=== PATIENT | female | born 1970 | race Caucasian/White ===

== ENCOUNTER → 2016-03-23 | Outpatient (CLI) | payer MEDICARE, MEDICAID, OTHER ==
[~2016-03-23] MED LIST: /DIVA50TA PO; ALIEVE PO; ASPI1TAB PO; BACL10TA2 OR; CITA40TA PO; CYCL7.5T2 PO; DEPA250T32 PO; DICL75TA PO; FURO40TA2 PO; GABA300C3 PO; HYDR-3719 PO; IBUP80TA PO; LISI-538 PO; LISI10TA4 OR; LODINE PO; MOBI15TA PO; MULTIVIT PO; OXYC10TA PO; OXYC1TAB23 PO; PANT40TA2 PO; PERC5TAB6 PO; PRED10TA PO; ROBA750T4 PO; SOMA350T PO; TIZA4CAP3 PO; TIZA4TAB OR; TRAM50TA2 OR; VICO5TAB PO; ZANT150T PO; ZOLO50TA PO; hydrocodone 10/325 PO; neurontin PO; oxycodone PO
== END ==
LOC: M PAIN 09:40
PROVIDERS: ATTEND Nurse Practitioner Family
DX: Z09 Encounter for follow-up examination after completed treatment for conditions other than malignant neoplasm (principal); G89.29 Other chronic pain; M51.24 Other intervertebral disc displacement, thoracic region; M79.1 Myalgia; G40.919 Epilepsy, unspecified, intractable, without status epilepticus; G43.909 Migraine, unspecified, not intractable, without status migrainosus; I10 Essential (primary) hypertension; R01.1 Cardiac murmur, unspecified; K21.9 Gastro-esophageal reflux disease without esophagitis; F41.9 Anxiety disorder, unspecified; Z91.030 Bee allergy status; L23.1 Allergic contact dermatitis due to adhesives; Z88.1 Allergy status to other antibiotic agents; Z79.891 Long term (current) use of opiate analgesic; Z79.82 Long term (current) use of aspirin; Z79.899 Other long term (current) drug therapy

== ENCOUNTER → 2016-04-18 | Outpatient (CLI) | payer MEDICARE, MEDICAID, OTHER ==
--- NOTE | 2016-05-03 01:40 | ECWPNPC ---
PATIENT NAME: TIMOTHY YOU : 1970 GENDER: FEMALE VISIT DATE: 04/18/2016 DISCHARGE DATE: 04/18/16 1024 VISIT LOCKED DATE TIME: PHYSICIAN: NANCY MEEHAN RESOURCE: NANCY MEEHAN REASON FOR APPOINTMENT 1. BACK/ MEDS HISTORY OF PRESENT ILLNESS HISTORY OF PRESENT ILLNESS: PAIN THE PATIENT DESCRIBES THE PAIN... FALL RISK SCREENING: SCREENING :NO FALLS IN THE PAST YEAR TODAY'S VISIT: NOTES: RATES PAIN TODAY 10/10. NOTES PAIN ACROSS THE MID AND LOW BACK, WELL IN THE RIGHT LEG. IS NOTING SWELLING IN LEFT HIP, AND OVER THE TOP OF THE LEFT FOOT. WILL BE SEEING DR LOONEY TODAY. . CURRENT MEDICATIONS TAKING PANTOPRAZOLE SODIUM 40 MG TABLET DELAYED RELEASE 1 TAB ORALLY ONCE DAILY TAKING FUROSEMIDE 20 MG TABLET 1 TABLET ORALLY ONCE A DAY TAKING NORTRIPTYLINE HCL 100 MG CAPSULE 1 CAPSULE ORALLY AT BEDTIME TAKING EPIPEN 2-HUMBERTO 0.3 MG/0.3ML DEVICE 1 INJECTION INJECTION NEEDED FOR BEE STING TAKING FREESTYLE TEST TEST STRIP STRIP 1 STRIP IN VITRO TO CHECK GLUCOSE UP TO TID (ICD9 251.2) TAKING MULTIVITAMINS CAPSULE 1 ORALLY DAILY TAKING ASPIR-LOW 81 MG TABLET DELAYED RELEASE 1 TABLET ORALLY ONCE A DAY TAKING DEPAKOTE 250 MG TABLET DELAYED RELEASE 1 TAB IN THE AM ORALLY AND 2 TABS IN THE PM-(NEURO) TAKING COLACE 100 MG CAPSULE 1 CAPSULE NEEDED ORALLY ONCE A DAY TAKING ATIVAN 0.5 MG TABLET 1 TABLET NEEDED ORALLY DAILY PRN MDD=1 TAKING VISTARIL 25 MG CAPSULE 1 CAPSULE ORALLY BID TAKING LISINOPRIL 20 MG TABLET 1 TABLET ORALLY ONCE A DAY TAKING PERCOCET 10-325 MG TABLET 1 TABLET NEEDED ORALLY BID PRN PAIN MDD=2 TAKING ZOLOFT 100 MG TABLET 2 TABLETS ORALLY ONCE A DAY NOT-TAKING PREDNISONE 10 MG TABLET 1 TABLET ORALLY TAKE 5 TAB DAILY X 2, 4 X 2 DAY, 3 X 2 DAY, 2X 2 DAY, 1X 2 DAYS, NOTES: 1 MONTH NOT-TAKING GABAPENTIN 300 MG CAPSULE 1 CAPSULE ORALLY THREE TIMES A DAY, NOTES: 2 MONTHS MEDICATION LIST REVIEWED AND RECONCILED WITH THE PATIENT PAST MEDICAL HISTORY SEIZURES BURSITIS LEFT HIP CHRONIC LOW BACK PAIN (PAIN CLINIC) ANXIETY MIGRAINE HEADACHES HEART MURMUR HTN CHRONIC MIGRAINE WITHOUT AURA, WITHOUT MENTION OF INTRACTABLE MIGRAINE WITHOUT MENTION OF STATUS MIGRAINOSUS ESOPHAGEAL REFLUX ANXIETY STATE, UNSPECIFIED UNSPECIFIED EPILEPSY WITHOUT MENTION OF INTRACTABLE EPILEPSY ALLERGIES BEE STING: SWELLING: ALLERGY BUSPAR: SEVERE HYPERACTIVITY/IRRITABILITY: ALLERGY PAPER TAPE: RASH: ALLERGY BACTRIM: NAUSEA/VOMITING: ALLERGY SOCIAL HISTORY GENERAL: TOBACCO USE ARE YOU A:NONSMOKER LEARNING BARRIERS / SPECIAL NEEDS ORIENTED TO PLAN OF CARE: PATIENT, PAIN MANAGEMENT PATIENT, ORIENTED TO PLAN OF CARE: PATIENT, PAIN MANAGEMENT PATIENT. NEW PATIENT PAIN DIARY TODAY'S VISITNOTES FROM 0-10, WHAT LEVEL IS YOUR PAIN TODAY?0 PAIN CLINIC PFS, CLERGY, PUBLIC HEALTH REFERRALS PFS REFERRAL NEEDED?NO CLERGY REFERRAL NEEDED?NO PUBLIC HEALTH REFERRAL NEEDED?NO WAS THE PROVIDER NOTIFIED OF ANY PERTINENT INFO?NO PFS REFERRAL NEEDED?NO CLERGY REFERRAL NEEDED?NO PUBLIC HEALTH REFERRAL NEEDED?NO WAS THE PROVIDER NOTIFIED OF ANY PERTINENT INFO?NO REVIEW OF SYSTEMS CONSTITUTIONAL: ANY CHANGE IN YOUR MEDICAL CONDITION? NO . CHILLS NO . FEVER NO . INFECTION: DO YOU HAVE NEW INFECTIONS? NO . DO YOU HAVE HISTORY OF MRSA? NO . MUSCULOSKELETAL: ANY NEW PATTERNS OF PAIN OR NUMBNESS? NO . GASTROENTEROLOGY: ANY NEW CHANGE IN BOWEL CONTROL? NO . GENITOURINARY: ANY NEW CHANGE IN BLADDER CONTROL? NO . IS THERE A CHANCE YOU COULD BE ? NO . HEMATOLOGY/LYMPH: DO YOU TAKE ANY BLOOD THINNERS? (FOR EXAMPLE- COUMADIN, PLAVIX, AGGRENOX, PLATEL, PRADAXA, OR XARELTO) NO . WHEN WAS YOUR LAST DOSE? DATE: TIME: . NEUROLOGY: HAVE YOU FALLEN IN THE PAST 6 MONTHS? NO . ANY NEW EXTREMITY NUMBNESS OR WEAKNESS? NO . CARDIOLOGY: DO YOU HAVE A PACEMAKER OR DEFIBRILLATOR? NO . PATIENT COMPLAINING OF CHEST PAIN LAST NIGHT. HAS HAD THIS BEFORE AND WAS GIVEN ATIC=VAN . RESPIRATORY: HAVE YOU BEEN SICK IN THE PAST WEEK? NO . FEVER NO . FLU LIKE SYMPTOMS? NO . COUGH NO . INTEGUMENTARY: DO YOU HAVE ANY RASHES OR OPEN SORES? NO . ALLERGIC/IMMUNO: ARE YOU ALLERGIC TO SHELLFISH OR IV DYE? NO . ANY NEW ALLERGIES? NO . PSYCHIATRIC: DO YOU HAVE THOUGHTS OF HURTING YOURSELF OR SOMEONE ELSE? NO . ARE YOU ABUSED, NEGLECTED, OR IN AN UNSAFE ENVIRONMENT? NO . ENDOCRINOLOGY: ARE YOU DIABETIC? NO . OTHER: DO YOU NEED ANY PRESCRIPTIONS? NO . IF YES, PLEASE LIST: ____ . ANY NEW PROBLEMS WITH YOUR MEDICATIONS? NO . WHEN DID YOU LAST EAT? ____ . WHEN DID YOU LAST DRINK? ____ . WHAT DID YOU LAST DRINK? ____ . NAME OF PERSON DRIVING YOU HOME? ____ . DO YOU HAVE ANY OTHER QUESTIONS OR CONCERNS NO . REVIEWED BY: PROVIDER: NANCY MAS . VITAL SIGNS WT 190.4 LBS, HT 60.75 IN, BMI 36.27 INDEX, BP 95/67 MM HG, HR 111 /MIN, RR 16 /MIN, TEMP 97.3 F, OXYGEN SAT % 99%, NA INITIALS SC 09:46, REVIEWED BY: CS. EXAMINATION GENERAL EXAMINATION: PSYCHALERT , ORIENTED X 3 , APPROPRIATE MOOD AND AFFECT APPEARS VERY UNCOMFORTABLE. LUNGS:CLEAR TO AUSCULTATION BILATERALLY. HEART:HEART RATE REGULAR. MUSCULOSKELETAL:POINT TENDERNESS OVER MID THORACIC SPINOUS PROCESSES. TRIGGER POINTS:, ELICITED WITH PALPATION OVER THORACIC AND LUMBAR PARAVERTEBRAL MUSCLES AND INTO THE SACRUM. RESTRICTION OF ROM IN THIS AREA. POINT TENDERNESS OVER RIGHT SIJ AND RIGHT TROCANTERIC BURSA. CAN WALK - RIGHT FOOT STIFF, MINIMAL TENDERNESS. 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 UTOX TODAY. WALK MUCH POSSIBLEPATIENT IS ANXIOUS TO MOVE FORWARD WITH DORSAL COLUMN STIMULATOR TRIAL. COMPLETED HER PSYCHOLOGICAL EVALUATION. WE ARE STILL AWAITING THE RETURN OF THE NOTES. CLINICAL NOTES: ISTOP REGISTRY REVIEWED AND DEMNOSTRATES COMPLLIANCE. BRINGS IN MEDICATIONS WHICH IS APPROPRIATE FOR WHAT WAS DISPENSED. RECENT URINE TOXICOLOGY REVIEWED. NO UNAUTHORIZED MEDICATIONS. NO ILLICIT SUBSTANCES AND PRESCRIBED MEDICATIONS WERE PRESENT. PROCEDURE CODES FA211 ESTABILISHED PATIENT [facility] FACILITY CHARGE G8730 PAIN ASSESS POS TOOL F/U PLAN DOC G8427 DOC MEDS VERIFIED W/PT OR RE DISPOSITION & COMMUNICATION FOLLOW UP NEEDS DATE WITH DR CHICHO MOYA TO DISCUSS DCS AND PSYCH EVAL ELECTRONICALLY SIGNED BY KATERIN ECHEVERRIA ON 05/02/2016 AT 02:29 PM EST DISCLAIMER : THIS IS A VISIT SUMMARY EXTRACTED FROM THE [employer] CHART. IT IS NOT A COPY OF THE [employer] PROGRESS NOTE. ELLA
== END ==
LOC: M PAIN 09:20
PROVIDERS: ATTEND Nurse Practitioner Family
DX: Z09 Encounter for follow-up examination after completed treatment for conditions other than malignant neoplasm (principal); G89.29 Other chronic pain; M51.24 Other intervertebral disc displacement, thoracic region; M79.1 Myalgia; I10 Essential (primary) hypertension; K21.9 Gastro-esophageal reflux disease without esophagitis; F41.9 Anxiety disorder, unspecified; G40.409 Other generalized epilepsy and epileptic syndromes, not intractable, without status epilepticus; G43.709 Chronic migraine without aura, not intractable, without status migrainosus; R92.8 Other abnormal and inconclusive findings on diagnostic imaging of breast; M46.97 Unspecified inflammatory spondylopathy, lumbosacral region; M70.72 Other bursitis of hip, left hip; M79.673 Pain in unspecified foot; M70.62 Trochanteric bursitis, left hip; M12.88 Other specific arthropathies, not elsewhere classified, other specified site; M47.816 Spondylosis without myelopathy or radiculopathy, lumbar region; M47.817 Spondylosis without myelopathy or radiculopathy, lumbosacral region; M51.14 Intervertebral disc disorders with radiculopathy, thoracic region; M46.96 Unspecified inflammatory spondylopathy, lumbar region; M51.16 Intervertebral disc disorders with radiculopathy, lumbar region; Z91.030 Bee allergy status; Z88.8 Allergy status to other drugs, medicaments and biological substances; L23.1 Allergic contact dermatitis due to adhesives; Z88.1 Allergy status to other antibiotic agents; Z79.891 Long term (current) use of opiate analgesic; Z79.82 Long term (current) use of aspirin; Z79.899 Other long term (current) drug therapy

== ENCOUNTER → 2016-04-25 | Outpatient (CLI) | payer MEDICARE, MEDICAID, OTHER ==
--- NOTE | 2016-05-05 00:19 | ECWPNPC ---
PATIENT NAME: TIMOTHY YOU : 1970 GENDER: FEMALE VISIT DATE: 04/25/2016 DISCHARGE DATE: 04/25/16 1351 VISIT LOCKED DATE TIME: PHYSICIAN: FLORESITA VALENTINO RESOURCE: FLORESITA VALENTINO REASON FOR APPOINTMENT 1. LOW BACK PAIN HISTORY OF PRESENT ILLNESS HISTORY OF PRESENT ILLNESS: PAIN THE PATIENT DESCRIBES THE PAIN... 45 YEAR OLD FEMALE PATIENT WITH HISTORY OF CHRONIC BACK PAIN. PATIENT DESCRIBES THE PAIN ACHING, SHARP, TENDER, SORE, SHOOTING, AND HAVING IT ALL THE TIME WITH A PAIN SCORE OF 10/10. PATIENT RECEIVED A PSYCHOLOGICAL EVALUATION FOR THE DCS TRIAL AND WOULD LIKE TO MOVE FORWARD WITH THE TRIAL SOON POSSIBLE. CURRENTLY THE PATIENT IS USING NORTRIPTYLINE AND PERCOCET AND STATES THAT IT DOES AID IN PAIN RELIEF. MRS. YOU STATES THAT HER PAIN INCREASES WITH ANY TYPE OF ACTIVITY AND THAT AT THIS TIME SHE HAS NOT FOUND RELIEF IN ANYTHING. PATIENT DENIES UNEXPLAINABLE WEIGHT LOSS, FEVER, CHILLS, NEW CHANGES ON HER URINARY OR BOWEL CONTROL. FALL RISK SCREENING: SCREENING :NO FALLS IN THE PAST YEAR CURRENT MEDICATIONS TAKING PANTOPRAZOLE SODIUM 40 MG TABLET DELAYED RELEASE 1 TAB ORALLY ONCE DAILY TAKING FUROSEMIDE 20 MG TABLET 1 TABLET ORALLY ONCE A DAY TAKING NORTRIPTYLINE HCL 100 MG CAPSULE 1 CAPSULE ORALLY AT BEDTIME TAKING EPIPEN 2-HUMBERTO 0.3 MG/0.3ML DEVICE 1 INJECTION INJECTION NEEDED FOR BEE STING TAKING FREESTYLE TEST TEST STRIP STRIP 1 STRIP IN VITRO TO CHECK GLUCOSE UP TO TID (ICD9 251.2) TAKING MULTIVITAMINS CAPSULE 1 ORALLY DAILY TAKING ASPIR-LOW 81 MG TABLET DELAYED RELEASE 1 TABLET ORALLY ONCE A DAY TAKING DEPAKOTE 250 MG TABLET DELAYED RELEASE 1 TAB IN THE AM ORALLY AND 2 TABS IN THE PM-(NEURO) TAKING COLACE 100 MG CAPSULE 1 CAPSULE NEEDED ORALLY ONCE A DAY TAKING ATIVAN 0.5 MG TABLET 1 TABLET NEEDED ORALLY DAILY PRN MDD=1 TAKING VISTARIL 25 MG CAPSULE 1 CAPSULE ORALLY BID TAKING LISINOPRIL 20 MG TABLET 1 TABLET ORALLY ONCE A DAY TAKING ZOLOFT 100 MG TABLET 1 1/2 TABLETS ORALLY ONCE A DAY TAKING PERCOCET 10-325 MG TABLET 1 TABLET NEEDED ORALLY BID PRN PAIN MDD=2 NOT-TAKING PREDNISONE 10 MG TABLET 1 TABLET ORALLY TAKE 5 TAB DAILY X 2, 4 X 2 DAY, 3 X 2 DAY, 2X 2 DAY, 1X 2 DAYS, NOTES: 1 MONTH NOT-TAKING GABAPENTIN 300 MG CAPSULE 1 CAPSULE ORALLY THREE TIMES A DAY, NOTES: 2 MONTHS MEDICATION LIST REVIEWED AND RECONCILED WITH THE PATIENT PAST MEDICAL HISTORY SEIZURES BURSITIS LEFT HIP CHRONIC LOW BACK PAIN (PAIN CLINIC) ANXIETY MIGRAINE HEADACHES HEART MURMUR HTN CHRONIC MIGRAINE WITHOUT AURA, WITHOUT MENTION OF INTRACTABLE MIGRAINE WITHOUT MENTION OF STATUS MIGRAINOSUS ESOPHAGEAL REFLUX ANXIETY STATE, UNSPECIFIED UNSPECIFIED EPILEPSY WITHOUT MENTION OF INTRACTABLE EPILEPSY ALLERGIES BEE STING: SWELLING: ALLERGY BUSPAR: SEVERE HYPERACTIVITY/IRRITABILITY: ALLERGY PAPER TAPE: RASH: ALLERGY BACTRIM: NAUSEA/VOMITING: ALLERGY SURGICAL HISTORY C-SECTIONS 1994, 1995 SHAYY AND BSO 1995 T&A CHILD KIDNEY SURGERY (? URETER REPAIR) 3 Y/O MEDIAN AND ULNAR NERVE REPAIRS BILATERAL APPENDECTOMY 2004 CHOLECYSTECTOMY 08/19/13 PLANTAR FASCITIS 09/05/2015 FAMILY HISTORY NO FAMILY HISTORY DOCUMENTED. SOCIAL HISTORY GENERAL: TOBACCO USE ARE YOU A:NONSMOKER LEARNING BARRIERS / SPECIAL NEEDS ORIENTED TO PLAN OF CARE: PATIENT, PAIN MANAGEMENT PATIENT, ORIENTED TO PLAN OF CARE: PATIENT, PAIN MANAGEMENT PATIENT. NEW PATIENT PAIN DIARY TODAY'S VISITNOTES FROM 0-10, WHAT LEVEL IS YOUR PAIN TODAY?0 PAIN CLINIC PFS, CLERGY, PUBLIC HEALTH REFERRALS PFS REFERRAL NEEDED?NO CLERGY REFERRAL NEEDED?NO PUBLIC HEALTH REFERRAL NEEDED?NO WAS THE PROVIDER NOTIFIED OF ANY PERTINENT INFO?NO PFS REFERRAL NEEDED?NO CLERGY REFERRAL NEEDED?NO PUBLIC HEALTH REFERRAL NEEDED?NO WAS THE PROVIDER NOTIFIED OF ANY PERTINENT INFO?NO HOSPITALIZATION/MAJOR DIAGNOSTIC PROCEDURE SURGERY RELATED CHILDBIRTH RELATED REVIEW OF SYSTEMS CONSTITUTIONAL: ANY CHANGE IN YOUR MEDICAL CONDITION? NO . CHILLS NO . FEVER NO . INFECTION: DO YOU HAVE NEW INFECTIONS? NO . DO YOU HAVE HISTORY OF MRSA? NO . MUSCULOSKELETAL: ANY NEW PATTERNS OF PAIN OR NUMBNESS? NO . GASTROENTEROLOGY: ANY NEW CHANGE IN BOWEL CONTROL? NO . GENITOURINARY: ANY NEW CHANGE IN BLADDER CONTROL? NO . IS THERE A CHANCE YOU COULD BE ? NO . HEMATOLOGY/LYMPH: DO YOU TAKE ANY BLOOD THINNERS? (FOR EXAMPLE- COUMADIN, PLAVIX, AGGRENOX, PLATEL, PRADAXA, OR XARELTO) NO . WHEN WAS YOUR LAST DOSE? DATE: TIME: . NEUROLOGY: HAVE YOU FALLEN IN THE PAST 6 MONTHS? NO . ANY NEW EXTREMITY NUMBNESS OR WEAKNESS? NO . CARDIOLOGY: DO YOU HAVE A PACEMAKER OR DEFIBRILLATOR? NO . RESPIRATORY: HAVE YOU BEEN SICK IN THE PAST WEEK? NO . FEVER NO . FLU LIKE SYMPTOMS? NO . COUGH NO . INTEGUMENTARY: DO YOU HAVE ANY RASHES OR OPEN SORES? NO . ALLERGIC/IMMUNO: ARE YOU ALLERGIC TO SHELLFISH OR IV DYE? NO . ANY NEW ALLERGIES? NO . PSYCHIATRIC: DO YOU HAVE THOUGHTS OF HURTING YOURSELF OR SOMEONE ELSE? NO . ARE YOU ABUSED, NEGLECTED, OR IN AN UNSAFE ENVIRONMENT? NO . ENDOCRINOLOGY: ARE YOU DIABETIC? NO . OTHER: DO YOU NEED ANY PRESCRIPTIONS? NO . IF YES, PLEASE LIST: ____ . ANY NEW PROBLEMS WITH YOUR MEDICATIONS? NO . WHEN DID YOU LAST EAT? ____ . WHEN DID YOU LAST DRINK? ____ . WHAT DID YOU LAST DRINK? ____ . NAME OF PERSON DRIVING YOU HOME? ____ . DO YOU HAVE ANY OTHER QUESTIONS OR CONCERNS NO . REVIEWED BY: PROVIDER: FLORESITA VALENTINO MD . VITAL SIGNS WT 193 LBS, HT 60.75 IN, BMI 36.76 INDEX, BP 109/76 MM HG, HR 83 /MIN, RR 16 /MIN, TEMP 98.5 F, OXYGEN SAT % 97%, NA INITIALS SC 11:44, REVIEWED BY: AD. EXAMINATION : PATIENT IS ALERT O X 3 AND COOPERATIVE. TENDERNESS IN THE LOWER BACK AND PARASPINAL MUSCLE GROUP. MRI DONE ON 12/26/15 SHOWS CANAL STENOSIS ALONG WITH A DISC PROTRUSION AT L3-L4 AND DISC BULGES AT L4-L5 AND L5-S1. ASSESSMENTS INTERVERTEBRAL DISC DISORDER WITH RADICULOPATHY OF LUMBAR REGION - M51.16 (PRIMARY) TREATMENT INTERVERTEBRAL DISC DISORDER WITH RADICULOPATHY OF LUMBAR REGION NOTES: WE DISCUSSED SEVERAL ISSUES WITH MRS. YOU'S PAIN MANAGEMENT CASE. AT THIS TIME THE PATIENT WILL CONTINUE WITH THE SAME MEDIATION REGIME BEFORE. PATIENT DENIES ABUSE OF ANY MEDICATION, DENIES USE OF ILLEGAL SUBSTANCES, AND STATES THAT SHE IS ONLY USING THE MEDICATION FOR PAIN MANAGEMENT. URINE TOXICOLOGY REPORT DONE ON 04/28/16 SHOWS CONSISTENT RESULTS. WE DISCUSSED THE PATIENTS PSYCHOLOGICAL EVALUATION FROM DR. TEIXEIRA, I WOULD LIKE THE PATIENT TO HAVE COUNSELING DONE BEFORE THE PERMANENT IS PLACED BASED ON THE REPORT. I WOULD ALSO LIKE THE PATIENT TO RECEIVE A LUMBAR EPIDURAL AT L3-L4 DUE TO THE NEW FINDING OF THE DISC PROTRUSION AFTER THE DCS TRIAL. WE DISCUSSED THE RISKS,M BENEFITS, AND ALTERNATIVES OF THE INJECTION AND THE PATIENT WOULD LIKE TO PROCEED. WE DISCUSSED IN DETAIL THAT THE TRIAL WAS MUCH MORE INVASIVE THEN THE DCS TRIAL AND THE PATIENT WAS ADDIMENT ABOUT MOVING FORWARD WITH THE DCS. I WOULD ALSO LIKE THE PATIENT TO HAVE A SURGICAL CONSULT AFTER THE TRIAL. INSTRUCTIONS WERE GIVEN, QUESTIONS WERE ANSWERED, PATIENT REPORTS UNDERSTANDING AND AGREES WITH THE PLAN. I, JAYLEN MANRIQUEZ, DOCUMENTED THE ABOVE INFORMATION ACTING A SCRIBE FOR DR. VALENTINO. I HAVE REVIEWED THE ABOVE DOCUMENT, WRITTEN BY JAYLEN PORRAS AND I VERIFY THAT IT IS ACCURATE. PROCEDURE CODES FA211 ESTABILISHED PATIENT [facility] FACILITY CHARGE G8427 DOC MEDS VERIFIED W/PT OR RE G8730 PAIN ASSESS POS TOOL F/U PLAN DOC DISPOSITION & COMMUNICATION FOLLOW UP LESI AFTER APPROVAL ELECTRONICALLY SIGNED BY FLORESITA VALENTINO MD ON 05/04/2016 AT 06:51 AM EST DISCLAIMER : THIS IS A VISIT SUMMARY EXTRACTED FROM THE [employer] CHART. IT IS NOT A COPY OF THE [employer] PROGRESS NOTE. ELLA
== END ==
LOC: M PAIN 11:40
PROVIDERS: ATTEND Anesthesiology
DX: Z09 Encounter for follow-up examination after completed treatment for conditions other than malignant neoplasm (principal); G89.29 Other chronic pain; M51.16 Intervertebral disc disorders with radiculopathy, lumbar region; I10 Essential (primary) hypertension; G43.709 Chronic migraine without aura, not intractable, without status migrainosus; K21.9 Gastro-esophageal reflux disease without esophagitis; F41.9 Anxiety disorder, unspecified; M79.1 Myalgia; G40.409 Other generalized epilepsy and epileptic syndromes, not intractable, without status epilepticus; M51.14 Intervertebral disc disorders with radiculopathy, thoracic region; M51.24 Other intervertebral disc displacement, thoracic region; M70.62 Trochanteric bursitis, left hip; M46.97 Unspecified inflammatory spondylopathy, lumbosacral region; M47.816 Spondylosis without myelopathy or radiculopathy, lumbar region; M47.817 Spondylosis without myelopathy or radiculopathy, lumbosacral region; M46.96 Unspecified inflammatory spondylopathy, lumbar region; M12.88 Other specific arthropathies, not elsewhere classified, other specified site; Z91.030 Bee allergy status; Z88.8 Allergy status to other drugs, medicaments and biological substances; L23.89 Allergic contact dermatitis due to other agents; Z79.82 Long term (current) use of aspirin; Z79.891 Long term (current) use of opiate analgesic; Z79.899 Other long term (current) drug therapy

== ENCOUNTER → 2016-05-17 | Outpatient (CLI) | payer MEDICARE, MEDICAID, OTHER ==
--- NOTE | 2016-05-26 23:32 | ECWPNPC ---
PATIENT NAME: TIMOTHY YOU : 1970 GENDER: FEMALE VISIT DATE: 05/17/2016 DISCHARGE DATE: 05/17/16 1151 VISIT LOCKED DATE TIME: PHYSICIAN: FLORESITA VALENTINO RESOURCE: FLORESITA VALENTINO REASON FOR APPOINTMENT 1. LOW BACK HISTORY OF PRESENT ILLNESS HISTORY OF PRESENT ILLNESS: PAIN THE PATIENT DESCRIBES THE PAIN... 45 YEAR OLD FEMALE PATIENT WITH HISTORY OF CHRONIC BACK PAIN. PATIENT DESCRIBES THE PAIN ACHING, TENDER, SORE, SHARP, AND HAVING IT ALL THE TIME WITH A PAIN SCORE OF 10/10 ON TODAY'S VISIT. PATIENT STATES THAT SHE HAS DIFFICULTIES GOING TO SLEEPING AND STAYING ASLEEP DUE TO THE PAIN IN HER BACK. PATIENT STATES THAT SHE CONSTANTLY HAS RADIATING PAIN DOWN BOTH LEGS. PATIENT STATES THAT SHE WOULD LIKE TO CONTINUE WITH THE DCS TRIAL SOON POSSIBLE. CURRENTLY THE PATIENT IS USING NORTRIPTYLINE AND PERCOCET AND STATES THAT IT DOES AID IN PAIN RELIEF. MRS. YOU STATES THAT HER PAIN INCREASES WITH ANY TYPE OF ACTIVITY. PATIENT DENIES UNEXPLAINABLE WEIGHT LOSS, FEVER, CHILLS, NEW CHANGES ON HER URINARY OR BOWEL CONTROL. FALL RISK SCREENING: SCREENING :NO FALLS IN THE PAST YEAR CURRENT MEDICATIONS TAKING PANTOPRAZOLE SODIUM 40 MG TABLET DELAYED RELEASE 1 TAB ORALLY ONCE DAILY TAKING FUROSEMIDE 20 MG TABLET 1 TABLET ORALLY ONCE A DAY TAKING NORTRIPTYLINE HCL 100 MG CAPSULE 1 CAPSULE ORALLY AT BEDTIME TAKING EPIPEN 2-HUMBERTO 0.3 MG/0.3ML DEVICE 1 INJECTION INJECTION NEEDED FOR BEE STING TAKING FREESTYLE TEST TEST STRIP STRIP 1 STRIP IN VITRO TO CHECK GLUCOSE UP TO TID (ICD9 251.2) TAKING MULTIVITAMINS CAPSULE 1 ORALLY DAILY TAKING ASPIR-LOW 81 MG TABLET DELAYED RELEASE 1 TABLET ORALLY ONCE A DAY TAKING DEPAKOTE 250 MG TABLET DELAYED RELEASE 2 ORALLY BID TAKING COLACE 100 MG CAPSULE 1 CAPSULE NEEDED ORALLY ONCE A DAY TAKING ATIVAN 0.5 MG TABLET 1 TABLET NEEDED ORALLY DAILY PRN MDD=1 TAKING VISTARIL 25 MG CAPSULE 1 CAPSULE ORALLY BID TAKING LISINOPRIL 20 MG TABLET 1 TABLET ORALLY ONCE A DAY TAKING ZOLOFT 100 MG TABLET 1 1/2 TABLETS ORALLY ONCE A DAY TAKING PERCOCET 10-325 MG TABLET 1 TABLET NEEDED ORALLY BID PRN PAIN MDD=2 NOT-TAKING PREDNISONE 10 MG TABLET 1 TABLET ORALLY TAKE 5 TAB DAILY X 2, 4 X 2 DAY, 3 X 2 DAY, 2X 2 DAY, 1X 2 DAYS, NOTES: 1 MONTH NOT-TAKING GABAPENTIN 300 MG CAPSULE 1 CAPSULE ORALLY THREE TIMES A DAY, NOTES: 2 MONTHS MEDICATION LIST REVIEWED AND RECONCILED WITH THE PATIENT PAST MEDICAL HISTORY SEIZURES BURSITIS LEFT HIP CHRONIC LOW BACK PAIN (PAIN CLINIC) ANXIETY MIGRAINE HEADACHES HEART MURMUR HTN CHRONIC MIGRAINE WITHOUT AURA, WITHOUT MENTION OF INTRACTABLE MIGRAINE WITHOUT MENTION OF STATUS MIGRAINOSUS ESOPHAGEAL REFLUX ANXIETY STATE, UNSPECIFIED UNSPECIFIED EPILEPSY WITHOUT MENTION OF INTRACTABLE EPILEPSY ALLERGIES BEE STING: SWELLING: ALLERGY BUSPAR: SEVERE HYPERACTIVITY/IRRITABILITY: ALLERGY PAPER TAPE: RASH: ALLERGY BACTRIM: SEVERE HYPER ACTIVITY/ IRRITABLE: ALLERGY WELLBUTRIN SURGICAL HISTORY C-SECTIONS 1994, 1995 SHAYY AND BSO 1995 T&A CHILD KIDNEY SURGERY (? URETER REPAIR) 3 Y/O MEDIAN AND ULNAR NERVE REPAIRS BILATERAL APPENDECTOMY 2004 CHOLECYSTECTOMY 08/19/13 PLANTAR FASCITIS 09/05/2015 FAMILY HISTORY NO FAMILY HISTORY DOCUMENTED. SOCIAL HISTORY GENERAL: TOBACCO USE ARE YOU A:NONSMOKER LEARNING BARRIERS / SPECIAL NEEDS ORIENTED TO PLAN OF CARE: PATIENT, PAIN MANAGEMENT PATIENT, ORIENTED TO PLAN OF CARE: PATIENT, PAIN MANAGEMENT PATIENT. NEW PATIENT PAIN DIARY TODAY'S VISITNOTES FROM 0-10, WHAT LEVEL IS YOUR PAIN TODAY?0 PAIN CLINIC PFS, CLERGY, PUBLIC HEALTH REFERRALS PFS REFERRAL NEEDED?NO CLERGY REFERRAL NEEDED?NO PUBLIC HEALTH REFERRAL NEEDED?NO WAS THE PROVIDER NOTIFIED OF ANY PERTINENT INFO?NO PFS REFERRAL NEEDED?NO CLERGY REFERRAL NEEDED?NO PUBLIC HEALTH REFERRAL NEEDED?NO WAS THE PROVIDER NOTIFIED OF ANY PERTINENT INFO?NO HOSPITALIZATION/MAJOR DIAGNOSTIC PROCEDURE SURGERY RELATED CHILDBIRTH RELATED REVIEW OF SYSTEMS CONSTITUTIONAL: ANY CHANGE IN YOUR MEDICAL CONDITION? NO . CHILLS NO . FEVER NO . INFECTION: DO YOU HAVE NEW INFECTIONS? NO . DO YOU HAVE HISTORY OF MRSA? NO . MUSCULOSKELETAL: ANY NEW PATTERNS OF PAIN OR NUMBNESS? NO . GASTROENTEROLOGY: ANY NEW CHANGE IN BOWEL CONTROL? NO . GENITOURINARY: ANY NEW CHANGE IN BLADDER CONTROL? NO . IS THERE A CHANCE YOU COULD BE ? NO . HEMATOLOGY/LYMPH: DO YOU TAKE ANY BLOOD THINNERS? (FOR EXAMPLE- COUMADIN, PLAVIX, AGGRENOX, PLATEL, PRADAXA, OR XARELTO) NO . WHEN WAS YOUR LAST DOSE? DATE: TIME: . NEUROLOGY: HAVE YOU FALLEN IN THE PAST 6 MONTHS? NO . ANY NEW EXTREMITY NUMBNESS OR WEAKNESS? NO . CARDIOLOGY: DO YOU HAVE A PACEMAKER OR DEFIBRILLATOR? NO . RESPIRATORY: HAVE YOU BEEN SICK IN THE PAST WEEK? NO . FEVER NO . FLU LIKE SYMPTOMS? NO . COUGH NO . INTEGUMENTARY: DO YOU HAVE ANY RASHES OR OPEN SORES? NO . ALLERGIC/IMMUNO: ARE YOU ALLERGIC TO SHELLFISH OR IV DYE? NO . ANY NEW ALLERGIES? NO . PSYCHIATRIC: DO YOU HAVE THOUGHTS OF HURTING YOURSELF OR SOMEONE ELSE? NO . ARE YOU ABUSED, NEGLECTED, OR IN AN UNSAFE ENVIRONMENT? NO . ENDOCRINOLOGY: ARE YOU DIABETIC? NO . OTHER: DO YOU NEED ANY PRESCRIPTIONS? NO . IF YES, PLEASE LIST: ____ . ANY NEW PROBLEMS WITH YOUR MEDICATIONS? NO . WHEN DID YOU LAST EAT? ____ . WHEN DID YOU LAST DRINK? ____ . WHAT DID YOU LAST DRINK? ____ . NAME OF PERSON DRIVING YOU HOME? ____ . DO YOU HAVE ANY OTHER QUESTIONS OR CONCERNS NO . REVIEWED BY: PROVIDER: FLORESITA VALENTINO MD . VITAL SIGNS WT 193 LBS, HT 60.75 IN, BMI 36.76 INDEX, BP 140/73 MM HG, HR 84 /MIN, RR 16 /MIN, TEMP 98.6 F, OXYGEN SAT % 98, NA INITIALS TL 0914. EXAMINATION : PATIENT IS ALERT O X 3 AND COOPERATIVE. TENDERNESS IN THE LOWER BACK AND PARASPINAL MUSCLE GROUP. MRI DONE ON 12/26/15 SHOWS CANAL STENOSIS ALONG WITH A DISC PROTRUSION AT L3-L4 AND DISC BULGES AT L4-L5 AND L5-S1. ASSESSMENTS INTERVERTEBRAL DISC DISORDERS WITH RADICULOPATHY, LUMBAR REGION - M51.16 (PRIMARY) INTERVERTEBRAL DISC DISORDERS WITH RADICULOPATHY, LUMBOSACRAL REGION - M51.17 TREATMENT INTERVERTEBRAL DISC DISORDERS WITH RADICULOPATHY, LUMBAR REGION NOTES: WE DISCUSSED SEVERAL ISSUES WITH MRS. YOU'S PAIN MANAGEMENT CASE. AT THIS TIME THE PATIENT WILL CONTINUE WITH THE SAME MEDIATION REGIME BEFORE. PATIENT DENIES ABUSE OF ANY MEDICATION, DENIES USE OF ILLEGAL SUBSTANCES, AND STATES THAT SHE IS ONLY USING THE MEDICATION FOR PAIN MANAGEMENT. UTOX ORDERED ON 04/28/2016 SHOWS CONSISTENT RESULTS. WE DISCUSSED IN DETAIL ABOUT THE PSYCHOLOGICAL EVALUATION FROM DR. TEIXEIRA, I WOULD LIKE THE PATIENT TO HAVE COUNSELING DONE BEFORE THE PERMANENT IS PLACED BASED ON THE REPORT. INFORMED THE PATIENT AT THIS TIME I WILL HOLD OFF ON THE EPIDURAL IF THERE IS A POSSIBILITY THAT SHE MAY HAVE THE DCS TRIAL IN THE NEXT FEW WEEKS. I WOULD ALSO LIKE THE PATIENT TO HAVE A SURGICAL CONSULT AFTER THE TRIAL. INSTRUCTIONS WERE GIVEN, QUESTIONS WERE ANSWERED, PATIENT REPORTS UNDERSTANDING AND AGREES WITH THE PLAN. I, LEE ANN SALAS, DOCUMENTED THE ABOVE INFORMATION ACTING A SCRIBE FOR DR. VALENTINO. I HAVE REVIEWED THE ABOVE DOCUMENT, WRITTEN BY LEE ANN SALAS SCRIBE AND I VERIFY THAT IT IS ACCURATE. OTHERS REFILL PERCOCET TABLET, 10-325 MG, 1 TABLET NEEDED, ORALLY, BID PRN PAIN MDD=2, 30 DAY(S), 60, REFILLS 0 PROCEDURE CODES FA211 ESTABILISHED PATIENT [facility] FACILITY CHARGE G8730 PAIN ASSESS POS TOOL F/U PLAN DOC G8427 DOC MEDS VERIFIED W/PT OR RE DISPOSITION & COMMUNICATION FOLLOW UP 2 WEEKS ELECTRONICALLY SIGNED BY FLORESITA VALENTION MD ON 05/26/2016 AT 08:35 PM EDT DISCLAIMER : THIS IS A VISIT SUMMARY EXTRACTED FROM THE [employer] CHART. IT IS NOT A COPY OF THE [email or web address] PROGRESS NOTE. MTDD
== END ==
LOC: M PAIN 09:40
PROVIDERS: ATTEND Anesthesiology
DX: Z09 Encounter for follow-up examination after completed treatment for conditions other than malignant neoplasm (principal); G89.29 Other chronic pain; M51.16 Intervertebral disc disorders with radiculopathy, lumbar region; M51.17 Intervertebral disc disorders with radiculopathy, lumbosacral region; G40.909 Epilepsy, unspecified, not intractable, without status epilepticus; F41.9 Anxiety disorder, unspecified; G43.909 Migraine, unspecified, not intractable, without status migrainosus; I10 Essential (primary) hypertension; K21.9 Gastro-esophageal reflux disease without esophagitis; Z91.030 Bee allergy status; L23.1 Allergic contact dermatitis due to adhesives; Z88.1 Allergy status to other antibiotic agents; Z88.8 Allergy status to other drugs, medicaments and biological substances; Z79.82 Long term (current) use of aspirin; Z79.899 Other long term (current) drug therapy

== ENCOUNTER → 2016-05-31 | Outpatient (CLI) | payer MEDICARE, MEDICAID, OTHER ==
[~2016-05-31] MED LIST changes: +PAME50CA PO
--- NOTE | 2016-06-04 23:28 | ECWPNPC ---
PATIENT NAME: TIMOTHY YOU : 1970 GENDER: FEMALE VISIT DATE: 05/31/2016 DISCHARGE DATE: 05/31/16 1718 VISIT LOCKED DATE TIME: PHYSICIAN: FLORESITA VALENTINO RESOURCE: FLORESITA VALENTINO REASON FOR APPOINTMENT 1. LOW BACK PAIN HISTORY OF PRESENT ILLNESS HISTORY OF PRESENT ILLNESS: PAIN THE PATIENT DESCRIBES THE PAIN... 45 YEAR OLD FEMALE PATIENT WITH HISTORY OF CHRONIC BACK PAIN. PATIENT DESCRIBES THE PAIN ACHING, TENDER, SORE, SHARP, AND HAVING IT ALL THE TIME WITH A PAIN SCORE OF 10/10 ON TODAY'S VISIT. PATIENT STATES THAT SHE HAS DIFFICULTIES GOING TO SLEEPING AND STAYING ASLEEP DUE TO THE PAIN IN HER BACK. PATIENT STATES THAT SHE CONSTANTLY HAS RADIATING PAIN DOWN BOTH LEGS. PATIENT WILL RECEIVE THE DCS TRIAL ON 06/04/16 DUE TO CANCELLATIONS. CURRENTLY THE PATIENT IS USING NORTRIPTYLINE AND PERCOCET AND STATES THAT IT DOES AID IN PAIN RELIEF. MRS. YOU STATES THAT HER PAIN INCREASES WITH ANY TYPE OF ACTIVITY. PATIENT DENIES UNEXPLAINABLE WEIGHT LOSS, FEVER, CHILLS, NEW CHANGES ON HER URINARY OR BOWEL CONTROL. FALL RISK SCREENING: SCREENING :NO FALLS IN THE PAST YEAR CURRENT MEDICATIONS TAKING PERCOCET 10-325 MG TABLET 1 TABLET NEEDED ORALLY BID PRN PAIN MDD=2 TAKING NORTRIPTYLINE HCL 100 MG CAPSULE 1 CAPSULE ORALLY AT BEDTIME TAKING EPIPEN 2-HUMBERTO 0.3 MG/0.3ML DEVICE 1 INJECTION INJECTION NEEDED FOR BEE STING TAKING FREESTYLE TEST TEST STRIP STRIP 1 STRIP IN VITRO TO CHECK GLUCOSE UP TO TID (ICD9 251.2) TAKING MULTIVITAMINS CAPSULE 1 ORALLY DAILY TAKING ASPIR-LOW 81 MG TABLET DELAYED RELEASE 1 TABLET ORALLY ONCE A DAY TAKING DEPAKOTE 250 MG TABLET DELAYED RELEASE 2 ORALLY BID TAKING COLACE 100 MG CAPSULE 1 CAPSULE NEEDED ORALLY ONCE A DAY TAKING ATIVAN 0.5 MG TABLET 1 TABLET NEEDED ORALLY DAILY PRN MDD=1 TAKING ZOLOFT 100 MG TABLET 1 1/2 TABLETS ORALLY ONCE A DAY TAKING LISINOPRIL 20 MG TABLET 1 TABLET ORALLY ONCE A DAY TAKING VISTARIL 25 MG CAPSULE 1 CAPSULE ORALLY BID TAKING FUROSEMIDE 20 MG TABLET 1 TABLET ORALLY ONCE A DAY TAKING PANTOPRAZOLE SODIUM 40 MG TABLET DELAYED RELEASE 1 TAB ORALLY ONCE DAILY NOT-TAKING PREDNISONE 10 MG TABLET 1 TABLET ORALLY TAKE 5 TAB DAILY X 2, 4 X 2 DAY, 3 X 2 DAY, 2X 2 DAY, 1X 2 DAYS, NOTES: 1 MONTH NOT-TAKING GABAPENTIN 300 MG CAPSULE 1 CAPSULE ORALLY THREE TIMES A DAY, NOTES: 2 MONTHS MEDICATION LIST REVIEWED AND RECONCILED WITH THE PATIENT PAST MEDICAL HISTORY SEIZURES BURSITIS LEFT HIP CHRONIC LOW BACK PAIN (PAIN CLINIC) ANXIETY MIGRAINE HEADACHES HEART MURMUR HTN CHRONIC MIGRAINE WITHOUT AURA, WITHOUT MENTION OF INTRACTABLE MIGRAINE WITHOUT MENTION OF STATUS MIGRAINOSUS ESOPHAGEAL REFLUX ANXIETY STATE, UNSPECIFIED UNSPECIFIED EPILEPSY WITHOUT MENTION OF INTRACTABLE EPILEPSY ALLERGIES BEE STING: SWELLING: ALLERGY BUSPAR: SEVERE HYPERACTIVITY/IRRITABILITY: ALLERGY PAPER TAPE: RASH: ALLERGY BACTRIM: SEVERE HYPER ACTIVITY/ IRRITABLE: ALLERGY WELLBUTRIN SURGICAL HISTORY C-SECTIONS 1994, 1995 SHAYY AND BSO 1995 T&A CHILD KIDNEY SURGERY (? URETER REPAIR) 3 Y/O MEDIAN AND ULNAR NERVE REPAIRS BILATERAL APPENDECTOMY 2004 CHOLECYSTECTOMY 08/19/13 PLANTAR FASCITIS 09/05/2015 FAMILY HISTORY NO FAMILY HISTORY DOCUMENTED. SOCIAL HISTORY GENERAL: TOBACCO USE ARE YOU A:NONSMOKER LEARNING BARRIERS / SPECIAL NEEDS ORIENTED TO PLAN OF CARE: PATIENT, PAIN MANAGEMENT PATIENT, ORIENTED TO PLAN OF CARE: PATIENT, PAIN MANAGEMENT PATIENT. NEW PATIENT PAIN DIARY TODAY'S VISITNOTES FROM 0-10, WHAT LEVEL IS YOUR PAIN TODAY?0 PAIN CLINIC PFS, CLERGY, PUBLIC HEALTH REFERRALS PFS REFERRAL NEEDED?NO CLERGY REFERRAL NEEDED?NO PUBLIC HEALTH REFERRAL NEEDED?NO WAS THE PROVIDER NOTIFIED OF ANY PERTINENT INFO?NO PFS REFERRAL NEEDED?NO CLERGY REFERRAL NEEDED?NO PUBLIC HEALTH REFERRAL NEEDED?NO WAS THE PROVIDER NOTIFIED OF ANY PERTINENT INFO?NO HOSPITALIZATION/MAJOR DIAGNOSTIC PROCEDURE SURGERY RELATED CHILDBIRTH RELATED REVIEW OF SYSTEMS CONSTITUTIONAL: ANY CHANGE IN YOUR MEDICAL CONDITION? NO . CHILLS NO . FEVER NO . INFECTION: DO YOU HAVE NEW INFECTIONS? NO . DO YOU HAVE HISTORY OF MRSA? NO . MUSCULOSKELETAL: ANY NEW PATTERNS OF PAIN OR NUMBNESS? NO . GASTROENTEROLOGY: ANY NEW CHANGE IN BOWEL CONTROL? NO . GENITOURINARY: ANY NEW CHANGE IN BLADDER CONTROL? NO . IS THERE A CHANCE YOU COULD BE ? NO . HEMATOLOGY/LYMPH: DO YOU TAKE ANY BLOOD THINNERS? (FOR EXAMPLE- COUMADIN, PLAVIX, AGGRENOX, PLATEL, PRADAXA, OR XARELTO) NO . WHEN WAS YOUR LAST DOSE? DATE: TIME: . NEUROLOGY: HAVE YOU FALLEN IN THE PAST 6 MONTHS? NO . ANY NEW EXTREMITY NUMBNESS OR WEAKNESS? NO . CARDIOLOGY: DO YOU HAVE A PACEMAKER OR DEFIBRILLATOR? NO . RESPIRATORY: HAVE YOU BEEN SICK IN THE PAST WEEK? NO . FEVER NO . FLU LIKE SYMPTOMS? NO . COUGH NO . INTEGUMENTARY: DO YOU HAVE ANY RASHES OR OPEN SORES? NO . ALLERGIC/IMMUNO: ARE YOU ALLERGIC TO SHELLFISH OR IV DYE? NO . ANY NEW ALLERGIES? NO . PSYCHIATRIC: DO YOU HAVE THOUGHTS OF HURTING YOURSELF OR SOMEONE ELSE? NO . ARE YOU ABUSED, NEGLECTED, OR IN AN UNSAFE ENVIRONMENT? NO . ENDOCRINOLOGY: ARE YOU DIABETIC? NO . OTHER: DO YOU NEED ANY PRESCRIPTIONS? NO . IF YES, PLEASE LIST: ____ . ANY NEW PROBLEMS WITH YOUR MEDICATIONS? NO . WHEN DID YOU LAST EAT? ____ . WHEN DID YOU LAST DRINK? ____ . WHAT DID YOU LAST DRINK? ____ . NAME OF PERSON DRIVING YOU HOME? ____ . DO YOU HAVE ANY OTHER QUESTIONS OR CONCERNS NO . REVIEWED BY: PROVIDER: FLORESITA VALENTINO MD . VITAL SIGNS WT 193 LBS, HT 60.75 IN, BMI 36.76 INDEX, BP 111/71 MM HG, HR 97 /MIN, RR 16 /MIN, TEMP 97.9 F, OXYGEN SAT % 97%, NA INITIALS SC 15:58, REVIEWED BY: KG. EXAMINATION : PATIENT IS ALERT O X 3 AND COOPERATIVE. TENDERNESS IN THE LOWER BACK AND PARASPINAL MUSCLE GROUP. MRI DONE ON 12/26/15 SHOWS CANAL STENOSIS ALONG WITH A DISC PROTRUSION AT L3-L4 AND DISC BULGES AT L4-L5 AND L5-S1. ASSESSMENTS INTERVERTEBRAL DISC DISORDERS WITH RADICULOPATHY, LUMBAR REGION - M51.16 (PRIMARY) INTERVERTEBRAL DISC DISORDERS WITH RADICULOPATHY, LUMBOSACRAL REGION - M51.17 TREATMENT INTERVERTEBRAL DISC DISORDERS WITH RADICULOPATHY, LUMBAR REGION NOTES: WE DISCUSSED SEVERAL ISSUES WITH MRS. YOU'S PAIN MANAGEMENT CASE. AT THIS TIME THE PATIENT IS AWARE SHE WILL NEED TO DISCONTINUE HER PAIN MEDICATION TO HAVE AN ACCURATE TRIAL. PATIENT WILL START THE KEFLEX AFTER RETURNING HOME FROM THE HOSPITAL. PATIENT IS AWARE SHE WILL HAVE A LEAD PULL DONE THE FOLLOWING SATURDAY AND WE WILL DISCUSS HOW WELL THE DCS WORKED FOR HER PAIN RELIEF. WE DISCUSSED THE RISKS, BENENFITS, AND ALTNERATIVES OF THE INJECTION AND THE PATIENT WOULD LIKE TO PROCEED AT THIS TIME. INSTRUCTIONS WERE GIVEN, QUESTIONS WERE ANSWERED, PATIENT REPORTS UNDERSTANDING AND AGREES WITH THE PLAN. I, JAYLEN MANRIQUEZ, DOCUMENTED THE ABOVE INFORMATION ACTING A SCRIBE FOR DR. VALENTINO. I HAVE REVIEWED THE ABOVE DOCUMENT, WRITTEN BY JAYLEN BROWNIBJax AND I VERIFY THAT IT IS ACCURATE. OTHERS START KEFLEX CAPSULE, 500 MG, 1 CAPSULE, ORALLY, THREE TIMES DAILY, 10 DAY(S), 30, REFILLS 0 PROCEDURE CODES FA211 ESTABILISHED PATIENT [facility] CHARGE G8427 DOC MEDS VERIFIED W/PT OR RE G8730 PAIN ASSESS POS TOOL F/U PLAN DOC DISPOSITION & COMMUNICATION FOLLOW UP DCS- LEAD PULL 5 DAYS AFTER ELECTRONICALLY SIGNED BY FLORESITA VALENTINO MD ON 06/04/2016 AT 06:04 PM EDT DISCLAIMER : THIS IS A VISIT SUMMARY EXTRACTED FROM THE [employer] CHART. IT IS NOT A COPY OF THE [employer] PROGRESS NOTE. MTDD
== END ==
LOC: M PAIN 16:00
PROVIDERS: ATTEND Anesthesiology
DX: Z09 Encounter for follow-up examination after completed treatment for conditions other than malignant neoplasm (principal); G89.29 Other chronic pain; M51.16 Intervertebral disc disorders with radiculopathy, lumbar region; M51.17 Intervertebral disc disorders with radiculopathy, lumbosacral region; G40.909 Epilepsy, unspecified, not intractable, without status epilepticus; F41.9 Anxiety disorder, unspecified; G43.909 Migraine, unspecified, not intractable, without status migrainosus; I10 Essential (primary) hypertension; K21.9 Gastro-esophageal reflux disease without esophagitis; Z91.030 Bee allergy status; Z88.8 Allergy status to other drugs, medicaments and biological substances; Z88.3 Allergy status to other anti-infective agents; Z91.048 Other nonmedicinal substance allergy status; Z79.82 Long term (current) use of aspirin; Z79.899 Other long term (current) drug therapy

== ENCOUNTER 2016-06-04 09:56 | Day surgery (SDC) | payer MEDICARE ==
[~2016-06-04] VITALS: Ht 154.9 cm; Wt 81.8 kg
[~2016-06-04 09:56] MED LIST changes: +GABA-282 PO; -GABA300C3 PO; -PAME50CA PO
[2016-06-04] MEDS ORDERED: LR 1,000 ML IV SCH ×2 (10:15→15:15)
[2016-06-04] MEDS ORDERED: ceFAZolin SOD 1 GM in D5W MINI-BAG PLUS 50 ML IV ONE (10:15)
[2016-06-04] MEDS ORDERED: PROPOFOL 200 MG/20 ML VIAL As Ordered ONE (12:10)
[2016-06-04] MEDS ORDERED: LIDOCAINE 2% INJ 100 MG/5 ML SDV (FOR ANES.) As Ordered ONE (12:10)
[2016-06-04] MEDS ORDERED: MIDAZOLAM INJ 2 MG/2 ML VIAL (J2250) As Ordered ONE (12:11)
[2016-06-04] MEDS ORDERED: fentaNYL 100 MCG/2 ML INJECTION (J3010) As Ordered ONE (12:11)
[2016-06-04] MEDS: LIDOCAINE W/EPINEPHRINE 1% 20ML VIAL As Ordered ONE ×2 (13:26→13:33)
[2016-06-04] MEDS ORDERED: PERCOCET 5MG/325MG TAB PO PRN (15:15)
[2016-06-04] MEDS ORDERED: fentaNYL 100 MCG/2 ML INJECTION (J3010) IV PRN (15:15)
[2016-06-04] MEDS ORDERED: ONDANSETRON 4MG/2ML VIAL (J2405) IV PRN (15:15)
[2016-06-04 16:00] VITALS: BP 137/87
[2016-06-04 16:30] VITALS: BP 140/81
[2016-06-04] MEDS: GABAPENTIN 300 MG CAP PO SCH ×2 (16:31→21:09)
[2016-06-04] MEDS ORDERED: PAME50CA PO (16:56)
--- NOTE | 2016-06-04 16:57 | REP ---
FLUOROSCOPIC GUIDANCE FOR DORSAL COLUMN STIMULATOR PLACEMENT: 06/04/2016: Clinical history: Back pain. Technique: Four images from C-arm fluoroscopy provided to Dr. Juan of the pain clinic for dorsal column stimulator placement. The tips of the two stimulator leads are noted at the T5-6 disc level in the dorsal space of the neural canal. Fluoroscopy time: 2 minutes 49 seconds. Signed by Donald Crocker MD 06/04/2016 05:50 P
[2016-06-04] MEDS: ceFAZolin SOD 1 GM in D5W MINI-BAG PLUS 50 ML IV SCH (17:11)
[2016-06-04 17:30] VITALS: BP 120/71
[2016-06-04] MEDS: oxyCODONE 5MG TAB PO PRN ×2 (17:48→22:24)
[2016-06-04] MEDS ORDERED: DIVALPROEX 500 MG TAB PO ONE (18:00)
[2016-06-04 18:30] VITALS: BP 123/81
--- NOTE | 2016-06-04 18:53 | CR.PDOC ---
[facility] Consultation Consultation DATE OF CONSULTATION: Jun 04, 2016 at 09:56 PRIMARY CARE PHYSICIAN: REFERRING PROVIDER: Dash Frias M.D. ATTENDING PHYSICIAN: Dr. Juan REASON FOR CONSULTATION/CHIEF COMPLAINT: . Medical comanagement HISTORY OF PRESENT ILLNESS: . 45-year-old female with past medical history of hypertension, seizure disorder, GERD, anxiety, and chronic pain. The patient is status post dorsal spinal column stimulator trial therapy with Dr. Juan. The hospitalist team was consulted for medical management of the patient's chronic medical comorbidities. At this time the patient states that her pain is relatively well controlled and she denies any acute complaints of fevers, chills, shortness of breath, chest pain, palpitations, abdominal pain, or any nausea/vomiting/ diarrhea. ALLERGIES: Please see below. HOME MEDICATIONS: Please see below. PAST MEDICAL HISTORY: As noted above PAST SURGICAL HISTORY: section, history of to make, urethral repair, carpal tunnel surgery FAMILY HISTORY: Noncontributory SOCIAL HISTORY: Denies any alcohol, tobacco, or illicit drug use REVIEW OF SYSTEMS: 10 point review of systems negative unless otherwise specified in HPI. PHYSICAL EXAMINATION: VITAL SIGNS: Please see below. GENERAL APPEARANCE: . Awake, alert, in no acute distress HEENT: . Normocephalic, atraumatic RESPIRATORY: . Clear to auscultation bilaterally CARDIOVASCULAR: . Normal rate, normal rhythm ABDOMEN: . Soft, nontender, nondistended EXTREMITIES: . No swelling, no erythema, no tenderness Skin- patient noted to have dorsal spinal column stimulator in the lower back region, dry blood noted on surgical dressing at insertion site, no local erythema or tenderness to palpation LABORATORY DATA: Please see below. ASSESSMENT/PLAN: Chronic pain syndrome status post dorsal spinal column stimulator trial Pain management as per Dr. Juan History of seizure disorder Continue Depakote GERD Continue PPI Hypertension We will withhold lisinopril and furosemide until the a.m. BMP, CBC ordered for the a.m. Anxiety Continue Zoloft, nortriptyline DVT prophylaxis-TEDs ordered Vital Signs/I&O Vital Signs Date Time Temp Pulse Resp B/P Pulse Ox O2 Delivery O2 Flow Rate FiO2 06/04/16 18:32 18 06/04/16 16:30 97.5 93 140/81 98 Room Air Allergies Coded Allergies: Bee Venom (Unverified Allergy, Unknown, 06/04/16) TAPE (Unverified Allergy, Unknown, PAPER TAPE, 09/05/15) Hydrocodone (Verified Adverse Reaction, Intermediate, POUNDING HEADACHES, 06/10/12) Home Medications Scheduled Aspirin (Aspirin 81) 81 Mg Tab 81 MG PO DAILY (Reported) Divalproex Sodium (Depakote) 250 Mg Tab 250 MG PO DAILY (Reported) Divalproex Sodium (Depakote) 250 Mg Tab 250 MG PO QHS (Reported) Furosemide (Furosemide) 40 Mg Tab 40 MG PO as needed (Reported) Lisinopril (Lisinopril) 20 Mg Tab 20 MG PO DAILY (Reported) Multivitamins (Multivitamin) 1 Tab Tab 1 TAB PO DAILY (Reported) Nortriptyline HCl (Pamelor) 50 Mg Cap 50 MG PO QHS (Reported) Pantoprazole Sodium (Pantoprazole Sodium) 40 Mg Tab 40 MG PO DAILY (Reported) Sertraline Hcl (Zoloft) 50 Mg Tab 50 MG PO DAILY (Reported) Scheduled PRN Oxycodone/Acetaminophen (Oxycodone/Acetaminophen 5-325 mg) 1 Tab Tab 1 TAB PO Q6HP PRN PRN PAIN (Reported) Oxycodone/Acetaminophen (Oxycodone/Acetaminophen 5-325 mg) 1 Tab Tab #30 1-2 TAB PO Q4HP PRN PRN PAIN DASH FRIAS MD Jun 04, 2016 18:53
[2016-06-04 19:30] VITALS: BP 101/68
[2016-06-04 20:30] VITALS: BP 134/82
[2016-06-04] MEDS ORDERED: NORTRIPTYLINE 25 MG CAP PO SCH (21:00)
[2016-06-04] MEDS: DIVALPROEX 250 MG TAB PO SCH (21:08)
[2016-06-05] MEDS: ceFAZolin SOD 1 GM in D5W MINI-BAG PLUS 50 ML IV SCH (00:13)
[2016-06-05] MEDS: LORazepam 0.5 MG TAB PO PRN ×2 (00:13→10:22)
[2016-06-05 00:30] VITALS: BP 112/70
[2016-06-05] MEDS: oxyCODONE 5MG TAB PO PRN ×2 (02:46→08:25)
[2016-06-05 04:30] VITALS: BP 111/76
[2016-06-05 06:40] LABS: MEAN CORPUSCULAR HEMOGLOBIN 32.3 pg (27.0-33.0); MEAN CORPUSCULAR HGB CONC 33.7 g/dl (32.0-36.5); MEAN CORPUSCULAR VOLUME 95.8 fl (80.0-96.0); RED CELL DISTRIBUTION WIDTH 12.8 % (11.5-14.5); WHITE BLOOD COUNT 5.4 K/mm3 (4.0-10.0)
[2016-06-05 06:58] LABS: ANION GAP 6 MEQ/L (8-16); BLOOD UREA NITROGEN 14 MG/DL (7-18); CALCIUM LEVEL 8.3 MG/DL (8.5-10.1); CARBON DIOXIDE LEVEL 31 MEQ/L (21-32); CHLORIDE LEVEL 103 MEQ/L (98-107); CREATININE FOR GFR 0.67 MG/DL (0.55-1.02); GLOMERULAR FILTRATION RATE > 60.0 (>58); GLUCOSE, FASTING 104 MG/DL (70-105); POTASSIUM SERUM 3.9 MEQ/L (3.5-5.1); SODIUM LEVEL 140 MEQ/L (136-145)
[2016-06-05] MEDS: GABAPENTIN 300 MG CAP PO SCH (08:25)
[2016-06-05] MEDS: DIVALPROEX 250 MG TAB PO SCH (08:25)
[2016-06-05] MEDS ORDERED: SERTRALINE HCL 50 MG TAB PO SCH (09:00)
[2016-06-05] MEDS ORDERED: PANTOPRAZOLE 40MG TAB (PROTONIX) PO SCH (09:00)
[2016-06-05] MEDS ORDERED: MULTIVITAMINS/MINERALS THERAP 1 TAB PO SCH (09:00)
--- NOTE | 2016-06-12 09:47 | RO ---
DATE OF PROCEDURE: 06/04/2016 PREPROCEDURE DIAGNOSIS: Lumbar radiculopathy. POSTPROCEDURE DIAGNOSIS: Lumbar radiculopathy. PROCEDURE: Spinal column stimulator trial. SURGEON: Dr. Davie Lopez. DENTAL CREAM MAKER: ANESTHESIA: Local with monitored anesthesia care. ESTIMATED BLOOD LOSS: PREOPERATIVE NOTE: Ms. Evangelista is a 45-year-old female patient with history of chronic low back and leg pain. I evaluated the patient and reviewed the chart.The patient has tried medications and interventional treatment but the pain has persisted. We both agree on doing spinal column stimulator trial. She has tried in the past medications and interventions and the pain has persists. Patient denies unexplained weight loss, fever, chills, changes in her urinary or bowel control. PROCEDURE NOTE: After consent was taken, patient was brought to the procedure room and placed in the prone position. The thoracolumbar area was cleaned with betadine solution and draped aseptically. Procedure done under sterile conditions. Patient received cefazolin 1 gram IV. Under fluoroscopic guidance, target point was selected at the interlaminal level of T12-L1. Lidocaine was used to numb the skin and subcutaneous tissues below it. An [employer] needle was used to reach the right lamina of L1. Then by the loss of resistant technique, the epidural space was reached 7 cm deep into the skin by the loss of resistant technique. A 16 contact lead from [employer] was advanced through this needle and advanced to the medial and posterior aspect of the epidural space to the level of T7. A decision was made to place a second lead. The target was selected at the left lamina of L1. A second [employer] needle was advanced until the left lamina of L1 was touched and then by the loss of resistant technique, the epidural space was reached 7 cm deep into the skin by loss of resistant technique. A second 16 contact lead from [employer] was advanced through the second needle to the posteromedial aspect of the epidural space and placed parallel to the first one. Position of the leads were checked with AP and lateral views. After appropriate position of the leads was achieved, I attached extension cables to the leads which were attached to the computer system of [employer] and programming was started. I did a simple programming for 30 minutes where I changed the contact use, position of the leads, voltage among others. When patient was satisfied with the stimulation, the leads were at position at T7-T8 and I did AP and lateral views for future reference. Extensions were disconnected. I removed the stylette and the leads were attached to the patient's skin using Steri-Strips and the area was covered with Tegaderm. Patient was sent to the recovery room. There was no complication during the procedure and the trial will start. ELLA
[2016-07-25] MEDS ORDERED: VIST25CA PO (14:00)
[2016-07-25] MEDS ORDERED: DEPA250T32 PO (14:00)
[2016-07-25] MEDS ORDERED: FURO20TA2 PO (14:00)
[2016-07-25] MEDS ORDERED: LISI-538 PO (14:00)
[2016-07-25] MEDS ORDERED: MORP20SO PO (14:13)
[2016-07-25] MEDS ORDERED: PROZ20CA11 PO (14:13)
[2016-07-25] MEDS ORDERED: MULTCAP11 PO (14:14)
[2016-07-25] MEDS ORDERED: MORP15TA2 PO (14:31)
== END 2016-06-05 10:35 | disposition home or self-care (01) ==
LOC: M SDC 09:56 → M MS5PR 16:10 → M SDC 06-05 10:35
PROVIDERS: ATTEND Anesthesiology
DX: M54.16 Radiculopathy, lumbar region (principal); I10 Essential (primary) hypertension; E66.9 Obesity, unspecified; K21.9 Gastro-esophageal reflux disease without esophagitis; F41.9 Anxiety disorder, unspecified; R56.9 Unspecified convulsions; Z79.899 Other long term (current) drug therapy; Z79.82 Long term (current) use of aspirin; Z88.8 Allergy status to other drugs, medicaments and biological substances; Z91.030 Bee allergy status
CPT/HCPCS: 36415; 63650; 77002; 80048; 85027; 96374; 96376; C1778; J0690; J2250; J3010; L9900

== ENCOUNTER → 2016-06-05 | Outpatient (CLI) | payer MEDICARE, MEDICAID, OTHER ==
[~2016-06-05] MED LIST changes: +PAME50CA PO
--- NOTE | 2016-06-07 23:27 | ECWPNPC ---
PATIENT NAME: TIMOTHY YOU : 1970 GENDER: FEMALE VISIT DATE: 06/05/2016 DISCHARGE DATE: 06/05/16 1256 VISIT LOCKED DATE TIME: PHYSICIAN: FLORESITA VALENTINO RESOURCE: FLORESITA VALENTINO REASON FOR APPOINTMENT 1. LOW BACK PAIN HISTORY OF PRESENT ILLNESS GENERAL: 45 YEAR OLD FEMALE PATIENT WITH HISTORY OF CHRONIC LOW BACK PAIN. PATIENT DESCRIBES THE PAIN BURNING WITH A PAIN SCORE OF 0/10. PATIENT RECEIVED A STIMULATOR FOR THE TRIAL ON 06/04/16 AND STATES THAT HER BACK AND LEGS HAVE NO PAIN BUT SHE HAS A BURNING SENSATION AROUND WHERE THE TAP IS PLACED. PATIENT REPORTS NOT USING ANY PAIN MEDICATION AT THIS TIME. PATIENT DENIES UNEXPLAINABLE WEIGHT LOSS, FEVER, CHILLS, NEW CHANGES ON HER URINARY OR BOWEL CONTROL. HISTORY OF PRESENT ILLNESS: PAIN THE PATIENT DESCRIBES THE PAIN... FALL RISK SCREENING: SCREENING :NO FALLS IN THE PAST YEAR CURRENT MEDICATIONS TAKING PERCOCET 10-325 MG TABLET 1 TABLET NEEDED ORALLY BID PRN PAIN MDD=2 TAKING NORTRIPTYLINE HCL 100 MG CAPSULE 1 CAPSULE ORALLY AT BEDTIME TAKING EPIPEN 2-HUMBERTO 0.3 MG/0.3ML DEVICE 1 INJECTION INJECTION NEEDED FOR BEE STING TAKING FREESTYLE TEST TEST STRIP STRIP 1 STRIP IN VITRO TO CHECK GLUCOSE UP TO TID (ICD9 251.2) TAKING MULTIVITAMINS CAPSULE 1 ORALLY DAILY TAKING ASPIR-LOW 81 MG TABLET DELAYED RELEASE 1 TABLET ORALLY ONCE A DAY TAKING DEPAKOTE 250 MG TABLET DELAYED RELEASE 2 ORALLY BID TAKING COLACE 100 MG CAPSULE 1 CAPSULE NEEDED ORALLY ONCE A DAY TAKING ATIVAN 0.5 MG TABLET 1 TABLET NEEDED ORALLY DAILY PRN MDD=1 TAKING ZOLOFT 100 MG TABLET 1 1/2 TABLETS ORALLY ONCE A DAY TAKING LISINOPRIL 20 MG TABLET 1 TABLET ORALLY ONCE A DAY TAKING VISTARIL 25 MG CAPSULE 1 CAPSULE ORALLY BID TAKING FUROSEMIDE 20 MG TABLET 1 TABLET ORALLY ONCE A DAY TAKING PANTOPRAZOLE SODIUM 40 MG TABLET DELAYED RELEASE 1 TAB ORALLY ONCE DAILY TAKING KEFLEX 500 MG CAPSULE 1 CAPSULE ORALLY THREE TIMES DAILY, NOTES: HASN'T STARTED YET NOT-TAKING PREDNISONE 10 MG TABLET 1 TABLET ORALLY TAKE 5 TAB DAILY X 2, 4 X 2 DAY, 3 X 2 DAY, 2X 2 DAY, 1X 2 DAYS, NOTES: 1 MONTH NOT-TAKING GABAPENTIN 300 MG CAPSULE 1 CAPSULE ORALLY THREE TIMES A DAY, NOTES: 2 MONTHS MEDICATION LIST REVIEWED AND RECONCILED WITH THE PATIENT PAST MEDICAL HISTORY SEIZURES BURSITIS LEFT HIP CHRONIC LOW BACK PAIN (PAIN CLINIC) ANXIETY MIGRAINE HEADACHES HEART MURMUR HTN CHRONIC MIGRAINE WITHOUT AURA, WITHOUT MENTION OF INTRACTABLE MIGRAINE WITHOUT MENTION OF STATUS MIGRAINOSUS ESOPHAGEAL REFLUX ANXIETY STATE, UNSPECIFIED UNSPECIFIED EPILEPSY WITHOUT MENTION OF INTRACTABLE EPILEPSY ALLERGIES BEE STING: SWELLING: ALLERGY BUSPAR: SEVERE HYPERACTIVITY/IRRITABILITY: ALLERGY PAPER TAPE: RASH: ALLERGY BACTRIM: SEVERE HYPER ACTIVITY/ IRRITABLE: ALLERGY WELLBUTRIN: RASH, SEVERE HYPER ACTIVITY: ALLERGY SURGICAL HISTORY C-SECTIONS 1994, 1995 SHAYY AND BSO 1995 T&A CHILD KIDNEY SURGERY (? URETER REPAIR) 3 Y/O MEDIAN AND ULNAR NERVE REPAIRS BILATERAL APPENDECTOMY 2004 CHOLECYSTECTOMY 08/19/13 PLANTAR FASCITIS 09/05/2015 FAMILY HISTORY NO FAMILY HISTORY DOCUMENTED. SOCIAL HISTORY GENERAL: TOBACCO USE ARE YOU A:NONSMOKER LEARNING BARRIERS / SPECIAL NEEDS ORIENTED TO PLAN OF CARE: PATIENT, PAIN MANAGEMENT PATIENT, ORIENTED TO PLAN OF CARE: PATIENT, PAIN MANAGEMENT PATIENT. NEW PATIENT PAIN DIARY TODAY'S VISITNOTES FROM 0-10, WHAT LEVEL IS YOUR PAIN TODAY?0 PAIN CLINIC PFS, CLERGY, PUBLIC HEALTH REFERRALS PFS REFERRAL NEEDED?NO CLERGY REFERRAL NEEDED?NO PUBLIC HEALTH REFERRAL NEEDED?NO WAS THE PROVIDER NOTIFIED OF ANY PERTINENT INFO?NO PFS REFERRAL NEEDED?NO CLERGY REFERRAL NEEDED?NO PUBLIC HEALTH REFERRAL NEEDED?NO WAS THE PROVIDER NOTIFIED OF ANY PERTINENT INFO?NO HOSPITALIZATION/MAJOR DIAGNOSTIC PROCEDURE SURGERY RELATED CHILDBIRTH RELATED REVIEW OF SYSTEMS CONSTITUTIONAL: ANY CHANGE IN YOUR MEDICAL CONDITION? NO . CHILLS NO . FEVER NO . INFECTION: DO YOU HAVE NEW INFECTIONS? NO . DO YOU HAVE HISTORY OF MRSA? NO . MUSCULOSKELETAL: ANY NEW PATTERNS OF PAIN OR NUMBNESS? NO . GASTROENTEROLOGY: ANY NEW CHANGE IN BOWEL CONTROL? NO . GENITOURINARY: ANY NEW CHANGE IN BLADDER CONTROL? NO . IS THERE A CHANCE YOU COULD BE ? NO . HEMATOLOGY/LYMPH: DO YOU TAKE ANY BLOOD THINNERS? (FOR EXAMPLE- COUMADIN, PLAVIX, AGGRENOX, PLATEL, PRADAXA, OR XARELTO) NO . WHEN WAS YOUR LAST DOSE? DATE: TIME: . NEUROLOGY: HAVE YOU FALLEN IN THE PAST 6 MONTHS? NO . ANY NEW EXTREMITY NUMBNESS OR WEAKNESS? NO . CARDIOLOGY: DO YOU HAVE A PACEMAKER OR DEFIBRILLATOR? NO . RESPIRATORY: HAVE YOU BEEN SICK IN THE PAST WEEK? NO . FEVER NO . FLU LIKE SYMPTOMS? NO . COUGH NO . INTEGUMENTARY: DO YOU HAVE ANY RASHES OR OPEN SORES? NO . ALLERGIC/IMMUNO: ARE YOU ALLERGIC TO SHELLFISH OR IV DYE? NO . ANY NEW ALLERGIES? NO . PSYCHIATRIC: DO YOU HAVE THOUGHTS OF HURTING YOURSELF OR SOMEONE ELSE? NO . ARE YOU ABUSED, NEGLECTED, OR IN AN UNSAFE ENVIRONMENT? NO . ENDOCRINOLOGY: ARE YOU DIABETIC? NO . OTHER: DO YOU NEED ANY PRESCRIPTIONS? YES . IF YES, PLEASE LIST: PERCOCET AND ATIVAN . ANY NEW PROBLEMS WITH YOUR MEDICATIONS? NO . WHEN DID YOU LAST EAT? ____ . WHEN DID YOU LAST DRINK? ____ . WHAT DID YOU LAST DRINK? ____ . NAME OF PERSON DRIVING YOU HOME? ____ . DO YOU HAVE ANY OTHER QUESTIONS OR CONCERNS NO . REVIEWED BY: PROVIDER: FLORESITA VALENTINO MD . VITAL SIGNS WT 180 LBS, HT 60.75 IN, BMI 34.29 INDEX, BP 122/85 MM HG, HR 100 /MIN, RR 16 /MIN, TEMP 98.0 F, OXYGEN SAT % 95%, NA INITIALS SC 11:03, REVIEWED BY: AD. EXAMINATION GENERAL: PATIENT IS ALERT O X 3 AND COOPERATIVE. TENDERNESS IN THE LOWER BACK AND PARASPINAL MUSCLE GROUP. MRI DONE ON 12/26/15 SHOWS CANAL STENOSIS ALONG WITH A DISC PROTRUSION AT L3-L4 AND DISC BULGES AT L4-L5 AND L5-S1. NO SIGNS OF INFECTION AROUND THE LEADS. ASSESSMENTS INTERVERTEBRAL DISC DISORDERS WITH RADICULOPATHY, LUMBAR REGION - M51.16 (PRIMARY) INTERVERTEBRAL DISC DISORDERS WITH RADICULOPATHY, LUMBOSACRAL REGION - M51.17 TREATMENT INTERVERTEBRAL DISC DISORDERS WITH RADICULOPATHY, LUMBAR REGION NOTES: WE DISCUSSED SEVERAL ISSUES WITH MRS. YOU'S PAIN MANAGEMENT CASE. PATIENT REPORTED HAVING A BURNING SENSATION WHICH I BELIEVE IT CAUSED BY THE TAPE. PATIENT HAS NO SIGNS OF INFECTION AT THIS TIME. MRS. YOU WAS ADVISED TO RETURN TO THE CLINIC IMMEDIATELY IF THE TAPE ON HER BACK STARTS TO LOOSEN OR PEEL OFF. PATIENT DENIES USE OF ANY PAIN MEDICATION AT THIS TIME. MRS. YOU WILL RETURN SATURDAY FOR THE LEAD PULL AND TO DISCUSS THE RESULTS OF THE TRIAL BUT WAS ADVISED TO COME IN TO THE CLINIC IF PAIN SIGNIFICANTLY WORSENS OR IF THE TAPE STARTS TO FALL OFF. INSTRUCTIONS WERE GIVEN, QUESTIONS WERE ANSWERED, PATIENT REPORTS UNDERSTANDING AND AGREES WITH THE PLAN. I, JAYLEN MANRIQUEZ, DOCUMENTED THE ABOVE INFORMATION ACTING A SCRIBE FOR DR. VALENTINO. I HAVE REVIEWED THE ABOVE DOCUMENT, WRITTEN BY JAYLEN PORRAS AND I VERIFY THAT IT IS ACCURATE. DISPOSITION & COMMUNICATION FOLLOW UP SATURDAY ELECTRONICALLY SIGNED BY FLORESITA VALENTINO MD ON 06/07/2016 AT 01:49 PM EDT DISCLAIMER : THIS IS A VISIT SUMMARY EXTRACTED FROM THE [employer] CHART. IT IS NOT A COPY OF THE [employer] PROGRESS NOTE. ELLA
== END ==
LOC: M PAIN 09:30
PROVIDERS: ATTEND Anesthesiology
DX: Z09 Encounter for follow-up examination after completed treatment for conditions other than malignant neoplasm (principal); G89.29 Other chronic pain; M51.16 Intervertebral disc disorders with radiculopathy, lumbar region; M51.17 Intervertebral disc disorders with radiculopathy, lumbosacral region; G40.909 Epilepsy, unspecified, not intractable, without status epilepticus; F41.9 Anxiety disorder, unspecified; G43.909 Migraine, unspecified, not intractable, without status migrainosus; I10 Essential (primary) hypertension; K21.9 Gastro-esophageal reflux disease without esophagitis; Z91.030 Bee allergy status; Z88.8 Allergy status to other drugs, medicaments and biological substances; L23.1 Allergic contact dermatitis due to adhesives; Z88.1 Allergy status to other antibiotic agents

== ENCOUNTER → 2016-06-08 | Outpatient (CLI) | payer MEDICARE, MEDICAID, OTHER ==
--- NOTE | 2016-06-19 01:16 | ECWPNPC ---
PATIENT NAME: TIMOTHY YOU : 1970 GENDER: FEMALE VISIT DATE: 06/08/2016 DISCHARGE DATE: 06/08/16 1500 VISIT LOCKED DATE TIME: PHYSICIAN: FLORESITA VALENTINO RESOURCE: FLORESITA VALENTINO REASON FOR APPOINTMENT 1. LOW BACK PAIN HISTORY OF PRESENT ILLNESS HISTORY OF PRESENT ILLNESS: PAIN THE PATIENT DESCRIBES THE PAIN... 45 YEAR OLD FEMALE PATIENT WITH HISTORY OF CHRONIC LOW BACK PAIN. PATIENT DESCRIBES THE PAIN ACHING FROM THE DCS TRIAL BUT SHE HAS NO LONGER BACK PAIN. MRS. YOU STARTED THE DCS TRIAL 06/04/16 AND REPORTS ONLY HAVING POST OP PAIN, STATES SHE HAS NO LEG OR BACK PAIN AND HAS 100% PAIN RELIEF. MRS. YOU HAS NOT USED ANY PAIN MEDICATION WHILE ON THE TRIAL. AT THIS TIME THE PATIENT WOULD LIKE TO MOVE FORWARD WITH THE PERMANENT AT THE EARLIEST TIME. PATIENT DENIES UNEXPLAINABLE WEIGHT LOSS, FEVER, CHILLS, NEW CHANGES ON HER URINARY OR BOWEL CONTROL. FALL RISK SCREENING: SCREENING :NO FALLS IN THE PAST YEAR CURRENT MEDICATIONS TAKING PERCOCET 10-325 MG TABLET 1 TABLET NEEDED ORALLY BID PRN PAIN MDD=2 TAKING NORTRIPTYLINE HCL 50 MG CAPSULE 1 CAPSULE ORALLY AT BEDTIME TAKING EPIPEN 2-HUMBERTO 0.3 MG/0.3ML DEVICE 1 INJECTION INJECTION NEEDED FOR BEE STING TAKING FREESTYLE TEST TEST STRIP STRIP 1 STRIP IN VITRO TO CHECK GLUCOSE UP TO TID (ICD9 251.2) TAKING MULTIVITAMINS CAPSULE 1 ORALLY DAILY TAKING ASPIR-LOW 81 MG TABLET DELAYED RELEASE 1 TABLET ORALLY ONCE A DAY TAKING DEPAKOTE 250 MG TABLET DELAYED RELEASE 2 ORALLY BID TAKING COLACE 100 MG CAPSULE 1 CAPSULE NEEDED ORALLY ONCE A DAY TAKING ZOLOFT 100 MG TABLET 1 1/2 TABLETS ORALLY ONCE A DAY TAKING LISINOPRIL 20 MG TABLET 1 TABLET ORALLY ONCE A DAY TAKING VISTARIL 25 MG CAPSULE 1 CAPSULE ORALLY BID TAKING FUROSEMIDE 20 MG TABLET 1 TABLET ORALLY ONCE A DAY TAKING PANTOPRAZOLE SODIUM 40 MG TABLET DELAYED RELEASE 1 TAB ORALLY ONCE DAILY TAKING KEFLEX 500 MG CAPSULE 1 CAPSULE ORALLY THREE TIMES DAILY TAKING ATIVAN 0.5 MG TABLET 1 TABLET NEEDED ORALLY DAILY PRN MDD=1 NOT-TAKING PREDNISONE 10 MG TABLET 1 TABLET ORALLY TAKE 5 TAB DAILY X 2, 4 X 2 DAY, 3 X 2 DAY, 2X 2 DAY, 1X 2 DAYS, NOTES: 1 MONTH NOT-TAKING GABAPENTIN 300 MG CAPSULE 1 CAPSULE ORALLY THREE TIMES A DAY, NOTES: 2 MONTHS MEDICATION LIST REVIEWED AND RECONCILED WITH THE PATIENT PAST MEDICAL HISTORY SEIZURES BURSITIS LEFT HIP CHRONIC LOW BACK PAIN (PAIN CLINIC) ANXIETY MIGRAINE HEADACHES HEART MURMUR HTN CHRONIC MIGRAINE WITHOUT AURA, WITHOUT MENTION OF INTRACTABLE MIGRAINE WITHOUT MENTION OF STATUS MIGRAINOSUS ESOPHAGEAL REFLUX ANXIETY STATE, UNSPECIFIED UNSPECIFIED EPILEPSY WITHOUT MENTION OF INTRACTABLE EPILEPSY ALLERGIES BEE STING: SWELLING: ALLERGY BUSPAR: SEVERE HYPERACTIVITY/IRRITABILITY: ALLERGY PAPER TAPE: RASH: ALLERGY BACTRIM: SEVERE HYPER ACTIVITY/ IRRITABLE: ALLERGY WELLBUTRIN: RASH, SEVERE HYPER ACTIVITY: ALLERGY SURGICAL HISTORY C-SECTIONS 1994, 1995 SHAYY AND BSO 1995 T&A CHILD KIDNEY SURGERY (? URETER REPAIR) 3 Y/O MEDIAN AND ULNAR NERVE REPAIRS BILATERAL APPENDECTOMY 2004 CHOLECYSTECTOMY 08/19/13 PLANTAR FASCITIS 09/05/2015 LUMBAR DORSAL COLUMN STIMULATOR TRIAL 06/04/16 FAMILY HISTORY NO FAMILY HISTORY DOCUMENTED. SOCIAL HISTORY GENERAL: TOBACCO USE ARE YOU A:NONSMOKER LEARNING BARRIERS / SPECIAL NEEDS ORIENTED TO PLAN OF CARE: PATIENT, PAIN MANAGEMENT PATIENT, ORIENTED TO PLAN OF CARE: PATIENT, PAIN MANAGEMENT PATIENT. NEW PATIENT PAIN DIARY TODAY'S VISITNOTES FROM 0-10, WHAT LEVEL IS YOUR PAIN TODAY?0 PAIN CLINIC PFS, CLERGY, PUBLIC HEALTH REFERRALS PFS REFERRAL NEEDED?NO CLERGY REFERRAL NEEDED?NO PUBLIC HEALTH REFERRAL NEEDED?NO WAS THE PROVIDER NOTIFIED OF ANY PERTINENT INFO?NO PFS REFERRAL NEEDED?NO CLERGY REFERRAL NEEDED?NO PUBLIC HEALTH REFERRAL NEEDED?NO WAS THE PROVIDER NOTIFIED OF ANY PERTINENT INFO?NO CLERGY REFERRAL NEEDED?NO WAS THE PROVIDER NOTIFIED OF ANY PERTINENT INFO?NO PFS REFERRAL NEEDED?NO PUBLIC HEALTH REFERRAL NEEDED?NO PATIENT: ____. HOSPITALIZATION/MAJOR DIAGNOSTIC PROCEDURE SURGERY RELATED CHILDBIRTH RELATED DORSAL COLUMN STIMULATOR TRIAL 06/04/16 REVIEW OF SYSTEMS CONSTITUTIONAL: ANY CHANGE IN YOUR MEDICAL CONDITION? NO . CHILLS NO . FEVER NO . INFECTION: DO YOU HAVE NEW INFECTIONS? NO . DO YOU HAVE HISTORY OF MRSA? NO . MUSCULOSKELETAL: ANY NEW PATTERNS OF PAIN OR NUMBNESS? NO . GASTROENTEROLOGY: ANY NEW CHANGE IN BOWEL CONTROL? NO . GENITOURINARY: ANY NEW CHANGE IN BLADDER CONTROL? NO . IS THERE A CHANCE YOU COULD BE ? NO . HEMATOLOGY/LYMPH: DO YOU TAKE ANY BLOOD THINNERS? (FOR EXAMPLE- COUMADIN, PLAVIX, AGGRENOX, PLATEL, PRADAXA, OR XARELTO) NO . WHEN WAS YOUR LAST DOSE? DATE: TIME: . NEUROLOGY: HAVE YOU FALLEN IN THE PAST 6 MONTHS? NO . ANY NEW EXTREMITY NUMBNESS OR WEAKNESS? NO . CARDIOLOGY: DO YOU HAVE A PACEMAKER OR DEFIBRILLATOR? NO . RESPIRATORY: HAVE YOU BEEN SICK IN THE PAST WEEK? NO . FEVER NO . FLU LIKE SYMPTOMS? NO . COUGH NO . INTEGUMENTARY: DO YOU HAVE ANY RASHES OR OPEN SORES? NO . ALLERGIC/IMMUNO: ARE YOU ALLERGIC TO SHELLFISH OR IV DYE? NO . ANY NEW ALLERGIES? NO . PSYCHIATRIC: DO YOU HAVE THOUGHTS OF HURTING YOURSELF OR SOMEONE ELSE? NO . ARE YOU ABUSED, NEGLECTED, OR IN AN UNSAFE ENVIRONMENT? NO . ENDOCRINOLOGY: ARE YOU DIABETIC? NO . OTHER: DO YOU NEED ANY PRESCRIPTIONS? YES . IF YES, PLEASE LIST: PERCOCET . ANY NEW PROBLEMS WITH YOUR MEDICATIONS? NO . WHEN DID YOU LAST EAT? ____ . WHEN DID YOU LAST DRINK? ____ . WHAT DID YOU LAST DRINK? ____ . NAME OF PERSON DRIVING YOU HOME? ____ . DO YOU HAVE ANY OTHER QUESTIONS OR CONCERNS NO . REVIEWED BY: PROVIDER: FLORESITA VALENTINO MD . VITAL SIGNS WT 180 LBS, HT 60.75 IN, BMI 34.29 INDEX, BP 125/78 MM HG, HR 91 /MIN, RR 16 /MIN, TEMP 97.8 F, OXYGEN SAT % 98%, NA INITIALS SC13:31, REVIEWED BY: LS. EXAMINATION : PATIENT IS ALERT O X 3 AND COOPERATIVE. TENDERNESS IN THE LOWER BACK AND PARASPINAL MUSCLE GROUP. MRI DONE ON 12/26/15 SHOWS CANAL STENOSIS ALONG WITH A DISC PROTRUSION AT L3-L4 AND DISC BULGES AT L4-L5 AND L5-S1. NO SIGNS OF INFECTION AROUND THE LEADS. LEADS PULLED OUT INTACT. ASSESSMENTS INTERVERTEBRAL DISC DISORDERS WITH RADICULOPATHY, LUMBAR REGION - M51.16 (PRIMARY) INTERVERTEBRAL DISC DISORDERS WITH RADICULOPATHY, LUMBOSACRAL REGION - M51.17 TREATMENT INTERVERTEBRAL DISC DISORDERS WITH RADICULOPATHY, LUMBAR REGION NOTES: WE DISCUSSED SEVERAL ISSUES WITH MRS. YOU'S PAIN MANAGEMENT CASE. AT THIS TIME THE PATIENT REPORTS HAVING 100% PAIN RELIEF FROM THE DCS. PATIENT REPORTS NOT USING ANY PAIN MEDICATION THROUGHOUT THE TRIAL. MRS. YOU EXPRESSED SHE WOULD LIKE TO MOVE FORWARD WITH THE PERMANENT. WE DISCUSSED THE RISKS, BENENFITS, AND ALTNERATIVES OF MOVING FORWARD WITH THE DCS PERMANENT AND THE PATIENT WOULD LIKE TO PROCEED AT THIS TIME. PATIENT WILL RETURN TO THE CLINIC IN A FEW WEEKS TO FURTHER DISCUSS THE PERMANENT AND GO OVER PRE-OP PAPERWORK. INSTRUCTIONS WERE GIVEN, QUESTIONS WERE ANSWERED, PATIENT REPORTS UNDERSTANDING AND AGREES WITH THE PLAN. I, JAYLEN MANRIQUEZ, DOCUMENTED THE ABOVE INFORMATION ACTING A SCRIBE FOR DR. VALENTINO. I HAVE REVIEWED THE ABOVE DOCUMENT, WRITTEN BY JAYLEN PORRAS AND I VERIFY THAT IT IS ACCURATE. OTHERS REFILL PERCOCET TABLET, 10-325 MG, 1 TABLET NEEDED, ORALLY, BID PRN PAIN MDD=2, 30 DAY(S), 60, REFILLS 0 DISPOSITION & COMMUNICATION FOLLOW UP 4 WEEKS ELECTRONICALLY SIGNED BY FLORESITA VALENTINO MD ON 06/18/2016 AT 12:15 PM EDT DISCLAIMER : THIS IS A VISIT SUMMARY EXTRACTED FROM THE [employer] CHART. IT IS NOT A COPY OF THE [email or web address] PROGRESS NOTE. MTDD
== END ==
LOC: M PAIN 13:00
PROVIDERS: ATTEND Anesthesiology
DX: Z09 Encounter for follow-up examination after completed treatment for conditions other than malignant neoplasm (principal); M51.16 Intervertebral disc disorders with radiculopathy, lumbar region; M51.17 Intervertebral disc disorders with radiculopathy, lumbosacral region; G43.709 Chronic migraine without aura, not intractable, without status migrainosus; G40.409 Other generalized epilepsy and epileptic syndromes, not intractable, without status epilepticus; F41.9 Anxiety disorder, unspecified; I10 Essential (primary) hypertension; R01.1 Cardiac murmur, unspecified; K21.9 Gastro-esophageal reflux disease without esophagitis; Z91.030 Bee allergy status; Z88.8 Allergy status to other drugs, medicaments and biological substances; L23.1 Allergic contact dermatitis due to adhesives; Z88.1 Allergy status to other antibiotic agents; Z79.82 Long term (current) use of aspirin; Z79.899 Other long term (current) drug therapy

== ENCOUNTER → 2016-06-25 | Outpatient (CLI) | payer MEDICARE, MEDICAID ==
--- NOTE | 2016-07-01 23:50 | ECWPNPC ---
PATIENT NAME: TIMOTHY YOU : 1970 GENDER: FEMALE VISIT DATE: 06/25/2016 DISCHARGE DATE: 06/25/16 1616 VISIT LOCKED DATE TIME: PHYSICIAN: FLORESITA VALENTINO RESOURCE: FLORESITA VALENTINO REASON FOR APPOINTMENT 1. POSSIBLE PRE-OP HISTORY OF PRESENT ILLNESS HISTORY OF PRESENT ILLNESS: PAIN THE PATIENT DESCRIBES THE PAIN... 46 YEAR OLD FEMALE PATIENT WITH HISTORY OF CHRONIC LOW BACK PAIN. PATIENT DESCRIBES THE PAIN ACHING, SHARP, STABBING, TENDER, SORE, AND HAVING IT ALL THE TIME WITH A PAIN SCORE OF 10/10 ON TODAY'S VISIT. PATIENT REPORTS THAT SHE IS SEEING A PSYCHOLOGIST AT [facility]. PATIENT REPORTS OF RADIATING PAIN DOWN BOTH LEGS. PATIENT REPORTS THAT SHE HAS DIFFICULTIES SLEEPING AND STAYING ASLEEP AT NIGHT DUE TO THE PAIN. PATIENT DENIES UNEXPLAINABLE WEIGHT LOSS, FEVER, CHILLS, NEW CHANGES ON HER URINARY OR BOWEL CONTROL. FALL RISK SCREENING: SCREENING :NO FALLS IN THE PAST YEAR CURRENT MEDICATIONS TAKING PERCOCET 10-325 MG TABLET 1 TABLET NEEDED ORALLY BID PRN PAIN MDD=2 TAKING NORTRIPTYLINE HCL 50 MG CAPSULE 1 CAPSULE ORALLY AT BEDTIME TAKING EPIPEN 2-HUMBERTO 0.3 MG/0.3ML DEVICE 1 INJECTION INJECTION NEEDED FOR BEE STING TAKING FREESTYLE TEST TEST STRIP STRIP 1 STRIP IN VITRO TO CHECK GLUCOSE UP TO TID (ICD9 251.2) TAKING MULTIVITAMINS CAPSULE 1 ORALLY DAILY TAKING ASPIR-LOW 81 MG TABLET DELAYED RELEASE 1 TABLET ORALLY ONCE A DAY TAKING DEPAKOTE 250 MG TABLET DELAYED RELEASE 2 ORALLY BID TAKING COLACE 100 MG CAPSULE 1 CAPSULE NEEDED ORALLY ONCE A DAY TAKING FUROSEMIDE 20 MG TABLET 1 TABLET ORALLY ONCE A DAY TAKING ATIVAN 0.5 MG TABLET 1 TABLET NEEDED ORALLY DAILY PRN MDD=1 TAKING LISINOPRIL 20 MG TABLET 1 TABLET ORALLY ONCE A DAY TAKING VISTARIL 25 MG CAPSULE 1 CAPSULE ORALLY FOUR TIMES DAILY PRN TAKING ZOLOFT 100 MG TABLET 1/2 TABLETS ORALLY ONCE A DAY TAKING EFFEXOR XR 75 MG CAPSULE EXTENDED RELEASE 24 HOUR 1 CAPSULE WITH FOOD ORALLY ONCE A DAY TAKING PANTOPRAZOLE SODIUM 40 MG TABLET DELAYED RELEASE 1 TAB ORALLY ONCE DAILY TAKING GABAPENTIN 300 MG CAPSULE 1 CAPSULE ORALLY THREE TIMES A DAY, NOTES: 2 MONTHS DISCONTINUED KEFLEX 500 MG CAPSULE 1 CAPSULE ORALLY THREE TIMES DAILY DISCONTINUED PREDNISONE 10 MG TABLET 1 TABLET ORALLY TAKE 5 TAB DAILY X 2, 4 X 2 DAY, 3 X 2 DAY, 2X 2 DAY, 1X 2 DAYS, NOTES: 1 MONTH MEDICATION LIST REVIEWED AND RECONCILED WITH THE PATIENT PAST MEDICAL HISTORY SEIZURES BURSITIS LEFT HIP CHRONIC LOW BACK PAIN (PAIN CLINIC) ANXIETY MIGRAINE HEADACHES HEART MURMUR HTN CHRONIC MIGRAINE WITHOUT AURA, WITHOUT MENTION OF INTRACTABLE MIGRAINE WITHOUT MENTION OF STATUS MIGRAINOSUS ESOPHAGEAL REFLUX ANXIETY STATE, UNSPECIFIED UNSPECIFIED EPILEPSY WITHOUT MENTION OF INTRACTABLE EPILEPSY ALLERGIES BEE STING: SWELLING: ALLERGY BUSPAR: SEVERE HYPERACTIVITY/IRRITABILITY: ALLERGY PAPER TAPE: RASH: ALLERGY BACTRIM: SEVERE HYPER ACTIVITY/ IRRITABLE: ALLERGY WELLBUTRIN: RASH, SEVERE HYPER ACTIVITY: ALLERGY SURGICAL HISTORY C-SECTIONS 1994, 1995 SHAYY AND BSO 1995 T&A CHILD KIDNEY SURGERY (? URETER REPAIR) 3 Y/O MEDIAN AND ULNAR NERVE REPAIRS BILATERAL APPENDECTOMY 2004 CHOLECYSTECTOMY 08/19/13 PLANTAR FASCITIS 09/05/2015 LUMBAR DORSAL COLUMN STIMULATOR TRIAL 06/04/16 FAMILY HISTORY NO FAMILY HISTORY DOCUMENTED. SOCIAL HISTORY GENERAL: PAIN CLINIC PFS, CLERGY, PUBLIC HEALTH REFERRALS CLERGY REFERRAL NEEDED?NO WAS THE PROVIDER NOTIFIED OF ANY PERTINENT INFO?NO PFS REFERRAL NEEDED?NO PUBLIC HEALTH REFERRAL NEEDED?NO PATIENT: ____. HOSPITALIZATION/MAJOR DIAGNOSTIC PROCEDURE SURGERY RELATED CHILDBIRTH RELATED DORSAL COLUMN STIMULATOR TRIAL 06/04/16 REVIEW OF SYSTEMS CONSTITUTIONAL: ANY CHANGE IN YOUR MEDICAL CONDITION? NO . CHILLS NO . FEVER NO . INFECTION: DO YOU HAVE NEW INFECTIONS? NO . DO YOU HAVE HISTORY OF MRSA? NO . MUSCULOSKELETAL: ANY NEW PATTERNS OF PAIN OR NUMBNESS? NO . GASTROENTEROLOGY: ANY NEW CHANGE IN BOWEL CONTROL? NO . GENITOURINARY: ANY NEW CHANGE IN BLADDER CONTROL? NO . IS THERE A CHANCE YOU COULD BE ? NO . HEMATOLOGY/LYMPH: DO YOU TAKE ANY BLOOD THINNERS? (FOR EXAMPLE- COUMADIN, PLAVIX, AGGRENOX, PLATEL, PRADAXA, OR XARELTO) NO . WHEN WAS YOUR LAST DOSE? DATE: TIME: . NEUROLOGY: HAVE YOU FALLEN IN THE PAST 6 MONTHS? NO . ANY NEW EXTREMITY NUMBNESS OR WEAKNESS? NO . CARDIOLOGY: DO YOU HAVE A PACEMAKER OR DEFIBRILLATOR? NO . RESPIRATORY: HAVE YOU BEEN SICK IN THE PAST WEEK? NO . FEVER NO . FLU LIKE SYMPTOMS? NO . COUGH NO . INTEGUMENTARY: DO YOU HAVE ANY RASHES OR OPEN SORES? NO . ALLERGIC/IMMUNO: ARE YOU ALLERGIC TO SHELLFISH OR IV DYE? NO . ANY NEW ALLERGIES? NO . PSYCHIATRIC: DO YOU HAVE THOUGHTS OF HURTING YOURSELF OR SOMEONE ELSE? NO . ARE YOU ABUSED, NEGLECTED, OR IN AN UNSAFE ENVIRONMENT? NO . ENDOCRINOLOGY: ARE YOU DIABETIC? NO . OTHER: DO YOU NEED ANY PRESCRIPTIONS? NO . IF YES, PLEASE LIST: ____ . ANY NEW PROBLEMS WITH YOUR MEDICATIONS? NO . WHEN DID YOU LAST EAT? ____ . WHEN DID YOU LAST DRINK? ____ . WHAT DID YOU LAST DRINK? ____ . NAME OF PERSON DRIVING YOU HOME? ____ . DO YOU HAVE ANY OTHER QUESTIONS OR CONCERNS YES, TO GET HER PERMANENT DCS ON SATURDAY THE ? . REVIEWED BY: PROVIDER: FLORESITA VALENTINO MD . VITAL SIGNS WT 195 LBS, HT 60.75 IN, BMI 37.14 INDEX, BP 100/66 MM HG, HR 87 /MIN, RR 16 /MIN, TEMP 96.6 F, OXYGEN SAT % 96%, NA INITIALS SC 14:22, REVIEWED BY: ESSIE. EXAMINATION : PATIENT IS ALERT O X 3 AND COOPERATIVE. TENDERNESS IN THE LOWER BACK AND PARASPINAL MUSCLE GROUP. MRI DONE ON 12/26/15 SHOWS CANAL STENOSIS ALONG WITH A DISC PROTRUSION AT L3-L4 AND DISC BULGES AT L4-L5 AND L5-S1. NO SIGNS OF INFECTION AROUND THE LEADS. LEADS PULLED OUT INTACT. ASSESSMENTS INTERVERTEBRAL DISC DISORDERS WITH RADICULOPATHY, LUMBAR REGION - M51.16 (PRIMARY) INTERVERTEBRAL DISC DISORDERS WITH RADICULOPATHY, LUMBOSACRAL REGION - M51.17 TREATMENT INTERVERTEBRAL DISC DISORDERS WITH RADICULOPATHY, LUMBAR REGION NOTES: WE DISCUSSED SEVERAL ISSUES WITH MRS. YOU'S PAIN MANAGEMENT CASE. I WILL HAVE THE PATIENT START ON MORPHINE TODAY FOR THE PAIN. I DISCUSSED WITH THE PATIENT IN ORDER TO PROCEED WITH THE DCS PERMANENT I WILL NEED AN UPDATE CLEARANCE. PATIENT DID NOT BRING HER MEDICATION ON TODAY'S VISIT AND WAS ADVISED TO ALWAYS BRING HER MEDICATION IN THE ORIGINAL BOTTLES FOR EVERY FOLLOW UP VISIT. INSTRUCTIONS WERE GIVEN, QUESTIONS WERE ANSWERED, PATIENT REPORTS UNDERSTANDING AND AGREES WITH THE PLAN. I, LEE ANN SALAS, DOCUMENTED THE ABOVE INFORMATION ACTING A SCRIBE FOR DR. VALENTINO. I HAVE REVIEWED THE ABOVE DOCUMENT, WRITTEN BY LEE ANN HIGBY SCRIBE AND I VERIFY THAT IT IS ACCURATE. OTHERS START MORPHINE SULFATE TABLET, 15 MG, 1 TABLET NEEDED, ORALLY FOR PAIN, EVERY 8 HRS MDD2, 14 DAY(S), 28, REFILLS 0 PROCEDURE CODES FA211 ESTABILISHED PATIENT [facility] CHARGE G8730 PAIN ASSESS POS TOOL F/U PLAN DOC G8427 DOC MEDS VERIFIED W/PT OR RE DISPOSITION & COMMUNICATION FOLLOW UP 1 WEEK ELECTRONICALLY SIGNED BY FLORESITA VALENTINO MD ON 07/01/2016 AT 06:05 PM EDT DISCLAIMER : THIS IS A VISIT SUMMARY EXTRACTED FROM THE [employer] CHART. IT IS NOT A COPY OF THE [employer] PROGRESS NOTE. MTDD
== END ==
LOC: M PAIN 14:20
PROVIDERS: ATTEND Anesthesiology
DX: G89.29 Other chronic pain (principal); M51.16 Intervertebral disc disorders with radiculopathy, lumbar region; M51.17 Intervertebral disc disorders with radiculopathy, lumbosacral region; G40.909 Epilepsy, unspecified, not intractable, without status epilepticus; F41.9 Anxiety disorder, unspecified; G43.909 Migraine, unspecified, not intractable, without status migrainosus; I10 Essential (primary) hypertension; K21.9 Gastro-esophageal reflux disease without esophagitis; R01.1 Cardiac murmur, unspecified; Z91.030 Bee allergy status; Z88.8 Allergy status to other drugs, medicaments and biological substances; L23.1 Allergic contact dermatitis due to adhesives; Z79.82 Long term (current) use of aspirin; Z79.899 Other long term (current) drug therapy

== ENCOUNTER → 2016-07-04 | Outpatient (CLI) | payer MEDICARE, MEDICAID, OTHER ==
--- NOTE | 2016-07-10 00:14 | ECWPNPC ---
PATIENT NAME: TIMOTHY YOU : 1970 GENDER: FEMALE VISIT DATE: 07/04/2016 DISCHARGE DATE: 07/04/16 1043 VISIT LOCKED DATE TIME: PHYSICIAN: FLORESITA VALENTINO RESOURCE: FLORESITA VALENTINO REASON FOR APPOINTMENT 1. BACK PAIN HISTORY OF PRESENT ILLNESS HISTORY OF PRESENT ILLNESS: PAIN THE PATIENT DESCRIBES THE PAIN... 46 YEAR OLD FEMALE PATIENT WITH HISTORY OF CHRONIC LOW BACK PAIN. PATIENT DESCRIBES THE PAIN ACHING, SHARP, TENDER, SORE, AND HAVING IT ALL THE TIME WITH A PAIN SCORE OF 10/10. PATIENT IS CURRENTLY USING MORPHINE SULPHATE 15 MG TWO TIMES A DAY AND STATES THAT IT DOES TAKE THE EDGE OFF BUT SHE IS STILL IN CONSTANT PAIN. MRS. YOU STATES THAT ANY TYPE OF ACTIVITY INCLUDING SITTING, STANDING, AND WALKING INCREASES THE PAIN IN HER LOWER BACK. PATIENT IS WAITING FOR A PERMANENT DCS AND HAD ADEQUATE RESULTS FROM THE TRIAL. PATIENT DENIES UNEXPLAINABLE WEIGHT LOSS, FEVER, CHILLS, NEW CHANGES ON HER URINARY OR BOWEL CONTROL. FALL RISK SCREENING: SCREENING :NO FALLS IN THE PAST YEAR CURRENT MEDICATIONS TAKING MORPHINE SULFATE 15 MG TABLET 1 TABLET NEEDED ORALLY FOR PAIN EVERY 8 HRS MDD2 TAKING NORTRIPTYLINE HCL 50 MG CAPSULE 1 CAPSULE ORALLY AT BEDTIME TAKING EPIPEN 2-HUMBERTO 0.3 MG/0.3ML DEVICE 1 INJECTION INJECTION NEEDED FOR BEE STING TAKING FREESTYLE TEST TEST STRIP STRIP 1 STRIP IN VITRO TO CHECK GLUCOSE UP TO TID (ICD9 251.2) TAKING MULTIVITAMINS CAPSULE 1 ORALLY DAILY TAKING ASPIR-LOW 81 MG TABLET DELAYED RELEASE 1 TABLET ORALLY ONCE A DAY TAKING DEPAKOTE 250 MG TABLET DELAYED RELEASE 2 ORALLY BID TAKING FUROSEMIDE 20 MG TABLET 1 TABLET ORALLY ONCE A DAY TAKING ATIVAN 0.5 MG TABLET 1 TABLET NEEDED ORALLY DAILY PRN MDD=1 TAKING LISINOPRIL 20 MG TABLET 1 TABLET ORALLY ONCE A DAY TAKING VISTARIL 25 MG CAPSULE 1 CAPSULE ORALLY FOUR TIMES DAILY PRN TAKING ZOLOFT 100 MG TABLET 1/2 TABLETS ORALLY ONCE A DAY TAKING PANTOPRAZOLE SODIUM 40 MG TABLET DELAYED RELEASE 1 TAB ORALLY ONCE DAILY TAKING GABAPENTIN 300 MG CAPSULE 1 CAPSULE ORALLY THREE TIMES A DAY, NOTES: 2 MONTHS DISCONTINUED PERCOCET 10-325 MG TABLET 1 TABLET NEEDED ORALLY BID PRN PAIN MDD=2 DISCONTINUED COLACE 100 MG CAPSULE 1 CAPSULE NEEDED ORALLY ONCE A DAY DISCONTINUED EFFEXOR XR 75 MG CAPSULE EXTENDED RELEASE 24 HOUR 1 CAPSULE WITH FOOD ORALLY ONCE A DAY MEDICATION LIST REVIEWED AND RECONCILED WITH THE PATIENT PAST MEDICAL HISTORY SEIZURES BURSITIS LEFT HIP CHRONIC LOW BACK PAIN (PAIN CLINIC) ANXIETY MIGRAINE HEADACHES HEART MURMUR HTN CHRONIC MIGRAINE WITHOUT AURA, WITHOUT MENTION OF INTRACTABLE MIGRAINE WITHOUT MENTION OF STATUS MIGRAINOSUS ESOPHAGEAL REFLUX ANXIETY STATE, UNSPECIFIED UNSPECIFIED EPILEPSY WITHOUT MENTION OF INTRACTABLE EPILEPSY ALLERGIES BEE STING: SWELLING: ALLERGY BUSPAR: SEVERE HYPERACTIVITY/IRRITABILITY: ALLERGY PAPER TAPE: RASH: ALLERGY BACTRIM: SEVERE HYPER ACTIVITY/ IRRITABLE: ALLERGY WELLBUTRIN: RASH, SEVERE HYPER ACTIVITY: ALLERGY SURGICAL HISTORY C-SECTIONS 1994, 1995 SHAYY AND BSO 1995 T&A CHILD KIDNEY SURGERY (? URETER REPAIR) 3 Y/O MEDIAN AND ULNAR NERVE REPAIRS BILATERAL APPENDECTOMY 2003 CHOLECYSTECTOMY 08/19/13 PLANTAR FASCITIS 09/05/2015 LUMBAR DORSAL COLUMN STIMULATOR TRIAL 06/04/16 FAMILY HISTORY NO FAMILY HISTORY DOCUMENTED. SOCIAL HISTORY GENERAL: PAIN CLINIC PFS, CLERGY, PUBLIC HEALTH REFERRALS CLERGY REFERRAL NEEDED?NO WAS THE PROVIDER NOTIFIED OF ANY PERTINENT INFO?NO PFS REFERRAL NEEDED?NO PUBLIC HEALTH REFERRAL NEEDED?NO PATIENT: ____. HOSPITALIZATION/MAJOR DIAGNOSTIC PROCEDURE SURGERY RELATED CHILDBIRTH RELATED DORSAL COLUMN STIMULATOR TRIAL 06/04/16 REVIEW OF SYSTEMS CONSTITUTIONAL: ANY CHANGE IN YOUR MEDICAL CONDITION? NO . CHILLS NO . FEVER NO . INFECTION: DO YOU HAVE NEW INFECTIONS? NO . DO YOU HAVE HISTORY OF MRSA? NO . MUSCULOSKELETAL: ANY NEW PATTERNS OF PAIN OR NUMBNESS? NO . GASTROENTEROLOGY: ANY NEW CHANGE IN BOWEL CONTROL? NO . GENITOURINARY: ANY NEW CHANGE IN BLADDER CONTROL? NO . IS THERE A CHANCE YOU COULD BE ? NO . HEMATOLOGY/LYMPH: DO YOU TAKE ANY BLOOD THINNERS? (FOR EXAMPLE- COUMADIN, PLAVIX, AGGRENOX, PLATEL, PRADAXA, OR XARELTO) NO . WHEN WAS YOUR LAST DOSE? DATE: TIME: . NEUROLOGY: HAVE YOU FALLEN IN THE PAST 6 MONTHS? NO . ANY NEW EXTREMITY NUMBNESS OR WEAKNESS? NO . CARDIOLOGY: DO YOU HAVE A PACEMAKER OR DEFIBRILLATOR? NO . RESPIRATORY: HAVE YOU BEEN SICK IN THE PAST WEEK? NO . FEVER NO . FLU LIKE SYMPTOMS? NO . COUGH NO . INTEGUMENTARY: DO YOU HAVE ANY RASHES OR OPEN SORES? NO . ALLERGIC/IMMUNO: ARE YOU ALLERGIC TO SHELLFISH OR IV DYE? NO . ANY NEW ALLERGIES? NO . PSYCHIATRIC: DO YOU HAVE THOUGHTS OF HURTING YOURSELF OR SOMEONE ELSE? NO . ARE YOU ABUSED, NEGLECTED, OR IN AN UNSAFE ENVIRONMENT? NO . ENDOCRINOLOGY: ARE YOU DIABETIC? NO . OTHER: DO YOU NEED ANY PRESCRIPTIONS? NO . IF YES, PLEASE LIST: ____ . ANY NEW PROBLEMS WITH YOUR MEDICATIONS? NO . WHEN DID YOU LAST EAT? ____ . WHEN DID YOU LAST DRINK? ____ . WHAT DID YOU LAST DRINK? ____ . NAME OF PERSON DRIVING YOU HOME? ____ . DO YOU HAVE ANY OTHER QUESTIONS OR CONCERNS NO . REVIEWED BY: PROVIDER: FLORESITA VALENTINO MD . VITAL SIGNS WT 190 LBS, HT 60.75 IN, BMI 36.19 INDEX, BP 114/76 MM HG, HR 99 /MIN, RR 16 /MIN, TEMP 98.4 F, OXYGEN SAT % 96%, NA INITIALS SC09:08, REVIEWED BY: VD. EXAMINATION : PATIENT IS ALERT O X 3 AND COOPERATIVE. 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 LEFT LEG IS WEAKER THEN THE RIGHT AT EXTENSION AND FLEXION. MRI DONE ON 12/26/15 SHOWS CANAL STENOSIS ALONG WITH A DISC PROTRUSION AT L3-L4 AND DISC BULGES AT L4-L5 AND L5-S1. NO SIGNS OF INFECTION. ASSESSMENTS INTERVERTEBRAL DISC DISORDERS WITH RADICULOPATHY, LUMBAR REGION - M51.16 (PRIMARY) INTERVERTEBRAL DISC DISORDERS WITH RADICULOPATHY, LUMBOSACRAL REGION - M51.17 TREATMENT INTERVERTEBRAL DISC DISORDERS WITH RADICULOPATHY, LUMBAR REGION REFILL MORPHINE SULFATE TABLET, 15 MG, 1 TABLET NEEDED, ORALLY FOR PAIN, EVERY 8 HRS MDD2, 30 DAY(S), 60, REFILLS 0 NOTES: WE DISCUSSED SEVERAL ISSUES WITH MRS. YOU'S PAIN MANAGEMENT CASE. AT THIS TIME THE PATIENT WILL CONTINUE WITH THE SAME MEDICATION REGIME BEFORE. PATIENT DENIES ABUSE OF ANY MEDICATION, DENIES USE OF ILLEGAL SUBSTANCES, AND STATES THAT SHE IS ONLY USING THE MEDICATION FOR PAIN MANAGEMENT. URINE TOXICOLOGY REPORT DONE ON 04/28/16 SHOWS CONSISTENT RESULTS WITH THE PATIENT'S MEDICATION LIST. I HAVE RECEIVED A CLEARANCE FROM THE PSYCHOLOGIST AT THIS TIME FOR THE IMPLANT BUT NEW CLEARANCE IS NEEDED. I DISCUSSED THE CASE WITH THE PATIENTS PSYCHOLOGIST'S EXPLAINED WE CAN MOVE FORWARD WITH THE IMPLANT. SHE WILL SEND A NEW CLEARANCE. I AGREE ON BOOKING THE PATIENT PENDING RECEIVING THIS NEW CLEARANCE. I WILL ALSO REQUEST A CLEARANCE FROM THE PATIENTS PRIMARY CARE DOCTOR WELL. WE DISCUSSED MOVING FORWARD WITH THE PERMANENT AND DISCUSSED WHAT TO EXPECT AFTER THE PROCEDURE. I SPEND WITH THE PATIENT AND THE CASE OVER 30 MINUTES GIVEN INSTRUCTIONS AND CLARIFYING THE CASE. ALSO DISCUSSING WITH THE PATIENT MY POSITION ON REGARDS TO THE PSYCHOLOGICAL EVALUATION AND WHAT IS NEEDED AND ALSO DISCUSSING THE CASE WITH THE PATIENTS PSYCHOLOGIST. INSTRUCTIONS WERE GIVEN, QUESTIONS WERE ANSWERED, PATIENT REPORTS UNDERSTANDING AND AGREES WITH THE PLAN. I, JAYLEN MANRIQUEZ, DOCUMENTED THE ABOVE INFORMATION ACTING A SCRIBE FOR DR. VALENTINO. I HAVE REVIEWED THE ABOVE DOCUMENT, WRITTEN BY JAYLEN MANRIQUEZ SCRIBJax AND I VERIFY THAT IT IS ACCURATE. PROCEDURE CODES FA211 ESTABILISHED PATIENT [facility] CHARGE G8427 DOC MEDS VERIFIED W/PT OR RE G8730 PAIN ASSESS POS TOOL F/U PLAN DOC DISPOSITION & COMMUNICATION FOLLOW UP SCS IMPLANY PENDING NEW PHSYCOLOGICAL CLEARANCE ELECTRONICALLY SIGNED BY FLORESITA VALENTINO MD ON 07/09/2016 AT 10:20 AM EDT DISCLAIMER : THIS IS A VISIT SUMMARY EXTRACTED FROM THE [employer] CHART. IT IS NOT A COPY OF THE [employer] PROGRESS NOTE. ELLA
== END ==
LOC: M PAIN 08:40
PROVIDERS: ATTEND Anesthesiology
DX: G89.29 Other chronic pain (principal); M51.16 Intervertebral disc disorders with radiculopathy, lumbar region; M51.17 Intervertebral disc disorders with radiculopathy, lumbosacral region; G40.409 Other generalized epilepsy and epileptic syndromes, not intractable, without status epilepticus; F41.9 Anxiety disorder, unspecified; G43.909 Migraine, unspecified, not intractable, without status migrainosus; I10 Essential (primary) hypertension; K21.9 Gastro-esophageal reflux disease without esophagitis; Z91.030 Bee allergy status; L23.1 Allergic contact dermatitis due to adhesives; Z88.1 Allergy status to other antibiotic agents; Z88.8 Allergy status to other drugs, medicaments and biological substances; Z79.82 Long term (current) use of aspirin; Z79.899 Other long term (current) drug therapy

== ENCOUNTER → 2016-07-17 | Outpatient (CLI) | payer MEDICARE, MEDICAID ==
[~2016-07-17] MED LIST changes: +FURO20TA2 PO; +MORP15TA2 PO; +MORP20SO PO; +MULTCAP11 PO; +PROZ20CA11 PO; +VIST25CA PO
--- NOTE | 2016-07-31 01:26 | ECWPNPC ---
PATIENT NAME: TIMOTHY YOU : 1970 GENDER: FEMALE VISIT DATE: 07/17/2016 DISCHARGE DATE: 07/17/16 1509 VISIT LOCKED DATE TIME: PHYSICIAN: FLORESITA VALENTINO RESOURCE: FLORESITA VALENTINO REASON FOR APPOINTMENT 1. PRE-OP PAPERWORK HISTORY OF PRESENT ILLNESS GENERAL: 46 YEAR OLD FEMALE PATIENT WITH HISTORY OF CHRONIC LOW BACK PAIN. PATIENT DESCRIBES THE PAIN ACHING, SHARP, STABBING, TENDER, SORE, AND HAVING IT ALL THE TIME WITH A PAIN SCORE OF 10/10 ON TODAY'S VISIT. PATIENT IS CURRENTLY USING MORPHINE SULPHATE 15 MG TWO TIMES A DAY AND STATES THAT IT DOES TAKE THE EDGE OFF BUT SHE IS STILL IN CONSTANT PAIN. MRS. YOU STATES THAT ANY TYPE OF ACTIVITY INCLUDING SITTING, STANDING, AND WALKING INCREASES THE PAIN IN HER LOWER BACK. WITH THE SCS TRIAL PROVIDING OVER 80 PERCENT IN PAIN RELIEF, MS. YOU IS AWAITING FOR THE PERMANENT SCS. PATIENT DENIES UNEXPLAINABLE WEIGHT LOSS, FEVER, CHILLS, NEW CHANGES ON HER URINARY OR BOWEL CONTROL. CURRENT MEDICATIONS TAKING NORTRIPTYLINE HCL 50 MG CAPSULE 1 CAPSULE ORALLY AT BEDTIME TAKING EPIPEN 2-HUMBERTO 0.3 MG/0.3ML DEVICE 1 INJECTION INJECTION NEEDED FOR BEE STING TAKING FREESTYLE TEST TEST STRIP STRIP 1 STRIP IN VITRO TO CHECK GLUCOSE UP TO TID (ICD9 251.2) TAKING MULTIVITAMINS CAPSULE 1 ORALLY DAILY TAKING ASPIR-LOW 81 MG TABLET DELAYED RELEASE 1 TABLET ORALLY ONCE A DAY TAKING DEPAKOTE 250 MG TABLET DELAYED RELEASE 2 ORALLY BID TAKING FUROSEMIDE 20 MG TABLET 1 TABLET ORALLY ONCE A DAY TAKING LISINOPRIL 20 MG TABLET 1 TABLET ORALLY ONCE A DAY TAKING VISTARIL 25 MG CAPSULE 1 CAPSULE ORALLY FOUR TIMES DAILY PRN TAKING PANTOPRAZOLE SODIUM 40 MG TABLET DELAYED RELEASE 1 TAB ORALLY ONCE DAILY TAKING GABAPENTIN 300 MG CAPSULE 1 CAPSULE ORALLY THREE TIMES A DAY, NOTES: 2 MONTHS TAKING MORPHINE SULFATE 15 MG TABLET 1 TABLET NEEDED ORALLY FOR PAIN EVERY 8 HRS MDD2 TAKING PROZAC 20 MG CAPSULE 1 CAPSULE IN THE MORNING ORALLY ONCE A DAY TAKING ATIVAN 0.5 MG TABLET 1 TABLET NEEDED ORALLY DAILY PRN MDD=1 MEDICATION LIST REVIEWED AND RECONCILED WITH THE PATIENT PAST MEDICAL HISTORY SEIZURES BURSITIS LEFT HIP CHRONIC LOW BACK PAIN (PAIN CLINIC) ANXIETY MIGRAINE HEADACHES HEART MURMUR HTN CHRONIC MIGRAINE WITHOUT AURA, WITHOUT MENTION OF INTRACTABLE MIGRAINE WITHOUT MENTION OF STATUS MIGRAINOSUS ESOPHAGEAL REFLUX ANXIETY STATE, UNSPECIFIED UNSPECIFIED EPILEPSY WITHOUT MENTION OF INTRACTABLE EPILEPSY ALLERGIES BEE STING: SWELLING: ALLERGY BUSPAR: SEVERE HYPERACTIVITY/IRRITABILITY: ALLERGY PAPER TAPE: RASH: ALLERGY BACTRIM: SEVERE HYPER ACTIVITY/ IRRITABLE: ALLERGY WELLBUTRIN: RASH, SEVERE HYPER ACTIVITY: ALLERGY SURGICAL HISTORY C-SECTIONS 1994, 1995 SHAYY AND BSO 1995 T&A CHILD KIDNEY SURGERY (? URETER REPAIR) 3 Y/O MEDIAN AND ULNAR NERVE REPAIRS BILATERAL APPENDECTOMY 2003 CHOLECYSTECTOMY 08/19/13 PLANTAR FASCITIS 09/05/2015 LUMBAR DORSAL COLUMN STIMULATOR TRIAL 06/04/16 FAMILY HISTORY NO FAMILY HISTORY DOCUMENTED. SOCIAL HISTORY GENERAL: TOBACCO USE ARE YOU A:NONSMOKER LUNG CANCER SCREENING SMOKING STATUS:NON SMOKER BMI CARE GOAL FOLLOW-UP ABOVE NORMAL BMI FOLLOW-UPDIETARY MANAGEMENT EDUCATION, GUIDANCE, AND COUNSELING, DIETARY NEEDS EDUCATION, EXERCISE PROMOTION: STRENGTH TRAINING ALCOHOL SCREENING DID YOU HAVE A DRINK CONTAINING ALCOHOL IN THE PAST YEAR?NO POINTS0 INTERPRETATIONNEGATIVE LEARNING BARRIERS / SPECIAL NEEDS BARRIERS TO LEARNING?NO HEARING IMPAIRED?NO VISION IMPAIRED?YES :CORRECTIVE LENSES COGNITIVELY IMPAIRED?NO READINESS TO LEARN?YES LEARNING PREFERENCES?NO LEARNING CAPABILITIES PRESENT?YES EMOTIONAL BARRIERS?NO SPECIAL DEVICES?NO SUPERVISOR TILE AND MOTTLE NEEDED?NO PAIN CLINIC PFS, CLERGY, PUBLIC HEALTH REFERRALS CLERGY REFERRAL NEEDED?NO WAS THE PROVIDER NOTIFIED OF ANY PERTINENT INFO?NO PFS REFERRAL NEEDED?NO PUBLIC HEALTH REFERRAL NEEDED?NO PATIENT: ____. HOSPITALIZATION/MAJOR DIAGNOSTIC PROCEDURE SURGERY RELATED CHILDBIRTH RELATED DORSAL COLUMN STIMULATOR TRIAL 06/04/16 VITAL SIGNS WT 192 LBS, HT 60.75 IN, BMI 36.57 INDEX, BP 124/79 MM HG, HR 95 /MIN, RR 18 /MIN, TEMP 97.5 F, OXYGEN SAT % 98%, SAFE IN ENV? (Y/N) Y, NA INITIALS SC 13:47, REVIEWED BY: EM. EXAMINATION GENERAL: PATIENT IS ALERT O X 3 AND COOPERATIVE. 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 LEFT LEG IS WEAKER THEN THE RIGHT AT EXTENSION AND FLEXION. MRI DONE ON 12/26/15 SHOWS CANAL STENOSIS ALONG WITH A DISC PROTRUSION AT L3-L4 AND DISC BULGES AT L4-L5 AND L5-S1. ASSESSMENTS INTERVERTEBRAL DISC DISORDERS WITH RADICULOPATHY, LUMBAR REGION - M51.16 (PRIMARY) INTERVERTEBRAL DISC DISORDERS WITH RADICULOPATHY, LUMBOSACRAL REGION - M51.17 TREATMENT INTERVERTEBRAL DISC DISORDERS WITH RADICULOPATHY, LUMBAR REGION NOTES: WE DISCUSSED SEVERAL ISSUES WITH MRS. YOU'S PAIN MANAGEMENT CASE. AT THIS TIME THE PATIENT WILL CONTINUE WITH THE SAME MEDICATION REGIME BEFORE. PATIENT DENIES ABUSE OF ANY MEDICATION, DENIES USE OF ILLEGAL SUBSTANCES, AND STATES THAT SHE IS ONLY USING THE MEDICATION FOR PAIN MANAGEMENT. URINE TOXICOLOGY REPORT DONE ON 04/28/16 SHOWS CONSISTENT RESULTS WITH THE PATIENT'S MEDICATION LIST. I DISCUSSED WITH THE PATIENT THAT I NEED A NEW CLEARANCE FROM HER PSYCHOLOGIST. PATIENT STATES THAT SHE WOULD PREFER A MRI COMPATIBLE SCS. PATIENT WILL COMPLETE THE OR PAPERWORK TODAY. PATIENT HAS BEEN SCHEDULE FOR THE SCS PERMANENT ON 07/30/2016 PENDING CLEARANCE. INSTRUCTIONS WERE GIVEN, QUESTIONS WERE ANSWERED, PATIENT REPORTS UNDERSTANDING AND AGREES WITH THE PLAN. I, LEE ANN SALAS, DOCUMENTED THE ABOVE INFORMATION ACTING A SCRIBE FOR DR. VALENTINO. I HAVE REVIEWED THE ABOVE DOCUMENT, WRITTEN BY LEE ANN SALAS SCRIBE AND I VERIFY THAT IT IS ACCURATE. PROCEDURE CODES FA211 ESTABILISHED PATIENT [facility] CHARGE G8730 PAIN ASSESS POS TOOL F/U PLAN DOC G8427 DOC MEDS VERIFIED W/PT OR RE DISPOSITION & COMMUNICATION FOLLOW UP 1 WEEK FOLLOW UP AFTER SCS PERM. ELECTRONICALLY SIGNED BY FLORESITA VALENTINO MD ON 07/30/2016 AT 06:23 PM EDT DISCLAIMER : THIS IS A VISIT SUMMARY EXTRACTED FROM THE [employer] CHART. IT IS NOT A COPY OF THE [employer] PROGRESS NOTE. MTDBreann
== END ==
LOC: M PAIN 14:00
PROVIDERS: ATTEND Anesthesiology
DX: G89.29 Other chronic pain (principal); M51.16 Intervertebral disc disorders with radiculopathy, lumbar region; M51.17 Intervertebral disc disorders with radiculopathy, lumbosacral region; I10 Essential (primary) hypertension; F41.8 Other specified anxiety disorders; K21.9 Gastro-esophageal reflux disease without esophagitis; G40.409 Other generalized epilepsy and epileptic syndromes, not intractable, without status epilepticus; G43.709 Chronic migraine without aura, not intractable, without status migrainosus; Z91.030 Bee allergy status; L23.1 Allergic contact dermatitis due to adhesives; Z88.3 Allergy status to other anti-infective agents; Z88.8 Allergy status to other drugs, medicaments and biological substances; Z79.82 Long term (current) use of aspirin; Z79.899 Other long term (current) drug therapy

== ENCOUNTER → 2016-07-23 | Outpatient (CLI) | payer MEDICARE, MEDICAID ==
[2016-07-23 20:59] LABS: BASO % 0.4 % (0.0-1.0); EOS # 0.1 K/mm3 (0.0-0.50); EOS % 1.5 % (0.0-3.0); LARGE UNSTAINED CELL # 0.1 K/mm3 (0.0-0.4); LARGE UNSTAINED CELL % 1.5 % (0.0-4.0); LYMPH # 2.5 K/mm3 (1.5-4.5); LYMPH % 36.5 % (24.0-44.0); MEAN CORPUSCULAR HEMOGLOBIN 32.4 pg (27.0-33.0); MEAN CORPUSCULAR HGB CONC 33.7 g/dl (32.0-36.5); MEAN CORPUSCULAR VOLUME 96.3 fl (80.0-96.0); MONO # 0.6 K/mm3 (0.0-0.8); MONO % 8.4 % (0.0-5.0); NEUTROPHILS # 3.5 K/mm3 (1.8-7.7); NEUTROPHILS % 51.7 % (36.0-66.0); PLATELET COUNT, AUTOMATED 225 k/mm3 (150-450); RED CELL DISTRIBUTION WIDTH 13.2 % (11.5-14.5); WHITE BLOOD COUNT 6.7 K/mm3 (4.0-10.0)
[2016-07-23 21:03] LABS: ALBUMIN/GLOBULIN RATIO 1.33 (1.00-1.93); ALKALINE PHOSPHATASE 59 U/L (45-117); ALT/SGPT 19 U/L (12-78); ANION GAP 8 MEQ/L (8-16); AST/SGOT 14 U/L (15-37); BILIRUBIN,TOTAL 0.2 MG/DL (0.2-1.0); BLOOD UREA NITROGEN 12 MG/DL (7-18); CALCIUM LEVEL 8.8 MG/DL (8.5-10.1); CARBON DIOXIDE LEVEL 31 MEQ/L (21-32); CHLORIDE LEVEL 99 MEQ/L (98-107); CREATININE FOR GFR 0.83 MG/DL (0.55-1.02); GLOMERULAR FILTRATION RATE > 60.0 (>58); GLUCOSE, FASTING 85 MG/DL (70-105); POTASSIUM SERUM 4.3 MEQ/L (3.5-5.1); SODIUM LEVEL 138 MEQ/L (136-145)
== END ==
LOC: M LRY 15:27
PROVIDERS: ATTEND Psychiatry & Neurology Neurology
DX: G40.909 Epilepsy, unspecified, not intractable, without status epilepticus (principal)

== ENCOUNTER → 2016-07-30 | Day surgery (SDC) | payer MEDICARE, MEDICAID ==
[~2016-07-30] VITALS: Ht 154.9 cm; Wt 83.9 kg
[~2016-07-30] MED LIST changes: +BACITRACIN PWD 50,000 UNITS VIAL As Ordered ONE; +LIDOCAINE 1% MDV 20ML VIAL As Ordered ONE; +LR 1,000 ML IV ONE; +MIDAZOLAM INJ 2 MG/2 ML VIAL (J2250) As Ordered ONE; +THROMBIN SOLN 20,000 UNITS KIT As Ordered ONE; +ceFAZolin SOD 1 GM in D5W MINI-BAG PLUS 50 ML IV ONE; +fentaNYL 100 MCG/2 ML INJECTION (J3010) As Ordered ONE
[2016-07-30 10:53] VITALS: BP 107/74
== END | disposition home or self-care (01) ==
LOC: M SDC 08:44
PROVIDERS: ATTEND Anesthesiology
DX: Z53.09 Procedure and treatment not carried out because of other contraindication (principal); M51.17 Intervertebral disc disorders with radiculopathy, lumbosacral region; I10 Essential (primary) hypertension; Z79.82 Long term (current) use of aspirin; Z79.899 Other long term (current) drug therapy; K21.9 Gastro-esophageal reflux disease without esophagitis
CPT/HCPCS: J0690; J2250; J3010

== ENCOUNTER → 2016-08-03 | Outpatient (CLI) | payer MEDICARE, MEDICAID ==
[~2016-08-03] MED LIST changes: -BACITRACIN PWD 50,000 UNITS VIAL As Ordered ONE; -LIDOCAINE 1% MDV 20ML VIAL As Ordered ONE; -LR 1,000 ML IV ONE; -MIDAZOLAM INJ 2 MG/2 ML VIAL (J2250) As Ordered ONE; -THROMBIN SOLN 20,000 UNITS KIT As Ordered ONE; -ceFAZolin SOD 1 GM in D5W MINI-BAG PLUS 50 ML IV ONE; -fentaNYL 100 MCG/2 ML INJECTION (J3010) As Ordered ONE
--- NOTE | 2016-08-15 01:53 | ECWPNPC ---
PATIENT NAME: TIMOTHY YOU : 1970 GENDER: FEMALE VISIT DATE: 08/03/2016 DISCHARGE DATE: 08/03/16 1111 VISIT LOCKED DATE TIME: PHYSICIAN: FLORESITA VALENTINO RESOURCE: FLORESITA VALENTINO REASON FOR APPOINTMENT 1. LOW BACK PAIN HISTORY OF PRESENT ILLNESS HISTORY OF PRESENT ILLNESS: PAIN THE PATIENT DESCRIBES THE PAIN... 46 YEAR OLD FEMALE PATIENT WITH HISTORY OF CHRONIC LOW BACK PAIN. PATIENT DESCRIBES THE PAIN ACHING, SHARP, STABBING, TENDER, SORE, AND HAVING IT ALL THE TIME WITH A PAIN SCORE OF 10/10 ON TODAY'S VISIT. MRS. YOU STATES THAT ANY TYPE OF ACTIVITY INCLUDING SITTING, STANDING, AND WALKING INCREASES THE PAIN IN HER LOWER BACK. WITH THE SCS TRIAL PROVIDING OVER 80 PERCENT IN PAIN RELIEF, MS. YOU IS AWAITING FOR APPROVAL OF THE PERMANENT SCS. PATIENT DENIES UNEXPLAINABLE WEIGHT LOSS, FEVER, CHILLS, NEW CHANGES ON HER URINARY OR BOWEL CONTROL. FALL RISK SCREENING: SCREENING :NO FALLS IN THE PAST YEAR GENERAL: 46 YEAR OLD FEMALE PATIENT WITH HISTORY OF CHRONIC LOW BACK PAIN. PATIENT DESCRIBES THE PAIN . CURRENT MEDICATIONS TAKING NORTRIPTYLINE HCL 50 MG CAPSULE 1 CAPSULE ORALLY AT BEDTIME TAKING EPIPEN 2-HUMBERTO 0.3 MG/0.3ML DEVICE 1 INJECTION INJECTION NEEDED FOR BEE STING TAKING FREESTYLE TEST TEST STRIP STRIP 1 STRIP IN VITRO TO CHECK GLUCOSE UP TO TID (ICD9 251.2) TAKING MULTIVITAMINS CAPSULE 1 ORALLY DAILY TAKING ASPIR-LOW 81 MG TABLET DELAYED RELEASE 1 TABLET ORALLY ONCE A DAY TAKING DEPAKOTE 250 MG TABLET DELAYED RELEASE 2 ORALLY BID TAKING FUROSEMIDE 20 MG TABLET 1 TABLET ORALLY ONCE A DAY TAKING LISINOPRIL 20 MG TABLET 1 TABLET ORALLY ONCE A DAY TAKING VISTARIL 25 MG CAPSULE 1 CAPSULE ORALLY FOUR TIMES DAILY PRN TAKING PANTOPRAZOLE SODIUM 40 MG TABLET DELAYED RELEASE 1 TAB ORALLY ONCE DAILY TAKING GABAPENTIN 300 MG CAPSULE 1 CAPSULE ORALLY THREE TIMES A DAY, NOTES: 2 MONTHS TAKING MORPHINE SULFATE 15 MG TABLET 1 TABLET NEEDED ORALLY FOR PAIN EVERY 8 HRS MDD2 TAKING PROZAC 20 MG CAPSULE 1 CAPSULE IN THE MORNING ORALLY ONCE A DAY TAKING ATIVAN 0.5 MG TABLET 1 TABLET NEEDED ORALLY DAILY PRN MDD=1 MEDICATION LIST REVIEWED AND RECONCILED WITH THE PATIENT PAST MEDICAL HISTORY SEIZURES BURSITIS LEFT HIP CHRONIC LOW BACK PAIN (PAIN CLINIC) ANXIETY MIGRAINE HEADACHES HEART MURMUR HTN CHRONIC MIGRAINE WITHOUT AURA, WITHOUT MENTION OF INTRACTABLE MIGRAINE WITHOUT MENTION OF STATUS MIGRAINOSUS ESOPHAGEAL REFLUX ANXIETY STATE, UNSPECIFIED UNSPECIFIED EPILEPSY WITHOUT MENTION OF INTRACTABLE EPILEPSY ALLERGIES BEE STING: SWELLING: ALLERGY BUSPAR: SEVERE HYPERACTIVITY/IRRITABILITY: ALLERGY PAPER TAPE: RASH: ALLERGY BACTRIM: SEVERE HYPER ACTIVITY/ IRRITABLE: ALLERGY WELLBUTRIN: RASH, SEVERE HYPER ACTIVITY: ALLERGY SURGICAL HISTORY C-SECTIONS 1994, 1995 SHAYY AND BSO 1995 T&A CHILD KIDNEY SURGERY (? URETER REPAIR) 3 Y/O MEDIAN AND ULNAR NERVE REPAIRS BILATERAL APPENDECTOMY 2004 CHOLECYSTECTOMY 08/19/13 PLANTAR FASCITIS 09/05/2015 LUMBAR DORSAL COLUMN STIMULATOR TRIAL 06/04/16 FAMILY HISTORY NO FAMILY HISTORY DOCUMENTED. SOCIAL HISTORY GENERAL: TOBACCO USE ARE YOU A:NONSMOKER LUNG CANCER SCREENING SMOKING STATUS:NON SMOKER BMI CARE GOAL FOLLOW-UP ABOVE NORMAL BMI FOLLOW-UPDIETARY MANAGEMENT EDUCATION, GUIDANCE, AND COUNSELING, DIETARY NEEDS EDUCATION, EXERCISE PROMOTION: STRENGTH TRAINING ALCOHOL SCREENING DID YOU HAVE A DRINK CONTAINING ALCOHOL IN THE PAST YEAR?NO POINTS0 INTERPRETATIONNEGATIVE LEARNING BARRIERS / SPECIAL NEEDS BARRIERS TO LEARNING?NO HEARING IMPAIRED?NO VISION IMPAIRED?YES :CORRECTIVE LENSES COGNITIVELY IMPAIRED?NO READINESS TO LEARN?YES LEARNING PREFERENCES?NO LEARNING CAPABILITIES PRESENT?YES EMOTIONAL BARRIERS?NO SPECIAL DEVICES?NO ROUGHER MERCHANT MILL NEEDED?NO PAIN CLINIC PFS, CLERGY, PUBLIC HEALTH REFERRALS CLERGY REFERRAL NEEDED?NO WAS THE PROVIDER NOTIFIED OF ANY PERTINENT INFO?NO PFS REFERRAL NEEDED?NO PUBLIC HEALTH REFERRAL NEEDED?NO PATIENT: ____. HOSPITALIZATION/MAJOR DIAGNOSTIC PROCEDURE SURGERY RELATED CHILDBIRTH RELATED DORSAL COLUMN STIMULATOR TRIAL 06/04/16 REVIEW OF SYSTEMS CONSTITUTIONAL: ANY CHANGE IN YOUR MEDICAL CONDITION? NO . CHILLS NO . FEVER NO . INFECTION: DO YOU HAVE NEW INFECTIONS? NO . DO YOU HAVE HISTORY OF MRSA? NO . MUSCULOSKELETAL: ANY NEW PATTERNS OF PAIN OR NUMBNESS? NO . GASTROENTEROLOGY: ANY NEW CHANGE IN BOWEL CONTROL? NO . GENITOURINARY: ANY NEW CHANGE IN BLADDER CONTROL? NO . IS THERE A CHANCE YOU COULD BE ? NO . HEMATOLOGY/LYMPH: DO YOU TAKE ANY BLOOD THINNERS? (FOR EXAMPLE- COUMADIN, PLAVIX, AGGRENOX, PLATEL, PRADAXA, OR XARELTO) NO . WHEN WAS YOUR LAST DOSE? DATE: TIME: . NEUROLOGY: HAVE YOU FALLEN IN THE PAST 6 MONTHS? NO . ANY NEW EXTREMITY NUMBNESS OR WEAKNESS? NO . CARDIOLOGY: DO YOU HAVE A PACEMAKER OR DEFIBRILLATOR? NO . RESPIRATORY: HAVE YOU BEEN SICK IN THE PAST WEEK? NO . FEVER NO . FLU LIKE SYMPTOMS? NO . COUGH NO . INTEGUMENTARY: DO YOU HAVE ANY RASHES OR OPEN SORES? NO . ALLERGIC/IMMUNO: ARE YOU ALLERGIC TO SHELLFISH OR IV DYE? NO . ANY NEW ALLERGIES? NO . PSYCHIATRIC: DO YOU HAVE THOUGHTS OF HURTING YOURSELF OR SOMEONE ELSE? NO . ARE YOU ABUSED, NEGLECTED, OR IN AN UNSAFE ENVIRONMENT? NO . ENDOCRINOLOGY: ARE YOU DIABETIC? NO . OTHER: DO YOU NEED ANY PRESCRIPTIONS? NO . IF YES, PLEASE LIST: ____ . ANY NEW PROBLEMS WITH YOUR MEDICATIONS? NO . WHEN DID YOU LAST EAT? ____ . WHEN DID YOU LAST DRINK? ____ . WHAT DID YOU LAST DRINK? ____ . NAME OF PERSON DRIVING YOU HOME? ____ . DO YOU HAVE ANY OTHER QUESTIONS OR CONCERNS NO . REVIEWED BY: PROVIDER: FLORESITA VALENTINO MD . VITAL SIGNS WT 189 LBS, HT 60.75 IN, BMI 36.00 INDEX, BP 124/79 MM HG, HR 97 /MIN, RR 18 /MIN, TEMP 98.3 F, OXYGEN SAT % 99%, NA INITIALS AW 0837. EXAMINATION GENERAL: PATIENT IS ALERT O X 3 AND COOPERATIVE. 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 LEFT LEG IS WEAKER THEN THE RIGHT AT EXTENSION AND FLEXION. MRI DONE ON 12/26/15 SHOWS CANAL STENOSIS ALONG WITH A DISC PROTRUSION AT L3-L4 AND DISC BULGES AT L4-L5 AND L5-S1. ASSESSMENTS INTERVERTEBRAL DISC DISORDERS WITH RADICULOPATHY, LUMBAR REGION - M51.16 (PRIMARY) INTERVERTEBRAL DISC DISORDERS WITH RADICULOPATHY, LUMBOSACRAL REGION - M51.17 TREATMENT INTERVERTEBRAL DISC DISORDERS WITH RADICULOPATHY, LUMBAR REGION NOTES: WE DISCUSSED SEVERAL ISSUES WITH MRS. YOU'S PAIN MANAGEMENT CASE. AT THIS TIME THE PATIENT WILL CONTINUE WITH THE SAME MEDICATION REGIME BEFORE. PATIENT DENIES ABUSE OF ANY MEDICATION, DENIES USE OF ILLEGAL SUBSTANCES, AND STATES THAT SHE IS ONLY USING THE MEDICATION FOR PAIN MANAGEMENT. URINE TOXICOLOGY REPORT DONE ON 04/28/16 SHOWS CONSISTENT RESULTS WITH THE PATIENT'S MEDICATION LIST. AT THIS TIME WE ARE WAITING APPROVAL FROM THE INSURANCE COMPANY FOR THE DCS PERMANENT. PATIENT IS AWARE OF THE RISKS, BENENFITS, AND ALTNERATIVES OF THE DCS AND SHE WOULD LIKE TO PROCEED. INSTRUCTIONS WERE GIVEN, QUESTIONS WERE ANSWERED, PATIENT REPORTS UNDERSTANDING AND AGREES WITH THE PLAN. I, JAYLEN MANRIQUEZ, DOCUMENTED THE ABOVE INFORMATION ACTING A SCRIBE FOR DR. VALENTINO. I HAVE REVIEWED THE ABOVE DOCUMENT, WRITTEN BY JAYLEN BROWNIBJax AND I VERIFY THAT IT IS ACCURATE. PROCEDURE CODES FA211 ESTABILISHED PATIENT [facility] CHARGE G8427 DOC MEDS VERIFIED W/PT OR RE G8730 PAIN ASSESS POS TOOL F/U PLAN DOC DISPOSITION & COMMUNICATION FOLLOW UP 3 WEEKS ELECTRONICALLY SIGNED BY FLORESITA VALENTINO MD ON 08/14/2016 AT 06:30 PM EDT DISCLAIMER : THIS IS A VISIT SUMMARY EXTRACTED FROM THE [employer] CHART. IT IS NOT A COPY OF THE [employer] PROGRESS NOTE. ELLA
== END ==
LOC: M PAIN 08:40
PROVIDERS: ATTEND Anesthesiology
DX: G89.29 Other chronic pain (principal); M51.16 Intervertebral disc disorders with radiculopathy, lumbar region; M51.17 Intervertebral disc disorders with radiculopathy, lumbosacral region; G40.409 Other generalized epilepsy and epileptic syndromes, not intractable, without status epilepticus; F41.9 Anxiety disorder, unspecified; G43.909 Migraine, unspecified, not intractable, without status migrainosus; I10 Essential (primary) hypertension; K21.9 Gastro-esophageal reflux disease without esophagitis; Z91.030 Bee allergy status; L23.1 Allergic contact dermatitis due to adhesives; Z88.1 Allergy status to other antibiotic agents; Z88.8 Allergy status to other drugs, medicaments and biological substances; Z79.82 Long term (current) use of aspirin; Z79.899 Other long term (current) drug therapy

== ENCOUNTER → 2016-09-06 | Outpatient (CLI) | payer MEDICARE, MEDICAID ==
[~2016-09-06] MED LIST changes: +PERC5TAB12 PO; -PERC5TAB6 PO
--- NOTE | 2016-09-11 23:39 | ECWPNPC ---
PATIENT NAME: TIMOTHY OYU : 1970 GENDER: FEMALE VISIT DATE: 09/06/2016 DISCHARGE DATE: 09/06/16 1418 VISIT LOCKED DATE TIME: PHYSICIAN: FLORESITA VALENTINO RESOURCE: FLORESITA VALENTINO REASON FOR APPOINTMENT 1. LOW BACK PAIN HISTORY OF PRESENT ILLNESS HISTORY OF PRESENT ILLNESS: PAIN THE PATIENT DESCRIBES THE PAIN... 46 YEAR OLD FEMALE PATIENT WITH HISTORY OF CHRONIC LOW BACK PAIN. PATIENT DESCRIBES THE PAIN ACHING, SHARP, STABBING, TENDER, SORE, AND HAVING IT ALL THE TIME WITH A PAIN SCORE OF 10/10 ON TODAY'S VISIT. MRS. YOU STATES THAT ANY TYPE OF ACTIVITY INCLUDING SITTING, STANDING, AND WALKING INCREASES THE PAIN IN HER LOWER BACK. CURRENTLY THE PATIENT IS USING MORPHINE SULPHATE, GABAPENTIN, AND NORTRIPTYLINE FOR PAIN MANAGEMENT AND STATES THAT AT THIS TIME THE MEDICATIONS KEEP HER MOBILE AND FUNCTIONAL. PATIENT DENIES UNEXPLAINABLE WEIGHT LOSS, FEVER, CHILLS, NEW CHANGES ON HER URINARY OR BOWEL CONTROL. FALL RISK SCREENING: SCREENING :NO FALLS IN THE PAST YEAR CURRENT MEDICATIONS TAKING NORTRIPTYLINE HCL 50 MG CAPSULE 1 CAPSULE ORALLY AT BEDTIME TAKING EPIPEN 2-HUMBERTO 0.3 MG/0.3ML DEVICE 1 INJECTION INJECTION NEEDED FOR BEE STING TAKING FREESTYLE TEST TEST STRIP STRIP 1 STRIP IN VITRO TO CHECK GLUCOSE UP TO TID (ICD9 251.2) TAKING MULTIVITAMINS CAPSULE 1 ORALLY DAILY TAKING ASPIR-LOW 81 MG TABLET DELAYED RELEASE 1 TABLET ORALLY ONCE A DAY TAKING DEPAKOTE 250 MG TABLET DELAYED RELEASE 2 ORALLY BID TAKING GABAPENTIN 300 MG CAPSULE 1 CAPSULE ORALLY THREE TIMES A DAY, NOTES: 2 MONTHS TAKING ATIVAN 0.5 MG TABLET 1 TABLET NEEDED ORALLY DAILY PRN MDD=1 TAKING FUROSEMIDE 20 MG TABLET 1 TABLET ORALLY ONCE A DAY TAKING LISINOPRIL 20 MG TABLET 1 TABLET ORALLY ONCE A DAY TAKING VISTARIL 25 MG CAPSULE 1 CAPSULE ORALLY FOUR TIMES DAILY PRN TAKING PANTOPRAZOLE SODIUM 40 MG TABLET DELAYED RELEASE 1 TAB ORALLY ONCE DAILY TAKING MORPHINE SULFATE 15 MG TABLET 1 TABLET NEEDED ORALLY FOR PAIN EVERY 8 HRS MDD2 TAKING PROZAC 40 MG CAPSULE 1 CAPSULE IN THE MORNING ORALLY ONCE A DAY MEDICATION LIST REVIEWED AND RECONCILED WITH THE PATIENT PAST MEDICAL HISTORY SEIZURES BURSITIS LEFT HIP CHRONIC LOW BACK PAIN (PAIN CLINIC) ANXIETY MIGRAINE HEADACHES HEART MURMUR HTN CHRONIC MIGRAINE WITHOUT AURA, WITHOUT MENTION OF INTRACTABLE MIGRAINE WITHOUT MENTION OF STATUS MIGRAINOSUS ESOPHAGEAL REFLUX ANXIETY STATE, UNSPECIFIED UNSPECIFIED EPILEPSY WITHOUT MENTION OF INTRACTABLE EPILEPSY ALLERGIES BEE STING: SWELLING: ALLERGY BUSPAR: SEVERE HYPERACTIVITY/IRRITABILITY: ALLERGY PAPER TAPE: RASH: ALLERGY BACTRIM: SEVERE HYPER ACTIVITY/ IRRITABLE: ALLERGY WELLBUTRIN: RASH, SEVERE HYPER ACTIVITY: ALLERGY SURGICAL HISTORY C-SECTIONS 1994, 1995 SHAYY AND BSO 1995 T&A CHILD KIDNEY SURGERY (? URETER REPAIR) 3 Y/O MEDIAN AND ULNAR NERVE REPAIRS BILATERAL APPENDECTOMY 2004 CHOLECYSTECTOMY 08/19/13 PLANTAR FASCITIS 09/05/2015 LUMBAR DORSAL COLUMN STIMULATOR TRIAL 06/04/16 HOSPITALIZATION/MAJOR DIAGNOSTIC PROCEDURE SURGERY RELATED CHILDBIRTH RELATED DORSAL COLUMN STIMULATOR TRIAL 06/04/16 REVIEW OF SYSTEMS REVIEWED BY: PROVIDER: . CONSTITUTIONAL: ANY CHANGE IN YOUR MEDICAL CONDITION? NO . CHILLS NO . FEVER NO . INFECTION: DO YOU HAVE NEW INFECTIONS? NO . DO YOU HAVE HISTORY OF MRSA? NO . MUSCULOSKELETAL: ANY NEW PATTERNS OF PAIN OR NUMBNESS? NO . GASTROENTEROLOGY: ANY NEW CHANGE IN BOWEL CONTROL? NO . GENITOURINARY: ANY NEW CHANGE IN BLADDER CONTROL? NO . IS THERE A CHANCE YOU COULD BE ? NO . HEMATOLOGY/LYMPH: DO YOU TAKE ANY BLOOD THINNERS? (FOR EXAMPLE- COUMADIN, PLAVIX, AGGRENOX, PLATEL, PRADAXA, OR XARELTO) NO . WHEN WAS YOUR LAST DOSE? DATE: TIME: . NEUROLOGY: HAVE YOU FALLEN IN THE PAST 6 MONTHS? YES, PT STATES SHE WAS GETTING DRESSED, LOST BALANCE AND FELL TO WOODEN FLOOR. PT DENIES INJURIES NEEDING MEDICAL ATTENTION . ANY NEW EXTREMITY NUMBNESS OR WEAKNESS? NO . CARDIOLOGY: DO YOU HAVE A PACEMAKER OR DEFIBRILLATOR? NO . RESPIRATORY: HAVE YOU BEEN SICK IN THE PAST WEEK? NO . FEVER NO . FLU LIKE SYMPTOMS? NO . COUGH NO . INTEGUMENTARY: DO YOU HAVE ANY RASHES OR OPEN SORES? NO . ALLERGIC/IMMUNO: ARE YOU ALLERGIC TO SHELLFISH OR IV DYE? NO . ANY NEW ALLERGIES? NO . PSYCHIATRIC: DO YOU HAVE THOUGHTS OF HURTING YOURSELF OR SOMEONE ELSE? NO . ARE YOU ABUSED, NEGLECTED, OR IN AN UNSAFE ENVIRONMENT? NO . ENDOCRINOLOGY: ARE YOU DIABETIC? NO . OTHER: DO YOU NEED ANY PRESCRIPTIONS? NO . IF YES, PLEASE LIST: ____ . ANY NEW PROBLEMS WITH YOUR MEDICATIONS? NO . WHEN DID YOU LAST EAT? ____ . WHEN DID YOU LAST DRINK? ____ . WHAT DID YOU LAST DRINK? ____ . NAME OF PERSON DRIVING YOU HOME? ____ . DO YOU HAVE ANY OTHER QUESTIONS OR CONCERNS NO . VITAL SIGNS WT 188.8 LBS, HT 60.75 IN, BMI 35.96 INDEX, BP 102/69 MM HG, HR 89 /MIN, RR 16 /MIN, TEMP 98.1 F, OXYGEN SAT % 91%, NA INITIALS SC 13:11. EXAMINATION : PATIENT IS ALERT O X 3 AND COOPERATIVE. 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 ANTALGIC GAIT. LIMPING FROM THE LEFT SIDE. LEFT LEG IS WEAKER THEN THE RIGHT AT EXTENSION AND FLEXION. MRI DONE ON 12/26/15 SHOWS CANAL STENOSIS ALONG WITH A DISC PROTRUSION AT L3-L4 AND DISC BULGES AT L4-L5 AND L5-S1. ASSESSMENTS INTERVERTEBRAL DISC DISORDERS WITH RADICULOPATHY, LUMBAR REGION - M51.16 (PRIMARY) INTERVERTEBRAL DISC DISORDERS WITH RADICULOPATHY, LUMBOSACRAL REGION - M51.17 TREATMENT INTERVERTEBRAL DISC DISORDERS WITH RADICULOPATHY, LUMBAR REGION REFILL MORPHINE SULFATE TABLET, 15 MG, 1 TABLET NEEDED, ORALLY FOR PAIN, EVERY 8 HRS MDD2, 30 DAYS, 60, REFILLS 0 START HYDROCODONE-ACETAMINOPHEN TABLET, 10-325 MG, 1 TABLET NEEDED, ORALLY FOR PAIN, EVERY 4 HOURS NEEDED MDD5, 7 DAY(S), 35, REFILLS 0 NOTES: WE DISCUSSED SEVERAL ISSUES WITH MRS. YOU'S PAIN MANAGEMENT CASE. AT THIS TIME I WOULD LIKE THE PATIENT TO USE HYDROCODONE INSTEAD OF THE MORPHINE FOR THE SOMATIC DUE TO THE PATIENT STATING THE MORPHINE IS NOT AIDING IN PAIN RELIEF. PATIENT DENIES ABUSE OF ANY MEDICATION, DENIES USE OF ILLEGAL SUBSTANCES, AND STATES SHE IS ONLY USING THE MEDICATION FOR PAIN MANAGEMENT. URINE TOXICOLOGY REPORT DONE ON 04/18/2016 SHOWS CONSISTENT RESULTS WIT THE PATIENT'S MEDICATION LIST. PATIENT WILL RETURN TO THE CLINIC IN 1 WEEK TO DISCUSS IF THE MEDICATION WORKED BETTER THEN THE MORPHINE. PATIENT WAS ADVISED TO STOP THE MEDICATION IF SHE HAS ANY ADVERSE SIDE EFFECTS. MRS. YOU IS AWARE OF THE POTENTIAL RISKS OF USING THIS MEDICATION. IJAYLEN, DOCUMENTED THE ABOVE INFORMATION ACTING A SCRIBE FOR DR. VALENTINO. I, DR. VALENTINO, HAVE REVIEWED THE ABOVE DOCUMENT, SCRIBED BY JAYLEN MANRIQUEZ, AND I VERIFY THAT IT IS ACCURATE. PROCEDURE CODES FA211 ESTABILISHED PATIENT [facility] FAC[facility] CHARGE G8427 DOC MEDS VERIFIED W/PT OR RE G8730 PAIN ASSESS POS TOOL F/U PLAN DOC DISPOSITION & COMMUNICATION FOLLOW UP 1 WEEK ELECTRONICALLY SIGNED BY FLORESITA VALENTINO MD ON 09/11/2016 AT 09:37 PM EDT DISCLAIMER : THIS IS A VISIT SUMMARY EXTRACTED FROM THE [email or web address] CHART. IT IS NOT A COPY OF THE [email or web address] PROGRESS NOTE. MTDD
== END ==
LOC: M PAIN 13:00
PROVIDERS: ATTEND Anesthesiology
DX: G89.29 Other chronic pain (principal); M51.16 Intervertebral disc disorders with radiculopathy, lumbar region; M51.17 Intervertebral disc disorders with radiculopathy, lumbosacral region; F41.8 Other specified anxiety disorders; G40.409 Other generalized epilepsy and epileptic syndromes, not intractable, without status epilepticus; I10 Essential (primary) hypertension; K21.9 Gastro-esophageal reflux disease without esophagitis; Z91.030 Bee allergy status; L23.1 Allergic contact dermatitis due to adhesives; Z88.3 Allergy status to other anti-infective agents; Z88.8 Allergy status to other drugs, medicaments and biological substances; Z79.82 Long term (current) use of aspirin; Z79.899 Other long term (current) drug therapy

== ENCOUNTER → 2016-09-14 | Outpatient (CLI) | payer MEDICARE, MEDICAID ==
--- NOTE | 2016-09-23 23:27 | ECWPNPC ---
PATIENT NAME: TIMOTHY YOU : 1970 GENDER: FEMALE VISIT DATE: 09/14/2016 DISCHARGE DATE: 09/14/16 1012 VISIT LOCKED DATE TIME: PHYSICIAN: FLORESITA VALENTINO RESOURCE: FLORESITA VALENTINO REASON FOR APPOINTMENT 1. LOW BACK PAIN HISTORY OF PRESENT ILLNESS HISTORY OF PRESENT ILLNESS: PAIN THE PATIENT DESCRIBES THE PAIN... 46 YEAR OLD FEMALE PATIENT WITH HISTORY OF CHRONIC LOW BACK PAIN. PATIENT DESCRIBES THE PAIN ACHING, SHARP, STABBING, TENDER, SORE, AND HAVING IT ALL THE TIME WITH A PAIN SCORE OF 10/10 ON TODAY'S VISIT. MRS. YOU STATES THAT ANY TYPE OF ACTIVITY INCLUDING SITTING, STANDING, AND WALKING INCREASES THE PAIN IN HER LOWER BACK. CURRENTLY THE PATIENT IS USING HYDROCODONE, GABAPENTIN, AND NORTRIPTYLINE FOR PAIN MANAGEMENT AND STATES THAT AT THIS TIME THE MEDICATIONS KEEP HER MOBILE AND FUNCTIONAL. MRS. PURVIS RECENTLY STARTED HYDROCODONE AND STATES THAT SHE SEES A BENEFIT TO THE HYDROCODONE OVER THE MORPHINE. PATIENT DENIES UNEXPLAINABLE WEIGHT LOSS, FEVER, CHILLS, NEW CHANGES ON HER URINARY OR BOWEL CONTROL. FALL RISK SCREENING: SCREENING :NO FALLS IN THE PAST YEAR CURRENT MEDICATIONS TAKING NORTRIPTYLINE HCL 50 MG CAPSULE 1 CAPSULE ORALLY AT BEDTIME TAKING EPIPEN 2-HUMBERTO 0.3 MG/0.3ML DEVICE 1 INJECTION INJECTION NEEDED FOR BEE STING TAKING FREESTYLE TEST TEST STRIP STRIP 1 STRIP IN VITRO TO CHECK GLUCOSE UP TO TID (ICD9 251.2) TAKING MULTIVITAMINS CAPSULE 1 ORALLY DAILY TAKING ASPIR-LOW 81 MG TABLET DELAYED RELEASE 1 TABLET ORALLY ONCE A DAY TAKING DEPAKOTE 250 MG TABLET DELAYED RELEASE 2 ORALLY BID TAKING GABAPENTIN 300 MG CAPSULE 1 CAPSULE ORALLY THREE TIMES A DAY, NOTES: 2 MONTHS TAKING ATIVAN 0.5 MG TABLET 1 TABLET NEEDED ORALLY DAILY PRN MDD=1 TAKING FUROSEMIDE 20 MG TABLET 1 TABLET ORALLY ONCE A DAY TAKING LISINOPRIL 20 MG TABLET 1 TABLET ORALLY ONCE A DAY TAKING VISTARIL 25 MG CAPSULE 1 CAPSULE ORALLY FOUR TIMES DAILY PRN TAKING PANTOPRAZOLE SODIUM 40 MG TABLET DELAYED RELEASE 1 TAB ORALLY ONCE DAILY TAKING PROZAC 40 MG CAPSULE 1 CAPSULE IN THE MORNING ORALLY ONCE A DAY TAKING MORPHINE SULFATE 15 MG TABLET 1 TABLET NEEDED ORALLY FOR PAIN EVERY 8 HRS MDD2 TAKING HYDROCODONE-ACETAMINOPHEN 10-325 MG TABLET 1 TABLET NEEDED ORALLY FOR PAIN EVERY 4 HOURS NEEDED MDD5 MEDICATION LIST REVIEWED AND RECONCILED WITH THE PATIENT PAST MEDICAL HISTORY SEIZURES BURSITIS LEFT HIP CHRONIC LOW BACK PAIN (PAIN CLINIC) ANXIETY MIGRAINE HEADACHES HEART MURMUR HTN CHRONIC MIGRAINE WITHOUT AURA, WITHOUT MENTION OF INTRACTABLE MIGRAINE WITHOUT MENTION OF STATUS MIGRAINOSUS ESOPHAGEAL REFLUX ANXIETY STATE, UNSPECIFIED UNSPECIFIED EPILEPSY WITHOUT MENTION OF INTRACTABLE EPILEPSY ALLERGIES BEE STING: SWELLING: ALLERGY BUSPAR: SEVERE HYPERACTIVITY/IRRITABILITY: ALLERGY PAPER TAPE: RASH: ALLERGY BACTRIM: SEVERE HYPER ACTIVITY/ IRRITABLE: ALLERGY WELLBUTRIN: RASH, SEVERE HYPER ACTIVITY: ALLERGY REVIEW OF SYSTEMS REVIEWED BY: PROVIDER: FLORESITA VALENTINO MD . CONSTITUTIONAL: ANY CHANGE IN YOUR MEDICAL CONDITION? NO . CHILLS NO . FEVER NO . INFECTION: DO YOU HAVE NEW INFECTIONS? NO . DO YOU HAVE HISTORY OF MRSA? NO . MUSCULOSKELETAL: ANY NEW PATTERNS OF PAIN OR NUMBNESS? NO . GASTROENTEROLOGY: ANY NEW CHANGE IN BOWEL CONTROL? NO . GENITOURINARY: ANY NEW CHANGE IN BLADDER CONTROL? NO . IS THERE A CHANCE YOU COULD BE ? NO . HEMATOLOGY/LYMPH: DO YOU TAKE ANY BLOOD THINNERS? (FOR EXAMPLE- COUMADIN, PLAVIX, AGGRENOX, PLATEL, PRADAXA, OR XARELTO) NO . WHEN WAS YOUR LAST DOSE? DATE: TIME: . NEUROLOGY: HAVE YOU FALLEN IN THE PAST 6 MONTHS? NO . ANY NEW EXTREMITY NUMBNESS OR WEAKNESS? NO . CARDIOLOGY: DO YOU HAVE A PACEMAKER OR DEFIBRILLATOR? NO . RESPIRATORY: HAVE YOU BEEN SICK IN THE PAST WEEK? NO . FEVER NO . FLU LIKE SYMPTOMS? NO . COUGH NO . INTEGUMENTARY: DO YOU HAVE ANY RASHES OR OPEN SORES? NO . ALLERGIC/IMMUNO: ARE YOU ALLERGIC TO SHELLFISH OR IV DYE? NO . ANY NEW ALLERGIES? NO . PSYCHIATRIC: DO YOU HAVE THOUGHTS OF HURTING YOURSELF OR SOMEONE ELSE? NO . ARE YOU ABUSED, NEGLECTED, OR IN AN UNSAFE ENVIRONMENT? NO . ENDOCRINOLOGY: ARE YOU DIABETIC? NO . OTHER: DO YOU NEED ANY PRESCRIPTIONS? NO . IF YES, PLEASE LIST: ____ . ANY NEW PROBLEMS WITH YOUR MEDICATIONS? NO . WHEN DID YOU LAST EAT? ____ . WHEN DID YOU LAST DRINK? ____ . WHAT DID YOU LAST DRINK? ____ . NAME OF PERSON DRIVING YOU HOME? ____ . DO YOU HAVE ANY OTHER QUESTIONS OR CONCERNS NO . VITAL SIGNS WT 188.5 LBS, HT 60.75 IN, BMI 35.91 INDEX, BP 119/77 MM HG, HR 88 /MIN, RR 16 /MIN, TEMP 97.5 F, OXYGEN SAT % 98%, REVIEWED BY: ESSIE [id number]. EXAMINATION : PATIENT IS ALERT O X 3 AND COOPERATIVE. 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 ANTALGIC GAIT. LIMPING FROM THE LEFT SIDE. LEFT LEG IS WEAKER THEN THE RIGHT AT EXTENSION AND FLEXION. MRI DONE ON 12/26/15 SHOWS CANAL STENOSIS ALONG WITH A DISC PROTRUSION AT L3-L4 AND DISC BULGES AT L4-L5 AND L5-S1. ASSESSMENTS INTERVERTEBRAL DISC DISORDERS WITH RADICULOPATHY, LUMBAR REGION - M51.16 (PRIMARY) INTERVERTEBRAL DISC DISORDERS WITH RADICULOPATHY, LUMBOSACRAL REGION - M51.17 TREATMENT INTERVERTEBRAL DISC DISORDERS WITH RADICULOPATHY, LUMBAR REGION REFILL HYDROCODONE-ACETAMINOPHEN TABLET, 10-325 MG, 1 TABLET NEEDED, ORALLY FOR PAIN, EVERY 4 HOURS NEEDED MDD5, 15 DAYS, 75, REFILLS 0 NOTES: WE DISCUSSED SEVERAL ISSUES WITH MRS. YOU'S PAIN MANAGEMENT CASE. AT THIS TIME THE PATIENT WILL CONTINUE USING HYDROCODONE FOR THE SOMATIC PAIN. PATIENT DENIES ABUSE OF ANY MEDICATION, DENIES USE OF ILLEGAL SUBSTANCES, AND STATES THAT SHE IS ONLY USING THE MEDICATION FOR PAIN MANAGEMENT. URINE TOXICOLOGY REPORT DONE ON 04/18/2016 SHOWS CONSISTENT RESULTS WITH THE PATIENTS MEDICATION LIST. AT THIS TIME NO INTERVENTIONS WILL BE HELD. PATIENT WILL RETURN TO THE CLINIC IN 6 WEEKS. INSTRUCTIONS WERE GIVEN, QUESTIONS WERE ANSWERED, PATIENT REPORTS UNDERSTANDING AND AGREES WITH THE PLAN. I, JAYLEN MANRIQUEZ, DOCUMENTED THE ABOVE INFORMATION ACTING A SCRIBE FOR DR. VALENTINO. I HAVE REVIEWED THE ABOVE DOCUMENT, WRITTEN BY JAYLEN PORRAS AND I VERIFY THAT IT IS ACCURATE. PROCEDURE CODES FA211 ESTABILISHED PATIENT [facility] FACILITY CHARGE G8427 DOC MEDS VERIFIED W/PT OR RE G8730 PAIN ASSESS POS TOOL F/U PLAN DOC DISPOSITION & COMMUNICATION FOLLOW UP 6 WEEKS ELECTRONICALLY SIGNED BY FLORESITA VALENTINO MD ON 09/23/2016 AT 10:17 PM EDT DISCLAIMER : THIS IS A VISIT SUMMARY EXTRACTED FROM THE [employer] CHART. IT IS NOT A COPY OF THE [employer] PROGRESS NOTE. [facility]
== END ==
LOC: M PAIN 08:40
PROVIDERS: ATTEND Anesthesiology
DX: G89.29 Other chronic pain (principal); M51.16 Intervertebral disc disorders with radiculopathy, lumbar region; M51.17 Intervertebral disc disorders with radiculopathy, lumbosacral region; G40.909 Epilepsy, unspecified, not intractable, without status epilepticus; F41.9 Anxiety disorder, unspecified; G43.909 Migraine, unspecified, not intractable, without status migrainosus; I10 Essential (primary) hypertension; K21.9 Gastro-esophageal reflux disease without esophagitis; Z91.030 Bee allergy status; L23.1 Allergic contact dermatitis due to adhesives; Z88.8 Allergy status to other drugs, medicaments and biological substances; Z88.1 Allergy status to other antibiotic agents; Z79.82 Long term (current) use of aspirin; Z79.891 Long term (current) use of opiate analgesic; Z79.899 Other long term (current) drug therapy

== ENCOUNTER → 2016-09-26 | Outpatient (CLI) | payer MEDICARE, MEDICAID ==
--- NOTE | 2016-10-09 01:07 | ECWPNPC ---
PATIENT NAME: TIMOTHY YOU : 1970 GENDER: FEMALE VISIT DATE: 09/26/2016 DISCHARGE DATE: 09/26/16 1555 VISIT LOCKED DATE TIME: PHYSICIAN: FLORESITA VALENTINO RESOURCE: FLORESITA VALENTINO REASON FOR APPOINTMENT 1. LOW BACK PAIN HISTORY OF PRESENT ILLNESS HISTORY OF PRESENT ILLNESS: PAIN THE PATIENT DESCRIBES THE PAIN... 46 YEAR OLD FEMALE PATIENT WITH HISTORY OF CHRONIC LOW BACK PAIN. PATIENT DESCRIBES THE PAIN ACHING, SHARP, STABBING, TENDER, SORE, AND HAVING IT ALL THE TIME WITH A PAIN SCORE OF 10/10 ON TODAY'S VISIT. MRS. YOU STATES THAT ANY TYPE OF ACTIVITY INCLUDING SITTING, STANDING, AND WALKING INCREASES THE PAIN IN HER LOWER BACK. CURRENTLY THE PATIENT IS USING HYDROCODONE, GABAPENTIN, AND NORTRIPTYLINE FOR PAIN MANAGEMENT AND STATES THAT AT THIS TIME THE MEDICATIONS KEEP HER MOBILE AND FUNCTIONAL. MRS. YOU STATES SHE FEELS WORSE SINCE USING THE HYDROCODONE. PATIENT DENIES UNEXPLAINABLE WEIGHT LOSS, FEVER, CHILLS, NEW CHANGES ON HER URINARY OR BOWEL CONTROL. FALL RISK SCREENING: SCREENING :NO FALLS IN THE PAST YEAR CURRENT MEDICATIONS TAKING NORTRIPTYLINE HCL 50 MG CAPSULE 1 CAPSULE ORALLY AT BEDTIME TAKING EPIPEN 2-HUMBERTO 0.3 MG/0.3ML DEVICE 1 INJECTION INJECTION NEEDED FOR BEE STING TAKING FREESTYLE TEST TEST STRIP STRIP 1 STRIP IN VITRO TO CHECK GLUCOSE UP TO TID (ICD9 251.2) TAKING MULTIVITAMINS CAPSULE 1 ORALLY DAILY TAKING ASPIR-LOW 81 MG TABLET DELAYED RELEASE 1 TABLET ORALLY ONCE A DAY TAKING DEPAKOTE 250 MG TABLET DELAYED RELEASE 2 ORALLY BID TAKING ATIVAN 0.5 MG TABLET 1 TABLET NEEDED ORALLY DAILY PRN MDD=1 TAKING FUROSEMIDE 20 MG TABLET 1 TABLET ORALLY ONCE A DAY TAKING LISINOPRIL 20 MG TABLET 1 TABLET ORALLY ONCE A DAY TAKING VISTARIL 25 MG CAPSULE 1 CAPSULE ORALLY FOUR TIMES DAILY PRN TAKING PANTOPRAZOLE SODIUM 40 MG TABLET DELAYED RELEASE 1 TAB ORALLY ONCE DAILY TAKING PROZAC 40 MG CAPSULE 1 CAPSULE IN THE MORNING ORALLY ONCE A DAY TAKING HYDROCODONE-ACETAMINOPHEN 10-325 MG TABLET 1 TABLET NEEDED ORALLY FOR PAIN EVERY 4 HOURS NEEDED MDD5 NOT-TAKING GABAPENTIN 300 MG CAPSULE 1 CAPSULE ORALLY THREE TIMES A DAY, NOTES: 2 MONTHS DISCONTINUED MORPHINE SULFATE 15 MG TABLET 1 TABLET NEEDED ORALLY FOR PAIN EVERY 8 HRS MDD2 MEDICATION LIST REVIEWED AND RECONCILED WITH THE PATIENT PAST MEDICAL HISTORY SEIZURES BURSITIS LEFT HIP CHRONIC LOW BACK PAIN (PAIN CLINIC) ANXIETY MIGRAINE HEADACHES HEART MURMUR HTN CHRONIC MIGRAINE WITHOUT AURA, WITHOUT MENTION OF INTRACTABLE MIGRAINE WITHOUT MENTION OF STATUS MIGRAINOSUS ESOPHAGEAL REFLUX ANXIETY STATE, UNSPECIFIED UNSPECIFIED EPILEPSY WITHOUT MENTION OF INTRACTABLE EPILEPSY ALLERGIES BEE STING: SWELLING: ALLERGY BUSPAR: SEVERE HYPERACTIVITY/IRRITABILITY: ALLERGY PAPER TAPE: RASH: ALLERGY BACTRIM: SEVERE HYPER ACTIVITY/ IRRITABLE: ALLERGY WELLBUTRIN: RASH, SEVERE HYPER ACTIVITY: ALLERGY REVIEW OF SYSTEMS REVIEWED BY: PROVIDER: FLORESITA VALENTINO MD . CONSTITUTIONAL: ANY CHANGE IN YOUR MEDICAL CONDITION? NO . CHILLS NO . FEVER NO . INFECTION: DO YOU HAVE NEW INFECTIONS? NO . DO YOU HAVE HISTORY OF MRSA? NO . MUSCULOSKELETAL: ANY NEW PATTERNS OF PAIN OR NUMBNESS? NO . GASTROENTEROLOGY: ANY NEW CHANGE IN BOWEL CONTROL? NO . GENITOURINARY: ANY NEW CHANGE IN BLADDER CONTROL? NO . IS THERE A CHANCE YOU COULD BE ? NO . HEMATOLOGY/LYMPH: DO YOU TAKE ANY BLOOD THINNERS? (FOR EXAMPLE- COUMADIN, PLAVIX, AGGRENOX, PLATEL, PRADAXA, OR XARELTO) NO . WHEN WAS YOUR LAST DOSE? DATE: TIME: . NEUROLOGY: HAVE YOU FALLEN IN THE PAST 6 MONTHS? NO . ANY NEW EXTREMITY NUMBNESS OR WEAKNESS? NO . CARDIOLOGY: DO YOU HAVE A PACEMAKER OR DEFIBRILLATOR? NO . RESPIRATORY: HAVE YOU BEEN SICK IN THE PAST WEEK? NO . FEVER NO . FLU LIKE SYMPTOMS? NO . COUGH NO . INTEGUMENTARY: DO YOU HAVE ANY RASHES OR OPEN SORES? NO . ALLERGIC/IMMUNO: ARE YOU ALLERGIC TO SHELLFISH OR IV DYE? NO . ANY NEW ALLERGIES? NO . PSYCHIATRIC: DO YOU HAVE THOUGHTS OF HURTING YOURSELF OR SOMEONE ELSE? NO . ARE YOU ABUSED, NEGLECTED, OR IN AN UNSAFE ENVIRONMENT? NO . ENDOCRINOLOGY: ARE YOU DIABETIC? NO . OTHER: DO YOU NEED ANY PRESCRIPTIONS? YES . IF YES, PLEASE LIST: ____BAMBIODESamantha . ANY NEW PROBLEMS WITH YOUR MEDICATIONS? NO . WHEN DID YOU LAST EAT? ____ . WHEN DID YOU LAST DRINK? ____ . WHAT DID YOU LAST DRINK? ____ . NAME OF PERSON DRIVING YOU HOME? ____ . DO YOU HAVE ANY OTHER QUESTIONS OR CONCERNS NO . VITAL SIGNS WT 182.8 LBS, HT 60.75 IN, BMI 34.82 INDEX, BP 140/90 MM HG, HR 93 /MIN, RR 16 /MIN, TEMP 97.2 F, OXYGEN SAT % 97%, NA INITIALS TL 1458, REVIEWED BY: VD. EXAMINATION : PATIENT IS ALERT O X 3 AND COOPERATIVE. 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 ANTALGIC GAIT. LIMPING FROM THE LEFT SIDE. LEFT LEG IS WEAKER THEN THE RIGHT AT EXTENSION AND FLEXION. MRI DONE ON 12/26/15 SHOWS CANAL STENOSIS ALONG WITH A DISC PROTRUSION AT L3-L4 AND DISC BULGES AT L4-L5 AND L5-S1. ASSESSMENTS INTERVERTEBRAL DISC DISORDERS WITH RADICULOPATHY, LUMBAR REGION - M51.16 (PRIMARY) INTERVERTEBRAL DISC DISORDERS WITH RADICULOPATHY, LUMBOSACRAL REGION - M51.17 TREATMENT INTERVERTEBRAL DISC DISORDERS WITH RADICULOPATHY, LUMBAR REGION REFILL HYDROCODONE-ACETAMINOPHEN TABLET, 10-325 MG, 1 TABLET NEEDED, ORALLY FOR PAIN, EVERY 4 HOURS NEEDED MDD5, 30 DAYS, 150, REFILLS 0 NOTES: WE DISCUSSED SEVERAL ISSUES WITH MRS. YOU'S PAIN MANAGEMENT CASE. AT THIS TIME THE PATIENT WILL CONTINUE USING HYDROCODONE FOR THE SOMATIC PAIN. PATIENT WILL START SOMA FOR THE MUSCLE SPASMS. PATIENT DENIES ABUSE OF ANY MEDICATION, DENIES USE OF ILLEGAL SUBSTANCES, AND STATES THAT SHE IS ONLY USING THE MEDICATION FOR PAIN MANAGEMENT. URINE TOXICOLOGY REPORT DONE ON 04/18/2016 SHOWS CONSISTENT RESULTS WITH THE PATIENTS MEDICATION LIST. AT THIS TIME NO INTERVENTIONS WILL BE HELD. PATIENT WILL RETURN TO THE CLINIC IN 6 WEEKS. INSTRUCTIONS WERE GIVEN, QUESTIONS WERE ANSWERED, PATIENT REPORTS UNDERSTANDING AND AGREES WITH THE PLAN. I, JAYLEN MANRIQUEZ, DOCUMENTED THE ABOVE INFORMATION ACTING A SCRIBE FOR DR. VALENTINO. I HAVE REVIEWED THE ABOVE DOCUMENT, WRITTEN BY JAYLEN PORRAS AND I VERIFY THAT IT IS ACCURATE. OTHERS START SOMA TABLET, 350 MG, 1 TABLET NEEDED, ORALLY, BEFORE BEDTIME FOR SPASMS AND PAIN MDD1, 30 DAY(S), 30, REFILLS 0 PROCEDURE CODES FA211 ESTABILISHED PATIENT [facility] FACILITY CHARGE G8405 DOC MEDS VERIFIED W/PT OR RE U9729 PAIN ASSESS POS TOOL F/U PLAN DOC DISPOSITION & COMMUNICATION FOLLOW UP 3 WEEKS ELECTRONICALLY SIGNED BY FLORESITA VALENTINO MD ON 10/08/2016 AT 11:35 AM EDT DISCLAIMER : THIS IS A VISIT SUMMARY EXTRACTED FROM THE [employer] CHART. IT IS NOT A COPY OF THE [employer] PROGRESS NOTE. ELLA
== END ==
LOC: M PAIN 14:40
PROVIDERS: ATTEND Anesthesiology
DX: G89.29 Other chronic pain (principal); M51.16 Intervertebral disc disorders with radiculopathy, lumbar region; M51.17 Intervertebral disc disorders with radiculopathy, lumbosacral region; R56.9 Unspecified convulsions; F41.9 Anxiety disorder, unspecified; G43.909 Migraine, unspecified, not intractable, without status migrainosus; I10 Essential (primary) hypertension; K21.9 Gastro-esophageal reflux disease without esophagitis; Z91.030 Bee allergy status; L23.1 Allergic contact dermatitis due to adhesives; Z88.1 Allergy status to other antibiotic agents; Z88.8 Allergy status to other drugs, medicaments and biological substances; Z79.52 Long term (current) use of systemic steroids; Z79.899 Other long term (current) drug therapy

== ENCOUNTER → 2016-10-10 | Outpatient (CLI) | payer MEDICARE, MEDICAID ==
--- NOTE | 2016-10-28 23:47 | ECWPNPC ---
PATIENT NAME: TIMOTHY YOU : 1970 GENDER: FEMALE VISIT DATE: 10/10/2016 DISCHARGE DATE: 10/10/16 1439 VISIT LOCKED DATE TIME: PHYSICIAN: FLORESITA VALENTINO RESOURCE: FLORESITA VALENTINO REASON FOR APPOINTMENT 1. LOW BACK PAIN HISTORY OF PRESENT ILLNESS HISTORY OF PRESENT ILLNESS: PAIN THE PATIENT DESCRIBES THE PAIN... 46 YEAR OLD FEMALE PATIENT WITH HISTORY OF CHRONIC LOW BACK PAIN. PATIENT DESCRIBES THE PAIN ACHING, SHARP, STABBING, TENDER, SORE, AND HAVING IT ALL THE TIME WITH A PAIN SCORE OF 10/10 ON TODAY'S VISIT. MRS. YOU STATES THAT ANY TYPE OF ACTIVITY INCLUDING SITTING, STANDING, AND WALKING INCREASES THE PAIN IN HER LOWER BACK. CURRENTLY THE PATIENT IS USING HYDROCODONE, SOMA, GABAPENTIN, AND NORTRIPTYLINE FOR PAIN MANAGEMENT. PATIENT STATES SHE FEELS A POPPING IN HER BACK AND HER PAIN IS VERY SEVERE AND SHE IS UNABLE TO DO EVERYDAY THINGS DUE TO THE PAIN. PATIENT DENIES UNEXPLAINABLE WEIGHT LOSS, FEVER, CHILLS, NEW CHANGES ON HER URINARY OR BOWEL CONTROL. FALL RISK SCREENING: SCREENING :NO FALLS IN THE PAST YEAR CURRENT MEDICATIONS TAKING NORTRIPTYLINE HCL 50 MG CAPSULE 1 CAPSULE ORALLY AT BEDTIME TAKING EPIPEN 2-HUMBERTO 0.3 MG/0.3ML DEVICE 1 INJECTION INJECTION NEEDED FOR BEE STING TAKING FREESTYLE TEST TEST STRIP STRIP 1 STRIP IN VITRO TO CHECK GLUCOSE UP TO TID (ICD9 251.2) TAKING MULTIVITAMINS CAPSULE 1 ORALLY DAILY TAKING ASPIR-LOW 81 MG TABLET DELAYED RELEASE 1 TABLET ORALLY ONCE A DAY TAKING DEPAKOTE 250 MG TABLET DELAYED RELEASE 2 ORALLY BID TAKING ATIVAN 0.5 MG TABLET 1 TABLET NEEDED ORALLY DAILY PRN MDD=1 TAKING FUROSEMIDE 20 MG TABLET 1 TABLET ORALLY ONCE A DAY TAKING LISINOPRIL 20 MG TABLET 1 TABLET ORALLY ONCE A DAY TAKING VISTARIL 25 MG CAPSULE 1 CAPSULE ORALLY FOUR TIMES DAILY PRN TAKING PANTOPRAZOLE SODIUM 40 MG TABLET DELAYED RELEASE 1 TAB ORALLY ONCE DAILY TAKING PROZAC 40 MG CAPSULE 1 CAPSULE IN THE MORNING ORALLY ONCE A DAY TAKING SOMA 350 MG TABLET 1 TABLET NEEDED ORALLY BEFORE BEDTIME FOR SPASMS AND PAIN MDD1 TAKING HYDROCODONE-ACETAMINOPHEN 10-325 MG TABLET 1 TABLET NEEDED ORALLY FOR PAIN EVERY 4 HOURS NEEDED MDD5 NOT-TAKING GABAPENTIN 300 MG CAPSULE 1 CAPSULE ORALLY THREE TIMES A DAY, NOTES: 2 MONTHS MEDICATION LIST REVIEWED AND RECONCILED WITH THE PATIENT PAST MEDICAL HISTORY SEIZURES BURSITIS LEFT HIP CHRONIC LOW BACK PAIN (PAIN CLINIC) ANXIETY MIGRAINE HEADACHES HEART MURMUR HTN CHRONIC MIGRAINE WITHOUT AURA, WITHOUT MENTION OF INTRACTABLE MIGRAINE WITHOUT MENTION OF STATUS MIGRAINOSUS ESOPHAGEAL REFLUX ANXIETY STATE, UNSPECIFIED UNSPECIFIED EPILEPSY WITHOUT MENTION OF INTRACTABLE EPILEPSY ALLERGIES BEE STING: SWELLING: ALLERGY BUSPAR: SEVERE HYPERACTIVITY/IRRITABILITY: ALLERGY PAPER TAPE: RASH: ALLERGY BACTRIM: SEVERE HYPER ACTIVITY/ IRRITABLE: ALLERGY WELLBUTRIN: RASH, SEVERE HYPER ACTIVITY: ALLERGY REVIEW OF SYSTEMS REVIEWED BY: PROVIDER: FLORESITA VALENTINO MD . CONSTITUTIONAL: ANY CHANGE IN YOUR MEDICAL CONDITION? NO . CHILLS NO . FEVER NO . INFECTION: DO YOU HAVE NEW INFECTIONS? NO . DO YOU HAVE HISTORY OF MRSA? NO . MUSCULOSKELETAL: ANY NEW PATTERNS OF PAIN OR NUMBNESS? NO . GASTROENTEROLOGY: ANY NEW CHANGE IN BOWEL CONTROL? NO . GENITOURINARY: ANY NEW CHANGE IN BLADDER CONTROL? NO . IS THERE A CHANCE YOU COULD BE ? NO . HEMATOLOGY/LYMPH: DO YOU TAKE ANY BLOOD THINNERS? (FOR EXAMPLE- COUMADIN, PLAVIX, AGGRENOX, PLATEL, PRADAXA, OR XARELTO) NO . WHEN WAS YOUR LAST DOSE? DATE: TIME: . NEUROLOGY: HAVE YOU FALLEN IN THE PAST 6 MONTHS? NO . ANY NEW EXTREMITY NUMBNESS OR WEAKNESS? NO . CARDIOLOGY: DO YOU HAVE A PACEMAKER OR DEFIBRILLATOR? NO . RESPIRATORY: HAVE YOU BEEN SICK IN THE PAST WEEK? NO . FEVER NO . FLU LIKE SYMPTOMS? NO . COUGH NO . INTEGUMENTARY: DO YOU HAVE ANY RASHES OR OPEN SORES? NO . ALLERGIC/IMMUNO: ARE YOU ALLERGIC TO SHELLFISH OR IV DYE? NO . ANY NEW ALLERGIES? NO . PSYCHIATRIC: DO YOU HAVE THOUGHTS OF HURTING YOURSELF OR SOMEONE ELSE? NO . ARE YOU ABUSED, NEGLECTED, OR IN AN UNSAFE ENVIRONMENT? NO . ENDOCRINOLOGY: ARE YOU DIABETIC? NO . OTHER: DO YOU NEED ANY PRESCRIPTIONS? NO . IF YES, PLEASE LIST: ____ . ANY NEW PROBLEMS WITH YOUR MEDICATIONS? NO . WHEN DID YOU LAST EAT? ____ . WHEN DID YOU LAST DRINK? ____ . WHAT DID YOU LAST DRINK? ____ . NAME OF PERSON DRIVING YOU HOME? ____ . DO YOU HAVE ANY OTHER QUESTIONS OR CONCERNS NO . VITAL SIGNS WT 182.0 LBS, HT 60.75 IN, BMI 34.67 INDEX, BP 109/75 MM HG, HR 99 /MIN, RR 16 /MIN, TEMP 97.4 F, OXYGEN SAT % 97%, NA INITIALS AW 1356. EXAMINATION : PATIENT IS ALERT O X 3 AND COOPERATIVE. 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 ANTALGIC GAIT. LIMPING FROM THE LEFT SIDE. LEFT LEG IS WEAKER THEN THE RIGHT AT EXTENSION AND FLEXION. MRI DONE ON 12/26/15 SHOWS CANAL STENOSIS ALONG WITH A DISC PROTRUSION AT L3-L4 AND DISC BULGES AT L4-L5 AND L5-S1. ASSESSMENTS INTERVERTEBRAL DISC DISORDERS WITH RADICULOPATHY, LUMBAR REGION - M51.16 (PRIMARY) INTERVERTEBRAL DISC DISORDERS WITH RADICULOPATHY, LUMBOSACRAL REGION - M51.17 TREATMENT INTERVERTEBRAL DISC DISORDERS WITH RADICULOPATHY, LUMBAR REGION NOTES: WE DISCUSSED SEVERAL ISSUES WITH MRS. YOU'S PAIN MANAGEMENT CASE. AT THIS TIME I WOULD LIKE THE PATIENT TO USE TORADOL FOR THE SOMATIC DUE TO THE PATIENT NOT BEING ABLE TO DO EVERYDAY THINGS DUE TO THE PAIN. PATIENT WILL CONTINUE WITH HYDROCODONE FOR SOMATIC PAIN, SOMA FOR THE MUSCLE SPASMS, AND GABAPENTIN FOR THE NEUROPATHIC PAIN. PATIENT DENIES ABUSE OF ANY MEDICATION, DENIES USE OF ILLEGAL SUBSTANCES, AND STATES SHE IS ONLY USING THE MEDICATION FOR PAIN MANAGEMENT. URINE TOXICOLOGY REPORT DONE ON 04/18/16 SHOWS CONSISTENT RESULTS WITH THE PATIENTS MEDICATION LIST. PATIENT WILL RETURN TO THE CLINIC IN 3 WEEKS. INSTRUCTIONS WERE GIVEN, QUESTIONS WERE ANSWERED, PATIENT REPORTS UNDERSTANDING AND AGREES WITH THE PLAN. I, JAYLEN MANRIQUEZ, DOCUMENTED THE ABOVE INFORMATION ACTING A SCRIBE FOR DR. VALENTINO. I HAVE REVIEWED THE ABOVE DOCUMENT, WRITTEN BY JAYLEN PORRAS AND I VERIFY THAT IT IS ACCURATE. OTHERS START KETOROLAC TROMETHAMINE TABLET, 10 MG, 1 TABLET WITH FOOD OR MILK NEEDED, ORALLY FOR PAIN, EVERY 6 HRS MDD3, 5 DAY(S), 15, REFILLS 0 PROCEDURE CODES FA211 ESTABILISHED PATIENT [facility] FACILITY CHARGE G8427 DOC MEDS VERIFIED W/PT OR RE U7450 PAIN ASSESS POS TOOL F/U PLAN DOC DISPOSITION & COMMUNICATION FOLLOW UP 3 WEEKS ELECTRONICALLY SIGNED BY FLORESITA VALENTINO MD ON 10/28/2016 AT 11:59 AM EDT DISCLAIMER : THIS IS A VISIT SUMMARY EXTRACTED FROM THE [employer] CHART. IT IS NOT A COPY OF THE [employer] PROGRESS NOTE. ELLA
== END ==
LOC: M PAIN 13:40
PROVIDERS: ATTEND Anesthesiology
DX: G89.29 Other chronic pain (principal); M51.16 Intervertebral disc disorders with radiculopathy, lumbar region; M51.17 Intervertebral disc disorders with radiculopathy, lumbosacral region; R56.9 Unspecified convulsions; F41.9 Anxiety disorder, unspecified; G43.909 Migraine, unspecified, not intractable, without status migrainosus; I10 Essential (primary) hypertension; K21.9 Gastro-esophageal reflux disease without esophagitis; Z91.030 Bee allergy status; L23.1 Allergic contact dermatitis due to adhesives; Z88.1 Allergy status to other antibiotic agents; Z88.8 Allergy status to other drugs, medicaments and biological substances; Z79.82 Long term (current) use of aspirin; Z79.899 Other long term (current) drug therapy

== ENCOUNTER → 2016-10-19 | Outpatient (CLI) | payer MEDICARE, MEDICAID ==
--- NOTE | 2016-11-06 01:56 | ECWPNPC ---
PATIENT NAME: TIMOTHY YOU : 1970 GENDER: FEMALE VISIT DATE: 10/19/2016 DISCHARGE DATE: 10/19/16 1313 VISIT LOCKED DATE TIME: PHYSICIAN: FLORESITA VALENTINO RESOURCE: FLORESITA VALENTINO REASON FOR APPOINTMENT 1. LOW BACK PAIN HISTORY OF PRESENT ILLNESS HISTORY OF PRESENT ILLNESS: PAIN THE PATIENT DESCRIBES THE PAIN... 46 YEAR OLD FEMALE PATIENT WITH HISTORY OF CHRONIC LOW BACK PAIN. PATIENT DESCRIBES THE PAIN ACHING, SHARP, STABBING, TENDER, SORE, AND HAVING IT ALL THE TIME WITH A PAIN SCORE OF 10/10 ON TODAY'S VISIT. MRS. YOU STATES THAT ANY TYPE OF ACTIVITY INCLUDING SITTING, STANDING, AND WALKING INCREASES THE PAIN IN HER LOWER BACK. CURRENTLY THE PATIENT IS USING HYDROCODONE, SOMA, GABAPENTIN, AND NORTRIPTYLINE FOR PAIN MANAGEMENT. PATIENT STATES SHE FEELS A POPPING IN HER BACK AND HER PAIN IS VERY SEVERE AND SHE IS UNABLE TO DO EVERYDAY THINGS DUE TO THE PAIN. PATIENT DENIES UNEXPLAINABLE WEIGHT LOSS, FEVER, CHILLS, NEW CHANGES ON HER URINARY OR BOWEL CONTROL. FALL RISK SCREENING: SCREENING :NO FALLS IN THE PAST YEAR CURRENT MEDICATIONS TAKING KETOROLAC TROMETHAMINE 10 MG TABLET 1 TABLET WITH FOOD OR MILK NEEDED ORALLY FOR PAIN EVERY 6 HRS MDD3 TAKING NORTRIPTYLINE HCL 50 MG CAPSULE 1 CAPSULE ORALLY AT BEDTIME TAKING EPIPEN 2-HUMBERTO 0.3 MG/0.3ML DEVICE 1 INJECTION INJECTION NEEDED FOR BEE STING TAKING FREESTYLE TEST TEST STRIP STRIP 1 STRIP IN VITRO TO CHECK GLUCOSE UP TO TID (ICD9 251.2) TAKING MULTIVITAMINS CAPSULE 1 ORALLY DAILY TAKING ASPIR-LOW 81 MG TABLET DELAYED RELEASE 1 TABLET ORALLY ONCE A DAY TAKING DEPAKOTE 250 MG TABLET DELAYED RELEASE 1 ORALLY TWICE DAILY TAKING ATIVAN 0.5 MG TABLET 1 TABLET NEEDED ORALLY DAILY PRN MDD=1 TAKING FUROSEMIDE 20 MG TABLET 1 TABLET ORALLY ONCE A DAY TAKING LISINOPRIL 20 MG TABLET 1 TABLET ORALLY ONCE A DAY TAKING VISTARIL 25 MG CAPSULE 1 CAPSULE ORALLY FOUR TIMES DAILY PRN TAKING PANTOPRAZOLE SODIUM 40 MG TABLET DELAYED RELEASE 1 TAB ORALLY ONCE DAILY TAKING PROZAC 40 MG CAPSULE 1 CAPSULE IN THE MORNING ORALLY ONCE A DAY TAKING SOMA 350 MG TABLET 1 TABLET NEEDED ORALLY BEFORE BEDTIME FOR SPASMS AND PAIN MDD1 TAKING HYDROCODONE-ACETAMINOPHEN 10-325 MG TABLET 1 TABLET NEEDED ORALLY FOR PAIN EVERY 4 HOURS NEEDED MDD5 NOT-TAKING GABAPENTIN 300 MG CAPSULE 1 CAPSULE ORALLY THREE TIMES A DAY, NOTES: 2 MONTHS MEDICATION LIST REVIEWED AND RECONCILED WITH THE PATIENT PAST MEDICAL HISTORY SEIZURES BURSITIS LEFT HIP CHRONIC LOW BACK PAIN (PAIN CLINIC) ANXIETY MIGRAINE HEADACHES HEART MURMUR HTN CHRONIC MIGRAINE WITHOUT AURA, WITHOUT MENTION OF INTRACTABLE MIGRAINE WITHOUT MENTION OF STATUS MIGRAINOSUS ESOPHAGEAL REFLUX ANXIETY STATE, UNSPECIFIED UNSPECIFIED EPILEPSY WITHOUT MENTION OF INTRACTABLE EPILEPSY ALLERGIES BEE STING: SWELLING: ALLERGY BUSPAR: SEVERE HYPERACTIVITY/IRRITABILITY: ALLERGY PAPER TAPE: RASH: ALLERGY BACTRIM: SEVERE HYPER ACTIVITY/ IRRITABLE: ALLERGY WELLBUTRIN: RASH, SEVERE HYPER ACTIVITY: ALLERGY REVIEW OF SYSTEMS REVIEWED BY: PROVIDER: FLORESITA VALENTINO MD . CONSTITUTIONAL: ANY CHANGE IN YOUR MEDICAL CONDITION? NO . CHILLS NO . FEVER NO . INFECTION: DO YOU HAVE NEW INFECTIONS? NO . DO YOU HAVE HISTORY OF MRSA? NO . MUSCULOSKELETAL: ANY NEW PATTERNS OF PAIN OR NUMBNESS? NO . GASTROENTEROLOGY: ANY NEW CHANGE IN BOWEL CONTROL? NO . GENITOURINARY: ANY NEW CHANGE IN BLADDER CONTROL? NO . IS THERE A CHANCE YOU COULD BE ? NO . HEMATOLOGY/LYMPH: DO YOU TAKE ANY BLOOD THINNERS? (FOR EXAMPLE- COUMADIN, PLAVIX, AGGRENOX, PLATEL, PRADAXA, OR XARELTO) NO . WHEN WAS YOUR LAST DOSE? DATE: TIME: . NEUROLOGY: HAVE YOU FALLEN IN THE PAST 6 MONTHS? NO . ANY NEW EXTREMITY NUMBNESS OR WEAKNESS? NO . CARDIOLOGY: DO YOU HAVE A PACEMAKER OR DEFIBRILLATOR? NO . RESPIRATORY: HAVE YOU BEEN SICK IN THE PAST WEEK? NO . FEVER NO . FLU LIKE SYMPTOMS? NO . COUGH NO . INTEGUMENTARY: DO YOU HAVE ANY RASHES OR OPEN SORES? NO . ALLERGIC/IMMUNO: ARE YOU ALLERGIC TO SHELLFISH OR IV DYE? NO . ANY NEW ALLERGIES? NO . PSYCHIATRIC: DO YOU HAVE THOUGHTS OF HURTING YOURSELF OR SOMEONE ELSE? NO . ARE YOU ABUSED, NEGLECTED, OR IN AN UNSAFE ENVIRONMENT? NO . ENDOCRINOLOGY: ARE YOU DIABETIC? NO . OTHER: DO YOU NEED ANY PRESCRIPTIONS? NO . IF YES, PLEASE LIST: ____ . ANY NEW PROBLEMS WITH YOUR MEDICATIONS? NO . WHEN DID YOU LAST EAT? ____ . WHEN DID YOU LAST DRINK? ____ . WHAT DID YOU LAST DRINK? ____ . NAME OF PERSON DRIVING YOU HOME? ____ . DO YOU HAVE ANY OTHER QUESTIONS OR CONCERNS NO . VITAL SIGNS WT 182 LBS, HT 60.75 IN, BMI 34.67 INDEX, BP 111/77 MM HG, HR 90 /MIN, RR 16 /MIN, TEMP 97:3, OXYGEN SAT % 98%, NA INITIALS SC 11:15, REVIEWED BY: CM. EXAMINATION : PATIENT IS ALERT O X 3 AND COOPERATIVE. 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 ANTALGIC GAIT. LIMPING FROM THE LEFT SIDE. LEFT LEG IS WEAKER THEN THE RIGHT AT EXTENSION AND FLEXION. MRI DONE ON 12/26/15 SHOWS CANAL STENOSIS ALONG WITH A DISC PROTRUSION AT L3-L4 AND DISC BULGES AT L4-L5 AND L5-S1. ASSESSMENTS INTERVERTEBRAL DISC DISORDERS WITH RADICULOPATHY, LUMBAR REGION - M51.16 (PRIMARY) INTERVERTEBRAL DISC DISORDERS WITH RADICULOPATHY, LUMBOSACRAL REGION - M51.17 TREATMENT INTERVERTEBRAL DISC DISORDERS WITH RADICULOPATHY, LUMBAR REGION REFILL HYDROCODONE-ACETAMINOPHEN TABLET, 10-325 MG, 1 TABLET NEEDED, ORALLY FOR PAIN, EVERY 4 HOURS NEEDED MDD5, 30 DAYS, 150, REFILLS 0 NOTES: WE DISCUSSED SEVERAL ISSUES WITH MRS. YOU'S PAIN MANAGEMENT CASE. PATIENT WILL CONTINUE WITH HYDROCODONE FOR SOMATIC PAIN, SOMA FOR THE MUSCLE SPASMS, AND GABAPENTIN FOR THE NEUROPATHIC PAIN. PATIENT DENIES ABUSE OF ANY MEDICATION, DENIES USE OF ILLEGAL SUBSTANCES, AND STATES SHE IS ONLY USING THE MEDICATION FOR PAIN MANAGEMENT. URINE TOXICOLOGY REPORT DONE ON 04/18/16 SHOWS CONSISTENT RESULTS WITH THE PATIENTS MEDICATION LIST. PATIENT IS AWAITING APPROVAL FOR THE PERMANENT DCS AT THIS TIME. PATIENT WILL RETURN TO THE CLINIC IN 3 WEEKS. INSTRUCTIONS WERE GIVEN, QUESTIONS WERE ANSWERED, PATIENT REPORTS UNDERSTANDING AND AGREES WITH THE PLAN. I, JAYLEN MANRIQUEZ, DOCUMENTED THE ABOVE INFORMATION ACTING A SCRIBE FOR DR. VALENTINO. I HAVE REVIEWED THE ABOVE DOCUMENT, WRITTEN BY JAYLEN PORRAS AND I VERIFY THAT IT IS ACCURATE. PROCEDURE CODES FA211 ESTABILISHED PATIENT [facility] CHARGE G8427 DOC MEDS VERIFIED W/PT OR RE G6652 PAIN ASSESS POS TOOL F/U PLAN DOC DISPOSITION & COMMUNICATION FOLLOW UP 3 WEEKS ELECTRONICALLY SIGNED BY FLORESITA VALENTINO MD ON 11/05/2016 AT 06:50 PM EDT DISCLAIMER : THIS IS A VISIT SUMMARY EXTRACTED FROM THE [employer] CHART. IT IS NOT A COPY OF THE [employer] PROGRESS NOTE. ELLA
== END ==
LOC: M PAIN 11:00
PROVIDERS: ATTEND Anesthesiology
DX: G89.29 Other chronic pain (principal); M51.16 Intervertebral disc disorders with radiculopathy, lumbar region; M51.17 Intervertebral disc disorders with radiculopathy, lumbosacral region; G40.409 Other generalized epilepsy and epileptic syndromes, not intractable, without status epilepticus; F41.8 Other specified anxiety disorders; G43.909 Migraine, unspecified, not intractable, without status migrainosus; I10 Essential (primary) hypertension; K21.9 Gastro-esophageal reflux disease without esophagitis; Z91.030 Bee allergy status; Z88.5 Allergy status to narcotic agent; L23.1 Allergic contact dermatitis due to adhesives; Z88.1 Allergy status to other antibiotic agents; Z88.8 Allergy status to other drugs, medicaments and biological substances; Z79.82 Long term (current) use of aspirin; Z79.899 Other long term (current) drug therapy

== ENCOUNTER → 2016-10-26 | Outpatient (REF) | payer MEDICARE, MEDICAID ==
[2016-10-26 11:38] LABS: ALBUMIN 3.7 GM/DL (3.2-5.2); ALBUMIN/GLOBULIN RATIO 1.03 (1.00-1.93); ALKALINE PHOSPHATASE 61 U/L (45-117); ALT/SGPT 16 U/L (12-78); ANION GAP 10 MEQ/L (8-16); AST/SGOT 13 U/L (15-37); BILIRUBIN,TOTAL 0.2 MG/DL (0.2-1.0); BLOOD UREA NITROGEN 20 MG/DL (7-18); CALCIUM LEVEL 9.7 MG/DL (8.5-10.1); CARBON DIOXIDE LEVEL 29 MEQ/L (21-32); CHLORIDE LEVEL 102 MEQ/L (98-107); CREATININE FOR GFR 0.96 MG/DL (0.55-1.02); GLOMERULAR FILTRATION RATE > 60.0 (>58); GLUCOSE, FASTING 90 MG/DL (70-105); SODIUM LEVEL 141 MEQ/L (136-145); TOTAL PROTEIN 7.3 GM/DL (6.4-8.2)
[2016-10-26 11:51] LABS: MEAN CORPUSCULAR HEMOGLOBIN 33.3 pg (27.0-33.0); MEAN CORPUSCULAR HGB CONC 34.5 g/dl (32.0-36.5); MEAN CORPUSCULAR VOLUME 96.4 fl (80.0-96.0); RED CELL DISTRIBUTION WIDTH 12.8 % (11.5-14.5); WHITE BLOOD COUNT 5.6 K/mm3 (4.0-10.0)
== END ==
LOC: M SFHCLERA 08:30
PROVIDERS: ATTEND Physician Assistant
DX: Z01.818 Encounter for other preprocedural examination (principal); M51.16 Intervertebral disc disorders with radiculopathy, lumbar region
CPT/HCPCS: 80053; 85027; G0463

== ENCOUNTER → 2016-11-16 | Outpatient (CLI) | payer MEDICARE, MEDICAID ==
--- NOTE | 2016-11-27 02:20 | ECWPNPC ---
PATIENT NAME: TIMOTHY YUO : 1970 GENDER: FEMALE VISIT DATE: 11/16/2016 DISCHARGE DATE: 11/16/16 0000 VISIT LOCKED DATE TIME: PHYSICIAN: FLORESITA VALENTINO RESOURCE: FLORESITA VALENTINO REASON FOR APPOINTMENT 1. LOW BACK PAIN HISTORY OF PRESENT ILLNESS HISTORY OF PRESENT ILLNESS: PAIN THE PATIENT DESCRIBES THE PAIN... 46 YEAR OLD FEMALE PATIENT WITH HISTORY OF CHRONIC LOW BACK PAIN. PATIENT DESCRIBES THE PAIN ACHING, SHARP, TENDER, SORE, AND HAVING IT ALL THE TIME WITH A PAIN SCORE OF 10/10. PATIENT REPORTS SHE HAD STOPPED GOING TO THE COUNSELOR. CURRENTLY THE PATIENT IS USING HYDROCODONE AND STATES THAT SHE IS STILL IN SEVERE PAIN. PATIENT REPORTS HAVING HER BACK "POP" OUT SEVERAL TIMES A DAY CAUSING VERY SEVERE PAIN. PATIENT DENIES UNEXPLAINABLE WEIGHT LOSS, FEVER, CHILLS, NEW CHANGES ON HER URINARY OR BOWEL CONTROL. FALL RISK SCREENING: SCREENING :NO FALLS IN THE PAST YEAR CURRENT MEDICATIONS TAKING NORTRIPTYLINE HCL 50 MG CAPSULE 1 CAPSULE ORALLY AT BEDTIME TAKING EPIPEN 2-HUMBERTO 0.3 MG/0.3ML DEVICE 1 INJECTION INJECTION NEEDED FOR BEE STING TAKING FREESTYLE TEST TEST STRIP STRIP 1 STRIP IN VITRO TO CHECK GLUCOSE UP TO TID (ICD9 251.2) TAKING MULTIVITAMINS CAPSULE 1 ORALLY DAILY TAKING ASPIR-LOW 81 MG TABLET DELAYED RELEASE 1 TABLET ORALLY ONCE A DAY TAKING DEPAKOTE 250 MG TABLET DELAYED RELEASE 1 ORALLY TWICE DAILY TAKING ATIVAN 0.5 MG TABLET 1 TABLET NEEDED ORALLY DAILY PRN MDD=1 TAKING FUROSEMIDE 20 MG TABLET 1 TABLET ORALLY ONCE A DAY TAKING LISINOPRIL 20 MG TABLET 1 TABLET ORALLY ONCE A DAY TAKING VISTARIL 25 MG CAPSULE 1 CAPSULE ORALLY FOUR TIMES DAILY PRN TAKING PANTOPRAZOLE SODIUM 40 MG TABLET DELAYED RELEASE 1 TAB ORALLY ONCE DAILY TAKING HYDROCODONE-ACETAMINOPHEN 10-325 MG TABLET 1 TABLET NEEDED ORALLY FOR PAIN EVERY 4 HOURS NEEDED MDD5 NOT-TAKING PROZAC 40 MG CAPSULE 1 CAPSULE IN THE MORNING ORALLY ONCE A DAY NOT-TAKING SOMA 350 MG TABLET 1 TABLET NEEDED ORALLY BEFORE BEDTIME FOR SPASMS AND PAIN MDD1, NOTES: NEVER GOT NOT-TAKING KETOROLAC TROMETHAMINE 10 MG TABLET 1 TABLET WITH FOOD OR MILK NEEDED ORALLY FOR PAIN EVERY 6 HRS MDD3, NOTES: DON'T HAVE NOT-TAKING GABAPENTIN 300 MG CAPSULE 1 CAPSULE ORALLY THREE TIMES A DAY, NOTES: 2 MONTHS MEDICATION LIST REVIEWED AND RECONCILED WITH THE PATIENT PAST MEDICAL HISTORY SEIZURES BURSITIS LEFT HIP CHRONIC LOW BACK PAIN (PAIN CLINIC) ANXIETY MIGRAINE HEADACHES HEART MURMUR HTN CHRONIC MIGRAINE WITHOUT AURA, WITHOUT MENTION OF INTRACTABLE MIGRAINE WITHOUT MENTION OF STATUS MIGRAINOSUS ESOPHAGEAL REFLUX ANXIETY STATE, UNSPECIFIED UNSPECIFIED EPILEPSY WITHOUT MENTION OF INTRACTABLE EPILEPSY ALLERGIES BEE STING: SWELLING: ALLERGY BUSPAR: SEVERE HYPERACTIVITY/IRRITABILITY: ALLERGY PAPER TAPE: RASH: ALLERGY BACTRIM: SEVERE HYPER ACTIVITY/ IRRITABLE: ALLERGY WELLBUTRIN: RASH, SEVERE HYPER ACTIVITY: ALLERGY REVIEW OF SYSTEMS REVIEWED BY: PROVIDER: FLORESITA VALENTINO MD . CONSTITUTIONAL: ANY CHANGE IN YOUR MEDICAL CONDITION? NO . CHILLS NO . FEVER NO . INFECTION: DO YOU HAVE NEW INFECTIONS? NO . DO YOU HAVE HISTORY OF MRSA? NO . MUSCULOSKELETAL: ANY NEW PATTERNS OF PAIN OR NUMBNESS? NO . GASTROENTEROLOGY: ANY NEW CHANGE IN BOWEL CONTROL? NO . GENITOURINARY: ANY NEW CHANGE IN BLADDER CONTROL? NO . IS THERE A CHANCE YOU COULD BE ? NO . HEMATOLOGY/LYMPH: DO YOU TAKE ANY BLOOD THINNERS? (FOR EXAMPLE- COUMADIN, PLAVIX, AGGRENOX, PLATEL, PRADAXA, OR XARELTO) NO . WHEN WAS YOUR LAST DOSE? DATE: TIME: . NEUROLOGY: HAVE YOU FALLEN IN THE PAST 6 MONTHS? NO . ANY NEW EXTREMITY NUMBNESS OR WEAKNESS? NO . CARDIOLOGY: DO YOU HAVE A PACEMAKER OR DEFIBRILLATOR? NO . RESPIRATORY: HAVE YOU BEEN SICK IN THE PAST WEEK? NO . FEVER NO . FLU LIKE SYMPTOMS? NO . COUGH NO . INTEGUMENTARY: DO YOU HAVE ANY RASHES OR OPEN SORES? NO . ALLERGIC/IMMUNO: ARE YOU ALLERGIC TO SHELLFISH OR IV DYE? NO . ANY NEW ALLERGIES? NO . PSYCHIATRIC: DO YOU HAVE THOUGHTS OF HURTING YOURSELF OR SOMEONE ELSE? NO . ARE YOU ABUSED, NEGLECTED, OR IN AN UNSAFE ENVIRONMENT? NO . ENDOCRINOLOGY: ARE YOU DIABETIC? NO . OTHER: DO YOU NEED ANY PRESCRIPTIONS? YES PT REPORTS SHE WAS PRESCRIBED SOMA AND KETOROLAC, BUT NEITHER PRESCRIPTION WAS SENT TO HER PHARMACY. . IF YES, PLEASE LIST: ____ . ANY NEW PROBLEMS WITH YOUR MEDICATIONS? NO . WHEN DID YOU LAST EAT? ____ . WHEN DID YOU LAST DRINK? ____ . WHAT DID YOU LAST DRINK? ____ . NAME OF PERSON DRIVING YOU HOME? ____ . DO YOU HAVE ANY OTHER QUESTIONS OR CONCERNS NO . VITAL SIGNS WT 180 LBS, HT 60.75 IN, BMI 34.29 INDEX, BP 123/67 MM HG, HR 91 /MIN, RR 18 /MIN, TEMP 96.7 F, OXYGEN SAT % 98%, SAFE IN ENV? (Y/N) YES, NA INITIALS SC, REVIEWED BY: JULIANN. EXAMINATION : PATIENT IS ALERT O X 3 AND COOPERATIVE. 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 ANTALGIC GAIT. LIMPING FROM THE LEFT SIDE. LEFT LEG IS WEAKER THEN THE RIGHT AT EXTENSION AND FLEXION. MRI DONE ON 12/26/15 SHOWS CANAL STENOSIS ALONG WITH A DISC PROTRUSION AT L3-L4 AND DISC BULGES AT L4-L5 AND L5-S1. ASSESSMENTS INTERVERTEBRAL DISC DISORDER WITH RADICULOPATHY OF LUMBAR REGION - M51.16 (PRIMARY) INTERVERTEBRAL DISC DISORDER WITH RADICULOPATHY OF LUMBOSACRAL REGION - M51.17 TREATMENT INTERVERTEBRAL DISC DISORDER WITH RADICULOPATHY OF LUMBAR REGION NOTES: WE DISCUSSED SEVERAL ISSUES WITH MRS. YOU'S PAIN MANAGEMENT CASE. AT THIS TIME THE PATIENT WILL START OXYCODONE DUE TO THE PAIN SHE IS HAVING. URINE TOXICOLOGY REPORT DONE ON 04/18/16 SHOWS CONSISTENT RESULTS WITH THE PATIENT'S MEDICATION LIST. PATIENT DENIES ABUSE OF AN MEDICATION, DENIES USE OF ILLEGAL SUBSTANCES, AND STATES SHE IS ONLY USING THE MEDICATION FOR PAIN MANAGEMENT. I WOULD LIKE THE PATIENT TO CONTINUE SEEING THE PSYCHOLOGIST. WE DISCUSSED THAT THE DCS SHOULD CONTROL MOST OF HER PAIN AND SO SHE WILL NOT RECEIVE PAIN MEDICATIONS AFTER THE DCS IS PLACED AND HEALED. PATIENT WILL RETURN IN 2 WEEKS TO FURTHER DISCUSS THE CASE. INSTRUCTIONS WERE GIVEN, QUESTIONS WERE ANSWERED, PATIENT REPORTS UNDERSTANDING AND AGREES WITH THE PLAN. I, JAYLEN MANRIQUEZ, DOCUMENTED THE ABOVE INFORMATION ACTING A SCRIBE FOR DR. VALENTINO. I HAVE REVIEWED THE ABOVE DOCUMENT, WRITTEN BY JAYLEN PORRAS AND I VERIFY THAT IT IS ACCURATE. OTHERS START OXYCODONE HCL TABLET, 10 MG, 1 TABLET, ORALLY, EVERY 6 HRS PRN FOR PAIN MDD3, 7 DAY(S), 21, REFILLS 0 PROCEDURE CODES FA211 ESTABILISHED PATIENT [facility] CHARGE [id number] DOC MEDS VERIFIED W/PT OR RE P1094 PAIN ASSESS POS TOOL F/U PLAN DOC DISPOSITION & COMMUNICATION FOLLOW UP 2 WEEKS ELECTRONICALLY SIGNED BY FLORESITA VALENTINO MD ON 11/26/2016 AT 06:57 AM EDT DISCLAIMER : THIS IS A VISIT SUMMARY EXTRACTED FROM THE [employer] CHART. IT IS NOT A COPY OF THE [employer] PROGRESS NOTE. ELLA
== END ==
LOC: M PAIN 15:45
PROVIDERS: ATTEND Anesthesiology
DX: G89.29 Other chronic pain (principal); M51.16 Intervertebral disc disorders with radiculopathy, lumbar region; M51.17 Intervertebral disc disorders with radiculopathy, lumbosacral region; G40.409 Other generalized epilepsy and epileptic syndromes, not intractable, without status epilepticus; G43.709 Chronic migraine without aura, not intractable, without status migrainosus; I10 Essential (primary) hypertension; K21.9 Gastro-esophageal reflux disease without esophagitis; F41.8 Other specified anxiety disorders; Z91.030 Bee allergy status; L23.1 Allergic contact dermatitis due to adhesives; Z88.1 Allergy status to other antibiotic agents; Z88.8 Allergy status to other drugs, medicaments and biological substances; Z79.82 Long term (current) use of aspirin; Z79.899 Other long term (current) drug therapy

== ENCOUNTER → 2016-11-23 | Outpatient (CLI) | payer MEDICARE, MEDICAID ==
--- NOTE | 2016-11-28 23:28 | ECWPNPC ---
PATIENT NAME: TIMOTHY YOU : 1970 GENDER: FEMALE VISIT DATE: 11/23/2016 DISCHARGE DATE: 11/23/16 1730 VISIT LOCKED DATE TIME: PHYSICIAN: FLORESITA VALENTINO RESOURCE: FLORESITA VALENTINO REASON FOR APPOINTMENT 1. LOW BACK PAIN HISTORY OF PRESENT ILLNESS HISTORY OF PRESENT ILLNESS: PAIN THE PATIENT DESCRIBES THE PAIN... 46 YEAR OLD FEMALE PATIENT WITH HISTORY OF CHRONIC LOW BACK PAIN. PATIENT DESCRIBES THE PAIN ACHING, SHARP, TENDER, SORE, AND HAVING IT ALL THE TIME WITH A PAIN SCORE OF 10/10. PATIENT REPORTS SHE HAD STOPPED GOING TO THE COUNSELOR. CURRENTLY THE PATIENT IS USING OXYCODONE AND STATES THAT SHE IS STILL IN SEVERE PAIN. PATIENT USED TORADOL FOR A 5 DAY PERIOD AND REPORTED GETTING MORE PAIN RELIEF FROM THE TORADOL THEN THE OXYCODONE. PATIENT REPORTS HAVING HER BACK "POP" OUT SEVERAL TIMES A DAY CAUSING VERY SEVERE PAIN. PATIENT DENIES UNEXPLAINABLE WEIGHT LOSS, FEVER, CHILLS, NEW CHANGES ON HER URINARY OR BOWEL CONTROL. FALL RISK SCREENING: SCREENING :NO FALLS IN THE PAST YEAR CURRENT MEDICATIONS TAKING NORTRIPTYLINE HCL 50 MG CAPSULE 1 CAPSULE ORALLY AT BEDTIME TAKING EPIPEN 2-HUMBERTO 0.3 MG/0.3ML DEVICE 1 INJECTION INJECTION NEEDED FOR BEE STING TAKING FREESTYLE TEST TEST STRIP STRIP 1 STRIP IN VITRO TO CHECK GLUCOSE UP TO TID (ICD9 251.2) TAKING MULTIVITAMINS CAPSULE 1 ORALLY DAILY TAKING ASPIR-LOW 81 MG TABLET DELAYED RELEASE 1 TABLET ORALLY ONCE A DAY TAKING DEPAKOTE 250 MG TABLET DELAYED RELEASE 1 ORALLY TWICE DAILY TAKING ATIVAN 0.5 MG TABLET 1 TABLET NEEDED ORALLY DAILY PRN MDD=1 TAKING FUROSEMIDE 20 MG TABLET 1 TABLET ORALLY ONCE A DAY TAKING LISINOPRIL 20 MG TABLET 1 TABLET ORALLY ONCE A DAY TAKING VISTARIL 25 MG CAPSULE 1 CAPSULE ORALLY FOUR TIMES DAILY PRN TAKING PANTOPRAZOLE SODIUM 40 MG TABLET DELAYED RELEASE 1 TAB ORALLY ONCE DAILY TAKING HYDROCODONE-ACETAMINOPHEN 10-325 MG TABLET 1 TABLET NEEDED ORALLY FOR PAIN EVERY 4 HOURS NEEDED MDD5 TAKING OXYCODONE HCL 10 MG TABLET 1 TABLET ORALLY EVERY 6 HRS PRN FOR PAIN MDD3 NOT-TAKING PROZAC 40 MG CAPSULE 1 CAPSULE IN THE MORNING ORALLY ONCE A DAY NOT-TAKING SOMA 350 MG TABLET 1 TABLET NEEDED ORALLY BEFORE BEDTIME FOR SPASMS AND PAIN MDD1, NOTES: NEVER GOT NOT-TAKING KETOROLAC TROMETHAMINE 10 MG TABLET 1 TABLET WITH FOOD OR MILK NEEDED ORALLY FOR PAIN EVERY 6 HRS MDD3, NOTES: DON'T HAVE NOT-TAKING GABAPENTIN 300 MG CAPSULE 1 CAPSULE ORALLY THREE TIMES A DAY, NOTES: 2 MONTHS PAST MEDICAL HISTORY SEIZURES BURSITIS LEFT HIP CHRONIC LOW BACK PAIN (PAIN CLINIC) ANXIETY MIGRAINE HEADACHES HEART MURMUR HTN CHRONIC MIGRAINE WITHOUT AURA, WITHOUT MENTION OF INTRACTABLE MIGRAINE WITHOUT MENTION OF STATUS MIGRAINOSUS ESOPHAGEAL REFLUX ANXIETY STATE, UNSPECIFIED UNSPECIFIED EPILEPSY WITHOUT MENTION OF INTRACTABLE EPILEPSY ALLERGIES BEE STING: SWELLING: ALLERGY BUSPAR: SEVERE HYPERACTIVITY/IRRITABILITY: ALLERGY PAPER TAPE: RASH: ALLERGY BACTRIM: SEVERE HYPER ACTIVITY/ IRRITABLE: ALLERGY WELLBUTRIN: RASH, SEVERE HYPER ACTIVITY: ALLERGY REVIEW OF SYSTEMS REVIEWED BY: PROVIDER: FLORESITA VALENTINO MD . CONSTITUTIONAL: ANY CHANGE IN YOUR MEDICAL CONDITION? NO . CHILLS NO . FEVER NO . INFECTION: DO YOU HAVE NEW INFECTIONS? NO . DO YOU HAVE HISTORY OF MRSA? NO . MUSCULOSKELETAL: ANY NEW PATTERNS OF PAIN OR NUMBNESS? NO . GASTROENTEROLOGY: ANY NEW CHANGE IN BOWEL CONTROL? NO . GENITOURINARY: ANY NEW CHANGE IN BLADDER CONTROL? NO . IS THERE A CHANCE YOU COULD BE ? NO . HEMATOLOGY/LYMPH: DO YOU TAKE ANY BLOOD THINNERS? (FOR EXAMPLE- COUMADIN, PLAVIX, AGGRENOX, PLATEL, PRADAXA, OR XARELTO) NO . WHEN WAS YOUR LAST DOSE? DATE: TIME: . NEUROLOGY: HAVE YOU FALLEN IN THE PAST 6 MONTHS? NO . ANY NEW EXTREMITY NUMBNESS OR WEAKNESS? NO . CARDIOLOGY: DO YOU HAVE A PACEMAKER OR DEFIBRILLATOR? NO . RESPIRATORY: HAVE YOU BEEN SICK IN THE PAST WEEK? NO . FEVER NO . FLU LIKE SYMPTOMS? NO . COUGH NO . INTEGUMENTARY: DO YOU HAVE ANY RASHES OR OPEN SORES? NO . ALLERGIC/IMMUNO: ARE YOU ALLERGIC TO SHELLFISH OR IV DYE? NO . ANY NEW ALLERGIES? NO . PSYCHIATRIC: DO YOU HAVE THOUGHTS OF HURTING YOURSELF OR SOMEONE ELSE? NO . ARE YOU ABUSED, NEGLECTED, OR IN AN UNSAFE ENVIRONMENT? NO . ENDOCRINOLOGY: ARE YOU DIABETIC? NO . OTHER: DO YOU NEED ANY PRESCRIPTIONS? NO . IF YES, PLEASE LIST: ____ . ANY NEW PROBLEMS WITH YOUR MEDICATIONS? NO . WHEN DID YOU LAST EAT? ____ . WHEN DID YOU LAST DRINK? ____ . WHAT DID YOU LAST DRINK? ____ . NAME OF PERSON DRIVING YOU HOME? ____ . DO YOU HAVE ANY OTHER QUESTIONS OR CONCERNS NO . VITAL SIGNS WT 180 LBS, HT 60.75 IN, BMI 34.29 INDEX, BP 101/60 MM HG, HR 90 /MIN, RR 16 /MIN, TEMP 96.7 F, OXYGEN SAT % 99%, NA INITIALS SC 15:58. EXAMINATION : PATIENT IS ALERT O X 3 AND COOPERATIVE. 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 ANTALGIC GAIT. LIMPING FROM THE LEFT SIDE. LEFT LEG IS WEAKER THEN THE RIGHT AT EXTENSION AND FLEXION. MRI DONE ON 12/26/15 SHOWS CANAL STENOSIS ALONG WITH A DISC PROTRUSION AT L3-L4 AND DISC BULGES AT L4-L5 AND L5-S1. ASSESSMENTS INTERVERTEBRAL DISC DISORDER WITH RADICULOPATHY OF LUMBAR REGION - M51.16 (PRIMARY) INTERVERTEBRAL DISC DISORDER WITH RADICULOPATHY OF LUMBOSACRAL REGION - M51.17 TREATMENT INTERVERTEBRAL DISC DISORDER WITH RADICULOPATHY OF LUMBAR REGION NOTES: WE DISCUSSED SEVERAL ISSUES WITH MRS. YOU'S PAIN MANAGEMENT CASE. AT THIS TIME THE PATIENT WILL CONTINUE USING OXYCODONE DUE TO THE PAIN SHE IS HAVING. URINE TOXICOLOGY REPORT DONE ON 04/18/16 SHOWS CONSISTENT RESULTS WITH THE PATIENT'S MEDICATION LIST. PATIENT DENIES ABUSE OF AN MEDICATION, DENIES USE OF ILLEGAL SUBSTANCES, AND STATES SHE IS ONLY USING THE MEDICATION FOR PAIN MANAGEMENT. I WOULD LIKE THE PATIENT TO CONTINUE SEEING THE PSYCHOLOGIST. WE DISCUSSED THAT THE DCS SHOULD CONTROL MOST OF HER PAIN AND SO SHE WILL NOT RECEIVE PAIN MEDICATIONS AFTER THE DCS IS PLACED AND HEALED. PATIENT WILL RETURN IN 2 WEEKS TO FURTHER DISCUSS THE CASE. PATIENT WILL ALSO CONTINUE SEEING THE COUNSELOR AT THIS TIME. INSTRUCTIONS WERE GIVEN, QUESTIONS WERE ANSWERED, PATIENT REPORTS UNDERSTANDING AND AGREES WITH THE PLAN. I, JAYLEN MANRIQUEZ, DOCUMENTED THE ABOVE INFORMATION ACTING A SCRIBE FOR DR. VALENTINO. I HAVE REVIEWED THE ABOVE DOCUMENT, WRITTEN BY JAYLEN PORRAS AND I VERIFY THAT IT IS ACCURATE. OTHERS REFILL OXYCODONE HCL TABLET, 10 MG, 1 TABLET, ORALLY, EVERY 6 HRS PRN FOR PAIN MDD3, 15 DAYS, 45, REFILLS 0 PROCEDURE CODES FA211 ESTABILISHED PATIENT [facility] CHARGE G5778 DOC MEDS VERIFIED W/PT OR RE G8730 PAIN ASSESS POS TOOL F/U PLAN DOC DISPOSITION & COMMUNICATION FOLLOW UP 3 WEEKS ELECTRONICALLY SIGNED BY FLORESITA VALENTINO MD ON 11/28/2016 AT 12:48 PM EDT DISCLAIMER : THIS IS A VISIT SUMMARY EXTRACTED FROM THE [employer] CHART. IT IS NOT A COPY OF THE [employer] PROGRESS NOTE. ELLA
== END ==
LOC: M PAIN 16:00
PROVIDERS: ATTEND Anesthesiology
DX: G89.29 Other chronic pain (principal); M51.16 Intervertebral disc disorders with radiculopathy, lumbar region; M51.17 Intervertebral disc disorders with radiculopathy, lumbosacral region; I10 Essential (primary) hypertension; F41.8 Other specified anxiety disorders; K21.9 Gastro-esophageal reflux disease without esophagitis; G40.409 Other generalized epilepsy and epileptic syndromes, not intractable, without status epilepticus; G43.709 Chronic migraine without aura, not intractable, without status migrainosus; M79.1 Myalgia; Z91.030 Bee allergy status; L23.1 Allergic contact dermatitis due to adhesives; Z88.1 Allergy status to other antibiotic agents; Z88.8 Allergy status to other drugs, medicaments and biological substances; Z79.82 Long term (current) use of aspirin; Z79.891 Long term (current) use of opiate analgesic; Z79.899 Other long term (current) drug therapy

== ENCOUNTER → 2016-12-05 | Outpatient (CLI) | payer MEDICARE, MEDICAID ==
--- NOTE | 2016-12-18 00:49 | ECWPNPC ---
PATIENT NAME: TIMOTHY YOU : 1970 GENDER: FEMALE VISIT DATE: 12/05/2016 DISCHARGE DATE: 12/05/16 1531 VISIT LOCKED DATE TIME: PHYSICIAN: FLORESITA VALENTINO RESOURCE: FLORESITA VALENTINO REASON FOR APPOINTMENT 1. LOW BACK PAIN HISTORY OF PRESENT ILLNESS HISTORY OF PRESENT ILLNESS: PAIN THE PATIENT DESCRIBES THE PAIN... 46 YEAR OLD FEMALE PATIENT WITH HISTORY OF CHRONIC LOW BACK PAIN. PATIENT DESCRIBES THE PAIN ACHING, SHARP, TENDER, SORE, AND HAVING IT ALL THE TIME WITH A PAIN SCORE OF 10/10. PATIENT REPORTS SHE HAD STOPPED GOING TO THE COUNSELOR. CURRENTLY THE PATIENT IS USING OXYCODONE AND STATES THAT SHE IS STILL IN SEVERE PAIN. PATIENT REPORTS HAVING HER BACK "POP" OUT SEVERAL TIMES A DAY CAUSING VERY SEVERE PAIN. PATIENT DENIES UNEXPLAINABLE WEIGHT LOSS, FEVER, CHILLS, NEW CHANGES ON HER URINARY OR BOWEL CONTROL. FALL RISK SCREENING: SCREENING :NO FALLS IN THE PAST YEAR CURRENT MEDICATIONS TAKING NORTRIPTYLINE HCL 50 MG CAPSULE 1 CAPSULE ORALLY AT BEDTIME TAKING EPIPEN 2-HUMBERTO 0.3 MG/0.3ML DEVICE 1 INJECTION INJECTION NEEDED FOR BEE STING TAKING FREESTYLE TEST TEST STRIP STRIP 1 STRIP IN VITRO TO CHECK GLUCOSE UP TO TID (ICD9 251.2) TAKING MULTIVITAMINS CAPSULE 1 ORALLY DAILY TAKING ASPIR-LOW 81 MG TABLET DELAYED RELEASE 1 TABLET ORALLY ONCE A DAY TAKING DEPAKOTE 250 MG TABLET DELAYED RELEASE 1 ORALLY TWICE DAILY TAKING ATIVAN 0.5 MG TABLET 1 TABLET NEEDED ORALLY DAILY PRN MDD=1 TAKING FUROSEMIDE 20 MG TABLET 1 TABLET ORALLY ONCE A DAY TAKING LISINOPRIL 20 MG TABLET 1 TABLET ORALLY ONCE A DAY TAKING VISTARIL 25 MG CAPSULE 1 CAPSULE ORALLY FOUR TIMES DAILY PRN TAKING PANTOPRAZOLE SODIUM 40 MG TABLET DELAYED RELEASE 1 TAB ORALLY ONCE DAILY TAKING OXYCODONE HCL 10 MG TABLET 1 TABLET ORALLY EVERY 6 HRS PRN FOR PAIN MDD3 DISCONTINUED HYDROCODONE-ACETAMINOPHEN 10-325 MG TABLET 1 TABLET NEEDED ORALLY FOR PAIN EVERY 4 HOURS NEEDED MDD5 DISCONTINUED PROZAC 40 MG CAPSULE 1 CAPSULE IN THE MORNING ORALLY ONCE A DAY DISCONTINUED SOMA 350 MG TABLET 1 TABLET NEEDED ORALLY BEFORE BEDTIME FOR SPASMS AND PAIN MDD1, NOTES: NEVER GOT DISCONTINUED KETOROLAC TROMETHAMINE 10 MG TABLET 1 TABLET WITH FOOD OR MILK NEEDED ORALLY FOR PAIN EVERY 6 HRS MDD3, NOTES: DON'T HAVE DISCONTINUED GABAPENTIN 300 MG CAPSULE 1 CAPSULE ORALLY THREE TIMES A DAY, NOTES: 2 MONTHS MEDICATION LIST REVIEWED AND RECONCILED WITH THE PATIENT PAST MEDICAL HISTORY SEIZURES BURSITIS LEFT HIP CHRONIC LOW BACK PAIN (PAIN CLINIC) ANXIETY MIGRAINE HEADACHES HEART MURMUR HTN CHRONIC MIGRAINE WITHOUT AURA, WITHOUT MENTION OF INTRACTABLE MIGRAINE WITHOUT MENTION OF STATUS MIGRAINOSUS ESOPHAGEAL REFLUX ANXIETY STATE, UNSPECIFIED UNSPECIFIED EPILEPSY WITHOUT MENTION OF INTRACTABLE EPILEPSY ALLERGIES BEE STING: SWELLING: ALLERGY BUSPAR: SEVERE HYPERACTIVITY/IRRITABILITY: ALLERGY PAPER TAPE: RASH: ALLERGY BACTRIM: SEVERE HYPER ACTIVITY/ IRRITABLE: ALLERGY WELLBUTRIN: RASH, SEVERE HYPER ACTIVITY: ALLERGY SOCIAL HISTORY GENERAL: TOBACCO USE ARE YOU A:NONSMOKER LUNG CANCER SCREENING SMOKING STATUS:NON SMOKER BMI CARE GOAL FOLLOW-UP ABOVE NORMAL BMI FOLLOW-UPDIETARY MANAGEMENT EDUCATION, GUIDANCE, AND COUNSELING, DIETARY NEEDS EDUCATION, EXERCISE PROMOTION: STRENGTH TRAINING ALCOHOL SCREENING DID YOU HAVE A DRINK CONTAINING ALCOHOL IN THE PAST YEAR?NO POINTS0 INTERPRETATIONNEGATIVE LEARNING BARRIERS / SPECIAL NEEDS BARRIERS TO LEARNING?NO HEARING IMPAIRED?NO VISION IMPAIRED?YES :CORRECTIVE LENSES COGNITIVELY IMPAIRED?NO READINESS TO LEARN?YES LEARNING PREFERENCES?NO LEARNING CAPABILITIES PRESENT?YES EMOTIONAL BARRIERS?NO SPECIAL DEVICES?NO REVENUE AGENT NEEDED?NO PAIN CLINIC PFS, CLERGY, PUBLIC HEALTH REFERRALS PFS REFERRAL NEEDED?NO CLERGY REFERRAL NEEDED?NO PUBLIC HEALTH REFERRAL NEEDED?NO WAS THE PROVIDER NOTIFIED OF ANY PERTINENT INFO?NO HAS THE PATIENT BEEN EDUCATED REGARDING HIS/HER PLAN OF CARE?YES HAS THE PATIENT BEEN EDUCATED REGARDING PAIN, THE RISK FOR PAIN, THE IMPORTANCE OF EFFECTIVE PAIN MANAGEMENT, AND THE PAIN ASSESSMENT PROCESS?YES PATIENT: ____. REVIEW OF SYSTEMS REVIEWED BY: PROVIDER: FLORESITA VALENTINO MD . CONSTITUTIONAL: ANY CHANGE IN YOUR MEDICAL CONDITION? NO . CHILLS NO . FEVER NO . INFECTION: DO YOU HAVE NEW INFECTIONS? NO . DO YOU HAVE HISTORY OF MRSA? NO . MUSCULOSKELETAL: ANY NEW PATTERNS OF PAIN OR NUMBNESS? NO . GASTROENTEROLOGY: ANY NEW CHANGE IN BOWEL CONTROL? NO . GENITOURINARY: ANY NEW CHANGE IN BLADDER CONTROL? NO . IS THERE A CHANCE YOU COULD BE ? NO . HEMATOLOGY/LYMPH: DO YOU TAKE ANY BLOOD THINNERS? (FOR EXAMPLE- COUMADIN, PLAVIX, AGGRENOX, PLATEL, PRADAXA, OR XARELTO) NO . WHEN WAS YOUR LAST DOSE? DATE: TIME: . NEUROLOGY: HAVE YOU FALLEN IN THE PAST 6 MONTHS? NO . ANY NEW EXTREMITY NUMBNESS OR WEAKNESS? NO . CARDIOLOGY: DO YOU HAVE A PACEMAKER OR DEFIBRILLATOR? NO . RESPIRATORY: HAVE YOU BEEN SICK IN THE PAST WEEK? NO . FEVER NO . FLU LIKE SYMPTOMS? NO . COUGH NO . INTEGUMENTARY: DO YOU HAVE ANY RASHES OR OPEN SORES? NO . ALLERGIC/IMMUNO: ARE YOU ALLERGIC TO SHELLFISH OR IV DYE? NO . ANY NEW ALLERGIES? NO . PSYCHIATRIC: DO YOU HAVE THOUGHTS OF HURTING YOURSELF OR SOMEONE ELSE? NO . ARE YOU ABUSED, NEGLECTED, OR IN AN UNSAFE ENVIRONMENT? NO . ENDOCRINOLOGY: ARE YOU DIABETIC? NO . OTHER: DO YOU NEED ANY PRESCRIPTIONS? NO . IF YES, PLEASE LIST: ____ . ANY NEW PROBLEMS WITH YOUR MEDICATIONS? NO . WHEN DID YOU LAST EAT? ____ . WHEN DID YOU LAST DRINK? ____ . WHAT DID YOU LAST DRINK? ____ . NAME OF PERSON DRIVING YOU HOME? ____ . DO YOU HAVE ANY OTHER QUESTIONS OR CONCERNS NO . VITAL SIGNS WT 183.8 LBS, HT 60.75 IN, BMI 35.01 INDEX, BP 103/67 MM HG, HR 98 /MIN, RR 16 /MIN, TEMP 98.2 F, OXYGEN SAT % 98, NA INITIALS [id number], REVIEWED BY: ESSIE. EXAMINATION : PATIENT IS ALERT O X 3 AND COOPERATIVE. 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 ANTALGIC GAIT. LIMPING FROM THE LEFT SIDE. LEFT LEG IS WEAKER THEN THE RIGHT AT EXTENSION AND FLEXION. MRI DONE ON 12/26/15 SHOWS CANAL STENOSIS ALONG WITH A DISC PROTRUSION AT L3-L4 AND DISC BULGES AT L4-L5 AND L5-S1. ASSESSMENTS INTERVERTEBRAL DISC DISORDER WITH RADICULOPATHY OF LUMBAR REGION - M51.16 (PRIMARY) INTERVERTEBRAL DISC DISORDER WITH RADICULOPATHY OF LUMBOSACRAL REGION - M51.17 TREATMENT INTERVERTEBRAL DISC DISORDER WITH RADICULOPATHY OF LUMBAR REGION NOTES: WE DISCUSSED SEVERAL ISSUES WITH MRS. YOU'S PAIN MANAGEMENT CASE. AT THIS TIME THE PATIENT WILL CONTINUE USING OXYCODONE DUE TO THE SOMATIC PAIN SHE IS HAVING. URINE TOXICOLOGY REPORT DONE ON 04/18/16 SHOWS CONSISTENT RESULTS WITH THE PATIENT'S MEDICATION LIST. PATIENT DENIES ABUSE OF AN MEDICATION, DENIES USE OF ILLEGAL SUBSTANCES, AND STATES SHE IS ONLY USING THE MEDICATION FOR PAIN MANAGEMENT. I WOULD LIKE THE PATIENT TO CONTINUE SEEING THE PSYCHOLOGIST. WE DISCUSSED THAT THE DCS SHOULD CONTROL MOST OF HER PAIN AND SO SHE WILL NOT RECEIVE PAIN MEDICATIONS AFTER THE DCS IS PLACED AND HEALED. PATIENT WILL RETURN IN 2 WEEKS TO FURTHER DISCUSS THE CASE. PATIENT WILL ALSO CONTINUE SEEING THE COUNSELOR AT THIS TIME. INSTRUCTIONS WERE GIVEN, QUESTIONS WERE ANSWERED, PATIENT REPORTS UNDERSTANDING AND AGREES WITH THE PLAN. I, JAYLEN MANRIQUEZ, DOCUMENTED THE ABOVE INFORMATION ACTING A SCRIBE FOR DR. VALENTINO. I HAVE REVIEWED THE ABOVE DOCUMENT, WRITTEN BY JAYLEN PORRAS AND I VERIFY THAT IT IS ACCURATE. OTHERS REFILL OXYCODONE HCL TABLET, 10 MG, 1 TABLET, ORALLY, EVERY 6 HRS PRN FOR PAIN MDD3, 20 DAYS, 58, REFILLS 0 PROCEDURE CODES FA211 ESTABILISHED PATIENT [facility] FACILITY CHARGE G8427 DOC MEDS VERIFIED W/PT OR RE G8730 PAIN ASSESS POS TOOL F/U PLAN DOC DISPOSITION & COMMUNICATION FOLLOW UP 3 WEEKS ELECTRONICALLY SIGNED BY FLORESITA VALENTINO MD ON 12/17/2016 AT 03:33 PM EDT DISCLAIMER : THIS IS A VISIT SUMMARY EXTRACTED FROM THE [employer] CHART. IT IS NOT A COPY OF THE [employer] PROGRESS NOTE. ALEIDAD
== END ==
LOC: M PAIN 14:45
PROVIDERS: ATTEND Anesthesiology
DX: G89.29 Other chronic pain (principal); M51.16 Intervertebral disc disorders with radiculopathy, lumbar region; M51.17 Intervertebral disc disorders with radiculopathy, lumbosacral region; G40.409 Other generalized epilepsy and epileptic syndromes, not intractable, without status epilepticus; F41.9 Anxiety disorder, unspecified; G43.709 Chronic migraine without aura, not intractable, without status migrainosus; I10 Essential (primary) hypertension; K21.9 Gastro-esophageal reflux disease without esophagitis; Z91.030 Bee allergy status; L23.1 Allergic contact dermatitis due to adhesives; Z88.1 Allergy status to other antibiotic agents; Z88.8 Allergy status to other drugs, medicaments and biological substances; Z79.52 Long term (current) use of systemic steroids; Z79.891 Long term (current) use of opiate analgesic; Z79.899 Other long term (current) drug therapy

== ENCOUNTER → 2016-12-24 | Outpatient (CLI) | payer MEDICARE, MEDICAID ==
--- NOTE | 2017-01-08 01:12 | ECWPNPC ---
PATIENT NAME: TIMOTHY YOU : 1970 GENDER: FEMALE VISIT DATE: 12/24/2016 DISCHARGE DATE: 12/24/16 1642 VISIT LOCKED DATE TIME: PHYSICIAN: FLORESITA VALENTINO RESOURCE: FLORESITA VALENTINO REASON FOR APPOINTMENT 1. LOW BACK PAIN HISTORY OF PRESENT ILLNESS GENERAL: 46 YEAR OLD FEMALE PATIENT WITH HISTORY OF CHRONIC LOW BACK PAIN. PATIENT DESCRIBES THE PAIN ACHING, SHARP, TENDER, SORE, AND HAVING IT ALL THE TIME WITH A PAIN SCORE OF 10/10. PATIENT REPORTS SHE HAD STOPPED GOING TO THE COUNSELOR. CURRENTLY THE PATIENT IS USING OXYCODONE AND STATES THAT SHE IS STILL IN SEVERE PAIN. PATIENT REPORTS HAVING HER BACK "POP" OUT SEVERAL TIMES A DAY CAUSING VERY SEVERE PAIN. PATIENT DENIES UNEXPLAINABLE WEIGHT LOSS, FEVER, CHILLS, NEW CHANGES ON HER URINARY OR BOWEL CONTROL. CURRENT MEDICATIONS UNKNOWN NORTRIPTYLINE HCL 50 MG CAPSULE 1 CAPSULE ORALLY AT BEDTIME UNKNOWN EPIPEN 2-HUMBERTO 0.3 MG/0.3ML DEVICE 1 INJECTION INJECTION NEEDED FOR BEE STING UNKNOWN FREESTYLE TEST TEST STRIP STRIP 1 STRIP IN VITRO TO CHECK GLUCOSE UP TO TID (ICD9 251.2) UNKNOWN MULTIVITAMINS CAPSULE 1 ORALLY DAILY UNKNOWN ASPIR-LOW 81 MG TABLET DELAYED RELEASE 1 TABLET ORALLY ONCE A DAY UNKNOWN DEPAKOTE 250 MG TABLET DELAYED RELEASE 1 ORALLY TWICE DAILY UNKNOWN ATIVAN 0.5 MG TABLET 1 TABLET NEEDED ORALLY DAILY PRN MDD=1 UNKNOWN FUROSEMIDE 20 MG TABLET 1 TABLET ORALLY ONCE A DAY UNKNOWN LISINOPRIL 20 MG TABLET 1 TABLET ORALLY ONCE A DAY UNKNOWN VISTARIL 25 MG CAPSULE 1 CAPSULE ORALLY FOUR TIMES DAILY PRN UNKNOWN PANTOPRAZOLE SODIUM 40 MG TABLET DELAYED RELEASE 1 TAB ORALLY ONCE DAILY UNKNOWN OXYCODONE HCL 10 MG TABLET 1 TABLET ORALLY EVERY 6 HRS PRN FOR PAIN MDD3 UNKNOWN PREDNISONE 10 MG TABLET 3 TABLET ORALLY ONCE A DAY PAST MEDICAL HISTORY SEIZURES BURSITIS LEFT HIP CHRONIC LOW BACK PAIN (PAIN CLINIC) ANXIETY MIGRAINE HEADACHES HEART MURMUR HTN CHRONIC MIGRAINE WITHOUT AURA, WITHOUT MENTION OF INTRACTABLE MIGRAINE WITHOUT MENTION OF STATUS MIGRAINOSUS ESOPHAGEAL REFLUX ANXIETY STATE, UNSPECIFIED UNSPECIFIED EPILEPSY WITHOUT MENTION OF INTRACTABLE EPILEPSY ALLERGIES BEE STING: SWELLING: ALLERGY BUSPAR: SEVERE HYPERACTIVITY/IRRITABILITY: ALLERGY PAPER TAPE: RASH: ALLERGY BACTRIM: SEVERE HYPER ACTIVITY/ IRRITABLE: ALLERGY WELLBUTRIN: RASH, SEVERE HYPER ACTIVITY: ALLERGY SURGICAL HISTORY C-SECTIONS 1994, 1995 SHAYY AND BSO 1995 T&A CHILD KIDNEY SURGERY (? URETER REPAIR) 3 Y/O MEDIAN AND ULNAR NERVE REPAIRS BILATERAL APPENDECTOMY 2003 CHOLECYSTECTOMY 08/19/13 PLANTAR FASCITIS 09/05/2015 LUMBAR DORSAL COLUMN STIMULATOR TRIAL 06/04/16 HOSPITALIZATION/MAJOR DIAGNOSTIC PROCEDURE SURGERY RELATED CHILDBIRTH RELATED DORSAL COLUMN STIMULATOR TRIAL 06/04/16 VITAL SIGNS WT 189 LBS, HT 60.75 IN, BMI 36.00 INDEX, BP 101/67 MM HG, HR 92 /MIN, RR 16 /MIN, TEMP 97.4 F, OXYGEN SAT % 99%, NA INITIALS SC 15:49. EXAMINATION GENERAL: PATIENT IS ALERT O X 3 AND COOPERATIVE. 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 ANTALGIC GAIT. LIMPING FROM THE LEFT SIDE. LEFT LEG IS WEAKER THEN THE RIGHT AT EXTENSION AND FLEXION. MRI DONE ON 12/26/15 SHOWS CANAL STENOSIS ALONG WITH A DISC PROTRUSION AT L3-L4 AND DISC BULGES AT L4-L5 AND L5-S1. ASSESSMENTS MYALGIA - M79.1 (PRIMARY) INTERVERTEBRAL DISC DISORDER WITH RADICULOPATHY OF LUMBAR REGION - M51.16 INTERVERTEBRAL DISC DISORDER WITH RADICULOPATHY OF LUMBOSACRAL REGION - M51.17 TREATMENT MYALGIA NOTES: WE DISCUSSED SEVERAL ISSUES WITH MRS. YOU'S PAIN MANAGEMENT CASE. AT THIS TIME THE PATIENT WILL CONTINUE USING OXYCODONE DUE TO THE SOMATIC PAIN SHE IS HAVING. URINE TOXICOLOGY REPORT DONE ON 04/18/16 SHOWS CONSISTENT RESULTS WITH THE PATIENT'S MEDICATION LIST. PATIENT DENIES ABUSE OF AN MEDICATION, DENIES USE OF ILLEGAL SUBSTANCES, AND STATES SHE IS ONLY USING THE MEDICATION FOR PAIN MANAGEMENT. PATIENT REPORTS TRYING TO USE LESS MEDICATION AND STATES SHE IS UNABLE TO DUE TO THE SEVERE PAIN. MRS. YOU REPORTS THAT MUSCLE RELAXERS DO NOT AID IN PAIN RELIEF. ISTOP REVIEWED [id number]. I WOULD LIKE THE PATIENT TO CONTINUE SEEING THE PSYCHOLOGIST. WE DISCUSSED THAT THE DCS SHOULD CONTROL MOST OF HER PAIN AND SO SHE WILL NOT RECEIVE PAIN MEDICATIONS AFTER THE DCS IS PLACED AND HEALED. PATIENT WILL RETURN IN 2 WEEKS TO FURTHER DISCUSS THE CASE. PATIENT WILL ALSO CONTINUE SEEING THE COUNSELOR AT THIS TIME. INSTRUCTIONS WERE GIVEN, QUESTIONS WERE ANSWERED, PATIENT REPORTS UNDERSTANDING AND AGREES WITH THE PLAN. I, JAYLEN MANRIQUEZ, DOCUMENTED THE ABOVE INFORMATION ACTING A SCRIBE FOR DR. VALENTINO. I HAVE REVIEWED THE ABOVE DOCUMENT, WRITTEN BY JAYLEN PORRAS AND I VERIFY THAT IT IS ACCURATE. OTHERS REFILL OXYCODONE HCL TABLET, 10 MG, 1 TABLET, ORALLY, EVERY 6 HRS PRN FOR PAIN MDD4, 10 DAYS, 40, REFILLS 0 PROCEDURE CODES FA211 ESTABILISHED PATIENT [facility] FACILITY CHARGE G8427 DOC MEDS VERIFIED W/PT OR RE G5755 PAIN ASSESS POS TOOL F/U PLAN DOC DISPOSITION & COMMUNICATION FOLLOW UP 2 WEEKS ELECTRONICALLY SIGNED BY FLORESITA VALENTINO MD ON 01/07/2017 AT 03:24 PM EDT DISCLAIMER : THIS IS A VISIT SUMMARY EXTRACTED FROM THE [employer] CHART. IT IS NOT A COPY OF THE [employer] PROGRESS NOTE. MTDD
== END ==
LOC: M PAIN 15:30
PROVIDERS: ATTEND Anesthesiology
DX: G89.29 Other chronic pain (principal); M51.16 Intervertebral disc disorders with radiculopathy, lumbar region; M51.17 Intervertebral disc disorders with radiculopathy, lumbosacral region; M79.1 Myalgia; I10 Essential (primary) hypertension; F41.9 Anxiety disorder, unspecified; K21.9 Gastro-esophageal reflux disease without esophagitis; G40.409 Other generalized epilepsy and epileptic syndromes, not intractable, without status epilepticus; Z91.030 Bee allergy status; L23.1 Allergic contact dermatitis due to adhesives; Z88.1 Allergy status to other antibiotic agents; Z88.8 Allergy status to other drugs, medicaments and biological substances; Z79.82 Long term (current) use of aspirin; Z79.891 Long term (current) use of opiate analgesic; Z79.52 Long term (current) use of systemic steroids; Z79.899 Other long term (current) drug therapy

== ENCOUNTER → 2017-01-03 | Outpatient (CLI) | payer MEDICARE, MEDICAID ==
--- NOTE | 2017-01-20 23:52 | ECWPNPC ---
PATIENT NAME: TIMOTHY YOU : 1970 GENDER: FEMALE VISIT DATE: 01/03/2017 DISCHARGE DATE: 01/03/17 1758 VISIT LOCKED DATE TIME: PHYSICIAN: FLORESITA VALENTINO RESOURCE: FLORESITA VALENTINO REASON FOR APPOINTMENT 1. LOW BACK PAIN HISTORY OF PRESENT ILLNESS FALL RISK SCREENING: SCREENING :NO FALLS IN THE PAST YEAR 46 YEAR OLD FEMALE PATIENT WITH HISTORY OF CHRONIC LOW BACK PAIN. PATIENT DESCRIBES THE PAIN ACHING, SHARP, TENDER, SORE, AND HAVING IT ALL THE TIME WITH A PAIN SCORE OF 10/10. PATIENT REPORTS SHE HAD STOPPED GOING TO THE COUNSELOR. CURRENTLY THE PATIENT IS USING OXYCODONE AND STATES THAT SHE IS STILL IN SEVERE PAIN. PATIENT REPORTS HAVING HER BACK "POP" OUT SEVERAL TIMES A DAY CAUSING VERY SEVERE PAIN. PATIENT DENIES UNEXPLAINABLE WEIGHT LOSS, FEVER, CHILLS, NEW CHANGES ON HER URINARY OR BOWEL CONTROL. PAIN SCREENING: PATIENT HAS A COMPLAINT OF ACUTE OR CHRONIC PAIN :YES CURRENT MEDICATIONS TAKING OXYCODONE HCL 10 MG TABLET 1 TABLET ORALLY EVERY 6 HRS PRN FOR PAIN MDD4 TAKING NORTRIPTYLINE HCL 50 MG CAPSULE 1 CAPSULE ORALLY AT BEDTIME TAKING EPIPEN 2-HUMBERTO 0.3 MG/0.3ML DEVICE 1 INJECTION INJECTION NEEDED FOR BEE STING TAKING FREESTYLE TEST TEST STRIP STRIP 1 STRIP IN VITRO TO CHECK GLUCOSE UP TO TID (ICD9 251.2) TAKING MULTIVITAMINS CAPSULE 1 ORALLY DAILY TAKING ASPIR-LOW 81 MG TABLET DELAYED RELEASE 1 TABLET ORALLY ONCE A DAY TAKING DEPAKOTE 250 MG TABLET DELAYED RELEASE 1 ORALLY TWICE DAILY TAKING ATIVAN 0.5 MG TABLET 1 TABLET NEEDED ORALLY DAILY PRN MDD=1 TAKING FUROSEMIDE 20 MG TABLET 1 TABLET ORALLY ONCE A DAY TAKING LISINOPRIL 20 MG TABLET 1 TABLET ORALLY ONCE A DAY TAKING VISTARIL 25 MG CAPSULE 1 CAPSULE ORALLY FOUR TIMES DAILY PRN TAKING PANTOPRAZOLE SODIUM 40 MG TABLET DELAYED RELEASE 1 TAB ORALLY ONCE DAILY TAKING PREDNISONE 10 MG TABLET 3 TABLET ORALLY ONCE A DAY MEDICATION LIST REVIEWED AND RECONCILED WITH THE PATIENT PAST MEDICAL HISTORY SEIZURES BURSITIS LEFT HIP CHRONIC LOW BACK PAIN (PAIN CLINIC) ANXIETY MIGRAINE HEADACHES HEART MURMUR HTN CHRONIC MIGRAINE WITHOUT AURA, WITHOUT MENTION OF INTRACTABLE MIGRAINE WITHOUT MENTION OF STATUS MIGRAINOSUS ESOPHAGEAL REFLUX ANXIETY STATE, UNSPECIFIED UNSPECIFIED EPILEPSY WITHOUT MENTION OF INTRACTABLE EPILEPSY ALLERGIES BEE STING: SWELLING: ALLERGY BUSPAR: SEVERE HYPERACTIVITY/IRRITABILITY: ALLERGY PAPER TAPE: RASH: ALLERGY BACTRIM: SEVERE HYPER ACTIVITY/ IRRITABLE: ALLERGY WELLBUTRIN: RASH, SEVERE HYPER ACTIVITY: ALLERGY FAMILY HISTORY FATHER: 73 YRS, DIAGNOSED WITH DIABETES MOTHER: ALIVE 81 YRS, DIAGNOSED WITH HYPERTENSION 3 BROTHER(S) , 1 SISTER(S) - HEALTHY. 1 SON(S) , 1 DAUGHTER(S) - HEALTHY. 1 BROTHER DUE TO ALCOHOLISM/LIVER DISEASE. SOCIAL HISTORY GENERAL: TOBACCO USE ARE YOU A:NONSMOKER LUNG CANCER SCREENING SMOKING STATUS:NON SMOKER BMI CARE GOAL FOLLOW-UP ABOVE NORMAL BMI FOLLOW-UPDIETARY MANAGEMENT EDUCATION, GUIDANCE, AND COUNSELING, DIETARY NEEDS EDUCATION, EXERCISE PROMOTION: STRENGTH TRAINING ALCOHOL SCREENING DID YOU HAVE A DRINK CONTAINING ALCOHOL IN THE PAST YEAR?NO POINTS0 INTERPRETATIONNEGATIVE [facility] [id number] NONE LANGUAGE LANGUAGES SPOKEN:BELIZEAN EDUCATION LEVEL OF EDUCATION:NOT ANSWERED LEARNING BARRIERS / SPECIAL NEEDS BARRIERS TO LEARNING?NO HEARING IMPAIRED?NO VISION IMPAIRED?YES :CORRECTIVE LENSES COGNITIVELY IMPAIRED?NO READINESS TO LEARN?YES LEARNING PREFERENCES?NO LEARNING CAPABILITIES PRESENT?YES EMOTIONAL BARRIERS?NO SPECIAL DEVICES?NO PHLEBOTOMY TECHNICIAN NEEDED?NO PAIN CLINIC PFS, CLERGY, PUBLIC HEALTH REFERRALS PFS REFERRAL NEEDED?NO CLERGY REFERRAL NEEDED?NO PUBLIC HEALTH REFERRAL NEEDED?NO WAS THE PROVIDER NOTIFIED OF ANY PERTINENT INFO?YES HAS THE PATIENT BEEN EDUCATED REGARDING HIS/HER PLAN OF CARE?YES HAS THE PATIENT BEEN EDUCATED REGARDING PAIN, THE RISK FOR PAIN, THE IMPORTANCE OF EFFECTIVE PAIN MANAGEMENT, AND THE PAIN ASSESSMENT PROCESS?YES REVIEWED BY: TOBIAS. PATIENT: ____. REVIEW OF SYSTEMS REVIEWED BY: PROVIDER: FLORESITA VALENTINO MD . CONSTITUTIONAL: ANY CHANGE IN YOUR MEDICAL CONDITION? NO . CHILLS NO . FEVER NO . INFECTION: DO YOU HAVE NEW INFECTIONS? NO . DO YOU HAVE HISTORY OF MRSA? NO . MUSCULOSKELETAL: ANY NEW PATTERNS OF PAIN OR NUMBNESS? NO . SYTEMIC LUPUS NO . GASTROENTEROLOGY: ANY NEW CHANGE IN BOWEL CONTROL? NO . BARRETTS ESOPHAGUS NO . CIRRHOSIS NO . HEPATITIS NO . LIVER FAILURE NO . ACID REFLUX NO . UNEXPLAINED WEIGHT LOSS NO . GENITOURINARY: ANY NEW CHANGE IN BLADDER CONTROL? NO . IS THERE A CHANCE YOU COULD BE ? NO . HEMATOLOGY/LYMPH: DO YOU TAKE ANY BLOOD THINNERS? (FOR EXAMPLE- COUMADIN, PLAVIX, AGGRENOX, PLATEL, PRADAXA, OR XARELTO) NO . WHEN WAS YOUR LAST DOSE? DATE: TIME: . LOW PLATELET COUNT NO . SICKLE CELL DISEASE NO . VON WILLIEBRANDS NO . FACTOR V LEIDEN NO . THALLASEMIA NO . ANEMIA NO . EASY BRUISING NO . NEUROLOGY: HAVE YOU FALLEN IN THE PAST 6 MONTHS? NO . ANY NEW EXTREMITY NUMBNESS OR WEAKNESS? NO . HEAD INJURY NO . DEMENTIA NO . CEREBRAL PALSY NO . MULTIPLE SCLEROSIS NO . DIZZINESS NO . HEADACHE NO . STROKES NO . VERTIGO NO . CARDIOLOGY: DO YOU HAVE A PACEMAKER OR DEFIBRILLATOR? NO . ANGINA NO . HEART ATTACK NO . HEART SURGERY NO . CONGESTIVE HEART FAILURE/FLUID OVERLOAD NO . CHEST PAIN NO . HIGH BLOOD PRESSURE NO . IRREGULAR HEART BEAT NO . RESPIRATORY: HAVE YOU BEEN SICK IN THE PAST WEEK? NO . FEVER NO . FLU LIKE SYMPTOMS? NO . CPAP NO . BYPAP NO . ASTHMA NO . EMPHYSEMA NO . CHRONIC LUNG DISEASES NO . SHORTNESS OF BREATH ON EXERTION NO . COUGH NO . SNORING NO . INTEGUMENTARY: DO YOU HAVE ANY RASHES OR OPEN SORES? NO . ALLERGIC/IMMUNO: ARE YOU ALLERGIC TO SHELLFISH OR IV DYE? NO . ANY NEW ALLERGIES? NO . PSYCHIATRIC: DO YOU HAVE THOUGHTS OF HURTING YOURSELF OR SOMEONE ELSE? NO . ARE YOU ABUSED, NEGLECTED, OR IN AN UNSAFE ENVIRONMENT? NO . ENDOCRINOLOGY: ARE YOU DIABETIC? NO . THYROID DISORDER NO . OTHER: DO YOU NEED ANY PRESCRIPTIONS? NO . IF YES, PLEASE LIST: ____ . ANY NEW PROBLEMS WITH YOUR MEDICATIONS? NO . WHEN DID YOU LAST EAT? 12PM . WHEN DID YOU LAST DRINK? 1500 . WHAT DID YOU LAST DRINK? WATER . NAME OF PERSON DRIVING YOU HOME? NA . DO YOU HAVE ANY OTHER QUESTIONS OR CONCERNS NO . VITAL SIGNS WT 189 LBS, HT 60.75 IN, BMI 36.00 INDEX, BP 119/75 MM HG, HR 98 /MIN, RR 18 /MIN, TEMP 98.6 F, OXYGEN SAT % 100%, SAFE IN ENV? (Y/N) Y, NA INITIALS SC 15:49, REVIEWED BY: APRYL. EXAMINATION : PATIENT IS ALERT O X 3 AND COOPERATIVE. 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 ANTALGIC GAIT. LIMPING FROM THE LEFT SIDE. LEFT LEG IS WEAKER THEN THE RIGHT AT EXTENSION AND FLEXION. MRI DONE ON 12/26/15 SHOWS CANAL STENOSIS ALONG WITH A DISC PROTRUSION AT L3-L4 AND DISC BULGES AT L4-L5 AND L5-S1. ASSESSMENTS MYALGIA - M79.1 (PRIMARY) INTERVERTEBRAL DISC DISORDER WITH RADICULOPATHY OF LUMBAR REGION - M51.16 INTERVERTEBRAL DISC DISORDER WITH RADICULOPATHY OF LUMBOSACRAL REGION - M51.17 TREATMENT MYALGIA NOTES: WE DISCUSSED SEVERAL ISSUES WITH MRS. YOU'S PAIN MANAGEMENT CASE. AT THIS TIME THE PATIENT WILL CONTINUE USING OXYCODONE DUE TO THE SOMATIC PAIN SHE IS HAVING. URINE TOXICOLOGY REPORT DONE ON 04/18/16 SHOWS CONSISTENT RESULTS WITH THE PATIENT'S MEDICATION LIST. PATIENT DENIES ABUSE OF AN MEDICATION, DENIES USE OF ILLEGAL SUBSTANCES, AND STATES SHE IS ONLY USING THE MEDICATION FOR PAIN MANAGEMENT. PATIENT REPORTS TRYING TO USE LESS MEDICATION AND STATES SHE IS UNABLE TO DUE TO THE SEVERE PAIN. MRS. YOU REPORTS THAT MUSCLE RELAXERS DO NOT AID IN PAIN RELIEF. ISTOP REVIEWED [id number]. I WOULD LIKE THE PATIENT TO CONTINUE SEEING THE PSYCHOLOGIST. WE DISCUSSED THAT THE DCS SHOULD CONTROL MOST OF HER PAIN AND SO SHE WILL NOT RECEIVE PAIN MEDICATIONS AFTER THE DCS IS PLACED AND HEALED. PATIENT WILL RETURN IN 2 WEEKS TO FURTHER DISCUSS THE CASE. PATIENT WILL ALSO CONTINUE SEEING THE COUNSELOR AT THIS TIME. INSTRUCTIONS WERE GIVEN, QUESTIONS WERE ANSWERED, PATIENT REPORTS UNDERSTANDING AND AGREES WITH THE PLAN. I, JAYLEN MANRIQUEZ, DOCUMENTED THE ABOVE INFORMATION ACTING A SCRIBE FOR DR. VALENTINO. I HAVE REVIEWED THE ABOVE DOCUMENT, WRITTEN BY JAYLEN PORRAS AND I VERIFY THAT IT IS ACCURATE. OTHERS REFILL OXYCODONE HCL TABLET, 10 MG, 1 TABLET, ORALLY, EVERY 6 HRS PRN FOR PAIN MDD4, 15 DAYS, 60, REFILLS 0 PROCEDURE CODES FA211 ESTABILISHED PATIENT [facility] FACILITY CHARGE G8427 DOC MEDS VERIFIED W/PT OR RE G4566 PAIN ASSESS POS TOOL F/U PLAN DOC DISPOSITION & COMMUNICATION FOLLOW UP 3 WEEKS ELECTRONICALLY SIGNED BY FLORESITA VALENTINO MD ON 01/20/2017 AT 09:19 PM EST DISCLAIMER : THIS IS A VISIT SUMMARY EXTRACTED FROM THE [employer] CHART. IT IS NOT A COPY OF THE [employer] PROGRESS NOTE. MTDD
== END ==
LOC: M PAIN 15:45
PROVIDERS: ATTEND Anesthesiology
DX: M79.1 Myalgia (principal); M51.16 Intervertebral disc disorders with radiculopathy, lumbar region; M51.17 Intervertebral disc disorders with radiculopathy, lumbosacral region; M54.5 Low back pain; G89.29 Other chronic pain; I10 Essential (primary) hypertension; Z79.82 Long term (current) use of aspirin; Z79.891 Long term (current) use of opiate analgesic; Z79.899 Other long term (current) drug therapy; Z91.030 Bee allergy status; Z91.048 Other nonmedicinal substance allergy status; Z88.1 Allergy status to other antibiotic agents; Z88.8 Allergy status to other drugs, medicaments and biological substances

== ENCOUNTER → 2017-01-25 | Outpatient (CLI) | payer MEDICARE, MEDICAID ==
[2017-01-25 19:35] LABS: BASO % 0.3 % (0.0-1.0); EOS % 0.7 % (0.0-3.0); IMMATURE GRANULOCYTE % 0.3 % (0-0); LYMPH # 1.9 10^3/uL (1.5-4.5); LYMPH % 31.7 % (24.0-44.0); MEAN CORPUSCULAR HEMOGLOBIN 32.9 pg (27.0-33.0); MEAN CORPUSCULAR HGB CONC 33.8 g/dl (32.0-36.5); MEAN CORPUSCULAR VOLUME 97.5 fl (80.0-96.0); MONO # 0.6 10^3/uL (0.0-0.8); MONO % 9.8 % (0.0-5.0); NEUTROPHILS # 3.5 10^3/uL (1.8-7.7); NEUTROPHILS % 57.2 % (36.0-66.0); PLATELET COUNT, AUTOMATED 293 10^3/uL (150-450); RED CELL DISTRIBUTION WIDTH 12.1 % (11.5-14.5); WHITE BLOOD COUNT 6.1 10^3/uL (4.0-10.0)
[2017-01-25 20:12] LABS: ALBUMIN 3.8 GM/DL (3.2-5.2); ALBUMIN/GLOBULIN RATIO 1.09 (1.00-1.93); ALKALINE PHOSPHATASE 66 U/L (45-117); ALT/SGPT 16 U/L (12-78); ANION GAP 7 MEQ/L (8-16); AST/SGOT 9 U/L (7-37); BILIRUBIN,TOTAL 0.2 MG/DL (0.2-1.0); BLOOD UREA NITROGEN 17 MG/DL (7-18); CALCIUM LEVEL 9.5 MG/DL (8.5-10.1); CARBON DIOXIDE LEVEL 32 MEQ/L (21-32); CHLORIDE LEVEL 98 MEQ/L (98-107); GLOMERULAR FILTRATION RATE > 60.0 (>58); GLUCOSE, FASTING 96 MG/DL (70-105); POTASSIUM SERUM 4.6 MEQ/L (3.5-5.1); SODIUM LEVEL 137 MEQ/L (136-145); TOTAL PROTEIN 7.3 GM/DL (6.4-8.2)
== END ==
LOC: M LRY 12:02
PROVIDERS: ATTEND Psychiatry & Neurology Neurology
DX: G43.909 Migraine, unspecified, not intractable, without status migrainosus (principal); R56.9 Unspecified convulsions; Z79.899 Other long term (current) drug therapy
CPT/HCPCS: 36415; 80053; 80164; 85025; G0480

== ENCOUNTER → 2017-02-05 | Outpatient (CLI) | payer MEDICARE, MEDICAID ==
--- NOTE | 2017-02-20 00:35 | ECWPNPC ---
PATIENT NAME: TIMOTHY YOU : 1970 GENDER: FEMALE VISIT DATE: 02/05/2017 DISCHARGE DATE: 02/05/17 1247 VISIT LOCKED DATE TIME: PHYSICIAN: FLORESITA VALENTINO RESOURCE: FLORESITA VALENTINO REASON FOR APPOINTMENT 1. LOW BACK PAIN HISTORY OF PRESENT ILLNESS HISTORY OF PRESENT ILLNESS: PAIN THE PATIENT DESCRIBES THE PAIN... 46 YEAR OLD FEMALE PATIENT WITH HISTORY OF CHRONIC LOW BACK PAIN. PATIENT DESCRIBES THE PAIN ACHING, SHARP, TENDER, THROBBING, SORE, AND HAVING IT ALL THE TIME WITH A PAIN SCORE OF 10/10. CURRENTLY THE PATIENT IS USING OXYCODONE AND STATES THAT SHE IS STILL IN SEVERE PAIN. PATIENT REPORTS HAVING HER BACK "POP" OUT SEVERAL TIMES A DAY CAUSING VERY SEVERE PAIN. PATIENT DENIES UNEXPLAINABLE WEIGHT LOSS, FEVER, CHILLS, NEW CHANGES ON HER URINARY OR BOWEL CONTROL. FALL RISK SCREENING: SCREENING :NO FALLS IN THE PAST YEAR CURRENT MEDICATIONS TAKING NORTRIPTYLINE HCL 50 MG CAPSULE 1 CAPSULE ORALLY AT BEDTIME TAKING EPIPEN 2-HUMBERTO 0.3 MG/0.3ML DEVICE 1 INJECTION INJECTION NEEDED FOR BEE STING TAKING FREESTYLE TEST TEST STRIP STRIP 1 STRIP IN VITRO TO CHECK GLUCOSE UP TO TID (ICD9 251.2) TAKING MULTIVITAMINS CAPSULE 1 ORALLY DAILY TAKING ASPIR-LOW 81 MG TABLET DELAYED RELEASE 1 TABLET ORALLY ONCE A DAY TAKING DEPAKOTE 250 MG TABLET DELAYED RELEASE 1 ORALLY TWICE DAILY TAKING ATIVAN 0.5 MG TABLET 1 TABLET NEEDED ORALLY DAILY PRN MDD=1 TAKING FUROSEMIDE 20 MG TABLET 1 TABLET ORALLY ONCE A DAY TAKING LISINOPRIL 20 MG TABLET 1 TABLET ORALLY ONCE A DAY TAKING VISTARIL 25 MG CAPSULE 1 CAPSULE ORALLY FOUR TIMES DAILY PRN TAKING PANTOPRAZOLE SODIUM 40 MG TABLET DELAYED RELEASE 1 TAB ORALLY ONCE DAILY TAKING PREDNISONE 10 MG TABLET 3 TABLET ORALLY ONCE A DAY TAKING OXYCODONE HCL 10 MG TABLET 1 TABLET ORALLY EVERY 6 HRS PRN FOR PAIN MDD4 MEDICATION LIST REVIEWED AND RECONCILED WITH THE PATIENT PAST MEDICAL HISTORY SEIZURES BURSITIS LEFT HIP CHRONIC LOW BACK PAIN (PAIN CLINIC) ANXIETY MIGRAINE HEADACHES HEART MURMUR HTN CHRONIC MIGRAINE WITHOUT AURA, WITHOUT MENTION OF INTRACTABLE MIGRAINE WITHOUT MENTION OF STATUS MIGRAINOSUS ESOPHAGEAL REFLUX ANXIETY STATE, UNSPECIFIED UNSPECIFIED EPILEPSY WITHOUT MENTION OF INTRACTABLE EPILEPSY ALLERGIES BEE STING: SWELLING: ALLERGY BUSPAR: SEVERE HYPERACTIVITY/IRRITABILITY: ALLERGY PAPER TAPE: RASH: ALLERGY BACTRIM: SEVERE HYPER ACTIVITY/ IRRITABLE: ALLERGY WELLBUTRIN: RASH, SEVERE HYPER ACTIVITY: ALLERGY REVIEW OF SYSTEMS REVIEWED BY: PROVIDER: , FLORESITA VALENTINO MD . CONSTITUTIONAL: ANY CHANGE IN YOUR MEDICAL CONDITION? NO . CHILLS NO . FEVER NO . INFECTION: DO YOU HAVE NEW INFECTIONS? NO . DO YOU HAVE HISTORY OF MRSA? NO . MUSCULOSKELETAL: ANY NEW PATTERNS OF PAIN OR NUMBNESS? NO . GASTROENTEROLOGY: ANY NEW CHANGE IN BOWEL CONTROL? NO . GENITOURINARY: ANY NEW CHANGE IN BLADDER CONTROL? NO . IS THERE A CHANCE YOU COULD BE ? NO . HEMATOLOGY/LYMPH: DO YOU TAKE ANY BLOOD THINNERS? (FOR EXAMPLE- COUMADIN, PLAVIX, AGGRENOX, PLATEL, PRADAXA, OR XARELTO) NO . WHEN WAS YOUR LAST DOSE? DATE: TIME: . NEUROLOGY: HAVE YOU FALLEN IN THE PAST 6 MONTHS? NO . ANY NEW EXTREMITY NUMBNESS OR WEAKNESS? NO . CARDIOLOGY: DO YOU HAVE A PACEMAKER OR DEFIBRILLATOR? NO . RESPIRATORY: HAVE YOU BEEN SICK IN THE PAST WEEK? NO . FEVER NO . FLU LIKE SYMPTOMS? NO . COUGH NO . INTEGUMENTARY: DO YOU HAVE ANY RASHES OR OPEN SORES? NO . ALLERGIC/IMMUNO: ARE YOU ALLERGIC TO SHELLFISH OR IV DYE? NO . ANY NEW ALLERGIES? NO . PSYCHIATRIC: DO YOU HAVE THOUGHTS OF HURTING YOURSELF OR SOMEONE ELSE? NO . ARE YOU ABUSED, NEGLECTED, OR IN AN UNSAFE ENVIRONMENT? NO . ENDOCRINOLOGY: ARE YOU DIABETIC? NO . OTHER: DO YOU NEED ANY PRESCRIPTIONS? YES . IF YES, PLEASE LIST: ____OXYCODONE . ANY NEW PROBLEMS WITH YOUR MEDICATIONS? NO . WHEN DID YOU LAST EAT? ____ . WHEN DID YOU LAST DRINK? ____ . WHAT DID YOU LAST DRINK? ____ . NAME OF PERSON DRIVING YOU HOME? ____ . DO YOU HAVE ANY OTHER QUESTIONS OR CONCERNS NO . VITAL SIGNS WT 180.0 LBS, HT 60.75 IN, BMI 34.29 INDEX, BP 116/78 MM HG, HR 104 /MIN, RR 16 /MIN, TEMP 97.4 F, OXYGEN SAT % 97%, SAFE IN ENV? (Y/N) YES, NA INITIALS TL 1557, REVIEWED BY: JULIANN. EXAMINATION : PATIENT IS ALERT O X 3 AND COOPERATIVE. 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 ANTALGIC GAIT. LIMPING FROM THE LEFT SIDE. LEFT LEG IS WEAKER THEN THE RIGHT AT EXTENSION AND FLEXION. MRI DONE ON 12/26/15 SHOWS CANAL STENOSIS ALONG WITH A DISC PROTRUSION AT L3-L4 AND DISC BULGES AT L4-L5 AND L5-S1. ASSESSMENTS MYALGIA - M79.1 (PRIMARY) INTERVERTEBRAL DISC DISORDER WITH RADICULOPATHY OF LUMBAR REGION - M51.16 INTERVERTEBRAL DISC DISORDER WITH RADICULOPATHY OF LUMBOSACRAL REGION - M51.17 TREATMENT MYALGIA CLINICAL NOTES: WE DISCUSSED SEVERAL ISSUES WITH MRS. YOU'S PAIN MANAGEMENT CASE. AT THIS TIME THE PATIENT WILL CONTINUE USING OXYCODONE DUE TO THE SOMATIC PAIN SHE IS HAVING. URINE TOXICOLOGY DONE TODAY. PATIENT DENIES ABUSE OF AN MEDICATION, DENIES USE OF ILLEGAL SUBSTANCES, AND STATES SHE IS ONLY USING THE MEDICATION FOR PAIN MANAGEMENT. ISTOP REVIEWED [id number]. PATIENT REPORTS TRYING TO USE LESS MEDICATION AND STATES SHE IS UNABLE TO DUE TO THE SEVERE PAIN. TODAY WE ADDED TIAZADINE AT NIGHT ONLY FOR PAIN. I WOULD LIKE THE PATIENT TO CONTINUE SEEING THE PSYCHOLOGIST. WE DISCUSSED THAT THE DCS SHOULD CONTROL MOST OF HER PAIN AND SO SHE WILL NOT RECEIVE PAIN MEDICATIONS AFTER THE DCS IS PLACED AND HEALED. PATIENT WILL RETURN IN 1 MONTH TO FURTHER DISCUSS THE CASE. PATIENT WILL ALSO CONTINUE SEEING THE COUNSELOR AT THIS TIME. INSTRUCTIONS WERE GIVEN, QUESTIONS WERE ANSWERED, PATIENT REPORTS UNDERSTANDING AND AGREES WITH THE PLAN. I, SHARA NICHOLSON, DOCUMENTED THE ABOVE INFORMATION ACTING A SCRIBE FOR DR. VALENTINO. I HAVE REVIEWED THE ABOVE DOCUMENT, WRITTEN BY SHARA PORRAS AND I VERIFY THAT IT IS ACCURATE. OTHERS REFILL OXYCODONE HCL TABLET, 10 MG, 1 TABLET, ORALLY, EVERY 6 HRS PRN FOR PAIN MDD4, 30 DAY(S), 120, REFILLS 0 START TIZANIDINE HCL TABLET, 4 MG, 1 TABLET NEEDED, ORALLY, BEFORE BEDTIME MZY REPEAT IN 5 HRS MDD2, 30 DAY(S), 60, REFILLS 1 PREVENTIVE MEDICINE PAIN CLINIC TEACHING: PROCEDURE TEACHING PT DECLINED PRINTED INFORMATION ON LUMBAR EPIDURAL STATING SHE HAS HAD THEM IN THE PAST AND IS FAMILIAR WITH IT. PRE-PROCEDURE INSTRUCTIONS REVIEWED WITH PT. AND SHE VERBALIZED UNDERSTANDING.AD. MEDITATION PT. DECLINED PRINTED INFORMATION ON TIZANIDINE STATING SHE HAS TAKEN IT IN THE PAST AND IS FAMILIAR WITH IT. AD. PROCEDURE CODES G8730 PAIN ASSESS POS TOOL F/U PLAN DOC G8427 DOC MEDS VERIFIED W/PT OR RE FA211 ESTABILISHED PATIENT [facility] CHARGE DISPOSITION & COMMUNICATION FOLLOW UP 4 WEEKS ELECTRONICALLY SIGNED BY FLORESITA VALENTINO MD ON 02/19/2017 AT 09:11 PM EST DISCLAIMER : THIS IS A VISIT SUMMARY EXTRACTED FROM THE [employer] CHART. IT IS NOT A COPY OF THE [facility] PROGRESS NOTE. MTDD
== END ==
LOC: M PAIN 15:45
PROVIDERS: ATTEND Anesthesiology
DX: G89.29 Other chronic pain (principal); M79.1 Myalgia; M51.16 Intervertebral disc disorders with radiculopathy, lumbar region; M51.17 Intervertebral disc disorders with radiculopathy, lumbosacral region; G40.909 Epilepsy, unspecified, not intractable, without status epilepticus; F41.9 Anxiety disorder, unspecified; G43.709 Chronic migraine without aura, not intractable, without status migrainosus; I10 Essential (primary) hypertension; K21.9 Gastro-esophageal reflux disease without esophagitis; Z91.030 Bee allergy status; Z88.1 Allergy status to other antibiotic agents; Z88.8 Allergy status to other drugs, medicaments and biological substances; Z91.048 Other nonmedicinal substance allergy status; Z79.891 Long term (current) use of opiate analgesic; Z79.52 Long term (current) use of systemic steroids; Z79.899 Other long term (current) drug therapy

== ENCOUNTER → 2017-03-12 | Outpatient (CLI) | payer MEDICARE, MEDICAID | LOC: M PAIN 14:30 | DX: G89.29 Other chronic pain (principal); M51.16 Intervertebral disc disorders with radiculopathy, lumbar region; M51.17 Intervertebral disc disorders with radiculopathy, lumbosacral region; M79.1 Myalgia; G40.909 Epilepsy, unspecified, not intractable, without status epilepticus; F41.9 Anxiety disorder, unspecified; G43.909 Migraine, unspecified, not intractable, without status migrainosus; I10 Essential (primary) hypertension; R01.1 Cardiac murmur, unspecified; K21.9 Gastro-esophageal reflux disease without esophagitis; L23.1 Allergic contact dermatitis due to adhesives; Z88.1 Allergy status to other antibiotic agents; Z88.8 Allergy status to other drugs, medicaments and biological substances; Z79.52 Long term (current) use of systemic steroids; Z79.82 Long term (current) use of aspirin; Z79.891 Long term (current) use of opiate analgesic; Z79.899 Other long term (current) drug therapy; Z91.030 Bee allergy status | CPT/HCPCS: G0463 ==

== ENCOUNTER → 2017-03-22 | Outpatient (CLI) | payer MEDICARE, MEDICAID | LOC: M PAIN 14:45 | DX: G89.29 Other chronic pain (principal); M51.16 Intervertebral disc disorders with radiculopathy, lumbar region; M51.17 Intervertebral disc disorders with radiculopathy, lumbosacral region; R56.9 Unspecified convulsions; F41.9 Anxiety disorder, unspecified; G43.909 Migraine, unspecified, not intractable, without status migrainosus; I10 Essential (primary) hypertension; K21.9 Gastro-esophageal reflux disease without esophagitis; Z88.1 Allergy status to other antibiotic agents; Z88.8 Allergy status to other drugs, medicaments and biological substances; Z91.048 Other nonmedicinal substance allergy status; Z91.030 Bee allergy status; Z79.52 Long term (current) use of systemic steroids; Z79.82 Long term (current) use of aspirin; Z79.899 Other long term (current) drug therapy | CPT/HCPCS: G0463 ==

== ENCOUNTER → 2017-04-17 | Outpatient (CLI) | payer MEDICARE, MEDICAID | LOC: M PAIN 14:45 | DX: G89.29 Other chronic pain (principal); M51.16 Intervertebral disc disorders with radiculopathy, lumbar region; M51.17 Intervertebral disc disorders with radiculopathy, lumbosacral region; G40.909 Epilepsy, unspecified, not intractable, without status epilepticus; F41.9 Anxiety disorder, unspecified; G43.909 Migraine, unspecified, not intractable, without status migrainosus; I10 Essential (primary) hypertension; R01.1 Cardiac murmur, unspecified; K21.9 Gastro-esophageal reflux disease without esophagitis; Z79.82 Long term (current) use of aspirin; Z79.891 Long term (current) use of opiate analgesic; Z79.899 Other long term (current) drug therapy; Z88.1 Allergy status to other antibiotic agents; Z88.8 Allergy status to other drugs, medicaments and biological substances; Z91.030 Bee allergy status; Z91.048 Other nonmedicinal substance allergy status | CPT/HCPCS: G0463 ==

== ENCOUNTER → 2017-04-23 | Outpatient (REF) | payer MEDICARE, MEDICAID ==
[2017-04-23 17:57] LABS: HEMATOCRIT 43.6 % (36.0-47.0); HEMOGLOBIN 14.5 g/dl (12.0-16.0); MEAN CORPUSCULAR HEMOGLOBIN 31.8 pg (27.0-33.0); MEAN CORPUSCULAR HGB CONC 33.3 g/dl (32.0-36.5); MEAN CORPUSCULAR VOLUME 95.6 fl (80.0-96.0); PLATELET COUNT, AUTOMATED 311 10^3/uL (150-450); RED BLOOD COUNT 4.56 10^6/uL (4.00-5.40); RED CELL DISTRIBUTION WIDTH 12.6 % (11.5-14.5); WHITE BLOOD COUNT 7.5 10^3/uL (4.0-10.0)
[2017-04-23 19:28] LABS: ANION GAP 9 MEQ/L (8-16); BLOOD UREA NITROGEN 18 MG/DL (7-18); CALCIUM LEVEL 9.6 MG/DL (8.5-10.1); CARBON DIOXIDE LEVEL 33 MEQ/L (21-32); CHLORIDE LEVEL 95 MEQ/L (98-107); CREATININE FOR GFR 0.99 MG/DL (0.55-1.30); GLOMERULAR FILTRATION RATE > 60.0 (>58); GLUCOSE, FASTING 98 MG/DL (70-100); POTASSIUM SERUM 5.1 MEQ/L (3.5-5.1); SODIUM LEVEL 137 MEQ/L (136-145)
== END ==
LOC: M SFHCLERA 11:00
DX: Z01.818 Encounter for other preprocedural examination (principal); M51.16 Intervertebral disc disorders with radiculopathy, lumbar region; R00.0 Tachycardia, unspecified
CPT/HCPCS: 84443

== ENCOUNTER → 2017-04-29 | Outpatient (CLI) | payer MEDICARE, MEDICAID | LOC: M PAIN 14:45 | DX: M51.17 Intervertebral disc disorders with radiculopathy, lumbosacral region (principal); M51.16 Intervertebral disc disorders with radiculopathy, lumbar region; G89.29 Other chronic pain; F41.9 Anxiety disorder, unspecified; G43.709 Chronic migraine without aura, not intractable, without status migrainosus; I10 Essential (primary) hypertension; K21.9 Gastro-esophageal reflux disease without esophagitis; G40.909 Epilepsy, unspecified, not intractable, without status epilepticus; M70.72 Other bursitis of hip, left hip; R01.1 Cardiac murmur, unspecified; Z91.030 Bee allergy status; Z88.1 Allergy status to other antibiotic agents; Z88.8 Allergy status to other drugs, medicaments and biological substances; Z91.048 Other nonmedicinal substance allergy status; Z79.82 Long term (current) use of aspirin; Z79.891 Long term (current) use of opiate analgesic | CPT/HCPCS: G0463 ==

== ENCOUNTER → 2017-05-13 | Outpatient (REF) | payer MEDICARE, MEDICAID ==
[2017-05-16 00:10] LABS: NORTRIPTYLINE (AVENTYL) LEVEL 233 ng/mL (50-150)
== END ==
LOC: M LABNEURO 15:08
DX: G43.909 Migraine, unspecified, not intractable, without status migrainosus (principal)
CPT/HCPCS: 36415

== ENCOUNTER → 2017-05-15 | Outpatient (CLI) | payer MEDICARE, MEDICAID | LOC: M PAIN 15:15 | DX: G89.29 Other chronic pain (principal); M51.16 Intervertebral disc disorders with radiculopathy, lumbar region; M51.17 Intervertebral disc disorders with radiculopathy, lumbosacral region; F41.9 Anxiety disorder, unspecified; G43.909 Migraine, unspecified, not intractable, without status migrainosus; R01.1 Cardiac murmur, unspecified; I10 Essential (primary) hypertension; K21.9 Gastro-esophageal reflux disease without esophagitis; G40.909 Epilepsy, unspecified, not intractable, without status epilepticus; Z79.82 Long term (current) use of aspirin; Z79.891 Long term (current) use of opiate analgesic; Z79.899 Other long term (current) drug therapy; Z88.1 Allergy status to other antibiotic agents; Z88.8 Allergy status to other drugs, medicaments and biological substances; Z91.09 Other allergy status, other than to drugs and biological substances; Z91.030 Bee allergy status | CPT/HCPCS: G0463 ==

== ENCOUNTER 2017-06-03 07:22 | Day surgery (SDC) | payer MEDICARE, MEDICAID ==
[~2017-06-03 07:22] MED LIST changes: -/DIVA50TA PO; -ALIEVE PO; -ASPI1TAB PO; -BACL10TA2 OR; -CITA40TA PO; -CYCL7.5T2 PO; -DEPA250T32 PO; -DICL75TA PO; -FURO20TA2 PO; -FURO40TA2 PO; -GABA-282 PO; -HYDR-3719 PO; -IBUP80TA PO; +LIDOCAINE 2% INJ 100 MG/5 ML SDV (FOR ANES.) As Ordered; -LISI-538 PO; -LISI10TA4 OR; -LODINE PO; -MOBI15TA PO; -MORP15TA2 PO; -MORP20SO PO; -MULTCAP11 PO; -MULTIVIT PO; -OXYC10TA PO; -OXYC1TAB23 PO; -PAME50CA PO; -PANT40TA2 PO; -PERC5TAB12 PO; -PRED10TA PO; -PROZ20CA11 PO; -ROBA750T4 PO; +ROCURONIUM BROMIDE 50 MG/5 ML VIAL As Ordered; -SOMA350T PO; -TIZA4CAP3 PO; -TIZA4TAB OR; -TRAM50TA2 OR; -VICO5TAB PO; -VIST25CA PO; -ZANT150T PO; -ZOLO50TA PO; -hydrocodone 10/325 PO; -neurontin PO; -oxycodone PO
[2017-06-03] MEDS ORDERED: LR 1,000 ML IV (07:30)
[2017-06-03] MEDS ORDERED: PROPOFOL 200 MG/20 ML VIAL As Ordered ×5 (08:39→14:26)
[2017-06-03] MEDS ORDERED: MIDAZOLAM INJ 2 MG/2 ML VIAL (J2250) As Ordered (08:44)
[2017-06-03] MEDS ORDERED: fentaNYL 250 MCG/5 ML INJECTION (J3010) As Ordered (08:45)
[2017-06-03] MEDS: CEFAZOLIN SOD 1 GM in APPROPRIATE DILUENT 1 EA IV ×2 (10:11→20:58)
[2017-06-03] MEDS ORDERED: LIDOCAINE 2% INJ 100 MG/5 ML SDV (FOR ANES.) As Ordered (10:31)
[2017-06-03] MEDS: LIDOCAINE W/EPINEPHRINE 1% 20ML VIAL As Ordered ×2 (10:44→13:30)
[2017-06-03] MEDS: THROMBIN SOLN 20,000 UNITS KIT As Ordered ×2 (11:00→12:52)
[2017-06-03] MEDS: BACITRACIN PWD 50,000 UNITS VIAL As Ordered (11:00)
[2017-06-03] MEDS: ceFAZolin 1GM INJ (J0690 PER 500MG) As Ordered (11:41)
[2017-06-03] MEDS ORDERED: HYDROmorphone HCL 1 MG/ML SYRINGE (J1170) As Ordered (15:22)
[2017-06-03] MEDS: HYDROmorphone HCL 1 MG/ML SYRINGE (J1170) IV ×2 (15:31→15:37)
[2017-06-03] MEDS ORDERED: ONDANSETRON 4MG/2ML VIAL (J2405) IV (15:45)
[2017-06-03] MEDS ORDERED: PERCOCET 5MG/325MG TAB PO (15:45)
[2017-06-03] MEDS ORDERED: fentaNYL 100 MCG/2 ML INJECTION (J3010) IV (15:45)
[2017-06-03] MEDS: LR 1,000 ML IV (15:45)
[2017-06-03] MEDS ORDERED: oxyCODONE 5MG TAB PO ×2 (16:00)
[2017-06-03] MEDS: oxyCODONE 5MG TAB PO ×2 (18:13→22:03)
[2017-06-03] MEDS: ONDANSETRON 4MG/2ML VIAL (J2405) IV (21:02)
[2017-06-03] MEDS: DIVALPROEX 250 MG TAB PO (21:43)
[2017-06-03] MEDS: hydrOXYzine 25 MG TAB PO (21:43)
[2017-06-04] MEDS: CEFAZOLIN SOD 1 GM in APPROPRIATE DILUENT 1 EA IV (01:05)
[2017-06-04] MEDS: oxyCODONE 5MG TAB PO ×2 (03:42→09:51)
[2017-06-04] MEDS: PANTOPRAZOLE 40MG TAB (PROTONIX) PO (08:49)
[2017-06-04] MEDS: hydrOXYzine 25 MG TAB PO (08:50)
[2017-06-04] MEDS: DIVALPROEX 250 MG TAB PO (08:50)
[2017-06-04] MEDS: FUROSEMIDE 20 MG TAB PO (09:00)
[2017-06-04] MEDS: LISINOPRIL 20 MG TAB PO (09:00)
[2017-06-04] MEDS ORDERED: NORTRIPTYLINE 25 MG CAP PO (21:00)
== END 2017-06-04 10:23 | disposition home or self-care (01) ==
LOC: M SDC 07:22 → M PED 16:05
DX: M54.16 Radiculopathy, lumbar region (principal); I10 Essential (primary) hypertension; K21.9 Gastro-esophageal reflux disease without esophagitis; G43.909 Migraine, unspecified, not intractable, without status migrainosus; M12.9 Arthropathy, unspecified; M70.62 Trochanteric bursitis, left hip; F41.9 Anxiety disorder, unspecified; R56.9 Unspecified convulsions; J45.909 Unspecified asthma, uncomplicated; E66.9 Obesity, unspecified; Z68.35 Body mass index [BMI] 35.0-35.9, adult; Z88.1 Allergy status to other antibiotic agents; Z88.5 Allergy status to narcotic agent; Z88.8 Allergy status to other drugs, medicaments and biological substances; Z91.030 Bee allergy status; Z91.048 Other nonmedicinal substance allergy status; Z79.899 Other long term (current) drug therapy; Z79.82 Long term (current) use of aspirin; Z90.710 Acquired absence of both cervix and uterus
CPT/HCPCS: 63655

== ENCOUNTER → 2017-06-06 | Outpatient (CLI) | payer MEDICARE, MEDICAID | LOC: M PAIN 14:00 | DX: M54.16 Radiculopathy, lumbar region (principal); F41.9 Anxiety disorder, unspecified; G40.909 Epilepsy, unspecified, not intractable, without status epilepticus; I10 Essential (primary) hypertension; K21.9 Gastro-esophageal reflux disease without esophagitis; R01.1 Cardiac murmur, unspecified; Z79.82 Long term (current) use of aspirin; Z79.891 Long term (current) use of opiate analgesic; Z79.899 Other long term (current) drug therapy; Z88.1 Allergy status to other antibiotic agents; Z88.8 Allergy status to other drugs, medicaments and biological substances; Z91.030 Bee allergy status; Z91.09 Other allergy status, other than to drugs and biological substances | CPT/HCPCS: G0463 ==

== ENCOUNTER → 2017-06-11 | Outpatient (CLI) | payer MEDICARE, MEDICAID | LOC: M PAIN 15:15 | DX: M51.16 Intervertebral disc disorders with radiculopathy, lumbar region (principal); M51.17 Intervertebral disc disorders with radiculopathy, lumbosacral region; G89.28 Other chronic postprocedural pain; R56.9 Unspecified convulsions; F41.9 Anxiety disorder, unspecified; G43.909 Migraine, unspecified, not intractable, without status migrainosus; I10 Essential (primary) hypertension; K21.9 Gastro-esophageal reflux disease without esophagitis; R01.1 Cardiac murmur, unspecified; Z79.82 Long term (current) use of aspirin; Z79.891 Long term (current) use of opiate analgesic; Z79.899 Other long term (current) drug therapy; Z88.1 Allergy status to other antibiotic agents; Z88.8 Allergy status to other drugs, medicaments and biological substances; Z91.030 Bee allergy status; Z91.09 Other allergy status, other than to drugs and biological substances | CPT/HCPCS: G0463 ==

== ENCOUNTER → 2017-06-25 | Outpatient (CLI) | payer MEDICARE, MEDICAID | LOC: M PAIN 15:15 | DX: M51.16 Intervertebral disc disorders with radiculopathy, lumbar region (principal); M51.17 Intervertebral disc disorders with radiculopathy, lumbosacral region; G89.29 Other chronic pain; G40.909 Epilepsy, unspecified, not intractable, without status epilepticus; F41.9 Anxiety disorder, unspecified; G43.909 Migraine, unspecified, not intractable, without status migrainosus; I10 Essential (primary) hypertension; R01.1 Cardiac murmur, unspecified; K21.9 Gastro-esophageal reflux disease without esophagitis; Z79.82 Long term (current) use of aspirin; Z79.891 Long term (current) use of opiate analgesic; Z79.899 Other long term (current) drug therapy; Z88.1 Allergy status to other antibiotic agents; Z88.8 Allergy status to other drugs, medicaments and biological substances; Z91.030 Bee allergy status; Z91.09 Other allergy status, other than to drugs and biological substances | CPT/HCPCS: G0463 ==

== ENCOUNTER 2017-09-09 20:02 | Emergency (ER) | payer MEDICARE, MEDICAID ==
[2017-09-09] MEDS: NS 1,000 ML IV ×2 (21:00)
[2017-09-09 21:26] LABS: ANION GAP 13 MEQ/L (8-16); BLOOD UREA NITROGEN 16 MG/DL (7-18); CALCIUM LEVEL 8.9 MG/DL (8.5-10.1); CARBON DIOXIDE LEVEL 25 MEQ/L (21-32); CHLORIDE LEVEL 97 MEQ/L (98-107); CREATININE FOR GFR 1.11 MG/DL (0.55-1.30); GLOMERULAR FILTRATION RATE 56.3 (>58); GLUCOSE, FASTING 161 MG/DL (70-100); POTASSIUM SERUM 4.2 MEQ/L (3.5-5.1); SODIUM LEVEL 135 MEQ/L (136-145)
[2017-09-09] MEDS: ACETAMINOPHEN 325 MG TAB PO (22:00)
== END 2017-09-09 22:51 | disposition home or self-care (01) ==
LOC: M ED 20:02
DX: E86.0 Dehydration (principal); L55.9 Sunburn, unspecified; R94.31 Abnormal electrocardiogram [ECG] [EKG]; I10 Essential (primary) hypertension; G89.29 Other chronic pain; G40.909 Epilepsy, unspecified, not intractable, without status epilepticus; K21.9 Gastro-esophageal reflux disease without esophagitis; Z79.82 Long term (current) use of aspirin; Z79.899 Other long term (current) drug therapy; Z91.013 Allergy to seafood; Z88.8 Allergy status to other drugs, medicaments and biological substances; Z88.5 Allergy status to narcotic agent; Z88.1 Allergy status to other antibiotic agents; Z91.89 Other specified personal risk factors, not elsewhere classified
CPT/HCPCS: 93005

== ENCOUNTER → 2017-09-30 | Outpatient (CLI) | payer MEDICARE, MEDICAID | LOC: M RAD 13:02 | DX: M51.16 Intervertebral disc disorders with radiculopathy, lumbar region (principal); Z96.9 Presence of functional implant, unspecified | CPT/HCPCS: 72110 ==

== ENCOUNTER → 2017-09-30 | Outpatient (CLI) | payer MEDICARE, MEDICAID | LOC: M PAIN 11:15 | DX: M51.16 Intervertebral disc disorders with radiculopathy, lumbar region (principal); M51.17 Intervertebral disc disorders with radiculopathy, lumbosacral region; R56.9 Unspecified convulsions; F41.9 Anxiety disorder, unspecified; G43.909 Migraine, unspecified, not intractable, without status migrainosus; R01.1 Cardiac murmur, unspecified; I10 Essential (primary) hypertension; K21.9 Gastro-esophageal reflux disease without esophagitis; Z79.82 Long term (current) use of aspirin; Z79.891 Long term (current) use of opiate analgesic; Z79.899 Other long term (current) drug therapy; Z88.1 Allergy status to other antibiotic agents; Z88.8 Allergy status to other drugs, medicaments and biological substances; Z91.09 Other allergy status, other than to drugs and biological substances; Z91.030 Bee allergy status | CPT/HCPCS: 72110; G0463 ==

== ENCOUNTER → 2017-11-26 | Outpatient (CLI) | payer MEDICARE, MEDICAID ==
[2017-11-26 17:36] LABS: VALPROIC ACID (DEPAKOTE) 71.1 UG/ML (50.0-100.0)
[2017-11-29 00:08] LABS: NORTRIPTYLINE (AVENTYL) LEVEL 73 ng/mL (50-150)
== END ==
LOC: M LRY 13:21
DX: G43.909 Migraine, unspecified, not intractable, without status migrainosus (principal); Z51.81 Encounter for therapeutic drug level monitoring; Z79.899 Other long term (current) drug therapy
CPT/HCPCS: 80164

== ENCOUNTER 2018-04-20 21:10 | Emergency (ER) | payer MEDICARE, MEDICAID ==
[~2018-04-20] VITALS: Ht 154.9 cm; Wt 82.3 kg
[~2018-04-20 21:10] MED LIST changes: +/DIVA50TA PO; +ALIEVE PO; +ASPI1TAB PO; +ATIV1TAB10 PO; +BACL10TA2 OR; +CITA40TA PO; +CYCL7.5T2 PO; +DEPA250T32 PO; +DICL75TA PO; +FURO20TA2 PO; +FURO40TA2 PO; +GABA-843 PO; +HYDR-3719 PO; +IBUP80TA PO; -LIDOCAINE 2% INJ 100 MG/5 ML SDV (FOR ANES.) As Ordered; +LISI-538 PO; +LISI10TA4 OR; +LODINE PO; +MOBI15TA PO; +MORP15TA2 PO; +MORP20SO PO; +MULTCAP11 PO; +MULTIVIT PO; +OXYC10TA PO; +OXYC1TAB23 PO; +OXYC20TA2 PO; +PAME50CA PO; +PANT40TA3 PO; +PERC5TAB12 PO; +PRED10TA PO; +PROZ20CA11 PO; +ROBA750T4 PO; -ROCURONIUM BROMIDE 50 MG/5 ML VIAL As Ordered; +SOMA350T PO; +TIZA4CAP PO; +TIZA4TAB OR; +TIZA6CAP PO; +TRAM50TA2 OR; +VICO5TAB PO; +VIST25CA PO; +ZANT150T PO; +ZOLO50TA PO; +hydrocodone 10/325 PO; +neurontin PO; +oxycodone PO
[2018-04-20 21:30] LABS: BASO # 0.1 10^3/uL (0.0-0.2); BASO % 0.6 % (0.0-1.0); EOS # 0.1 10^3/uL (0.0-0.50); EOS % 1.2 % (0.0-3.0); HEMATOCRIT 41.3 % (36.0-47.0); HEMOGLOBIN 13.9 g/dl (12.0-15.5); LYMPH # 3.4 10^3/uL (1.5-4.5); LYMPH % 40.6 % (24.0-44.0); MEAN CORPUSCULAR HEMOGLOBIN 31.9 pg (27.0-33.0); MEAN CORPUSCULAR HGB CONC 33.7 g/dl (32.0-36.5); MEAN CORPUSCULAR VOLUME 94.7 fl (80.0-96.0); MONO # 0.7 10^3/uL (0.0-0.8); MONO % 8.1 % (0.0-5.0); NEUTROPHILS # 4.1 10^3/uL (1.8-7.7); NEUTROPHILS % 49.3 % (36.0-66.0); PLATELET COUNT, AUTOMATED 256 10^3/uL (150-450); RED BLOOD COUNT 4.36 10^6/uL (4.00-5.40); VENOUS BASE EXCESS 1.2 (-2.0-2.0); VENOUS HCO3 27.9 MEQ/L (23.0-27.0); VENOUS PARTIAL PRESSURE CO2 52.1 mmHg (38.0-50.0); VENOUS PARTIAL PRESSURE O2 31.9 mmHg (30.0-50.0); VENOUS PH 7.346 UNITS (7.330-7.430); VENOUS STANDARD HCO3 24.6 MEQ/L; VENOUS TOTAL CO2 29.5 MEQ/L (24.0-28.0); WHITE BLOOD COUNT 8.4 10^3/uL (4.0-10.0)
[2018-04-20] MEDS ORDERED: NS 1,000 ML IV ONE (21:30)
[2018-04-20] MEDS ORDERED: ONDANSETRON 4MG/2ML VIAL (J2405) IV ONE (21:30)
[2018-04-20] MEDS ORDERED: GI COCKTAIL 50ML BTL(HYOSCYAMINE/MAALOX/LIDOCAINE VISCOUS)(1:3:1) PO ONE (21:30)
[2018-04-20] MEDS ORDERED: ONDANSETRON 4MG/2ML VIAL (J2405) As Ordered ONE (21:30)
[2018-04-20 21:54] LABS: ALT/SGPT 27 U/L (12-78); BILIRUBIN,DIRECT 0.1 MG/DL (0.0-0.2); BILIRUBIN,TOTAL 0.4 MG/DL (0.2-1.0); BLOOD UREA NITROGEN 17 MG/DL (7-18); CALCIUM LEVEL 9.1 MG/DL (8.5-10.1); CARBON DIOXIDE LEVEL 29 MEQ/L (21-32); CHLORIDE LEVEL 102 MEQ/L (98-107); CPK CREATINE PHOSPHOKINASE 170 U/L (26-192); CREATININE FOR GFR 0.75 MG/DL (0.55-1.30); GLOMERULAR FILTRATION RATE > 60.0 (>58); GLUCOSE, FASTING 103 MG/DL (70-100); MB/CK RELATIVE INDEX 1.53 (< OR =4); SODIUM LEVEL 138 MEQ/L (136-145); TOTAL PROTEIN 7.7 GM/DL (6.4-8.2); TROPONIN I < 0.02 NG/ML (< 0.10)
[2018-04-20] MEDS ORDERED: ISOVUE-370 76% 100ML VIAL (Q9967) As Ordered ONE (22:19)
[2018-04-20] MEDS ORDERED: KETOROLAC 30 MG/ML VIAL (J1885) IV ONE (22:30)
[2018-04-20] MEDS ORDERED: PANTOPRAZOLE 40MG INJ (PROTONIX) (C9113) IV ONE (22:30)
[2018-04-20 23:15] VITALS: BP 135/85
--- NOTE | 2018-04-20 23:37 | REPVR ---
EXAM: CT Abdomen and Pelvis With Contrast EXAM DATE/TIME: 04/20/2018 10:23 PM CLINICAL HISTORY: 47 years old, female; Pain; Abdominal pain; Epigastric; Additional info: Epigastric pain TECHNIQUE: Axial computed tomography images of the abdomen and pelvis with intravenous contrast. All CT scans at this facility use at least one of these dose optimization techniques: automated exposure control; mA and/or kV adjustment per patient size (includes targeted exams where dose is matched to clinical indication); or iterative reconstruction. Coronal and sagittal reformatted images were created and reviewed. CONTRAST: 100 ml of ISOVUE 370 administered intravenously. COMPARISON: CT ABD PELVIS W/O FOL BY WIT 08/17/2013 10:54 AM FINDINGS: Lower thorax: No suspicious mass or airspace process in the visualized lung bases. ABDOMEN: Liver: Liver is decreased in density, consistent with fatty infiltration. Gallbladder and bile ducts: Gallbladder is surgically absent. Pancreas: Pancreas appears normal. No focal mass or peripancreatic inflammation. Spleen: Spleen appears homogeneous without focal mass. Adrenals: Adrenal glands are normal in appearance. Kidneys and ureters: Kidneys appear normal, with no stone, solid mass or hydronephrosis. Stomach and bowel: No evidence of small bowel obstruction. No evidence of acute diverticulitis. No CT evidence of gastric wall thickening or perforated ulcer Appendix: No evidence of appendicitis. PELVIS: Bladder: Bladder appears normal. Reproductive: Uterus is surgically absent. ABDOMEN and PELVIS: Intraperitoneal space: No pneumoperitoneum. Bones/joints: Bony structures show no acute fracture or destructive process. Soft tissues: No effacement of normal fat planes in the ischiorectal fossa. Vasculature: Main portal and splenic veins enhance normally. Lymph nodes: No enlarged lymph nodes. IMPRESSION: 1. No acute surgical or inflammatory intra-abdominal or pelvic process. 2. Hepatic steatosis Electronically signed by: Melvin Sorensen On 04/20/2018 23:37:25 PM
[2018-04-20] MEDS ORDERED: PROTPAK PO (23:45)
[2018-04-20] MEDS ORDERED: SUCRALFATE 1 GM TAB PO ONE (23:45)
[2018-04-20] MEDS ORDERED: NORCO 5/325MG TABLET (BULK FOR ED) PO ONE (23:45)
[2018-04-20] MEDS ORDERED: SUCR1TA PO (23:45)
--- NOTE | 2018-04-21 08:08 | REP ---
Portable chest, 09:40 p.m., single AP view, the patient upright: Comparison is 08/16/2015. There is chronic elevation of the right hemidiaphragm, likely eventration. Lung chatman are clear. Cardiac size is normal. The nicolasa, mediastinum, skeletal structures are unremarkable and unchanged. A spinal stimulator is incidentally noted as an interval change. Impression: No acute cardiopulmonary findings. Electronically Signed by Edu Boles MD 04/21/2018 07:59 A
--- NOTE | 2018-04-22 18:38 | ECGEPIP ---
Stationary ECG Study [facility] - ED Test Date: 2018-04-20 Pat Name: TIMOTHY MARTIN Department: Room: - Gender: F [employer] Technical Manager: JZoila : 1970 Requested By: DULCE Nichols Order Number: [id number] Reading MD: Dacia Mars Measurements Intervals [place] Rate: 92 P: 54 CT: 151 QRS: 25 QRSD: 75 T: 5 QT: 368 QTc: 456 Interpretive Statements SINUS RHYTHM NONSPECIFIC ST & T-WAVE ABNORMALITY SIMILAR 09/09/17 Electronically Signed On 04-22-2018 18:38:05 EST by Dacia Mars
== END 2018-04-21 00:15 | disposition home or self-care (01) ==
LOC: EDBD 21:10 → M ED 21:10
DX: K21.9 Gastro-esophageal reflux disease without esophagitis (principal); K20.9 Esophagitis, unspecified; K29.70 Gastritis, unspecified, without bleeding; R94.31 Abnormal electrocardiogram [ECG] [EKG]; I10 Essential (primary) hypertension; Z90.89 Acquired absence of other organs; Z98.890 Other specified postprocedural states; Z91.030 Bee allergy status; Z88.8 Allergy status to other drugs, medicaments and biological substances; Z88.5 Allergy status to narcotic agent; Z88.1 Allergy status to other antibiotic agents; Z88.2 Allergy status to sulfonamides
CPT/HCPCS: 71045; 74177; 80048; 80076; 82550; 82553; 82803; 83605; 84484; 85025; 93005; 93041; 96374; 96375; 99285; C9113; G0463; J1885; J2405; Q9967

== ENCOUNTER 2018-05-14 08:22 | Day surgery (SDC) | payer MEDICARE, MEDICAID ==
[~2018-05-14] VITALS: Ht 154.9 cm; Wt 88.2 kg
[~2018-05-14 08:22] MED LIST changes: +ASPI81TA85 PO; +PROTPAK PO; +SUCR1TA PO; +VITMTA PO
[2018-05-14] MEDS ORDERED: NS 1,000 ML IV ONE (09:30)
[2018-05-14] MEDS ORDERED: LIDOCAINE 2% INJ 100 MG/5 ML SDV (FOR ANES.) As Ordered ONE (10:05)
[2018-05-14] MEDS ORDERED: PROPOFOL 200 MG/20 ML VIAL As Ordered ONE ×2 (10:05→10:44)
--- NOTE | 2018-05-14 10:31 | ROOR ---
Patient Name: Monalisa Dubon Procedure Date: 05/14/2018 10:15 AM Date of : 1970 Age: 47 Room: [facility] Gender: Female Note Status: Finalized Procedure: Upper Endoscopy + Biopsies Indications: Epigastric abdominal pain, Heartburn Providers: Jean Garcia MD Referring MD[facility], Admin. Requesting Provider: Medicines: Monitored Anesthesia Care Complications: No immediate complications. Procedure: Pre-Anesthesia Assessment: - The heart rate, respiratory rate, oxygen saturations, blood pressure, adequacy of pulmonary ventilation, and response to care were monitored throughout the procedure. The Endoscope was introduced through the mouth, and advanced to the second part of duodenum. The upper GI endoscopy was accomplished without difficulty. The patient tolerated the procedure well. Findings: The Z-line was regular and was found 40 cm from the incisors. Localized moderate inflammation characterized by congestion (edema) and erythema was found on the greater curvature of the stomach. Biopsies were taken with a cold forceps for Helicobacter pylori testing. The exam of the duodenum was otherwise normal. Impression: - Z-line regular, 40 cm from the incisors. - Mucosal changes suspicious for gastritis. Biopsied. - The examination was otherwise normal. Recommendation: - Patient has a contact number available for emergencies. The signs and symptoms of potential delayed complications were discussed with the patient. Return to normal activities tomorrow. Written discharge instructions were provided to the patient. - High fiber diet. - Discharge patient to home. - Follow an antireflux regimen. - Continue present medications. - Await pathology results. - Telephone GI clinic for pathology results in 1 week. - Return to referring physician. - The findings and recommendations were discussed with the patient's family. Jean Garcia MD Jean Garcia MD 05/14/2018 10:31:03 AM This report has been signed electronically. Number of Addenda: 0 Note Initiated On: 05/14/2018 10:15 AM Estimated Blood Loss: Estimated blood loss: none.
[2018-05-14 11:00] VITALS: BP 140/83
== END 2018-05-14 11:12 | disposition home or self-care (01) ==
LOC: M OPP 08:22
PROVIDERS: ATTEND Internal Medicine Gastroenterology
DX: K31.89 Other diseases of stomach and duodenum (principal); R10.13 Epigastric pain; R12 Heartburn

== ENCOUNTER → 2018-05-20 | Outpatient (CLI) | payer MEDICARE, MEDICAID | LOC: M LRY 12:40 | PROVIDERS: ATTEND Psychiatry & Neurology Neurology | DX: G43.909 Migraine, unspecified, not intractable, without status migrainosus (principal); Z51.81 Encounter for therapeutic drug level monitoring | CPT/HCPCS: 36415; 80164; G0480 ==

== ENCOUNTER → 2018-10-03 | Outpatient (CLI) | payer MEDICARE, MEDICAID ==
[~2018-10-03] MED LIST changes: -/DIVA50TA PO; -ASPI1TAB PO; +ASPI81TA26 PO; +DEPA1TAB3 PO; +PRED-351 PO; -PRED10TA PO
--- NOTE | 2018-10-03 15:58 | REP ---
MRI RIGHT FOOT: TECHNIQUE: Multiple sequences obtained in the axial, coronal and sagittal planes without the use of intravenous contrast material. I see no evidence of an occult stress fracture. Arthritic changes are seen at the joint between the medial cuneiform and base of first metatarsal with mild dorsal spurring and subchondral sclerosis of the distal aspect of the medial cuneiform. There is a tiny amount of subchondral marrow edema in the base of the first proximal phalanx with mild arthritic change at the first metatarsophalangeal joint. A normal amount of scattered joint fluid is present. There is no joint effusion. There is no evidence of tenosynovitis. The flexor and extensor tendons appear intact. No tendon or ligament tear is seen at the ankle. The Achilles tendon demonstrates normal signal. Plantar tendon demonstrates normal signal. There is no evidence of plantar fasciitis. I see no ganglion cyst. IMPRESSION: Arthritic changes at the joint between medial cuneiform and base of first metatarsal and also mild degenerative changes at the first metatarsophalangeal joint. No occult fracture. No evidence of tendon or ligament abnormality. Electronically Signed by Edu Noel MD 10/07/2018 05:38 P
== END ==
LOC: M PLARAD 09-26 11:11
PROVIDERS: ATTEND Podiatrist Foot & Ankle Surgery
DX: M19.071 Primary osteoarthritis, right ankle and foot (principal)

== ENCOUNTER 2019-02-13 10:17 | Emergency (ER) | payer MEDICARE, MEDICAID ==
[~2019-02-13] VITALS: Ht 154.9 cm; Wt 91.3 kg
--- NOTE | 2019-02-13 11:05 | REP ---
CT brain: 02/13/2019. Indication: Head trauma. Comparison: 07/07/2012. Technique: Unenhanced axial CT images of the brain were obtained from skull base to vertex. Findings: There is no acute intracranial hemorrhage, acute cortical infarction, mass effect, hydrocephalus or acute calvarial fracture. High right parietal scalp hematoma is noted. Impression: No acute intracranial process. Electronically Signed by Rafael Conley DO 02/13/2019 10:57 A
[2019-02-13] MEDS ORDERED: AIMO70IN SUBQ (11:11)
--- NOTE | 2019-02-13 11:13 | REP ---
CT cervical spine: 02/13/2019. Indication: Cervical spine trauma. Comparison: 08/17/2014. Technique: Unenhanced axial CT images of the cervical spine were performed with coronal and sagittal reconstructions provided. Findings: There is no evidence of acute fracture, subluxation or dislocation. No hemorrhage or additional acute post traumatic sequelae within the spinal canal or detected. There is straightening of the cervical lordosis. Multilevel spondylosis is present most pronounced at C5/C6 without severe spinal canal narrowing detected. Impression: No acute osseous injuries of the cervical spine were Electronically Signed by Rafael Conley DO 02/13/2019 11:05 A
[2019-02-13] MEDS ORDERED: ACETAMINOPHEN 500 MG TAB PO ONE (12:15)
[2019-02-13 12:45] VITALS: BP 121/82
== END 2019-02-13 12:56 | disposition home or self-care (01) ==
LOC: M ED 10:17
DX: S00.01XA Abrasion of scalp, initial encounter (principal); S00.03XA Contusion of scalp, initial encounter; W00.0XXA Fall on same level due to ice and snow, initial encounter; Y92.89 Other specified places as the place of occurrence of the external cause; I10 Essential (primary) hypertension; J45.909 Unspecified asthma, uncomplicated; R56.9 Unspecified convulsions; Z79.899 Other long term (current) drug therapy; Z79.82 Long term (current) use of aspirin; Z88.2 Allergy status to sulfonamides; Z88.8 Allergy status to other drugs, medicaments and biological substances; Z91.030 Bee allergy status; Z91.048 Other nonmedicinal substance allergy status

== ENCOUNTER → 2019-03-19 | Outpatient (REF) | payer MEDICARE, MEDICAID ==
[~2019-03-19] MED LIST changes: +AIMO70IN SUBQ; +CEPH500C PO; +DICL50TAB FT; +FLUO40CA PO; +SUMA50TA2 PO; +TRAM50TA2 PO
[2019-03-19 17:29] LABS: BASO % 0.7 % (0.0-1.0); EOS # 0.1 10^3/uL (0.0-0.5); EOS % 1.7 % (0.0-3.0); HEMATOCRIT 43.9 % (36.0-47.0); LYMPH # 2.7 10^3/uL (1.5-5.0); MEAN CORPUSCULAR HEMOGLOBIN 32.3 pg (27.0-33.0); MEAN CORPUSCULAR HGB CONC 31.9 g/dl (32.0-36.5); MEAN CORPUSCULAR VOLUME 101.2 fl (80.0-96.0); MONO # 0.6 10^3/uL (0.0-0.8); MONO % 10.9 % (0.0-5.0); NEUTROPHILS # 2.3 10^3/uL (1.5-8.5); PLATELET COUNT, AUTOMATED 211 10^3/uL (150-450); RED BLOOD COUNT 4.34 10^6/uL (4.00-5.40); WHITE BLOOD COUNT 5.8 10^3/uL (4.0-10.0)
[2019-03-19 17:45] LABS: ALBUMIN 3.6 GM/DL (3.2-5.2); ALT/SGPT 25 U/L (12-78); BILIRUBIN,TOTAL 0.2 MG/DL (0.2-1.0); BLOOD UREA NITROGEN 13 MG/DL (7-18); CARBON DIOXIDE LEVEL 30 MEQ/L (21-32); CHLORIDE LEVEL 104 MEQ/L (98-107); CHOLESTEROL LEVEL 210 MG/DL (<200); CHOLESTEROL RISK RATIO 2.625 (<5); CREATININE FOR GFR 0.85 MG/DL (0.55-1.30); GLOMERULAR FILTRATION RATE > 60.0 (>58); GLUCOSE, FASTING 91 MG/DL (70-100); HDL CHOLESTEROL 80 MG/DL (>40); LDL CHOLESTEROL 98 MG/DL (<100); NON-HDL-C 130 MG/DL; SODIUM LEVEL 141 MEQ/L (136-145); TRIGLYCERIDES LEVEL 161 MG/DL (<150)
== END ==
LOC: M SFHCLERA 10:55
PROVIDERS: ATTEND Nurse Practitioner Family
DX: Z01.818 Encounter for other preprocedural examination (principal); Z79.899 Other long term (current) drug therapy
CPT/HCPCS: 80053; 80061; 85025; G0463

== ENCOUNTER → 2019-04-06 | Outpatient (REF) | payer MEDICARE, MEDICAID ==
[2019-04-06 14:43] LABS: FOLATE 6.1 NG/ML
[2019-04-10 14:08] LABS: Methylmalonic Acid 81 nmol/L (0-378)
== END ==
LOC: M SFHCLERA 10:16
PROVIDERS: ATTEND Nurse Practitioner Family
DX: D75.89 Other specified diseases of blood and blood-forming organs (principal)
CPT/HCPCS: 82607; 82746; 83921; G0463

== ENCOUNTER → 2019-04-08 | Outpatient (REF) | payer MEDICARE, MEDICAID ==
[~2019-04-08] MED LIST changes: -CEPH500C PO
== END ==
LOC: M SFHCLERA 17:22
PROVIDERS: ATTEND Nurse Practitioner Family
DX: D75.89 Other specified diseases of blood and blood-forming organs (principal)

== ENCOUNTER 2019-04-15 06:53 | Day surgery (SDC) | payer MEDICARE, MEDICAID ==
[~2019-04-15] VITALS: Ht 154.9 cm; Wt 90.3 kg
[~2019-04-15 06:53] MED LIST changes: +LR 1,000 ML IV ONE; +ceFAZolin SOD 2 GM in IV 1 EA IV ONE
[2019-04-15] MEDS ORDERED: LIDOCAINE 1% SDV INJ 30 ML VIAL As Ordered ONE (08:57)
[2019-04-15] MEDS ORDERED: BUPIVACAINE HCL 0.5% 30 ML VIAL As Ordered ONE (08:57)
[2019-04-15] MEDS ORDERED: dexameTHASONE 4 MG/ML 1ML VIAL (J1100) As Ordered ONE ×2 (09:05→09:13)
[2019-04-15] MEDS ORDERED: LIDOCAINE 2% INJ 100 MG/5 ML SDV (FOR ANES.) As Ordered ONE (09:13)
[2019-04-15] MEDS ORDERED: propofoL 200 MG/20 ML VIAL As Ordered ONE ×2 (09:13→10:08)
[2019-04-15] MEDS ORDERED: MIDAZOLAM INJ 2 MG/2 ML VIAL (J2250) As Ordered ONE (09:13)
[2019-04-15] MEDS ORDERED: ONDANSETRON 4MG/2ML VIAL (J2405) As Ordered ONE (09:13)
[2019-04-15] MEDS ORDERED: KETOROLAC 60 MG/2 ML VIAL (J1885) As Ordered ONE (09:13)
[2019-04-15] MEDS ORDERED: fentaNYL 100 MCG/2 ML INJECTION (J3010) As Ordered ONE (09:13)
[2019-04-15] MEDS ORDERED: OXYC1TAB23 PO (10:41)
[2019-04-15] MEDS ORDERED: CEPH500C PO (10:41)
[2019-04-15] MEDS ORDERED: fentaNYL 100 MCG/2 ML INJECTION (J3010) IV PRN (11:15)
[2019-04-15] MEDS ORDERED: oxyCODONE 5MG TAB PO PRN (11:15)
[2019-04-15] MEDS ORDERED: ONDANSETRON 4MG/2ML VIAL (J2405) IV PRN (11:15)
[2019-04-15] MEDS ORDERED: LR 1,000 ML IV SCH (11:15)
[2019-04-15] MEDS ORDERED: HYDROMORPHONE HCL 0.5 MG/ 0.5 ML SYRINGE (J1170 PER 1) IV PRN (11:15)
--- NOTE | 2019-04-15 11:29 | RO ---
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 PROCEDURE: Right 1st metatarsophalangeal joint arthrodesis with deep peroneal nerve release. SURGEON: Pasquale Bardales DPM RAIL LOADER: None ANESTHESIA: Monitored anesthesia care with preoperative injection of 1:1 mixture of 1% lidocaine plain and 0.5% Marcaine plain. ESTIMATED BLOOD LOSS: Minimal. MATERIALS: Arthrex 4.0 partially threaded screw, Arthrex DynaNite staple, MTF cancellous bone chips, 3-0 and 4-0 Vicryl, and 4-0 nylon. INJECTABLES: 1 mL Decadron 4 mg/mL. COMPLICATIONS: None. CONDITION: Stable. Monalisa Dubon is a 48-year-old female who presents with painful joint and nerve to her right foot. She presents today for surgical correction. The patient side and site were identified and marked in the preoperative area. Consent was reviewed and obtained. All risks, complications, and alternatives to the procedure were explained to the patient in detail. All questions were answered. DESCRIPTION OF PROCEDURE: The patient was brought to the operating room and placed on the operating room table in supine position. Monitored anesthesia care was delivered by the anesthesia team. A preoperative injection of 20 mL of 1:1 mixture of 1% lidocaine plain and 0.5% Marcaine plain were injected to the right foot. The right foot was prepped and draped in the normal sterile fashion. A tourniquet was applied to the right ankle and inflated at 250 mmHg. A curvilinear incision was drawn over the 1st metatarsocuneiform joint and carried through with a #15 blade. Dissection was first carried towards the deep peroneal nerve. This was identified. There was overlying extensor tendon from the extensor hallucis brevis, which was causing dorsal impingement on the nerve. This was resected. Some of the fascia was released, as well. There was bone spurring from the metatarsal and cuneiform joints on the inferior side of this nerve, and this was removed with sagittal saw. The site was then irrigated with saline. Attention was then paid to the 1st metatarsocuneiform joint. The cartilage was removed with sagittal saw, curettes, and osteotomes, and fenestrated with the guidewire. Once cartilage removal was ensured, the site was packed with cancellous bone chips and a 4-0 partially threaded screw was thrown under fluoroscopic guidance. An Arthrex DynaNite staple was placed across the joint, as well. Good compression was noted. The site was irrigated the normal saline. Capsular closure was performed with 3-0 Vicryl, subcutaneous closure with 4-0 Vicryl, and skin closure with 4-0 nylon. 1 mL of Decadron 4 mg/mL was injected. Posterior splint was applied. Tourniquet was deflated. The patient was brought to postanesthesia care unit (PACU) with vital signs stable and neurovascular status intact. She will be nonweightbearing to the right foot. She will followup in office in 2 days.
[2019-04-15] MEDS: oxyCODONE 5MG TAB PO PRN ×2 (11:37→12:22)
[2019-04-15 11:55] VITALS: BP 120/67
[2019-04-15] MEDS ORDERED: oxyCODONE 5MG TAB As Ordered ONE (12:21)
--- NOTE | 2019-04-15 13:00 | REP ---
Right foot: Two views. History: C-arm intraoperative imaging. 10 seconds of fluoroscopy time is reported. Findings: A sequence of two last image hold fluoroscopically obtained spot radiographs of the right foot document screw placement across the first MTP joint. Electronically Signed by Tray Han MD 04/15/2019 12:51 P
== END 2019-04-15 12:26 | disposition home or self-care (01) ==
LOC: M SDC 06:53
PROVIDERS: ATTEND Podiatrist Foot & Ankle Surgery
DX: M13.871 Other specified arthritis, right ankle and foot (principal); G57.31 Lesion of lateral popliteal nerve, right lower limb; Z88.2 Allergy status to sulfonamides; Z91.030 Bee allergy status; Z88.8 Allergy status to other drugs, medicaments and biological substances
CPT/HCPCS: 28750; 64704; 76000; 88304; 88311; C1713; C1762; J0690; J1100; J1885; J2250; J2405; J3010

== ENCOUNTER → 2019-08-18 | Outpatient (CLI) | payer MEDICARE, MEDICAID ==
[~2019-08-18] MED LIST changes: +CEPH500C PO; +GASTROGRAFIN SOLUTION 30ML (Q9963) As Ordered ONE; +ISOVUE-370 76% 100ML VIAL As Ordered ONE; -LR 1,000 ML IV ONE; -ceFAZolin SOD 2 GM in IV 1 EA IV ONE
--- NOTE | 2019-08-18 14:44 | REP ---
REASON: Left upper quadrant pain. The prior exams were reviewed, the latest 04/20/2018 CONTRAST: 100 mL Isovue 370. The liver, spleen, pancreas, adrenal glands, and kidneys are unchanged. The abdominal aorta and para-aortic regions are unchanged. The bowel loops and their mesenteries are unchanged. There is no fluid or free air. There is no intra-abdominal mass or adenopathy. CT PELVIS: The bowel loops and their mesenteries are unchanged. There is no mass or adenopathy. There is no free fluid or free air. Bone window technique throughout the examination shows no significant change in the osseous structures. IMPRESSION: Stable CT findings. There is no evidence of acute disease. There is no change in the appearance of the dorsal column stimulator or other significant findings. Electronically Signed by Kristopher Urena DO 08/19/2019 10:46 A
== END ==
LOC: M RAD 10:38
PROVIDERS: ATTEND Surgery
DX: R10.12 Left upper quadrant pain (principal)
CPT/HCPCS: 74177; Q9963; Q9967

== ENCOUNTER → 2019-09-18 | Outpatient (CLI) | payer MEDICARE, MEDICAID ==
[~2019-09-18] MED LIST changes: -ASPI81TA85 PO; +ASPI81TA86 PO; +D31000TA2 PO; -GASTROGRAFIN SOLUTION 30ML (Q9963) As Ordered ONE; -ISOVUE-370 76% 100ML VIAL As Ordered ONE; +PANT40TA29 PO; -PANT40TA3 PO
== END ==
LOC: M LABSMTC 09:56
PROVIDERS: ATTEND Anesthesiology
DX: Z01.818 Encounter for other preprocedural examination (principal); Z11.59 Encounter for screening for other viral diseases
CPT/HCPCS: C9803; U0003

== ENCOUNTER 2019-09-21 11:14 | Day surgery (SDC) | payer MEDICARE, MEDICAID ==
[~2019-09-21] VITALS: Ht 154.9 cm; Wt 89.7 kg
[~2019-09-21 11:14] MED LIST changes: +ASPI81TA85 PO; -ASPI81TA86 PO; +BUPIVACAINE HCL 0.25% 30ML VIAL As Ordered ONE; -D31000TA2 PO; +LIDOCAINE 1% MDV 20ML VIAL SQ PRN; +LIDOCAINE 1% SDV 30ML VIAL As Ordered ONE; +LR 1,000 ML IV ONE; -PANT40TA29 PO; +PANT40TA3 PO
[2019-09-21] MEDS ORDERED: VITAD1000T PO (12:12)
[2019-09-21] MEDS ORDERED: propofoL 500 MG/50 ML VIAL As Ordered ONE (16:47)
[2019-09-21] MEDS ORDERED: LIDOCAINE 2% 100MG/5ML SDV (FOR ANES.) As Ordered ONE (16:48)
[2019-09-21] MEDS ORDERED: fentaNYL 100 MCG/2 ML INJECTION (J3010) As Ordered ONE (16:48)
[2019-09-21] MEDS ORDERED: ONDANSETRON 4MG/2ML VIAL As Ordered ONE (16:48)
[2019-09-21] MEDS ORDERED: MIDAZOLAM INJ 2MG/2ML VIAL (J2250 PER 1MG) As Ordered ONE (16:48)
[2019-09-21] MEDS ORDERED: oxyCODONE 5MG TAB As Ordered ONE (20:19)
[2019-09-21] MEDS: oxyCODONE 5MG TAB PO PRN ×2 (20:22→21:08)
[2019-09-21] MEDS ORDERED: fentaNYL 100 MCG/2 ML INJECTION (J3010) IV PRN (20:30)
[2019-09-21] MEDS ORDERED: ONDANSETRON 4MG/2ML VIAL IV PRN (20:30)
[2019-09-21] MEDS ORDERED: LR 1,000 ML IV SCH (20:30)
[2019-09-21] MEDS ORDERED: HYDROMORPHONE HCL 0.5 MG/ 0.5 ML SYRINGE (J1170 PER 1) IV PRN (20:30)
[2019-09-21 21:50] VITALS: BP 126/84
--- NOTE | 2019-09-22 11:03 | ROOPDOC ---
[facility] Report Of Operation Report of Operation DATE OF PROCEDURE: 09/21/19 PREPROCEDURE DIAGNOSES: left upper quadrant pain, left upper quadrant subcutaneous lipoma. POSTPROCEDURE DIAGNOSES: same. PROCEDURE: excision of left upper quadrant subcutaneous lipoma. SURGEON: Chaninng Martini MD FEED MILL TENDER: ANESTHESIA: local anesthesia (1% liocaine with 1/4% Marcaine) with Monitored Anesthesia Care. ESTIMATED BLOOD LOSS: Approximately 10 mL. COMPLICATIONS: none. REMARKS: Patient is a 41-year-old female complaining of increasing girth, lump on her left upper quadrant abdominal wall area and a palpable lump where she hurts when the area is pressed upon. PROCEDURE NOTE: Patient has bulky nodular adipose tissue so no definite encapsulation typical for lipoma. DESCRIPTION OF PROCEDURE: Patient is brought to the operating room, laid supine on the table. Compression boots placed on both lower extremities for DVT prophylaxis. Monitoring leads were placed and IV sedation and started. She was provided oxygenation via facemask. Her abdomen was widely prepped and draped in the usual sterile fashion using chlorhexidine. The area of the lipoma was preoperatively marked with the patient's left upper quadrant area.We paused for a surgical timeout using both pre-incision safety checklist to verify correct patient, procedure site and additional clinical information prior to beginning the procedure I could feel an irregularity subcutaneous nodular lump over the patient's left upper quadrant area superior to and lateral to the umbilicus. I marked it preoperatively. This was widely infiltrated with local anesthesia both intradermally along the planned incision line and subcutaneously. A generous transverse incision was created that went through her superficial subcutaneous tissue. With palpation the nodular fatty adipose tissue was located. This was roughly in an area about 3 x 3 cm. With retraction was slight buttonholing of the involved skin to this was included with the excision. There was no distinct encapsulation or separation of the nodular fat tissue to the surrounding subcutaneous fat tissue though this area seems more thickened and nodular. This was circumferentially dissected and freed from surrounding tissue and removed. Adequate hemostasis was checked and bleeding points cauterized. This was then closed in layers of 3-0 Vicryl at the deep subcutaneous tissue, along the Dyan's fascia and at the superficial subcutaneous tissue. The skin was closed with a running subcuticular suture using 4-0 Monocryl. Steri-Strips, sterile gauze and Tegaderm was then used to cover the incision. Patient was promptly awakened, and brought to the recovery room in stable condition. CHANNING MARTINI MD Sep 22, 2019 11:03
== END 2019-09-21 21:52 | disposition home or self-care (01) ==
LOC: M SDC 11:14
PROVIDERS: ATTEND Surgery
DX: D17.1 Benign lipomatous neoplasm of skin and subcutaneous tissue of trunk (principal); R10.10 Upper abdominal pain, unspecified; I10 Essential (primary) hypertension; F41.9 Anxiety disorder, unspecified; F32.9 Major depressive disorder, single episode, unspecified; K21.9 Gastro-esophageal reflux disease without esophagitis; Z88.2 Allergy status to sulfonamides; Z88.8 Allergy status to other drugs, medicaments and biological substances; Z91.030 Bee allergy status; Z79.899 Other long term (current) drug therapy
CPT/HCPCS: 11403; 88304; J2250; J2405; J3010

== ENCOUNTER → 2020-01-29 | Outpatient (CLI) | payer MEDICARE, MEDICAID ==
[~2020-01-29] MED LIST changes: -ASPI81TA85 PO; +ASPI81TA86 PO; -BUPIVACAINE HCL 0.25% 30ML VIAL As Ordered ONE; +D31000TA2 PO; -LIDOCAINE 1% MDV 20ML VIAL SQ PRN; -LIDOCAINE 1% SDV 30ML VIAL As Ordered ONE; -LR 1,000 ML IV ONE; +PANT40TA29 PO; -PANT40TA3 PO
--- NOTE | 2020-01-29 16:02 | REP ---
INDICATION: RT ELBOW PAIN MEDIAL EPICONDYLITIS OF RT ELBOW. COMPARISON: None. TECHNIQUE: Multiple sequences obtained in the axial, coronal and sagittal planes. FINDINGS: There is minor marrow edema in the proximal ulna adjacent to the articulating surface. There is mild marrow edema in the posterior aspect of the lateral humeral condyle. Mild diffuse chondromalacia at the joint. There is mild spurring of the coronoid process of the proximal ulna. There is moderate joint effusion. The common flexor tendon at the medial humeral condyle demonstrates normal signal. The collateral ligaments are intact. There is mild increased signal on T2 weighted images in the common extensor tendon along the lateral humeral epicondyle compatible with mild tendinitis. Biceps, triceps, brachialis and brachioradialis demonstrate no abnormal signal and appear intact. The ulnar nerve demonstrates normal signal. There is no evidence of ulnar neuritis. No ganglion cyst is seen. IMPRESSION: There appear to be mild arthritic changes at the elbow joint as discussed in detail above with some minor marrow edema along the joint in the posterior lateral humeral condyle and in the proximal ulna. Moderate joint effusion. Mild tendinitis in the common extensor tendon at its insertion onto the lateral humeral epicondyle. <Electronically signed by Edu Noel > 01/29/20 1814
== END ==
LOC: M PLARAD 11:19
PROVIDERS: ATTEND Nurse Practitioner Family
DX: M25.421 Effusion, right elbow (principal); M77.01 Medial epicondylitis, right elbow; M94.221 Chondromalacia, right elbow; M25.721 Osteophyte, right elbow

== ENCOUNTER → 2020-03-18 | Outpatient (CLI) | payer MEDICARE, MEDICAID ==
--- NOTE | 2020-03-18 11:28 | REP ---
INDICATION: MASS OF RIGHT FOREARM. COMPARISON: MRI right elbow 01/29/2020. TECHNIQUE: Multiple sequences obtained in the axial, coronal and sagittal planes prior to and following the intravenous administration of 17 mL ProHance. The field of view extends above the elbow as the patient indicated palpable abnormalities both above and below the elbow. FINDINGS: The visualized portions of the humerus, radius and ulna demonstrate normal bone marrow signal. There is no bone marrow edema or occult fracture. Soft tissue structures also demonstrate normal signal. No discrete abnormal signal is seen in any of the visualized muscular structures, with no evidence of muscle or tendon tear. No cystic structures are seen. There is no abnormal osseous enhancement and no abnormal soft tissue enhancement. No enhancing mass is seen. There is a moderate joint effusion. Fluid is hyperintense on T1 weighted images suggesting proteinaceous or hemorrhagic content. IMPRESSION: There is a moderate joint effusion. Fluid is hyperintense on T1 weighted images suggesting proteinaceous or hemorrhagic content. No other abnormalities are visualized. No evidence of cystic or solid mass. <Electronically signed by Edu Noel > 03/18/20 1124
== END ==
LOC: M PLARAD 07:40
PROVIDERS: ATTEND Orthopaedic Surgery
DX: M25.431 Effusion, right wrist (principal)

== ENCOUNTER → 2020-03-25 | Outpatient (CLI) | payer MEDICARE, MEDICAID ==
[~2020-03-25] MED LIST changes: +GABA-282 PO; -GABA-843 PO
--- NOTE | 2020-03-25 11:25 | REPVR ---
PROCEDURE INFORMATION: Exam: MR Angiogram Head Without Contrast, Arteries Exam date and time: 03/25/2020 9:59 AM Age: 49 years old Clinical indication: Pain; Headache; Patient HX: Dizziness, h/a blurry vision, bue weakness; Additional info: Chroinc migraine, dizziness TECHNIQUE: Imaging protocol: MR angiogram head without contrast. Exam focused on the arteries. 3D rendering (Not supervised by radiologist): MIP and/or 3D reconstructed images were created by the technologist. COMPARISON: CT Head without contrast 02/13/2019 10:31 AM FINDINGS: ANTERIOR CIRCULATION: Right internal carotid artery: Intracranial segment is patent with no significant stenosis. No aneurysm. Right middle cerebral artery: No occlusion or significant stenosis. No aneurysm. Right anterior cerebral artery: No occlusion or significant stenosis. No aneurysm. Left internal carotid artery: Intracranial segment is patent with no significant stenosis. No aneurysm. Left middle cerebral artery: No occlusion or significant stenosis. No aneurysm. Left anterior cerebral artery: Hypoplastic left A1 segment. Left A2 segment is unremarkable. POSTERIOR CIRCULATION: Right vertebral artery: No occlusion or significant stenosis. No aneurysm. Left vertebral artery: No occlusion or significant stenosis. No aneurysm. Basilar artery: No occlusion or significant stenosis. No aneurysm. Right posterior cerebral artery: Persistent origin of the right posterior cerebral artery. Left posterior cerebral artery: No occlusion or significant stenosis. No aneurysm. IMPRESSION: No occlusion, stenosis, or aneurysm. Hypoplastic left A1 segment, normal variant. Next and persistent origin of the right posterior cerebral artery. Electronically signed by: Gina Box On 03/25/2020 11:25:47 AM
--- NOTE | 2020-03-25 11:27 | REPVR ---
PROCEDURE INFORMATION: Exam: MR Head Without Contrast Exam date and time: 03/25/2020 9:59 AM Age: 49 years old Clinical indication: Pain; Headache; Migraine; Without aura; Does not respond to medication; Severity not specified; Patient HX: Dizziness, h/a blurry vision, bue weakness; Additional info: Chroinc migraine, dizziness TECHNIQUE: Imaging protocol: MR of the head without contrast. COMPARISON: CT Head without contrast 02/13/2019 10:31 AM FINDINGS: Brain: No evidence of restricted diffusion to suggest an acute infarct. No mass, midline shift, or mass effect. No evidence of hemorrhage. No abnormal enhancement. No FLAIR signal abnormality to suggest small vessel ischemic changes. Cerebral ventricles: Normal. No ventriculomegaly. Bones/joints: Unremarkable. Paranasal sinuses: Normal as visualized. No acute sinusitis. Mastoid air cells: Normal as visualized. No mastoid effusion. Orbital cavity: Unremarkable. Soft tissues: Unremarkable. IMPRESSION: 1. No acute finding. 2. Unremarkable exam. Electronically signed by: Gina Box On 03/25/2020 11:27:07 AM
== END ==
LOC: M PLARAD 08:05
PROVIDERS: ATTEND Physician Assistant Medical
DX: R42 Dizziness and giddiness (principal); G43.719 Chronic migraine without aura, intractable, without status migrainosus; G40.89 Other seizures; R26.81 Unsteadiness on feet

== ENCOUNTER → 2020-03-30 | Outpatient (CLI) | payer MEDICARE, MEDICAID ==
--- NOTE | 2020-03-31 10:55 | REP ---
INDICATION: M25.521 RT ANTECUBITAL MASS W/INFLAMMATION COMPARISON: None TECHNIQUE: Realtime grayscale ultrasound examination using linear high-frequency transducer. FINDINGS: Directed ultrasound examination overlying the area of palpable mass demonstrates normal subcutaneous tissues and underlying musculature. No focal fluid collection or mass lesion identified.. IMPRESSION: No obvious abnormality by sonographic evaluation. <Electronically signed by Med Logan > 03/31/20 1059
== END ==
LOC: M WHC 14:28
PROVIDERS: ATTEND Nurse Practitioner Family
DX: M25.521 Pain in right elbow (principal)
CPT/HCPCS: 76882; G0463

== ENCOUNTER → 2020-04-08 | Outpatient (CLI) | payer MEDICARE, MEDICAID ==
--- NOTE | 2020-04-08 14:39 | REP ---
INDICATION: LOCALIZED SWELLING, MASS AND LUMP, RIGHT UPPER LIMB. Localized swelling, mass and lump in the right upper limb. Patient reports a progressively enlarging mass in the forearm, near the band. Presumably antecubital fossa region. COMPARISON: Comparison MRI study March 18, 2020 and sonography March 2020.. TECHNIQUE/RADIOTRACER AND DOSE: 21.8 mCi of Technetium-99m MDP was injected and standard whole-body bone scanning is acquired. The radiopharmaceutical was injected in the left antecubital fossa. FINDINGS: There is a normal distribution of skeletal tracer with uptake in bilateral kidneys and in the urinary bladder. There is no evidence to suggest skeletal metastatic disease. There is rather intensely increased uptake at the edge of the film involving the right elbow articulation on whole body images. This is confirmed on plain are oblique images consistent with arthritic uptake or cyst advanced synovitis. This corresponds with the MR findings of synovial thickening at, enhancement, and T2-1 hyperintense fluid content. Also noted is arthritic uptake in the right midfoot consistent with osteoarthritis in these articulations. There is mild arthritic uptake in the medial compartment of each knee. Bone scan is otherwise negative IMPRESSION: Intensely increased uptake in the right elbow articulation consistent with inflammatory arthropathy. Low-grade septic arthritis, crystalline induced arthropathy, and perhaps Lyme disease arthropathy could conceivably have this appearance. There is also intensely increased uptake in the right midfoot which may be osteoarthritis. Mild degenerative uptake is seen in the medial compartment of each knee.. <Electronically signed by Tunde Han > 04/08/20 1251
== END ==
LOC: M RAD 09:47
PROVIDERS: ATTEND Orthopaedic Surgery
DX: R22.31 Localized swelling, mass and lump, right upper limb (principal)
CPT/HCPCS: 78306; A9503

== ENCOUNTER → 2020-04-27 | Outpatient (CLI) | payer MEDICARE, MEDICAID ==
[~2020-04-27] MED LIST changes: -LISI-538 PO; +LISI20TA33 PO
[2020-04-27 09:21] LABS: BASO % 0.5 % (0.0-1.0); EOS # 0.1 10^3/uL (0.0-0.5); EOS % 1.1 % (0.0-3.0); HEMATOCRIT 40.8 % (36.0-47.0); HEMOGLOBIN 13.4 g/dl (12.0-15.5); LYMPH # 2.2 10^3/uL (1.5-5.0); LYMPH % 39.6 % (24.0-44.0); MEAN CORPUSCULAR HEMOGLOBIN 32.2 pg (27.0-33.0); MEAN CORPUSCULAR HGB CONC 32.8 g/dl (32.0-36.5); MEAN CORPUSCULAR VOLUME 98.1 fl (80.0-96.0); MONO # 0.7 10^3/uL (0.0-0.8); MONO % 12.6 % (2.0-8.0); NEUTROPHILS # 2.5 10^3/uL (1.5-8.5); NEUTROPHILS % 45.7 % (36.0-66.0); PLATELET COUNT, AUTOMATED 222 10^3/uL (150-450); RED BLOOD COUNT 4.16 10^6/uL (4.00-5.40); WHITE BLOOD COUNT 5.6 10^3/uL (4.0-10.0)
[2020-04-27 09:43] LABS: ALBUMIN 3.4 GM/DL (3.2-5.2); ALT/SGPT 31 U/L (12-78); BILIRUBIN,TOTAL 0.1 MG/DL (0.2-1.0); BLOOD UREA NITROGEN 14 MG/DL (7-18); CALCIUM LEVEL 9.2 MG/DL (8.5-10.1); CARBON DIOXIDE LEVEL 33 MEQ/L (21-32); CHLORIDE LEVEL 102 MEQ/L (98-107); CHOLESTEROL LEVEL 217 MG/DL (<200); CHOLESTEROL RISK RATIO 2.494 (<5); CREATININE FOR GFR 0.86 MG/DL (0.55-1.30); GLOMERULAR FILTRATION RATE > 60.0 (>58); GLUCOSE, FASTING 101 MG/DL (70-100); HDL CHOLESTEROL 87 MG/DL (>40); LDL CHOLESTEROL 101 MG/DL (<100); NON-HDL-C 130 MG/DL; POTASSIUM SERUM 4.8 MEQ/L (3.5-5.1); SODIUM LEVEL 140 MEQ/L (136-145); TOTAL PROTEIN 6.9 GM/DL (6.4-8.2); TRIGLYCERIDES LEVEL 144 MG/DL (<150)
[2020-04-27 10:11] LABS: HEMOGLOBIN A1c 5.6 %
== END ==
LOC: M LAB 07:50
PROVIDERS: ATTEND Nurse Practitioner Family
DX: I10 Essential (primary) hypertension (principal); Z13.1 Encounter for screening for diabetes mellitus; Z13.220 Encounter for screening for lipoid disorders; Z79.899 Other long term (current) drug therapy

== ENCOUNTER → 2020-08-08 | Outpatient (CLI) | payer MEDICARE, MEDICAID | LOC: M LAB 15:26 | PROVIDERS: ATTEND Physician Assistant Medical | DX: G40.909 Epilepsy, unspecified, not intractable, without status epilepticus (principal) ==

== ENCOUNTER → 2020-12-07 | Outpatient (REF) | payer MEDICARE, MEDICAID | LOC: M SFHCWAGY 18:26 | PROVIDERS: ATTEND Nurse Practitioner Women's Health | DX: Z12.4 Encounter for screening for malignant neoplasm of cervix (principal); R87.610 Atypical squamous cells of undetermined significance on cytologic smear of cervix (ASC-US) | CPT/HCPCS: 87624; G0101; G0123 ==

== ENCOUNTER → 2020-12-15 | Outpatient (CLI) | payer MEDICARE, MEDICAID | LOC: M LAB 13:34 | PROVIDERS: ATTEND Physician Assistant Medical | DX: G43.909 Migraine, unspecified, not intractable, without status migrainosus (principal); G40.909 Epilepsy, unspecified, not intractable, without status epilepticus ==

== ENCOUNTER → 2020-12-30 | Outpatient (CLI) | payer MEDICARE, MEDICAID ==
[~2020-12-30] MED LIST changes: +ATIV1TAB7 PO; +ECOT81TA5 PO; +SUCR1TAB56
== END ==
LOC: M LABSMTC 09:47
PROVIDERS: ATTEND Anesthesiology
DX: Z01.812 Encounter for preprocedural laboratory examination (principal); Z20.822 Contact with and (suspected) exposure to COVID-19

== ENCOUNTER 2021-01-04 09:44 | Day surgery (SDC) | payer MEDICARE, MEDICAID ==
[~2021-01-04] VITALS: Ht 154.9 cm; Wt 79.4 kg
[~2021-01-04 09:44] MED LIST changes: +LIDOCAINE 1% MDV 20ML VIAL SQ PRN; +LR 1,000 ML IV ONE; +ceFAZolin SOD 2 GM in IV 1 EA IV ONE
--- OUTSIDE RECORDS SUMMARY | 2021-01-04 09:50 | CCD ---
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 Active confirmed 98609301 followed b y neurology Problem Chronic migraine without aur a without status migrainosus, not intractable G43.709 Active confirmed 560168009 followed by neurology Problem Chronic prescription opiate use Z79.899 Active confirmed 886416490 Problem Facet arthropathy, lumbosacral M46.97 Active confir med 39810539 Problem Abnormal mammogram R92.8 Active confirmed 1 90011145 Problem Hip bursitis, left M70.72 Active confirmed 8 2860204 Problem Depression with anxiety F41.8 Active confirmed 924639943 Problem Chronic low back pain M54.5 Active confirmed 340504919 followed by pain clininc Problem Chronically on opiate therapy Z79.899 Active confir med 340614867 Problem Insomnia, unspecified 780.52 Active confirmed 715657662 Problem Anxiety F41.9 Active confirmed 91534003 Problem Essential hypertension I10 Active confirmed 07966574 Problem Spondylosis without myelopathy or radiculopathy, lumbosacral region M47.817 Active confirmed 37984219 Problem Trochanteric bursitis, left hip M70.62 Active confi rmed 3560559 Problem Thoracic spine pain M54.6 Active confirmed 601027096 Problem Spondylosis without myelopathy or radiculopathy, lumbar region M47.816 Active confirmed 27098281 Problem Unspecified inflammatory spondylopathy, 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 Active confirmed 778373651 Problem Intervertebral disc disorders with radiculopathy , thoracic region M51.14 Active confirmed 81994300 Problem Displacement of thoracic intervertebral disc M51.2 4 Active confirmed 583993295 Problem Edema 782.3 Active confirmed 750836283 Problem Pain in thoracic spine M54.6 Active confirmed 949372206 Problem Back Pain - Lumbar 724.2 Active confirmed 2 62983233 Problem Intervertebral disc disorder with radiculopathy of lumbar region M51.16 Active confirmed 67634316 Problem Intervertebral disc disorder with radiculopathy of lumbosacral region M51.17 Active confirmed 75073691 Problem Lumbar radiculopathy M54.16 Active confirmed 349610279 Problem Intrinsic atopic dermatitis L20.84 Active confirmed 58700053 Problem Foot pain M79.673 Active confirmed 74201275 Problem Macrocytosis without anemia D75.89 Active confirmed 827021478 Problem Myalgia M79.1 Active confirmed 96878001 Problem Facet arthropathy M12.88 Active confirmed 42 3029882 Problem Hypertension, unspecified type I10 Active confir med 43149883 Problem Use of opiates for therapeutic purposes Z79.891 Active confirmed 547570233 Problem Other chronic pain G89.29 Active confirmed 8 2357273 Problem Allergy to bee sting Z91.030 Active confirmed 244816027 ALLERGIES Allergen (clinical drug ingredient) Drug/Non Drug Allergy do cumented on EMR Reaction Allergy Type Onset Date Status BuSpar Severe hyperactivity/irritability Drug Allergy Active Wellbutrin Rash, severe hyper activity Drug Allergy Active Bee sting swelling Non Drug Allergy Active sulfamethoxazole / trimethoprim Bactrim([facility] Code:[address]- 01) severe hyper activity/ irritable Drug Allergy Active Paper Tape rash Non Drug Allergy Active ENCOUNTERS from 1971 to 2020-12-07 Encounter Location Date Provider Diagnosis [facility] [phone] [place] [address] Nov, Alejandra Lara Routine gynecologica l examination Z01.419 ; Cervical cancer screening Z12.4 ; Severe dysplasia of cervix (DANIELLE III) D06.9 and Breast cancer screening by mammogram Z12.31 IMMUNIZATIONS Vaccine Route Administration Date Status Influenza Denied Unknown Mar 19, 2019 Refused Influenza 6mo & up Fluzone Unknown Apr 23, 2017 Refus ed Influenza 6mo & up Fluzone IM Intramuscular Dec 28, 2015 Admi nistered Influenza 6mo & up Fluzone Unknown Dec 09, 2014 Admin istered Influenza 6mo & up Fluzone Unknown Oct 15, 2014 Refus ed Influenza 6mo & up Fluzone Unknown Dec 25, 2013 Refus ed SOCIAL HISTORY Tobacco Use: Social History Observation Description Date Details (start date - stop date) Never Smoker Sex Assigned At : Social History Observation Description Sex Assigned At Unknown Education: Question Answer Notes Level of Education: Not Answered Language: Question Answer Notes Languages spoken: Ugandan Mormonism: Question Answer Notes Mormonism 33 None Sexual Hx: Question Answer Notes Had sex in the last 12 months (vaginal, oral, or anal)? Yes Have you ever had an STD? No with Men only Use protection? Yes How often? All of the time Alcohol Screening: Question Answer Notes Did you have a drink containing alcohol in the past year? No Points 0 Interpretation Negative BMI Care Goal Follow-Up Question Answer Notes Above Normal BMI Follow-Up Dietary management educatio n, guidance, and counseling, Dietary needs education, Exercise promotion: strength training Tobacco Use: Question Answer Notes Are you a: never smoker REASON FOR REFERRAL No Information VITAL SIGNS Weight 177 lbs Nov, Height 60.75 in Nov, BMI 33.72 kg/m2 Nov, Blood pressure systolic 120 mm Hg Nov, Blood pressure diastolic 80 mm Hg Nov, MEDICATIONS Medication SIG (Take, Route, Frequency, Duration) Notes Start Da te End Date Status Multivitamins 1 tablet Orally daily for 90 day(s) Active Nortriptyline HCl 25 MG 1 capsule Orally at bedtime Phyllis Trickey 24 2015 Active Ativan 0.5 MG 1 tablet as needed Orally daily PRN MDD= 1 for 30 day(s) Phyllis Trickey Jun, Active hydrOXYzine HCl 25 MG 1 tablet as needed Orally every 8 hrs for 30 day(s) Nov, Active HYDROcodone-Acetaminophen 5-325 MG 1 tablet as needed Orally every 8hrs prn for pain (MDD=2) for 7 day(s) Jun, Not-Ta sindhu Pantoprazole Sodium 40 MG 1 tab Orally once daily for 90 days Active SUMAtriptan Succinate 50 MG 1 tablet at least 2 hours between doses as needed Orally Daily for migraines Active Aimovig 70 MG/ML 1 injection Subcutaneous once a month Phyllis Ck Active Ibuprofen 800 MG 1 tablet with food or milk a s needed Orally Three times a day for 30 Days Apr, Active Aspir-Low 81 MG 1 tablet Orally Once a day for 90 day(s) Not-Taking Acetaminophen 500 MG 1 capsule as needed Orally every 6 hrs for 14 day(s) Mar, Not-Taking Test Strips - as directed E11.9 Daily w/ glucometer fo r 90 days dispense brand covered by insurance Apr, Active Lancets - as directed intravenously Daily, E11.9 f or 90 day(s) dispense brand covered by insurance Apr, Active Cephalexin 500 MG 1 capsule Orally twice daily for 10 day(s) July, Not-Taking Glucometer as directed E11.0 Daily for 99 days disp ense brand covered by insurance Apr, Active Depakote 500 MG 1 tab Orally twice daily for 30 days Phyllis Stover Active FLUoxetine HCl 20 MG 3 capsule Orally Once a day for 90 days July, Active Doxycycline Monohydrate 100 MG 1 capsule Orally every 12 hrs for 10 day(s) Jan, Not-Taking Diclofenac Sodium 50 MG 1 tablet Orally Twice a day for 30 day(s) Vol landon Not-Taking Carafate 1 GM 1/2 tablet on an empty stomach Orally Daily for 30 Days Active FreeStyle Test Test strip 1 strip In Vitro to check gl ucose up to TID (icd9 251.2) for 30 days July, Active EpiPen 2-Ivan 0.3 MG/0.3ML 1 injection Injection as nee ded for bee sting for 30 days Nov, Active Triamcinolone Acetonide 0.025 % 1 application to affec sravan area Externally Twice a day for 14 Days Not-Taking PROCEDURES No Information RESULTS No Results REASON FOR VISIT annual MEDICAL (GENERAL) HISTORY Type Description Date Medical History Seizures Medical History Bursitis left hip Medical History Chronic low back pain (Pain clinic) Medical History Anxiety Medical History Migraine headaches Medical History Heart murmur Medical History HTN Medical History Chronic migraine without aur a, without mention of intractable migraine without mention of status migrainosus Medical History Esophageal reflux Medical History Anxiety state, unspecified Medical History Unspecified epilepsy without mention of intractable epilepsy Medical History Hx of CIN3 Medical History Hx of abnormal mammogram, inadequate fol low-up Surgical History C-sections 1994, 1995 Surgical History SHAYY and BSO 2002 Surgical History T&A Child Surgical History Kidney surgery (? ureter repair) 3 y/o Surgical History Median and Ulnar nerve repairs bilateral Surgical History Appendectomy 2003 Surgical History cholecystectomy 08/19/13 Surgical History plantar fascitis 09/05/2015 Surgical History lumbar dorsal column stimulator trial an d removed 06/04/16 Surgical History BTL 1995 Hospitalization History Surgery related Hospitalization History Childbirth related Hospitalization History Dorsal column stimulator trial Goals Section No Information Health Concerns No Information MEDICAL EQUIPMENT No Information MENTAL STATUS No Information FUNCTIONAL STATUS No Information ASSESSMENTS Encounter Date Diagnosis Assessment Notes Treatment Notes Treatm ent Clinical Notes Nov, Routine gynecological examination (ICD-10 - Z01. 419) Nov, Cervical cancer screening (ICD-10 - Z12.4) Nov, Severe dysplasia of cervix (DANIELLE III) (ICD-10 - D 06.9) d/w patient the need for annual pap until 2027 due to danielle 3 Nov, Breast cancer screening by mammogram (ICD-10 - Z 12.31) pt encouraged to schedule mammogram PLAN OF TREATMENT Treatment Notes Assessment Notes Clinical Notes Severe dysplasia of cervix (DANIELLE III) d/w patient the need for annual pap until 2027 due to danielle 3 Breast cancer screening by mammogram pt encouraged to schedule mammogram Treatment Notes Test Name Order Date PAP REQUEST FOR SERVICE 2020-12-07 [facility] DIGITAL / DAVIS BILATERAL MAMMO SCREENING (Ultraso und if indicated) 2020-12-07 Next Appt Details 1 Year Reason:annual/mammo Follow Up:1 Yearannual/mammo Insurance Providers Payer Name Payer Address Payer Phone Insured Name Patient Relati onship to Insured Coverage Start Date Coverage End Date MEDICAID [place] [address] [facility] [address] [facility] [id number] [facility] [id number] [place]
--- OUTSIDE RECORDS SUMMARY | 2021-01-04 09:50 | CCD | Continuity of Care Document ---
Author Author Monalisa LOONEY DPM Organization Unknown Address [address] [place] [address], [address] [place] [address] Phone [phone] Care Team Providers Care Medical Lab Technician Name Role Phone Adrianna Robles TRIP MOTOR OPERATOR AUTM [phone] Problems Active Problems Provider Date Contusion of foot Pasquale Looney DPM Onset: 09/25/2020 Tenosynovitis of foot Pasquale Looney DPM Onset: 10/11/2020 Edema Pasquale Looney DPM Onset: 10/11/2020 Social History Type Date Description Comments Sex Unknown ETOH Use Rarely consumes beer on birthday s, idays Tobacco Use Start: Unknown Patient has never smoked Allergies and adverse reactions Active Allergies Criticality Reaction | Severity Comments Date Tape Unable to assess criticality Urticaria paper tape 06/01/2015 Bee Sting Unable to assess criticality Anaphylaxis has epi pen 06/01/2015 Medications Active Medications SIG Qnty Indications Ordering Provide r Date Naproxen 500mg Tablets 1 tab twice daily with food 60tabs Pasquale Looney DPM 10/05/2020 Diflucan 100mg Tablets 1 tablet by mouth twice daily 14tabs Pasquale Looney DPM 09/29/2015 Prednisone 10mg Tablets prednisone taper: take 4 tabs for 5 days, 3 tabs for days 6 and 7, 2 tabs for days 8 and 9, and 1 tab days 10 and 11 32tabs Pasquale Looney DPM 07/11/19 16 Depakote Unknown Lisinopril Unknown Zoloft Unknown Medications Administered in Office Medication SIG Qnty Indications Ordering Provider Date Inject Triamcinolone Acetonide 10 ML, ND C 9923-0474-97 Injection Pasquale lu, DPM 11/14/2018 Inject Dexamthosone Phosphate 46146-115- 30 Injection Pasquale Looney, DPM 019 Inject Triamcinolone Acetonide 10 ML, ND C 5675-6671-56 Injection Pasquale lu, DPM 08/11/2018 Inject Dexamthosone Phosphate 51519-693- 30 Injection Pasquale Looney, DPM 019 Inject Triamcinolone Acetonide 10 ML, ND C 4292-9853-83 Injection Pasquale lu, DPM 05/28/2018 Inject Dexamthosone Phosphate 23563-612- 30 Injection Pasquale Looney, DPM 019 Inject Triamcinolone Acetonide 10 ML, ND C 5166-7114-83 Injection Pasquale lu, DPM 07/06/2015 Inject Dexamthosone Phosphate 79095-696- 30 Injection Pasquale Looney, DPM 016 Inject Dexamthosone Phosphate 07940-185- 30 Injection Pasquale Looney, DPM 016 Immunizations Description No Information Available Vital Signs Date Vital Result Comment 09/21/2020 10:26am Height 61 inches 5'1" Weight 193.00 lb BP Systolic 118 mmHg BP Diastolic 82 mmHg Heart Rate 82 /min BMI (Body Mass Index) 36.5 kg/m2 03/16/2019 11:05am Height 61 inches 5'1" Weight 189.00 lb BP Systolic 128 mmHg BP Diastolic 86 mmHg Heart Rate 89 /min BMI (Body Mass Index) 35.7 kg/m2 Results Description No Information Available Procedures Date Code Description Status 10/05/2020 62567 Office/Outpatient Established SF MDM 10-19 Min Completed 10/05/2020 48660 Apply Unna Boot Completed 09/21/2020 18994 Office/Outpatient Established Lo w MDM 20-29 Min Completed 09/21/2020 64607 X-Ray Foot Complete Completed Medical Devices Description No Information Available Encounters Type Date Location Provider Dx Diagnosis Office Visit 10/05/2020 10:30a [place] [facility] Pasquale Looney, DP M65.871 Other synovitis and tenosynovitis, right ankle and foot R60.0 Localized edema Office Visit 09/21/2020 10:30a [place] [facility] Pasquale Looney DPM S90.31xA Contusion of right foot, initial encounter Assessments Date Code Description Provider 10/05/2020 M65.871 Other synovitis and tenosynoviti s, right ankle and foot Pasquale Looney DPM 10/05/2020 R60.0 Localized edema Pasquale Looney DPM 09/21/2020 S90.31xA Contusion of right foot, initial encounter Pasquale Looney DPM Plan of Treatment Future Appointment(s):* 12/23/2020 3:15 pm - Pasquale Looney DPM at [facility] [place] Functional Status Description No Information Available Mental Status Description No Information Available Referrals Description No Information Available
--- OUTSIDE RECORDS SUMMARY | 2021-01-04 09:50 | CCD | Continuity of Care Document ---
Author Author Monalisa LOONEY DPM Organization Unknown Address [address] [place] [address], [address] [place] [address] Phone [phone] Care Team Providers Care Foreign Exchange Dealer Name Role Phone Adrianna Robles TALENT RECRUITER AUTM [phone] Problems Active Problems Provider Date Contusion of [...] Inject Triamcinolone Acetonide 10 ML, ND C 9927-8183-73 Injection Pasquale lu, DPM 11/14/2018 Inject Dexamthosone Phosphate 13797-886- 30 Injection Pasquale Looney, DPM 019 Inject Triamcinolone Acetonide 10 ML, ND C 8945-9372-07 Injection Pasquale lu, DPM 08/11/2018 Inject Dexamthosone Phosphate 89911-319- 30 Injection Pasquale Looney, DPM 019 Inject Triamcinolone Acetonide 10 ML, ND C 1808-2567-50 Injection Pasquale lu, DPM 05/28/2018 Inject Dexamthosone Phosphate 79593-135- 30 Injection Pasquale Looney, DPM 019 Inject Triamcinolone Acetonide 10 ML, ND C 4787-2680-15 Injection Pasquale lu, DPM 07/06/2015 Inject Dexamthosone Phosphate 11153-693- 30 Injection Pasquale Looney, DPM 016 Inject Dexamthosone Phosphate 94899-843- 30 Injection Pasquale Looney, DPM 016 Immunizations Description No Information Available Vital Signs Date Vital Result Comment 12/23/2020 3:19pm Height 61 inches 5'1" Weight 175.00 lb BP Systolic 150 mmHg BP Diastolic 80 mmHg Heart Rate 77 /min BMI (Body Mass Index) 33.1 kg/m2 09/21/2020 10:26am Height 61 inches 5'1" Weight 193.00 lb BP Systolic 118 mmHg BP Diastolic 82 mmHg Heart Rate 82 /min BMI (Body Mass Index) 36.5 kg/m2 Results Description No Information Available Procedures Date Code Description Status 12/02/2020 82101 Office/Outpatient Established SF MDM 10-19 Min Completed 10/05/2020 31470 Office/Outpatient Established SF MDM 10-19 Min Completed 10/05/2020 78170 Apply Unna Boot Completed 09/21/2020 49029 Office/Outpatient Established Lo w MDM 20-29 Min Completed 09/21/2020 32432 X-Ray Foot Complete Completed Medical Devices Description No Information Available Encounters Type Date Location Provider Dx Diagnosis Office Visit 12/02/2020 3:15p [place] [facility] Pasquale Looney DPM M65.871 Other synovitis and tenosynovitis, right ankle and foot M84.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, right ankle and foot Office Visit 10/05/2020 10:30a [place] [facility] Pasquale Looney DPM M65.871 Other synovitis and tenosynovitis, right ankle and foot R60.0 Localized edema Office Visit 09/21/2020 10:30a [place] [facility] Pasquale Looney DPM S90.31xA Contusion of right foot, initial encounter Assessments Date Code Description Provider 12/02/2020 M65.871 Other synovitis and tenosynoviti s, right ankle and foot Pasquale Looney DPM 12/02/2020 M84.871 Other disorders of continuity of bone, right ankle and foot Pasquale Looney DPM 10/05/2020 M65.871 Other synovitis and tenosynoviti s, right ankle and foot Pasquale Looney DPM 10/05/2020 R60.0 Localized edema Pasquale Looney DPM 09/21/2020 S90.31xA Contusion of right foot, initial encounter Pasquale Looney DPM Plan of Treatment No Information Available Functional Status Description No Information Available Mental Status Description No Information Available Referrals Description No Information Available
--- OUTSIDE RECORDS SUMMARY | 2021-01-04 09:50 | CCD | Continuity of Care Document ---
Author Author Monalisa LOONEY DPM Organization Unknown Address [address] [place] [address], [address] [place] [address] Phone [phone] Care Team Providers Care Keg Washer Name Role Phone Adrianna Robles VP ANALYSIS AUTM [phone] Problems Active Problems Provider Date Contusion of [...] Inject Triamcinolone Acetonide 10 ML, ND C 5091-7008-38 Injection Pasquale lu, DPM 11/14/2018 Inject Dexamthosone Phosphate 04248-899- 30 Injection Pasquale Looney, DPM 019 Inject Triamcinolone Acetonide 10 ML, ND C 3761-7621-10 Injection Pasquale ul, DPM 08/11/2018 Inject Dexamthosone Phosphate 89642-743- 30 Injection Pasquale Looney, DPM 019 Inject Triamcinolone Acetonide 10 ML, ND C 5470-2021-48 Injection Pasquale lu, DPM 05/28/2018 Inject Dexamthosone Phosphate 60490-337- 30 Injection Pasquale Looney, DPM 019 Inject Triamcinolone Acetonide 10 ML, ND C 9828-6082-02 Injection Pasquale lu, DPM 07/06/2015 Inject Dexamthosone Phosphate 71585-538- 30 Injection Pasquale Looney, DPM 016 Inject Dexamthosone Phosphate 62168-902- 30 Injection Pasquale Looney, DPM 016 Immunizations [...] Available Procedures Date Code Description Status 12/02/2020 37193 Office/Outpatient Established SF MDM 10-19 Min Completed 10/05/2020 82917 Office/Outpatient Established SF MDM 10-19 Min Completed 10/05/2020 44926 Apply Unna Boot Completed 09/21/2020 18544 Office/Outpatient Established Lo w MDM 20-29 Min Completed 09/21/2020 51957 X-Ray Foot Complete Completed Medical Devices Description No Information Available Encounters Type Date Location Provider Dx Diagnosis Office Visit 12/02/2020 3:15p [place] [facility] Pasquale Looney DPM M65.871 Other synovitis and tenosynovitis, right ankle and foot M84.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, right ankle and foot Office Visit 10/05/2020 10:30a [place] [facility] Pasquale Looney DPM M65.871 Other synovitis and tenosynovitis, right ankle and foot R60.0 Localized edema Office Visit 09/21/2020 10:30a [place] [facility] Pasquale Looney DPM S90.31xA Contusion of right foot, initial encounter Assessments Date Code Description Provider 12/02/2020 M65.871 Other synovitis and tenosynoviti s, right ankle and foot Pasquale Looney DPM 12/02/2020 M84.871 Other disorders of continuity of bone, right ankle and foot Pasquale Looney DPM 10/05/2020 M65.871 Other synovitis and tenosynoviti s, right ankle and foot Psaquale Looney DPM 10/05/2020 R60.0 Localized edema Pasquale Looney DPM 09/21/2020 S90.31xA Contusion of right foot, initial encounter Pasquale Looney DPM Plan of Treatment No Information Available Functional Status Description No Information Available Mental Status Description No Information Available Referrals Description No Information Available
--- OUTSIDE RECORDS SUMMARY | 2021-01-04 09:50 | CCD | Continuity of Care Document ---
Author Author Monalisa LOONEY DPM Organization Unknown Address [address] [place] [address], [address] [place] [address] Phone [phone] Care Team Providers Care Enterprise Mobility Architect Name Role Phone Adrianna Robles STATE DIRECTOR AUTM [phone] Problems Active Problems Provider Date Contusion of [...] Inject Triamcinolone Acetonide 10 ML, ND C 3197-5016-41 Injection Pasquale lu, DPM 11/14/2018 Inject Dexamthosone Phosphate 25175-571- 30 Injection Pasquale Looney, DPM 019 Inject Triamcinolone Acetonide 10 ML, ND C 6425-6080-73 Injection Pasquale lu, DPM 08/11/2018 Inject Dexamthosone Phosphate 24293-041- 30 Injection Pasquale Looney, DPM 019 Inject Triamcinolone Acetonide 10 ML, ND C 5719-6731-50 Injection Pasquale lu, DPM 05/28/2018 Inject Dexamthosone Phosphate 45271-889- 30 Injection Pasquale Looney, DPM 019 Inject Triamcinolone Acetonide 10 ML, ND C 5889-3723-43 Injection Pasquale lu, DPM 07/06/2015 Inject Dexamthosone Phosphate 03638-395- 30 Injection Pasquale Looney, DPM 016 Inject Dexamthosone Phosphate 78701-632- 30 Injection Pasquale Looney, DPM 016 Immunizations [...] Available Procedures Date Code Description Status 12/02/2020 56871 Office/Outpatient Established SF MDM 10-19 Min Completed 10/05/2020 57832 Office/Outpatient Established SF MDM 10-19 Min Completed 10/05/2020 18963 Apply Unna Boot Completed 09/21/2020 63120 Office/Outpatient Established Lo w MDM 20-29 Min Completed 09/21/2020 24999 X-Ray Foot Complete Completed Medical Devices Description No Information Available Encounters Type Date Location Provider Dx Diagnosis Office Visit 12/02/2020 3:15p [facility] Pasquale Looney DPM M65.871 Other synovitis and tenosynovitis, right ankle and foot M84.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, right ankle and foot Office Visit 10/05/2020 10:30a [place] [facility] Pasquale Looney DPM M65.871 Other synovitis and tenosynovitis, right ankle and foot R60.0 Localized edema Office Visit 09/21/2020 10:30a [place] [facility] Pasquale Looney DPM S90.31xA Contusion of [...] 3:15 pm - Pasquale Looney DPM at [facility] Functional Status Description No Information Available Mental Status Description No Information Available Referrals Description No Information Available
--- OUTSIDE RECORDS SUMMARY | 2021-01-04 09:50 | CCD ---
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 Active confirmed 37235526 followed b y neurology Problem Chronic migraine without aur a without status migrainosus, not intractable G43.709 Active confirmed 329399532 followed by neurology Problem Chronic prescription opiate use Z79.899 Active confirmed 420413064 Problem Facet arthropathy, lumbosacral M46.97 Active confir med 13084090 Problem Abnormal mammogram R92.8 Active confirmed 1 50163674 Problem Hip bursitis, left M70.72 Active confirmed 8 6880725 Problem Depression with anxiety F41.8 Active confirmed 375682944 Problem Chronic low back pain M54.5 Active confirmed 997611326 followed by pain clininc Problem Chronically on opiate therapy Z79.899 Active confir med 466278465 Problem Insomnia, unspecified 780.52 Active confirmed 594785168 Problem Anxiety F41.9 Active confirmed 52865571 Problem Essential hypertension I10 Active confirmed 58618649 Problem Spondylosis without myelopathy or radiculopathy, lumbosacral region M47.817 Active confirmed 78827271 Problem Trochanteric bursitis, left hip M70.62 Active confi rmed 1823977 Problem Thoracic spine pain M54.6 Active confirmed 413221356 Problem Spondylosis without myelopathy or radiculopathy, lumbar region M47.816 Active confirmed 87002306 Problem Unspecified inflammatory spondylopathy, 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 Active confirmed 261242221 Problem Intervertebral disc disorders with radiculopathy , thoracic region M51.14 Active confirmed 95364459 Problem Displacement of thoracic intervertebral disc M51.2 4 Active confirmed 832976566 Problem Edema 782.3 Active confirmed 385987807 Problem Pain in thoracic spine M54.6 Active confirmed 464133291 Problem Back Pain - Lumbar 724.2 Active confirmed 2 27742090 Problem Intervertebral disc disorder with radiculopathy of lumbar region M51.16 Active confirmed 62338298 Problem Intervertebral disc disorder with radiculopathy of lumbosacral region M51.17 Active confirmed 65332224 Problem Lumbar radiculopathy M54.16 Active confirmed 453365696 Problem Intrinsic atopic dermatitis L20.84 Active confirmed 79057061 Problem Foot pain M79.673 Active confirmed 87397965 Problem Macrocytosis without anemia D75.89 Active confirmed 957813787 Problem Myalgia M79.1 Active confirmed 54399156 Problem Facet arthropathy M12.88 Active confirmed 42 2706774 Problem Hypertension, unspecified type I10 Active confir med 79716062 Problem Use of opiates for therapeutic purposes Z79.891 Active confirmed 808080610 Problem Other chronic pain G89.29 Active confirmed 8 8611617 Problem Allergy to bee sting Z91.030 Active confirmed 662365460 ALLERGIES Allergen (clinical drug ingredient) Drug/Non Drug Allergy do cumented on EMR Reaction Allergy Type Onset Date Status BuSpar Severe hyperactivity/irritability Drug Allergy Active Wellbutrin Rash, severe hyper activity Drug Allergy Active Bee sting swelling Non Drug Allergy Active sulfamethoxazole / trimethoprim Bactrim([facility] Code:[address]- 01) severe hyper activity/ irritable Drug Allergy Active Paper Tape rash Non Drug Allergy Active ENCOUNTERS from 1971 to 2020-11-03 Encounter Location Date Provider Diagnosis [facility] [id number] [place] [address] [place] [address] Oct, Adrianna Maldonadoin Cellulitis of face L03.211 IMMUNIZATIONS Vaccine Route Administration Date Status Influenza [...] Answered Language: Question Answer Notes Languages spoken: Italian [facility]: Question Answer Notes [facility] None Sexual Hx: Question Answer Notes [...] REASON FOR REFERRAL No Information VITAL SIGNS No information MEDICATIONS Medication SIG (Take, Route, Frequency, Duration) Notes Start Da te End Date Status Aimovig 70 MG/ML 1 injection Subcutaneous once a month Phyllis Stover Active Glucometer as directed E11.0 Daily for 99 days disp ense brand covered by insurance Apr, Active Carafate 1 GM 1/2 tablet on an empty stomach Orally Daily for 30 Days Active Pantoprazole Sodium 40 MG 1 tab Orally once daily for 90 days Active SUMAtriptan Succinate 50 MG 1 tablet at least 2 hours between doses as needed Orally Daily for migraines Active Diclofenac Sodium 50 MG 1 tablet Orally Twice a day for 30 day(s) Vol landon Active FreeStyle Test Test strip 1 strip In Vitro to check gl ucose up to TID (icd9 251.2) for 30 days July, Active hydrOXYzine HCl 25 MG 1 tablet as needed Orally every 8 hrs for 30 day(s) Nov, Active Ibuprofen 800 MG 1 tablet with food or milk a s needed Orally Three times a day for 30 Days Apr, Active Triamcinolone Acetonide 0.025 % 1 application to affec sravan area Externally Twice a day for 14 Days Not-Taking Acetaminophen 500 MG 1 capsule as needed Orally every 6 hrs for 14 day(s) Mar, Not-Taking Multivitamins 1 tablet Orally daily for 90 day(s) Active Doxycycline Monohydrate 100 MG 1 capsule Orally every 12 hrs for 10 day(s) Jan, Not-Taking EpiPen 2-Ivan 0.3 MG/0.3ML 1 injection Injection as nee ded for bee sting for 30 days Nov, Active Nortriptyline HCl 25 MG 1 capsule Orally at bedtime Phyllis [employer]aker 24 M 2015 Active HYDROcodone-Acetaminophen 5-325 MG 1 tablet as needed Orally every 8hrs prn for pain (MDD=2) for 7 day(s) Jun, Active Aspir-Low 81 MG 1 tablet Orally Once a day for 90 day(s) Not-Taking Test Strips - as directed E11.9 Daily w/ glucometer fo r 90 days dispense brand covered by insurance Apr, Active Ativan 0.5 MG 1 tablet as needed Orally daily PRN MDD= 1 for 30 day(s) [employer] Jun, Active Depakote 500 MG 1 tab Orally twice daily for 30 days [employer] Active Cephalexin 500 MG 1 capsule Orally twice daily for 10 day(s) July, Active FLUoxetine HCl 20 MG 3 capsule Orally Once a day for 90 days July, Active Lancets - as directed intravenously Daily, E11.9 f or 90 day(s) dispense brand covered by insurance Apr, Active PROCEDURES No Information RESULTS No Results REASON FOR VISIT new skin infection MEDICAL (GENERAL) HISTORY Type Description Date Medical [...] Unspecified epilepsy without mention of intractable epilepsy Surgical History C-sections 1994, 1995 Surgical History SHAYY and BSO 1995 Surgical History T&A Child Surgical History Kidney surgery (? ureter repair) 3 y/o Surgical History Median and Ulnar nerve repairs bilateral Surgical History Appendectomy 2003 Surgical History cholecystectomy 08/19/13 Surgical History plantar fascitis 09/05/2015 Surgical History lumbar dorsal column stimulator trial an d removed 06/04/16 Hospitalization History Surgery related Hospitalization History Childbirth related Hospitalization History Dorsal column stimulator trial Goals Section No Information Health Concerns No Information MEDICAL EQUIPMENT No Information MENTAL STATUS No Information FUNCTIONAL STATUS No Information ASSESSMENTS Encounter Date Diagnosis Assessment Notes Treatment Notes Treatm ent Clinical Notes Oct, Cellulitis of face (ICD-10 - L03.211) PLAN OF TREATMENT Medication Medication Name Sig Start Date Stop Date Cephalexin 500 MG 1 capsule Orally twice daily for 10 day(s) July, Next Appt Details Provider Name:Alejandra Duncanc, 2020-12-07 01:00:00 PM, [address] [facility], , [place], [address], Insurance Providers Payer Name Payer Address Payer Phone Insured Name Patient Relati onship to Insured Coverage Start Date Coverage End Date [facility] [address] [place] [facility] [id number] TIMOTHY DUBON self MEDICAID [employer] [address] [facility] [id number] TIMOTHY DUBON self
--- OUTSIDE RECORDS SUMMARY | 2021-01-04 09:50 | CCD | Continuity of Care Document ---
Author Author Monalisa JUNE M.D. Organization Unknown Address [address] [place] [address] Phone [phone] Care Team Providers Care Interviewing Clerk Name Role Phone Adrianna Robles AUTM [phone] Problems Active Problems Provider Date Seizure Clare June M.D. Onset: 09/08/2013 Social History Type Date Description Comments Sex Unknown Tobacco Use Start: Unknown Patient has never smoked Allergies, Adverse Reactions, Alerts Active Allergies Reaction Severity Comments Date Wellbutrin made her mean 05/13/2017 Gabapentin moodiness 05/13/2017 Baclofen moodiness 05/13/2017 Bee Pollen 05/13/2017 Inactive Allergies NKDA 09/08/2013 Medications Active Medications SIG Qnty Indications Ordering Provide r Date Aimovig 140mg/ml Solution Auto-Inj ect inject subcutaneously once monthly 1ml G43.719 Clare shaver M.D. 01/26/2020 Imitrex 50mg Tablets 1 by mouth at onset of migraine, may repeat once after 2 hours 9tabs G43.71Estefany June M.D. 11/18/2018 Nortriptyline HCL 25mg Capsules 1 by mouth every night at bedtime 30caps Clare June M.D. 01/2018 Depakote ER 500mg Tablets ER 24HR 1 po q Clare June M.D. 04/27/2016 Immunizations Description No Information Available Vital Signs Date Vital Result Comment 01/26/2020 6:04am BP Systolic 110 mmHg BP Diastolic 80 mmHg Heart Rate 64 /min Respiratory Rate 16 /min 05/21/2019 9:05am BP Systolic 120 mmHg BP Diastolic 80 mmHg Heart Rate 88 /min Respiratory Rate 16 /min Results Test Acquired Date Facility Test Result H/L Range Note Laboratory test finding 08/08/2020 [facility] Valproic Acid (Depakote) 104.9 UG/ML High 50.0-100.0 Procedures Date Code Description Status 10/05/2020 73935 Nerve Conduction 9-10 Studies Co mpleted 10/05/2020 88963 Needle Electromyography Complete , Five Or More Muscles Studied Completed 08/02/2020 64245 Office/Outpatient Established Lo w MDM 20-29 Min Completed 04/27/2020 97580 Office/Outpatient Established Lo w MDM 20-29 Min Completed Medical Devices Description No Information Available Encounters Type Date Location Provider Dx Diagnosis Office Visit 08/02/2020 11:30a Main office - [place] Phyllis meadows P.A.-C. 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 10/05/2020 M79.601 Pain in right arm Clare hernandez M.D. 10/05/2020 M54.2 Cervicalgia Clare June M.D. 10/05/2020 R20.2 Paresthesia of skin Clare kapadia M.D. 08/02/2020 G40.89 Other seizures Phyllis Stover P.A.-C. 08/02/2020 F44.5 Conversion disorder with seizure s or convulsions Lacy Concepcion.A.-C. 08/02/2020 G43.719 Chronic migraine without aura, i ntractable, without status m Phyllis Stover P.A.-C. 08/02/2020 G25.1 Drug-induced tremor Lacy Bernstein.A.-C. 08/02/2020 R42 Dizziness and giddiness Phyllis Stover P.A.-C. 08/02/2020 R26.81 Unsteadiness on feet Lacy Fulton.A.-C. 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 04/27/2020 G40.89 Other seizures Lacy Concepcion.A.-C. 04/27/2020 G43.719 Chronic migraine without aura, i ntractable, without status m Phyllis Stover P.A.-C. 04/27/2020 R42 Dizziness and giddiness Phyllis Stover P.A.-C. 04/27/2020 G25.1 Drug-induced tremor Lacy Bernstein.A.-C. 04/27/2020 R26.81 Unsteadiness on feet Lacy Fulton.A.-C. Plan of Treatment Future Appointment(s):* 11/02/2020 1:30 pm - Dennis Concepcion.-CAshley at Main office [facility] 08/02/2020 - Agus ConcepcionA.-C.* G40.89 Other seizures* Comments:* Not recurrent. Depakote level pending. She would like to reduce it if possible. * F44.5 Conversion disorder with seizures or convulsions* Comments:* Stable. * G43.719 Chronic migraine without aura, intractable, without status m* Comments:* Controlled. * G25.1 Drug-induced tremor* Comments:* Stable. * R42 Dizziness and giddiness* Comments:* Resolved. * R26.81 Unsteadiness on feet* Comments:* Stable. * Follow up:* 3 months Functional Status Description No Information Available Mental Status Description No Information Available Referrals Description No Information Available
--- OUTSIDE RECORDS SUMMARY | 2021-01-04 09:50 | CCD | Continuity of Care Document ---
Author Author Monalisa STOVER P.A.-C. Organization Unknown Address [address] [place] [address] Phone [phone] Care Team Providers Care Batteryman Name Role Phone Adrianna Robles RADAR MECHANIC AUTM [phone] Problems Active Problems Provider Date Seizure Clare Hoover M.D. Onset: 09/08/2013 Social History Type Date Description Comments Sex Unknown Tobacco Use Start: Unknown Patient has never smoked Allergies and adverse reactions Active Allergies Criticality Reaction | Severity Comments Date Wellbutrin Unable to assess criticality made her osman n 05/13/2017 Gabapentin Unable to assess criticality moodiness 05/13/2017 Baclofen Unable to assess criticality moodiness 05/13/2017 Bee Pollen Unable to assess criticality 05/13/2017 Inactive Allergies NKDA Unable to assess criticality 09/08/2013 Medications Active Medications SIG Qnty Indications Ordering Provide r Date Aimovig 140mg/ml Solution Auto-Inj ect inject subcutaneously once monthly 1ml G43.719 Clare shaver M.D. 01/26/2020 Imitrex 50mg Tablets 1 by mouth at onset of migraine, may repeat once after 2 hours 9tabs G43.719 Campbell Hoover M.D. 11/18/2018 Nortriptyline HCL 25mg Capsules 1 by mouth every night at bedtime 30caps Clare Hoover M.D. 01/2018 Depakote ER 500mg Tablets ER 24HR 1 po qhs Clare Hoover M.D. 04/27/2016 Immunizations Description No Information Available Vital Signs Date Vital Result Comment 12/15/2020 5:52am BP Systolic 110 mmHg BP Diastolic 80 mmHg Heart Rate 76 /min Respiratory Rate 16 /min 01/26/2020 6:04am BP Systolic 110 mmHg BP Diastolic 80 mmHg Heart Rate 64 /min Respiratory Rate 16 /min Results Test Acquired Date Facility Test Result H/L Range Note Laboratory test finding 12/15/2020 [facility] Valproic Acid (Depakote) 81.9 UG/ML Normal 50.0-100.0 Laboratory test finding 08/08/2020 [facility] Valproic Acid (Depakote) 104.9 UG/ML High 50.0-100.0 Procedures Date Code Description Status 12/15/2020 39724 Office/Outpatient Established Mo d MDM 30-39 Min Completed 10/05/2020 05742 Nerve Conduction 9-10 Studies Co mpleted 10/05/2020 43976 Needle Electromyography Complete , Five Or More Muscles Studied Completed 08/02/2020 28256 Office/Outpatient Established Lo w MDM 20-29 Min Completed Medical Devices Description No Information Available Encounters Type Date Location Provider Dx Diagnosis Office Visit 12/15/2020 1:45p Main office - [place] Phyllis meadows, P.A.-C. 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 12/15/2020 G40.89 Other seizures Dennis Concepcion.-CAshley 12/15/2020 G43.719 Chronic migraine without aura, i ntractable, without status m Lacy Concepcion.A.-CAshley 12/15/2020 R42 Dizziness and giddiness Phyllis Stover P.A.-C. 12/15/2020 G25.1 Drug-induced tremor Arcelia Bernstein-CAshley 10/05/2020 G56.01 Carpal tunnel syndrome, right up per limb Clare Hoover M.D. 10/05/2020 M79.601 Pain in right arm Clare hernandez M.D. 10/05/2020 M54.2 Cervicalgia Clare Hoover M.D. 10/05/2020 R20.2 Paresthesia of skin Clare kapadia M.D. 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 08/02/2020 G43.719 Chronic migraine without aura, i ntractable, without status m Agus ConcepcionAAshley-CAshley 08/02/2020 G25.1 Drug-induced tremor Phyllis meadows P.A.-C. 08/02/2020 R42 Dizziness and giddiness Agus ConcepcionAAshley-CAshley 08/02/2020 R26.81 Unsteadiness on feet Phyllis duncan P.A.-C. Plan of Treatment Future Appointment(s):* 03/15/2021 1:30 pm - Phyllis Stover P.A.-C. at Main office [facility] 12/15/2020 - Phyllis Stover P.A.-C.* F44.5 Conversion disorder with seizures or convulsions* Comments:* Stable. * G40.89 Other seizures* Comments:* Controlled. Depakote level pending. * G43.719 Chronic migraine without aura, intractable, without status m* Comments:* Continue Aimovig. * R42 Dizziness and giddiness* Comments:* Controlled. * G25.1 Drug-induced tremor* Comments:* Improved. * Follow up:* 3 months Functional Status Description No Information Available Mental Status Description No Information Available Referrals Description No Information Available"
--- OUTSIDE RECORDS SUMMARY | 2021-01-04 09:50 | CCD | Continuity of Care Document ---
Author Author Monalisa LOONEY DPM Organization Unknown Address [address] [place] [address], [address] [place] [address] Phone [phone] Care Team Providers Care Soaking Pit Operator Name Role Phone Adrianna Robles [employer] [phone] Problems Active Problems Provider Date Contusion of [...] Inject Triamcinolone Acetonide 10 ML, ND C 0902-9813-52 Injection Pasquale lu, DPM 11/14/2018 Inject Dexamthosone Phosphate 29059-575- 30 Injection Pasquale Looney, DPM 019 Inject Triamcinolone Acetonide 10 ML, ND C 0441-4640-12 Injection Pasquale lu, DPM 08/11/2018 Inject Dexamthosone Phosphate 77444-415- 30 Injection Pasquale Looney, DPM 019 Inject Triamcinolone Acetonide 10 ML, ND C 9012-4797-08 Injection Pasquale lu, DPM 05/28/2018 Inject Dexamthosone Phosphate 31729-520- 30 Injection Pasquale Looney, DPM 019 Inject Triamcinolone Acetonide 10 ML, ND C 6565-2704-01 Injection Pasquale lu, DPM 07/06/2015 Inject Dexamthosone Phosphate 97317-036- 30 Injection Pasquale Looney, DPM 016 Inject Dexamthosone Phosphate 87159-354- 30 Injection Pasquale Looney, DPM 016 Immunizations [...] Information Available Procedures Date Code Description Status 12/23/2020 21496 Office/Outpatient Established Lo w MDM 20-29 Min Completed 12/02/2020 15777 Office/Outpatient Established SF MDM 10-19 Min Completed 10/05/2020 74951 Office/Outpatient Established SF MDM 10-19 Min Completed 10/05/2020 59022 Apply Unna Boot Completed 09/21/2020 50923 Office/Outpatient Established Lo w MDM 20-29 Min Completed 09/21/2020 75124 X-Ray Foot Complete Completed Medical Devices Description No Information Available Encounters Type Date Location Provider Dx Diagnosis Office Visit 12/23/2020 3:15p [place] Pasquale Looney DPM T84.84xA Pain due to internal orthopedic prosth dev/grft, init M79.671 Pain in right foot Office Visit 12/02/2020 3:15p [facility] Pasquale Looney DPM M65.871 Other synovitis and tenosynovitis, right ankle and foot 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.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, right ankle and foot Office Visit 10/05/2020 10:30a [facility] Pasquale Looney DPM M65.871 Other synovitis and tenosynovitis, right ankle and foot R60.0 Localized edema Office Visit 09/21/2020 10:30a [facility] Pasquale Looney DPM S90.31xA Contusion of right foot, initial encounter Assessments Date Code Description Provider 12/23/2020 T84.84xA Pain due to internal orthopedic prosthetic devices, implants and grafts, initial encounter Pasquale Looney DPM 12/23/2020 M79.671 Pain in right foot Pasquale lu DPM 12/02/2020 M65.871 Other synovitis and tenosynoviti s, [...] Looney DPM Plan of Treatment Future Appointment(s):* 01/06/2021 2:30 pm - Pasquale Looney DPM at [facility] * 01/04/2021 1:00 pm - Pasquale Looney DPM at [facility] Functional Status Description No Information Available Mental Status Description No Information Available Referrals Description No Information Available
--- OUTSIDE RECORDS SUMMARY | 2021-01-04 09:50 | CCD | Continuity of Care Document ---
Author Author Monalisa STOVER P.A.-C. Organization Unknown Address [address] [place] [address] Phone [phone] Care Team Providers Care Machine Maintenance Supervisor Name Role Phone Adrainna Robles MICROBI[employer]Y TECH[employer]IST [employer] [phone] Problems Active Problems Provider Date Seizure Clare [...] H/L Range Note Laboratory test finding 08/08/2020 Florinda Valproic Acid (Depakote) 104.9 UG/ML High 50.0-100.0 Procedures Date Code Description Status 12/15/2020 91174 Office/Outpatient Established Mo d MDM 30-39 Min Completed 10/05/2020 13914 Nerve Conduction 9-10 Studies Co mpleted 10/05/2020 39900 Needle Electromyography Complete , Five Or More Muscles Studied Completed 08/02/2020 07987 Office/Outpatient Established Lo w MDM 20-29 Min Completed Medical Devices Description No Information Available Encounters Type Date Location Provider Dx Diagnosis Office Visit 12/15/2020 1:45p Main office - [place] Lacy Bernstein.A.-C. 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 12/15/2020 G40.89 Other seizures Lacy Concepcion.A.-C. 12/15/2020 G43.719 Chronic migraine without aura, i ntractable, without status m Lacy Concepcion.A.-C. 12/15/2020 R42 Dizziness and giddiness Lacy Concepcion.A.-C. 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 08/02/2020 R26.81 Unsteadiness on feet Phyllis duncan P.A.-C. Plan of Treatment Future Appointment(s):* 03/15/2021 1:30 pm - Phyllis Stover P.A.-C. at [facility] 12/15/2020 - Phyllis Stover P.A.-C.* F44.5 Conversion disorder with seizures or convulsions * G40.89 Other seizures * G43.719 Chronic migraine without aura, intractable, without status m * R42 Dizziness and giddiness * G25.1 Drug-induced tremor Functional Status Description No Information Available Mental Status Description No Information Available Referrals Description No Information Available"
--- OUTSIDE RECORDS SUMMARY | 2021-01-04 09:50 | CCD | Continuity of Care Document ---
Author Author Monalisa STOVER P.A.-C. Organization Unknown Address [address] [place] [address] Phone [phone] Care Team Providers Care Forepart Reducer Name Role Phone Adrianna Robles SOCIAL MEDIA ASSISTANT [employer] [phone] Problems Active Problems Provider Date Seizure Clare [...] 50.0-100.0 Procedures Date Code Description Status 12/15/2020 31144 Office/Outpatient Established Mo d MDM 30-39 Min Completed 10/05/2020 78919 Nerve Conduction 9-10 Studies Co mpleted 10/05/2020 60888 Needle Electromyography Complete , Five Or More Muscles Studied Completed 08/02/2020 84811 Office/Outpatient Established Lo w MDM 20-29 Min Completed Medical Devices Description No Information Available Encounters Type Date Location Provider Dx Diagnosis Office Visit 12/15/2020 1:45p Main office - [place] Lacy Bernstein.A.-C. 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 G40.89 Other seizures F44.5 Conversion [...] pm - Phyllis Stover P.A.-C. at [facility] 12/15/2020 - Phyllis Stover P.A.-C.* F44.5 Conversion disorder with seizures or convulsions * G40.89 Other seizures * G43.719 Chronic migraine without aura, intractable, without status m * R42 Dizziness and giddiness * G25.1 Drug-induced tremor Functional Status Description No Information Available Mental Status Description No Information Available Referrals Description No Information Available"
--- OUTSIDE RECORDS SUMMARY | 2021-01-04 09:51 | CCD ---
Author Author [facility] Organization [facility] Address Unknown Phone Unavailable Care Team Providers Care Labor Economist Name Role Phone Maury, Edelmira Melendez MD Unavailable Unavailable Maury, Edelmira Melendez MD Unavailable Unavailable Maury, Edelmira Melendez MD Unavailable Unavailable Maury, Edelmira Melendez MD Unavailable Unavailable Maury, Edelmira Melendez MD Unavailable Unavailable Maury, Edelmira Melendez MD Unavailable Unavailable Maury, Edelmira Melendez MD Unavailable Unavailable Maury, Edelmira Melendez MD Unavailable Unavailable Maury, Edelmira Melendez MD Unavailable Unavailable Maury, Edelmira Melendez MD Unavailable Unavailable Maury, Edelmira Melendez MD Unavailable Unavailable Maury, Edemlira Melendez MD Unavailable Unavailable Maury, Edelmira Melendez MD Unavailable Unavailable Maury, Edelmira Melendez MD Unavailable Unavailable Maury, Edelmira Melendez MD Unavailable Unavailable Maury, Edelmira Melendez MD Unavailable Unavailable Maury, Edelmira Melendez MD Unavailable Unavailable Maury, Edelmira Melendez MD Unavailable Unavailable Maury, Edelmira Melendez MD Unavailable Unavailable Maury, Edelmira Melendez MD Unavailable Unavailable Maury, Edelmira Melendez MD Unavailable Unavailable Maury, Edelmira Melendez MD Unavailable Unavailable Maury, Edelmira Melendez MD Unavailable Unavailable Maury, A Al MD Unavailable Unavailable Maury, A Al MD Unavailable Unavailable Maury, A Al MD Unavailable Unavailable Maury, A Al MD Unavailable Unavailable Maury, A Al MD Unavailable Unavailable Maury, A Al MD Unavailable Unavailable Maury, A Al MD Unavailable Unavailable Maury, A Al MD Unavailable Unavailable Maury, A Al MD Unavailable Unavailable Maury, A Al MD Unavailable Unavailable Maury, A Al MD Unavailable Unavailable Maury, A Al MD Unavailable Unavailable Maury, A Al MD Unavailable Unavailable Maury, A Al MD Unavailable Unavailable Maury, A Al MD Unavailable Unavailable Maury, A Al MD Unavailable Unavailable Maury, A Al MD Unavailable Unavailable Maury, A Al MD Unavailable Unavailable Maury, A Al MD Unavailable Unavailable Maury, A Al MD Unavailable Unavailable Maury, A Al MD Unavailable Unavailable Maury, A Al MD Unavailable Unavailable Maury, A Al MD Unavailable Unavailable Maury, A Al MD Unavailable Unavailable Maury, A Al MD Unavailable Unavailable Maury, A Al MD Unavailable Unavailable Maury, A Al MD Unavailable Unavailable Maury, A Al MD Unavailable Unavailable Maury, A Al MD Unavailable Unavailable Maury, A Al MD Unavailable Unavailable Maury, A Al MD Unavailable Unavailable Maury, A Al MD Unavailable Unavailable Maury, A Al MD Unavailable Unavailable Maury, A Al MD Unavailable Unavailable Maury, A Al MD Unavailable Unavailable Maury, A Al MD Unavailable Unavailable Maury, A Al MD Unavailable Unavailable Maury, A Al MD Unavailable Unavailable Maury, A Al MD Unavailable Unavailable Maury, A Al MD Unavailable Unavailable Maury, A Al MD Unavailable Unavailable Maury, A Al MD Unavailable Unavailable Maury, A Al MD Unavailable Unavailable Maury, A Al MD Unavailable Unavailable Maury, A Al MD Unavailable Unavailable Maury, A Al MD Unavailable Unavailable Maury, A Al MD Unavailable Unavailable Maury, A Al MD Unavailable Unavailable Maury, A Al MD Unavailable Unavailable Maury, A Al MD Unavailable Unavailable Maury, A Al MD Unavailable Unavailable Maury, A Al MD Unavailable Unavailable Maury, A Al MD Unavailable Unavailable Maury, A Al MD Unavailable Unavailable Maury, A Al MD Unavailable Unavailable Maury, A Al MD Unavailable Unavailable Maury, A Al MD Unavailable Unavailable Maury, A Al MD Unavailable Unavailable Maury, A Al MD Unavailable Unavailable Maury, A Al MD Unavailable Unavailable Maury, A Al MD Unavailable Unavailable Maury, A Al MD Unavailable Unavailable Maury, A Al MD Unavailable Unavailable Maury, A Al MD Unavailable Unavailable Maury, A Al MD Unavailable Unavailable Maury, A Al MD Unavailable Unavailable Maury, A Al MD Unavailable Unavailable Maury, A Al MD Unavailable Unavailable Maury, A Al MD Unavailable Unavailable Maury, A Al MD Unavailable Unavailable Maury, A Al MD Unavailable Unavailable Maury, A Al MD Unavailable Unavailable Maury, A Al MD Unavailable Unavailable Maury, A Al MD Unavailable Unavailable Maury, A Al MD Unavailable Unavailable Maury, A Al MD Unavailable Unavailable Maury, A Al MD Unavailable Unavailable Maury, A Al MD Unavailable Unavailable Maury, A Al MD Unavailable Unavailable Maury, A Al MD Unavailable Unavailable Maury, A Al MD Unavailable Unavailable Maury, A Al MD Unavailable Unavailable Maury, A Al MD Unavailable Unavailable Maury, A Al MD Unavailable Unavailable Maury, A Al MD Unavailable Unavailable Maury, A Al MD Unavailable Unavailable Maury, A Al MD Unavailable Unavailable Maury, A Al MD Unavailable Unavailable Maury, A Al MD Unavailable Unavailable Maury, A Al MD Unavailable Unavailable Maury, A Al MD Unavailable Unavailable Maury, A Al MD Unavailable Unavailable Maury, A Al MD Unavailable Unavailable MAJAK, R MYLES DPM Unavailable Unavailable MAJAK, R MYLES DPM Unavailable Unavailable MAJAK, R MYLES DPM Unavailable Unavailable MAJAK, R MYLES DPM Unavailable Unavailable MAJAK, R MYLES DPM Unavailable Unavailable MAJAK, R MYLES DPM Unavailable Unavailable MAJAK, R MYLES DPM Unavailable Unavailable MAJAK, R MYLES DPM Unavailable Unavailable MAJAK, R MYLES DPM Unavailable Unavailable MAJAK, R MYLES DPM Unavailable Unavailable MAJAK, R MYLES DPM Unavailable Unavailable MAJAK, R MYLES DPM Unavailable Unavailable MAJAK, R MYLES DPM Unavailable Unavailable MAJAK, R MYLES DPM Unavailable Unavailable MAJAK, R MYLES DPM Unavailable Unavailable MAJAK, R MYLES DPM Unavailable Unavailable MAJAK, R MYLES DPM Unavailable Unavailable MAJAK, R MYLES DPM Unavailable Unavailable MAJAK, R MYLES DPM Unavailable Unavailable MAJAK, R MYLES DPM Unavailable Unavailable MAJAK, R MYLES DPM Unavailable Unavailable MAJAK, R MYLES DPM Unavailable Unavailable MAJAK, R MYLES DPM Unavailable Unavailable MAJAK, R MYLES DPM Unavailable Unavailable MAJAK, R MYLES DPM Unavailable Unavailable MAJAK, R MYLES DPM Unavailable Unavailable MAJAK, R MYLES DPM Unavailable Unavailable MAJAK, R MYLES DPM Unavailable Unavailable MAJAK, R MYLES DPM Unavailable Unavailable MAJAK, R MYLES DPM Unavailable Unavailable MAJAK, R MYLES DPM Unavailable Unavailable SILVA, R KIESHA X RAY ELECTRONICS WIRING TECHNICIAN Unavailable Unavailable SILVA, R KIESHA X RAY ELECTRONICS WIRING TECHNICIAN Unavailable Unavailable SILAV, R KIESHA X RAY ELECTRONICS WIRING TECHNICIAN Unavailable Unavailable SILVA, R KIESHA X RAY ELECTRONICS WIRING TECHNICIAN Unavailable Unavailable SILVA, R KIESHA X RAY ELECTRONICS WIRING TECHNICIAN Unavailable Unavailable SILVA, R KIESHA X RAY ELECTRONICS WIRING TECHNICIAN Unavailable Unavailable SILVA, R KIESHA X RAY ELECTRONICS WIRING TECHNICIAN Unavailable Unavailable SILVA, R KIESHA X RAY ELECTRONICS WIRING TECHNICIAN Unavailable Unavailable SILVA, R KIESHA X RAY ELECTRONICS WIRING TECHNICIAN Unavailable Unavailable SILVA, R KIESHA X RAY ELECTRONICS WIRING TECHNICIAN Unavailable Unavailable SILVA, R KIESHA X RAY ELECTRONICS WIRING TECHNICIAN Unavailable Unavailable SILVA, R KIESHA X RAY ELECTRONICS WIRING TECHNICIAN Unavailable Unavailable SILVA, R KIESHA X RAY ELECTRONICS WIRING TECHNICIAN Unavailable Unavailable SILVA, R KIESHA X RAY ELECTRONICS WIRING TECHNICIAN Unavailable Unavailable SILVA, R KIESHA X RAY ELECTRONICS WIRING TECHNICIAN Unavailable Unavailable SILVA, R KIESHA X RAY ELECTRONICS WIRING TECHNICIAN Unavailable Unavailable SILVA, R KIESHA X RAY ELECTRONICS WIRING TECHNICIAN Unavailable Unavailable SILVA, R KIESHA X RAY ELECTRONICS WIRING TECHNICIAN Unavailable Unavailable SILVA, R KIESHA X RAY ELECTRONICS WIRING TECHNICIAN Unavailable Unavailable SILVA, R KIESHA X RAY ELECTRONICS WIRING TECHNICIAN Unavailable Unavailable SILVA, R KIESHA X RAY ELECTRONICS WIRING TECHNICIAN Unavailable Unavailable SILVA, R KIESHA X RAY ELECTRONICS WIRING TECHNICIAN Unavailable Unavailable SILVA, R KIESHA X RAY ELECTRONICS WIRING TECHNICIAN Unavailable Unavailable SILVA, R KIESHA X RAY ELECTRONICS WIRING TECHNICIAN Unavailable Unavailable SILVA, R KIESHA X RAY ELECTRONICS WIRING TECHNICIAN Unavailable Unavailable SILVA, R KIESHA X RAY ELECTRONICS WIRING TECHNICIAN Unavailable Unavailable SILVA, R KIESHA X RAY ELECTRONICS WIRING TECHNICIAN Unavailable Unavailable SILVA, R KIESHA X RAY ELECTRONICS WIRING TECHNICIAN Unavailable Unavailable SILVA, R KIESHA X RAY ELECTRONICS WIRING TECHNICIAN Unavailable Unavailable SILVA, R KIESHA X RAY ELECTRONICS WIRING TECHNICIAN Unavailable Unavailable SILVA, R KIESHA X RAY ELECTRONICS WIRING TECHNICIAN Unavailable Unavailable SILVA, R KIESHA X RAY ELECTRONICS WIRING TECHNICIAN Unavailable Unavailable SILVA, R KIESHA X RAY ELECTRONICS WIRING TECHNICIAN Unavailable Unavailable SILVA, R KIESHA X RAY ELECTRONICS WIRING TECHNICIAN Unavailable Unavailable SILVA, R KIESHA X RAY ELECTRONICS WIRING TECHNICIAN Unavailable Unavailable SILVA, R KIESHA X RAY ELECTRONICS WIRING TECHNICIAN Unavailable Unavailable SILVA, R KIESHA X RAY ELECTRONICS WIRING TECHNICIAN Unavailable Unavailable SILVA, R KIESHA X RAY ELECTRONICS WIRING TECHNICIAN Unavailable Unavailable SILVA, R KIESHA X RAY ELECTRONICS WIRING TECHNICIAN Unavailable Unavailable SILVA, R KIESHA X RAY ELECTRONICS WIRING TECHNICIAN Unavailable Unavailable SILVA, R KIESHA X RAY ELECTRONICS WIRING TECHNICIAN Unavailable Unavailable SILVA, R KIESHA X RAY ELECTRONICS WIRING TECHNICIAN Unavailable Unavailable SILVA, R KIESHA X RAY ELECTRONICS WIRING TECHNICIAN Unavailable Unavailable SILVA, R KIESHA X RAY ELECTRONICS WIRING TECHNICIAN Unavailable Unavailable Trickey, J Phyllis PA Unavailable Unavailable Trickey, J Phyllis PA Unavailable Unavailable Trickey, J Phyllis PA Unavailable Unavailable Trickey, J Phyllis PA Unavailable Unavailable Trickey, J Phyllis PA Unavailable Unavailable Trickey, J Phyllis PA Unavailable Unavailable Trickey, J Phyllis PA Unavailable Unavailable Trickey, J Phyllis PA Unavailable Unavailable Trickey, J Phyllis PA Unavailable Unavailable Trickey, J Phyllis PA Unavailable Unavailable Trickey, J Phyllis PA Unavailable Unavailable Trickey, J Phyllis PA Unavailable Unavailable Trickey, J Phyllis PA Unavailable Unavailable Trickey, J Phyllis PA Unavailable Unavailable Trickey, J Phyllis PA Unavailable Unavailable Trickey, J Phyllis PA Unavailable Unavailable Trickey, J Phyllis PA Unavailable Unavailable Trickey, J Phyllis PA Unavailable Unavailable Trickey, J Phyllis PA Unavailable Unavailable Trickey, J Phyllis PA Unavailable Unavailable Trickey, J Phyllis PA Unavailable Unavailable Trickey, J Phyllis PA Unavailable Unavailable Trickey, J Phyllis PA Unavailable Unavailable Trickey, J Phyllis PA Unavailable Unavailable Trickey, J Phyllis PA Unavailable Unavailable Trickey, J Phyllis PA Unavailable Unavailable Trickey, J Phyllis PA Unavailable Unavailable Trickey, J Phyllis PA Unavailable Unavailable Trickey, J Phyllis PA Unavailable Unavailable Trickey, J Phyllis PA Unavailable Unavailable Trickey, J Phyllis PA Unavailable Unavailable Trickey, J Phyllis PA Unavailable Unavailable Trickey, J Phyllis PA Unavailable Unavailable Trickey, J Phyllis PA Unavailable Unavailable Trickey, J Phyllis PA Unavailable Unavailable Trickey, J Phyllis PA Unavailable Unavailable Trickey, J Phyllis PA Unavailable Unavailable Trickey, J Phyllis PA Unavailable Unavailable Trickey, J Phyllis PA Unavailable Unavailable Trickey, J Phyllis PA Unavailable Unavailable Trickey, J Phyllis PA Unavailable Unavailable Trickey, J Phyllis PA Unavailable Unavailable Trickey, J Phyllis PA Unavailable Unavailable Trickey, J Phyllis PA Unavailable Unavailable Trickey, J Phyllis PA Unavailable Unavailable Trickey, J Phyllis PA Unavailable Unavailable Trickey, J Phyllis PA Unavailable Unavailable Trickey, Tosha Ferguson PA Unavailable Unavailable Trickey, Tosha Trana PA Unavailable Unavailable Travis, R Adrianna [place] ATTORNEY Unavailable Unavailable Travis, R Adrianna [place] ATTORNEY Unavailable Unavailable Travis, R Adrianna [place] ATTORNEY Unavailable Unavailable Travis, R Adrianna [place] ATTORNEY Unavailable Unavailable Travis, R Adrianna [place] ATTORNEY Unavailable Unavailable Travis, R Adrianna [place] ATTORNEY Unavailable Unavailable Travis, R Adrianna [place] ATTORNEY Unavailable Unavailable Travis, R Adrianna [place] ATTORNEY Unavailable Unavailable Travis, R Adrianna [place] ATTORNEY Unavailable Unavailable Travis, R Adrianna [place] ATTORNEY Unavailable Unavailable Travis, R Adrianna [place] ATTORNEY Unavailable Unavailable Travis, R Adrianna [place] ATTORNEY Unavailable Unavailable Travis, R Adrianna [place] ATTORNEY Unavailable Unavailable Travis, R Adrianna [place] ATTORNEY Unavailable Unavailable Travis, R Adrianna [place] ATTORNEY Unavailable Unavailable Travis, R Adrianna [place] ATTORNEY Unavailable Unavailable Travis, R Adrianna [place] ATTORNEY Unavailable Unavailable Travis, R Adrianna [place] ATTORNEY Unavailable Unavailable Travis, R Adrianna [place] ATTORNEY Unavailable Unavailable Travis, R Adrianna [place] ATTORNEY Unavailable Unavailable Travis, R Adrianna [place] ATTORNEY Unavailable Unavailable Travis, R Adrianna [place] ATTORNEY Unavailable Unavailable Travis, R Adrianna [place] ATTORNEY Unavailable Unavailable Travis, R Adrianna [place] ATTORNEY Unavailable Unavailable Travis, R Adrianna [place] ATTORNEY Unavailable Unavailable Travis, R Adrianna [place] ATTORNEY Unavailable Unavailable Travis, R Adrianna [place] ATTORNEY Unavailable Unavailable Travis, R Adrianna [place] ATTORNEY Unavailable Unavailable Travis, R Adrianna [place] ATTORNEY Unavailable Unavailable Travis, R Adrianna [place] ATTORNEY Unavailable Unavailable Travis, R Adrianna [place] ATTORNEY Unavailable Unavailable Travis, R Adrianna [place] ATTORNEY Unavailable Unavailable Travis, R Adrianna [place] ATTORNEY Unavailable Unavailable Travis, R Adrianna [place] ATTORNEY Unavailable Unavailable Travis, R Adrianna [place] ATTORNEY Unavailable Unavailable Travis, R Adrianna [place] ATTORNEY Unavailable Unavailable Travis, R Adrianna [place] ATTORNEY Unavailable Unavailable Travis, R Adrianna [place] ATTORNEY Unavailable Unavailable Travis, R Adrianna [place] ATTORNEY Unavailable Unavailable Travis, R Adrianna [place] ATTORNEY Unavailable Unavailable SETTERTosha MD Unavailable Unavailable SETTERTosha MD Unavailable Unavailable SETTERTosha MD Unavailable Unavailable SETTERTosha MD Unavailable Unavailable SETTERTosha MD Unavailable Unavailable SETTERTosha MD Unavailable Unavailable SETTERTosha MD Unavailable Unavailable SETTERTosha MD Unavailable Unavailable SETTERTosha MD Unavailable Unavailable SETTERTosha MD Unavailable Unavailable SETTERTosha MD Unavailable Unavailable SETTER, Tosha BARCENAS MD Unavailable Unavailable SETTER, Tosha BARCENAS MD Unavailable Unavailable SETTER, Tosha BARCENAS MD Unavailable Unavailable SETTER, Tosha BARCENAS MD Unavailable Unavailable SETTER, Tosha BARCENAS MD Unavailable Unavailable SETTER, Tosha BARCENAS MD Unavailable Unavailable SETTERTosha MD Unavailable Unavailable SETTER, Tosha BARCENAS MD Unavailable Unavailable SETTER, Tosha BARCENAS MD Unavailable Unavailable SETTER, Tosha BARCENAS MD Unavailable Unavailable SETTERTosha MD Unavailable Unavailable SETTERTosha MD Unavailable Unavailable SETTERTosha MD Unavailable Unavailable SETTERTosha MD Unavailable Unavailable SETTERTosha MD Unavailable Unavailable SETTERTosha MD Unavailable Unavailable SETTERTosha MD Unavailable Unavailable SETTERTosha MD Unavailable Unavailable SETTERTosha MD Unavailable Unavailable SETTERTosha MD Unavailable Unavailable SETTERTosha MD Unavailable Unavailable SETTERTosha MD Unavailable Unavailable SETTERTosha MD Unavailable Unavailable SETTERTosha MD Unavailable Unavailable SETTERTosha MD Unavailable Unavailable SETTERTosha MD Unavailable Unavailable SETTERTosha MD Unavailable Unavailable SETTERTosha MD Unavailable Unavailable SETTERTosha MD Unavailable Unavailable SETTERTosha MD Unavailable Unavailable SETTERTosha MD Unavailable Unavailable SETTERTosha MD Unavailable Unavailable SETTERTosha MD Unavailable Unavailable SETTERTosha MD Unavailable Unavailable SETTERTosha MD Unavailable Unavailable SETTERTosha MD Unavailable Unavailable SETTERTosha MD Unavailable Unavailable SETTERTosha MD Unavailable Unavailable SETTERTosha MD Unavailable Unavailable SETTERTosha MD Unavailable Unavailable SETTERTosha MD Unavailable Unavailable SETTERTosha MD Unavailable Unavailable SETTERTosha MD Unavailable Unavailable SETTERTosha MD Unavailable Unavailable SETTERTosha MD Unavailable Unavailable SETTERTosha MD Unavailable Unavailable SETTERTosha MD Unavailable Unavailable SETTERTosha MD Unavailable Unavailable SETTER, Tosha BARCENAS MD Unavailable Unavailable SETTER, Tosha BARCENAS MD Unavailable Unavailable SETTER, Tosha BARCENAS MD Unavailable Unavailable SETTER, Tosha BARCENAS MD Unavailable Unavailable SETTERTosha MD Unavailable Unavailable SETTER, Tosha BARCENAS MD Unavailable Unavailable SETTER, Tosha BARCENAS MD Unavailable Unavailable SETTER, Tosha BARCENAS MD Unavailable Unavailable SETTER, Tosha BARCENAS MD Unavailable Unavailable SETTER, Tosha BARCENAS MD Unavailable Unavailable SETTER, Tosha BARCENAS MD Unavailable Unavailable SETTER, Tosha BARCENAS MD Unavailable Unavailable SETTER, Tosha BARCENAS MD Unavailable Unavailable SETTER, Tosha BARCENAS MD Unavailable Unavailable SETTER, Tosha BARCENAS MD Unavailable Unavailable SETTER, Tosha BARCENAS MD Unavailable Unavailable SETTER, Tosha BARCENAS MD Unavailable Unavailable SETTERTosha MD Unavailable Unavailable SETTERTosha MD Unavailable Unavailable SETTER, Tosha BARCENAS MD Unavailable Unavailable SETTER, Tosha BARCENAS MD Unavailable Unavailable SETTER, Tosha BARCENAS MD Unavailable Unavailable SETTER, Tosha BARCENAS MD Unavailable Unavailable SETTERTosha MD Unavailable Unavailable SETTERTosha MD Unavailable Unavailable SETTERTosha MD Unavailable Unavailable SETTERTosha MD Unavailable Unavailable SETTERTosha MD Unavailable Unavailable SETTERTosha MD Unavailable Unavailable SETTERTosha MD Unavailable Unavailable SETTERTosha MD Unavailable Unavailable SETTERTosha MD Unavailable Unavailable SETTERTosha MD Unavailable Unavailable SETTERTosha MD Unavailable Unavailable SETTERTosha MD Unavailable Unavailable SETTERTosha MD Unavailable Unavailable SETTERTosha MD Unavailable Unavailable SETTERTosha MD Unavailable Unavailable SETTERTosha MD Unavailable Unavailable SETTERTosha MD Unavailable Unavailable SETTERTosha MD Unavailable Unavailable SETTERTosha MD Unavailable Unavailable SETTERTosha MD Unavailable Unavailable SETTERTosha MD Unavailable Unavailable SETTERTosha MD Unavailable Unavailable SETTERTosha MD Unavailable Unavailable SETTERTosha MD Unavailable Unavailable SETTERTosha MD Unavailable Unavailable SETTERTosha MD Unavailable Unavailable SETTERTosha MD Unavailable Unavailable SETTERTosha MD Unavailable Unavailable SETTERTosha MD Unavailable Unavailable SETTERToshaIN MD Unavailable Unavailable Re-disclosure Warning The records that you are about to access may contain information from federally-assisted alcohol or drug abuse programs. If such information is present, then the following federally mandated warning applies: This information has been disclosed to you from records protected by federal confidentiality rules (42 CFR part 2). The federal rules prohibit you from making any further disclosure of this information unless further disclosure is expressly permitted by the written consent of the person to whom it pertains or as otherwise permitted by 42 CFR part 2. A general authorization for the release of medical or other information is NOT sufficient for this purpose. The Federal rules restrict any use of the information to criminally investigate or prosecute any alcohol or drug abuse patient.The records that you are about to access may contain highly sensitive health information, the redisclosure of which is protected by Article 27-F of the [facility] Public Health law. If you continue you may have access to information: Regarding HIV / AIDS; Provided by facilities licensed or operated by the [facility] Office of Mental Health; or Provided by the [facility] Office for People With Developmental Disabilities. If such information is present, then the following [facility] mandated warning applies: This information has been disclosed to you from confidential records which are protected by state law. State law prohibits you from making any further disclosure of this information without the specific written consent of the person to whom it pertains, or as otherwise permitted by law. Any unauthorized further disclosure in violation of state law may result in a fine or fpc sentence or both. A general authorization for the release of medical or other information is NOT sufficient authorization for further disc losure. Family History Family Member Name Family Member Gender Family Member Status Date o f Status Description Data Source(s) Unknown Male Problem [facility] ([facility]) Unknown Male Problem [facility] ([facility]) at age 72 Unknown Unknown Problem [facility] ([facility] Unknown Female Problem [facility] ([facility] Unknown Male Problem MED[facility] ([facility] ) Encounters Encounter Providers Location Date Indications Data Source(s ) Outpatient Attender: MYLES LOONEY [facility] Office 12/09 03:15:00 PM EDT [facility] ([facility] Outpatient Attender: Phyllis SADLER [facility] office - [facility] [place] 12/15/2020 01:45:00 PM EDT [facility] ([facility] ) Out[place] [address] [facility] [address] 12/07/2020 12:00:00 AM EDT eCW1 ([facility]) Outpatient Attender: MYLES LOONEY [facility] Office 11/10 03:15:00 PM EDT MED[facility] ([facility] Unknown [address] [facility] [place] [address] 11/03/2020 12:00:00 AM EDT eCW1 ([facility]) Outpatient Attender: MYLES LOONEY [facility] Office 09/09 10:30:00 AM EDT MED[facility] ([facility] Outpatient Attender: MYLES LOONEY [facility] Office 09/08 10:30:00 AM EDT [facility] ([facility] Outpatient 09/01/2020 12:00:00 AM [facility] Outpatient Attender: Phyllis SADLER [facility] 08/02/2020 11:30:00 AM EDT MEDENT ([facility] granados, ) Outpatient Referrer: SWAPNA GOSS MD 07/28/2020 12:00:00 [facility] Unknown [address] [facility] [address] 07/27/2020 12:00:00 AM EDT eCW1 ([facility]) Outpatient [address] [facility] [place] [address] 07/25/2020 12:00:00 AM EDT eCW1 ([facility]) Unknown [address] [facility] [place] [address] 07/20/2020 12:00:00 AM EDT eCW1 ([facility] [place] [address] [facility] [address] 07/15/2020 12:00:00 AM EDT eCW1 ([facility]) Outpatient Attender: SWAPNA GOSS MD [id number] 07/14/2020 12:00:00 AM [facility] Outpatient [address] [facility] [address] 06/14/2020 12:00:00 AM EDT eCW1 ([facility]) Outpatient Referrer: SWAPNA GOSS MD 06/10/2020 12:00:00 [facility] Unknown [address] [facility] [address] 05/12/2020 12:00:00 AM EST eCW1 ([facility]) Unknown [address] [facility] [address] 05/06/2020 12:00:00 AM EST eCW1 ([facility]) Outpatient Attender: SWAPNA GOSS MD 07A-[id number] 05/05/2020 12:00:00 AM [facility] Outpatient Attender: Phyllis SADLER [facility] 04/27/2020 09:00:00 AM EST MEDENT ([facility], ) Outpatient [address] [facility] [place] [address] 04/25/2020 12:00:00 AM EST eCW1 ([facility]) Unknown [address] [facility] [place] [address] 04/25/2020 12:00:00 AM EST eCW1 ([facility]) Unknown [address] [facility] [place] [address] 04/25/2020 12:00:00 AM EST eCW1 ([facility]) Unknown [address] [facility] [place] [address] 04/25/2020 12:00:00 AM EST eCW1 ([facility]) Outpatient Attender: Al Mendiola MDReferrer: SWAPNA Torres MD A-XXBJORT 04/18/2020 12:00:00 AM EST Other specified soft tissue disorders [facility] Other specified soft tissue disorders Outpatient Attender: SWAPNA GOSS MD A-XXBJORT 04/14/2020 12:00:00 AM EST [facility] Outpatient [address] [facility] [address] 03/30/2020 12:00:00 AM EST eCW1 ([facility]) Outpatient Attender: SWAPNA GOSS MD A-XXBJORT 03/23/2020 12:0 0:00 AM EST Localized swelling, mass and lump, right upper limb [facility] Localized swelling, mass and lump, right upper limb Outpatient Attender: SWAPNA GOSS MD A-XXBJORT 02/11/2020 12:00:00 AM EST [facility] Unknown [address] [facility] [address] 02/01/2020 12:00:00 AM EST eCW1 ([facility]) Outpatient Attender: Phyllis Stover [facility] [place] 01/26/2020 08:15:00 AM EST MEDENT ([facility], ) Outpatient [address] [facility] [address] 01/25/2020 12:00:00 AM EST eCW1 ([facility]) Unknown [address] [facility] [address] 01/25/2020 12:00:00 AM EST eCW1 ([facility]) Outpatient Attender: KIESHA SILVA NP 01/20/2020 12:00:0 0 AM [facility] Outpatient Attender: KIESHA SILVA NP A-XXBJORT 01/01/2020 1 2:00:00 AM [facility] Outpatient Attender: KIESHA SILVA NP 12/07/2019 12:00:0 0 AM [facility] Outpatient Attender: SWAPNA GOSS MDReferrer: Adrianna MAS A-XXBJORT 11/18/2019 12:00:00 AM EDT - 11/18/2019 02:40:45 PM EDT Pain in right elbow [facility] Pain in right elbow Outpatient Referrer: SWAPNA GOSS MD 11/18/2019 12:0 0:00 AM EDT Pain in right elbow [facility] Pain in right elbow Medications Medication Brand Name Start Date Product Form Dose Route Admi nistrative Instructions Pharmacy Instructions Status Indications Reaction Description Data Source(s) Naproxen 500 MG Oral Tablet Naproxen 10/05/2020 12:00:00 AM EDT active MEDENT ([facility] Cephalexin 500 MG Oral Capsule Cephalexin 500 MG 07/25/2020 12:00:0 0 AM EDT 1.0 {capsule} active eCW1 ([facility]) Cephalexin 500 MG Oral Capsule Cephalexin 500 MG 07/25/2020 12:00:0 0 AM EDT 1.0 {capsule} active Cephalexin 500 MG eCW1 ([facility]) Cephalexin 500 MG Oral Capsule Cephalexin 500 MG 07/25/2020 12:00:0 0 AM EDT 1.0 {capsule} active eCW1 ([facility]) Cephalexin 500 MG Oral Capsule Cephalexin 500 MG 07/25/2020 12:00:0 0 AM EDT 1.0 {capsule} active eCW1 ([facility]) Cephalexin 500 MG Oral Capsule Cephalexin 500 MG 07/25/2020 12:00:0 0 AM EDT 1.0 {capsule} suspended Cephalexin 500 M G eCW1 ([facility]) Acetaminophen 325 MG / Hydrocodone Chilo trate 5 MG Oral Tablet Hydrocodone- Acetaminophen 5-325 MG Hydrocodone-Acetaminophen 5-325 MG 06/14/2020 12:00:00 AM EDT 1.0 {tablet_as_needed} active eCW1 ([facility]) Acetaminophen 325 MG / Hydrocodone Chilo trate 5 MG Oral Tablet HYDROcodone- Acetaminophen 5-325 MG HYDROcodone-Acetaminophen 5-325 MG 06/14/2020 12:00:00 AM EDT 1.0 {tablet_as_needed} suspended HYDROcodone-Acetaminophen 5-325 MG eCW1 ([facility]) Acetaminophen 325 MG / Hydrocodone Chilo trate 5 MG Oral Tablet Hydrocodone- Acetaminophen 5-325 MG Hydrocodone-Acetaminophen 5-325 MG 06/14/2020 12:00:00 AM EDT 1.0 {tablet_as_needed} active eCW1 ([facility]) Acetaminophen 325 MG / Hydrocodone Chilo trate 5 MG Oral Tablet HYDROcodone- Acetaminophen 5-325 MG HYDROcodone-Acetaminophen 5-325 MG 06/14/2020 12:00:00 AM EDT 1.0 {tablet_as_needed} active HYDROcodone-Acetaminophen 5-325 MG eCW1 ([facility]) Acetaminophen 325 MG / Hydrocodone Chilo trate 5 MG Oral Tablet Hydrocodone- Acetaminophen 5-325 MG Hydrocodone-Acetaminophen 5-325 MG 06/14/2020 12:00:00 AM EDT 1.0 {tablet_as_needed} active Hydrocodone-Acetaminophen 5-325 MG eCW1 ([facility]) Acetaminophen 325 MG / Hydrocodone Chilo trate 5 MG Oral Tablet Hydrocodone- Acetaminophen 5-325 MG Hydrocodone-Acetaminophen 5-325 MG 06/14/2020 12:00:00 AM EDT 1.0 {tablet_as_needed} active Hydrocodone-Acetaminophen 5-325 MG eCW1 ([facility]) Acetaminophen 325 MG / Hydrocodone Chilo trate 5 MG Oral Tablet Hydrocodone- Acetaminophen 5-325 MG Hydrocodone-Acetaminophen 5-325 MG 06/14/2020 12:00:00 AM EDT 1.0 {tablet_as_needed} active eCW1 ([facility]) Acetaminophen 325 MG / Hydrocodone Chilo trate 5 MG Oral Tablet Hydrocodone- Acetaminophen 5-325 MG Hydrocodone-Acetaminophen 5-325 MG 05/06/2020 12:00:00 AM EST 1.0 {tablet_as_needed} active Hydrocodone-Acetaminophen 5-325 MG eCW1 ([facility]) Acetaminophen 325 MG / Hydrocodone Chilo trate 5 MG Oral Tablet Hydrocodone- Acetaminophen 5-325 MG Hydrocodone-Acetaminophen 5-325 MG 05/06/2020 12:00:00 AM EST 1.0 {tablet_as_needed} active Hydrocodone-Acetaminophen 5-325 MG eCW1 ([facility]) methylPREDNISolone acetate (DEPO-MEDROL) injection 80 mg [id number] 05/05/2020 10:45:00 AM EST 80 mg Intra-articular completed 80 mg, Intra- articular, Once, Marine 05/05/20 at 1045, For 1 dose
Depo-medrol genetic 2 cc - [id number]
[facility] Medication administered onsite Glucometer UNK 04/25/2020 12:00:00 AM EST active Glucometer eCW1 ([facility]) Ibuprofen 800 MG Oral Tablet Ibuprofen 800 MG 04/25/2020 12:00:[address] active Ibuprofen 800 MG eCW1 ([facility]) Ibuprofen 800 MG Oral Tablet Ibuprofen 800 MG 04/25/2020 12:00:[address] active Ibuprofen 800 MG eCW1 ([facility]) Lancets - Lancets - 04/25/2020 12:00:00 AM EST act real eCW1 ([facility]) Test Strips - UNK 04/25/2020 12:00:00 AM EST acti ve Test Strips - eCW1 ([facility]) Acetaminophen 325 MG / Hydrocodone Chilo trate 5 MG Oral Tablet Hydrocodone- Acetaminophen 5-325 MG Hydrocodone-Acetaminophen 5-325 MG 04/25/2020 12:00:00 AM EST 1.0 {tablet_as_needed} active Hydrocodone-Acetaminophen 5-325 MG eCW1 ([facility]) Ibuprofen 800 MG Oral Tablet Ibuprofen 800 MG 04/25/2020 12:00:[address] active Ibuprofen 800 MG eCW1 ([facility]) Ibuprofen 800 MG Oral Tablet Ibuprofen 800 MG 04/25/2020 12:00:[address] active Ibuprofen 800 MG eCW1 ([facility]) Glucometer UNK 04/25/2020 12:00:00 AM EST active Glucometer eCW1 ([facility]) Ibuprofen 800 MG Oral Tablet Ibuprofen 800 MG 04/25/2020 12:00:[address] active eCW1 ([facility]) Test Strips - UNK 04/25/2020 12:00:00 AM EST acti ve Test Strips - eCW1 ([facility]) Glucometer UNK 04/25/2020 12:00:00 AM EST active Glucometer eCW1 ([facility]) Test Strips - UNK 04/25/2020 12:00:00 AM EST acti ve eCW1 ([facility]) Glucometer UNK 04/25/2020 12:00:00 AM EST active Glucometer eCW1 ([facility]) Lancets - Lancets - 04/25/2020 12:00:00 AM EST act real Lancets - eCW1 ([facility]) Glucometer UNK 04/25/2020 12:00:00 AM EST active eCW1 ([facility]) Test Strips - UNK 04/25/2020 12:00:00 AM EST acti ve eCW1 ([facility]) Glucometer UNK 04/25/2020 12:00:00 AM EST active Glucometer eCW1 ([facility]) Acetaminophen 325 MG / Hydrocodone Chilo trate 5 MG Oral Tablet Hydrocodone- Acetaminophen 5-325 MG Hydrocodone-Acetaminophen 5-325 MG 04/25/2020 12:00:00 AM EST 1.0 {tablet_as_needed} active Hydrocodone-Acetaminophen 5-325 MG eCW1 ([facility]) Glucometer UNK 04/25/2020 12:00:00 AM EST active Glucometer eCW1 ([facility]) Lancets - Lancets - 04/25/2020 12:00:00 AM EST act real eCW1 ([facility]) Lancets - Lancets - 04/25/2020 12:00:00 AM EST act real eCW1 ([facility]) Test Strips - UNK 04/25/2020 12:00:00 AM EST acti ve Test Strips - eCW1 ([facility]) Lancets - Lancets - 04/25/2020 12:00:00 AM EST act real Lancets - eCW1 ([facility]) Lancets - Lancets - 04/25/2020 12:00:00 AM EST act real Lancets - eCW1 ([facility]) Glucometer UNK 04/25/2020 12:00:00 AM EST active Glucometer eCW1 ([facility]) Glucometer UNK 04/25/2020 12:00:00 AM EST active Glucometer eCW1 ([facility]) Acetaminophen 325 MG / Hydrocodone Chilo trate 5 MG Oral Tablet HYDROcodone- Acetaminophen 5-325 MG Oral Tablet (LORTAB) HYDROcodone-Acetaminophen 5-325 MG Oral Tablet (LORTAB) 04/25/2020 12:00:00 AM EST active TAKE 1 TABLET BY MOUTH EVERY 8 HOURS NEEDED FOR 7 DAYS MAX DAILY DOSE 3 [facility] Test Strips - UNK 04/25/2020 12:00:00 AM EST acti ve Test Strips - eCW1 ([facility]) Acetaminophen 325 MG / Hydrocodone Chilo trate 5 MG Oral Tablet Hydrocodone- Acetaminophen 5-325 MG Hydrocodone-Acetaminophen 5-325 MG 04/25/2020 12:00:00 AM EST 1.0 {tablet_as_needed} active Hydrocodone-Acetaminophen 5-325 MG eCW1 ([facility]) Acetaminophen 325 MG / Hydrocodone Chilo trate 5 MG Oral Tablet Hydrocodone- Acetaminophen 5-325 MG Hydrocodone-Acetaminophen 5-325 MG 04/25/2020 12:00:00 AM EST 1.0 {tablet_as_needed} active Hydrocodone-Acetaminophen 5-325 MG eCW1 ([facility]) Ibuprofen 800 MG Oral Tablet Ibuprofen 800 MG 04/25/2020 12:00:[address] active Ibuprofen 800 MG eCW1 ([facility]) Lancets - Lancets - 04/25/2020 12:00:00 AM EST act real Lancets - eCW1 ([facility]) Test Strips - UNK 04/25/2020 12:00:00 AM EST acti ve Test Strips - eCW1 ([facility]) Test Strips - UNK 04/25/2020 12:00:00 AM EST acti ve Test Strips - eCW1 ([facility]) Lancets - Lancets - 04/25/2020 12:00:00 AM EST act real Lancets - eCW1 ([facility]) Test Strips - UNK 04/25/2020 12:00:00 AM EST acti ve Test Strips - eCW1 ([facility]) Ibuprofen 800 MG Oral Tablet Ibuprofen 800 MG 04/25/2020 12:00:[address] active Ibuprofen 800 MG eCW1 ([facility]) Ibuprofen 800 MG Oral Tablet Ibuprofen 800 MG 04/25/2020 12:00:[address] active Ibuprofen 800 MG eCW1 ([facility]) Glucometer UNK 04/25/2020 12:00:00 AM EST active eCW1 ([facility]) Ibuprofen 800 MG Oral Tablet Ibuprofen 800 MG 04/25/2020 12:00:[address] active Ibuprofen 800 MG eCW1 ([facility]) Lancets - Lancets - 04/25/2020 12:00:00 AM EST act real Lancets - eCW1 ([facility]) Ibuprofen 800 MG Oral Tablet Ibuprofen 800 MG 04/25/2020 12:00:[address] active eCW1 ([facility]) Lancets - Lancets - 04/25/2020 12:00:00 AM EST act real Lancets - eCW1 ([facility]) Lancets - Lancets - 04/25/2020 12:00:00 AM EST act real Lancets - eCW1 ([facility]) Test Strips - UNK 04/25/2020 12:00:00 AM EST acti ve Test Strips - eCW1 ([facility]) Test Strips - UNK 04/25/2020 12:00:00 AM EST acti ve eCW1 ([facility]) Ibuprofen 800 MG Oral Tablet Ibuprofen 800 MG 04/25/2020 12:00:[address] active Ibuprofen 800 MG eCW1 ([facility]) Glucometer UNK 04/25/2020 12:00:00 AM EST active Glucometer eCW1 ([facility]) Glucometer UNK 04/25/2020 12:00:00 AM EST active Glucometer eCW1 ([facility]) Glucometer UNK 04/25/2020 12:00:00 AM EST active eCW1 ([facility]) Ibuprofen 800 MG Oral Tablet Ibuprofen 800 MG 04/25/2020 12:00:[address] active eCW1 ([facility]) Ibuprofen 800 MG Oral Tablet Ibuprofen 800 MG 04/25/2020 12:00:[address] active Ibuprofen 800 MG eCW1 ([facility]) Lancets - Lancets - 04/25/2020 12:00:00 AM EST act real Lancets - eCW1 ([facility]) Lancets - Lancets - 04/25/2020 12:00:00 AM EST act real Lancets - eCW1 ([facility]) Test Strips - UNK 04/25/2020 12:00:00 AM EST acti ve Test Strips - eCW1 ([facility]) Test Strips - UNK 04/25/2020 12:00:00 AM EST acti ve Test Strips - eCW1 ([facility]) methylPREDNISolone 4 MG Oral Tablet Therapy Pack (MEDROL DOS EPACK) [id number] 04/14/2020 12:00:00 AM EST completed follow package [facility] methylPREDNISolone 4 MG Oral Tablet Therapy Pack (MEDROL (PA K)) [id number] 03/23/2020 12:00:00 AM EST active follow package [facility] Aimovig Aimovig 01/26/2020 12:00:00 AM EST SUBCUTANEOUS active MEDENT ([facility]) Doxycycline Monohydrate 100 MG Oral Capsule Doxycycline [place] hydrate 100 MG 01/25/2020 12:00:00 AM EST 1.0 {capsule} suspend ed Doxycycline Monohydrate 100 MG eCW1 ([facility]) Doxycycline Monohydrate 100 MG Oral Capsule Doxycycline [place] hydrate 100 MG 01/25/2020 12:00:00 AM EST 1.0 {capsule} suspend ed Doxycycline Monohydrate 100 MG eCW1 ([facility]) Doxycycline Monohydrate 100 MG Oral Capsule Doxycycline [place] hydrate 100 MG 01/25/2020 12:00:00 AM EST 1.0 {capsule} suspend ed Doxycycline Monohydrate 100 MG eCW1 ([facility]) Doxycycline Monohydrate 100 MG Oral Capsule Doxycycline [place] hydrate 100 MG 01/25/2020 12:00:00 AM EST 1.0 {capsule} active Doxycycline Monohydrate 100 MG eCW1 ([facility]) Doxycycline Monohydrate 100 MG Oral Capsule Doxycycline [place] hydrate 100 MG 01/25/2020 12:00:00 AM EST 1.0 {capsule} suspend ed Doxycycline Monohydrate 100 MG eCW1 ([facility]) Doxycycline Monohydrate 100 MG Oral Capsule Doxycycline [place] hydrate 100 MG 01/25/2020 12:00:00 AM EST 1.0 {capsule} suspend ed Doxycycline Monohydrate 100 MG eCW1 ([facility]) Doxycycline Monohydrate 100 MG Oral Capsule Doxycycline [place] hydrate 100 MG 01/25/2020 12:00:00 AM EST 1.0 {capsule} suspend ed Doxycycline Monohydrate 100 MG eCW1 ([facility]) Doxycycline Monohydrate 100 MG Oral Capsule Doxycycline [place] hydrate 100 MG 01/25/2020 12:00:00 AM EST 1.0 {capsule} suspend ed Doxycycline Monohydrate 100 MG eCW1 ([facility]) Doxycycline Monohydrate 100 MG Oral Capsule Doxycycline [place] hydrate 100 MG 01/25/2020 12:00:00 AM EST 1.0 {capsule} suspend ed Doxycycline Monohydrate 100 MG eCW1 ([facility]) Doxycycline Monohydrate 100 MG Oral Capsule Doxycycline [place] hydrate 100 MG 01/25/2020 12:00:00 AM EST 1.0 {capsule} suspended eCW1 ([facility]) Doxycycline Monohydrate 100 MG Oral Capsule Doxycycline [place] hydrate 100 MG 01/25/2020 12:00:00 AM EST 1.0 {capsule} suspended eCW1 ([facility]) Doxycycline Monohydrate 100 MG Oral Capsule Doxycycline [place] hydrate 100 MG 01/25/2020 12:00:00 AM EST 1.0 {capsule} active Doxycycline Monohydrate 100 MG eCW1 ([facility]) Doxycycline Monohydrate 100 MG Oral Capsule Doxycycline [place] hydrate 100 MG 01/25/2020 12:00:00 AM EST 1.0 {capsule} suspend ed Doxycycline Monohydrate 100 MG eCW1 ([facility]) Doxycycline Monohydrate 100 MG Oral Capsule Doxycycline [place] hydrate 100 MG 01/25/2020 12:00:00 AM EST 1.0 {capsule} active Doxycycline Monohydrate 100 MG eCW1 ([facility]) Doxycycline Monohydrate 100 MG Oral Capsule Doxycycline [place] hydrate 100 MG 01/25/2020 12:00:00 AM EST 1.0 {capsule} suspend ed Doxycycline Monohydrate 100 MG eCW1 ([facility]) Doxycycline Monohydrate 100 MG Oral Capsule Doxycycline [place] hydrate 100 MG 01/25/2020 12:00:00 AM EST 1.0 {capsule} suspend ed Doxycycline Monohydrate 100 MG eCW1 ([facility]) Doxycycline Monohydrate 100 MG Oral Capsule Doxycycline [place] hydrate 100 MG 01/25/2020 12:00:00 AM EST 1.0 {capsule} suspended eCW1 ([facility]) Diclofenac Sodium 0.01 MG/MG Topical Gel Diclofenac Sodium 1 % Transdermal Gel (VOLTAREN) Diclofenac Sodium 1 % Transdermal Gel (VOLTAREN) 11/17 12:00:00 AM EDT 2 g Topical aborted Apply 2 g topic ally Four times daily [facility] Acetaminophen 325 MG / Oxycodone Hydroch loride 5 MG Oral Tablet oxycodone- acetaminophen (PERCOCET) 5-325 MG per tablet oxycodone-acetaminophen (PERCOCET) 5-325 MG per tablet 1 {tbl} Oral aborted Take 1 tablet by mouth every 4 (four) hours as needed for Pain. [facility] Ketorolac Tromethamine 10 MG Oral Tablet ketorolac (TO RADOL) 10 MG tablet ketorolac (TORADOL) 10 MG tablet 10 mg Oral abort ed Take 10 mg by mouth every 6 (six) hours as needed for Pain. [facility] Hydroxyzine Pamoate 25 MG Oral Capsule hydrOXYzine ( STARIL) 25 MG capsule hydrOXYzine (VISTARIL) 25 MG capsule 25 mg Oral a borted Take 25 mg by mouth Three times daily as needed for Itching. [facility] gabapentin 300 MG Oral Capsule gabapentin (NEURONTIN) 300 MG capsule gabapentin (NEURONTIN) 300 MG capsule 300 mg Oral aborted Take 300 mg by mouth Three times daily. [facility] Sertraline 50 MG Oral Tablet sertraline (ZOLOFT) 50 MG tablet sertraline (ZOLOFT) 50 MG tablet 50 mg Oral aborted Ta ke 50 mg by mouth daily. [facility] Divalproex Sodium 250 MG Delayed Release Oral Tablet divalproex (DEPAKOTE) 250 MG EC tablet divalproex (DEPAKOTE) 250 MG EC tablet 250 mg Oral aborted Take 250 mg by mouth Three times daily. [facility] Furosemide 40 MG Oral Tablet furosemide (LASIX) 40 MG tablet furosemide (LASIX) 40 MG tablet 40 mg Oral aborted Jay e 40 mg by mouth Two Times Daily. [facility] Insurance Providers Payer name Policy type / Coverage type Policy ID Covered alliance party ID Covered alliance party's relationship to painting Policy Painting Plan Information MEDICARE A [id number] Self [id number] A Medicare C [id number] SELF [id number] A [id number] A MEDICARE A [id number] Self [id number] Medicaid CSC Healthcare S D [id number] SELF [id number] Medicare C [id number] SELF [id number] A MEDICAID M [id number] Self [id number] MEDICARE A [id number] Self [id number] A [facility] Comm Dual Plan Commercial [id number] Self [id number] [facility] Comm Dual Plan Commercial [id number] Self [id number] [facility] Comm Dual Plan Commercial [id number] Self [id number] [facility] Comm Dual Plan Commercial [id number] Self [id number] [facility] Comm Dual Plan Commercial .[id number] Self [facility] Comm Dual Plan Commercial [id number] Self [id number] [facility] Dual Complete Commercial [id number] Self [id number] [facility] Comm Dual Plan Commercial [id number] Self [id number] [facility] Comm Dual Plan Commercial [id number] Self [id number] [facility] Comm Dual Plan Commercial [id number] Self [id number] [facility] Comm Dual Plan Commercial [id number] Self [id number] [facility] Comm Dual Plan Commercial [id number] Self [id number] [facility] Comm Dual Plan Commercial [id number] Self [id number] [facility] Comm Dual Plan Commercial [id number] Self [id number] [facility] Comm Dual Plan Commercial [id number] Self [id number] [facility] Health Maintenance Organization (HMO) [id number] Self [id number] [facility] [id number] SP [id number] MEDICAID [id number] SP [id number] [facility] [id number] SP [id number] MEDICAID [id number] SP [id number] [facility] [id number] SP [id number] [facility] Comm Plan Medicare F [id number] SELF [id number] [facility] Plan Medicare F [id number] SELF [id number] MEDICAID [id number] SP [id number] [facility] MEDICARE DUAL G [id number] Self [id number] MEDICAID [id number] Self [id number] [facility] I [id number] Self [id number] ANSI-Medicaid [id number] Medicaid Medicaid [id number] S elf [id number] Medicare Part B Medicare Primary [id number] Self [id number] Medicaid Medigap Part B [id number] Self [id number] ANSI-Medicaid [id number] ANSI-Not a Secondary Insurance [id number] ANSI-Medicare Part B [id number] [facility] Medicaid Medicaid [id number] Self [id number] ANSI-Medicare Part B [id number] ANSI-Not a Secondary Insurance [id number] ANSI-Medicaid [id number] ANSI-Medicare Part B [id number] ANSI-Not a Secondary Insurance [id number] ANSI-Medicaid [id number] ANSI-Medicare Part B [id number] ANSI-Medicaid [id number] ANSI-Not a Secondary Insurance [id number] Medicaid Medicaid [id number] [address] [facility] [id number] ANSI-Not a Secondary Insurance [id number] ANSI-Medicaid [id number] ANSI-Medicare Part B [id number] Medicare Part B Medicare Primary [id number] Self [id number] [facility] [id number] 47.0 Self [id number] Medicaid Medicaid [id number] 2.16.840.1.82[id number] S elf [id number] ANSI-Medicaid [id number] ANSI-Medicare Part B [id number] ANSI-Not a Secondary Insurance [id number] ANSI-Medicaid [id number] ANSI-Not a Secondary Insurance [id number] ANSI-Medicare Part B [id number] Medicare Part B Medicare Primary [id number] 2.16.840.1.518768.3.227.99.1037.23653.0 Self [id number] Medicaid [place] Part B [id number] 2.16.840.1.645254.3.227.99.1037.270 47.0 Self [id number] ANSI-Medicare Part B [id number] ANSI-Not a Secondary Insurance [id number] ANSI-Medicaid [id number] ANSI-Medicaid [id number] ANSI-Not a Secondary Insurance [id number] ANSI-Medicare Part B [id number] ANSI-Medicaid [id number] ANSI-Not a Secondary Insurance [id number] ANSI-Medicare Part B [id number] ANSI-Not a Secondary Insurance [id number] ANSI-Medicaid [id number] ANSI-Medicare Part B [id number] ANSI-Medicare Part B [id number] ANSI-Not a Secondary Insurance [id number] ANSI-Medicaid [id number] ANSI-Medicare Part B [id number] ANSI-Not a Secondary Insurance [id number] ANSI-Medicaid [id number] Medicare Part B Medicare Primary [id number] 2.16.840.1.075[id number] Self [id number] Medicaid [place] Part B [id number] 2.16.840.1.050511.3.227.99.1037.270 47.0 Self [id number] Medicaid Medicaid [id number] 2.16.840.1.667691.3.227.99.936.09969.0 S elf [id number] Medicare Part B Medicare Primary [id number] 2.16.840.1.898[id number] Self [id number] Medicaid Med[place] Part B [id number] 2.16.840.1.426310.3.227.99.1037.270 47.0 Self [id number] Medicaid Med[place] Part B [id number] 2.16.840.1.183208.3.227.99.572.2887 9.0 Self [id number] Medicare (Part B) Medicare Primary [id number] 2.16.840.1.309518.3.227.99.572.24210.0 Self 2 [id number] [facility] [employer] Commercial [id number] 2.16.840.1.80[id number] Self [id number] [facility] Dual Cov Plan Commercial [id number] Self [id number] [place] Medicare Primary [id number] 2.16.840.1.929[id number] Self [id number] Medicaid [place] Medig[place] Part B [id number] 2.16.840.1.383051.3.227.99 .8646.33317.0 Self [id number] MEDICAID [id number] SP [id number] [facility] [id number] SP [id number] [id number] SP [id number] MEDICARE [id number] SP [id number] A Medicaid Medicaid [id number] 2.16.840.1.47[id number] S elf [id number] MEDICAID [id number] SP [id number] Medicaid Medicaid [id number] 2.16.840.1.11[id number] S elf [id number] Medicaid Medicaid [id number] 2.16.840.1.070581.3.227.99.936.39478.0 S elf [id number] Medicaid Medicaid [id number] 2.16.840.1.709645.3.227.99.936.49281.0 S elf [id number] Medicaid Medicaid 2.16.840.1.55[id number] S elf MEDICAID [id number] SP [id number] MEDICARE [id number] SP [id number] A MEDICAID [id number]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 AgICAgICAgICAgICAgICAgICAgICAgICAgICAgICAgICAgICAgICAgICAgICAgICAgICAgICAgICAgIC IiYKZzXXRkKFZiLDHsZAJtAWRbNOClZJDlAQ8YPSCa ICAgICAgICAgICAgICAgICAgICAgICAgICAgICAgICAgICAgICAgICAgICAgICAgICAgICAgICAgICAg PQYtPAKyUXNdLOOnAVQeNOIqQZZhJLKjYMHxDEEiSQGqHKNjJZ6EXL20eXSko1K0EMYnFY5lcpl/Pg0K PZerjlXmcTUtRQ1BUgGdBO2mts8XJwOrKF7lud2SYT lKSlPcI9A1wTDqZFUaRDDTBpIhW98eGZnrFu98CXedFKNxIwXdNNi2Wg3KFgZxA3ahVXQrHlH3CQKeGc CxBIlxRC0Wu8VnjGGqGWx+Wm7LXA1xv0AdECekHGFcMO4vww2RRZtQNjRjC3IovcH5YOZpXYOeSt2EZX JxBLLsaENpJSGfZPBZYaTsD2DloU57WNPPJq2+DQpl zuJiFwvTQiXcFMZve3OdDIj4VO1SMXRcKDk9yTEnJJCbC1Kpc3ZuVb79XNQqIvilN8CruYKreSKvFViz s5GsAVUIUIHayWEwAL0sEn8qCFDjYDE2BqO3URUZVE4BIRZoMHZqpALhATUlRGZVPR4CIVebYMI7KBEc auMcuMLwFRgkAE8WVQMyyaRdSAtyXCFPPMl+Pg0KZW 0ca0OgDKoySFUwWO7xkm7TCLyPFfRrT4C9dAMrJ5E2YNrnEl6YBQQmQLTyUPddWNIHKAdmSQ5REL8apq Z3PT9YmFFtIQMzSPEgnCNdKOu3L70zgARuHIbnRL3JNNY+Gillian+Rp8NBOGjNGCtYCUmFaMwPRDCBbQnB3 CjU9LIr7FwV9VcYN18eSibqjHrHPhmES6CRJ9rFXNt XVVDBV6HtMJgwF0xbjPyJKYhYKFYCeCzW83dbPTuXROyHTL0BBWrLm7QXSZpR6JmnrRwhXpmunIyBMEx XGYYDB3MPMpeofBcdZMgyFblEM14xTvjFR1HDr2UIxXwIY8fgc5XeGTsNr8VAVTmBz9EMPWnNZLqQUDq SMF7RIFoCwYpJXxbWLLfCSUmJNF3SKZtQJBjKE2GEp InIRBzVKw3WeXfYWKdVJGlyr4KTPJlBTSeLVCfAXJtYMBiGRVfUQvjSSJmYGHbGQC0TXIgDEIjVH6ZMe ZkADUjWEZkXRayLBRlEAPbnz4LNKKzAVTgSeQ3MQBuNKHsFRMpPQdfZQJgQJZ8XDUpPPEvZEAcWO6BXn OpACEmXKD6NWWvMDPoNCGjkk2BDXYoRONwOAm7YaGw IXAoGZWeMKkgIHAeTHM5HtI8QZLtTHGcVE5MKkOcVJUkXXN7USFfNZDwDGBzje3PCMSuRHFnZcSvIrFc LMAgAQOeDXxfHHQoKTJ2WOl5RIIgJNSoKW8PYrMzONTdWIi3HQZeMPJtQURhhv3CULBwJNEgBHUtAkEy VZArOHKfINpiQTTpMYN5KtCzOIEfISGqLM1TYxQpGM JmURjfWQknCQSyWDPrkc2VALCeLHNxLQt4EFNoIOZbADWvPBwiSYYfOFRtWmO0JXVaIHWyGG0CTvUnIA AjBwVzPRsaLSBgPDQfkj5TMWUfCYEgCNO0RWVyJNFrOHDxSWw4xaWbaRCcINe0QJ1QB9TcotCsToHHGe 1Nl775VXAgDJRkUk5BZ2esCv0iTXJnXPCNLm8MWMz0 HGRkWdImIGlxUNQpDjHhF1EwQOAqMVE0I0U1POS0XXF+LLs9XnUwCMZ3BGP0MANmMvBeB7CqVFTcCNFc KdN3Zqx4FP7hXELVUu5+ZPmrpJCwsZelGEROJhQcSlEjNVaqENAQIn5O ID Date Data Source [id number] 11/22/2019 05:50:59 PM EDT [facility] Name Value Range Interpretation Code Description Data Blanca rce(s) Supporting Document(s) Progress Note [facility] SLZLSb3rXnXNMkSy85/SRJosGFLkt3CfRCxxXRs0IRbzDLSyI7YwANS0bI2qZIX1FGyNGgTkUaPzLATm lbm [file] ILzmpEVnfDlxQLXBRjA7ZVK7QKrzNMBXKo2F ID Date Data Source [id number] 11/20/2019 07:18:42 AM EDT [facility] XR ELBOW 3-MORE VIEWS [id number] RESULTI nterpreted by:SUHAIL Patricklinical history: Right elbow painViews: 4 views right elbowIndication: Check for sources of pain at right elbowFindings: The patient has normal osseous anatomy of the distal humerus, proximal ulna and proximal radius. She has good preservation of the radiocapitellar joint and perhaps just some mild narrowing of the ulnohumeral joint. Patient does have some calcification within the lateral epicondylar muscle attachment. No evidence of triceps sparing. No evidence of elbow effusion. Overlying soft tissues appear normal.Impression: Mild arthritic change right elbow with lateral epicondylar tenderness origin calcificationThis document has been electronically signed by Nick Allen MD on 11/20/2019 7:16 AM Name Value Range Interpretation Code Description Data Blanca rce(s) Supporting Document(s) Procedure Social History Code Duration Value Status Description Data Source(s ) Smoking 12/07/2020 12:00:00 AM EDT Never Smoker completed Never S moker eCW1 ([facility]) Smoking 07/25/2020 12:00:00 AM EDT Never Smoker completed Never S moker eCW1 ([facility]) Smoking 07/25/2020 12:00:00 AM EDT Never Smoker completed Never S moker eCW1 ([facility]) Smoking 07/25/2020 12:00:00 AM EDT Never Smoker completed Never S moker eCW1 ([facility]) Smoking 07/25/2020 12:00:00 AM EDT Never Smoker completed Never S moker eCW1 ([facility]) Alcohol intake 07/14/2020 12:00:00 AM EDT Current non-d deborah of alcohol (finding) completed Current non-drinker of alcohol (finding) [facility] Tobacco use and exposure 07/14/2020 12:00:00 AM EDT Never used co mpleted Never used [facility] Smoking 07/14/2020 12:00:00 AM EDT Never smoker completed Never s moker [facility] Smoking 06/14/2020 12:00:00 AM EDT Never Smoker completed Never S moker eCW1 ([facility]) Smoking 06/14/2020 12:00:00 AM EDT Never Smoker completed Never S moker eCW1 ([facility]) Alcohol intake 05/05/2020 12:00:00 AM EST Current non-d deborah of alcohol (finding) completed Current non-drinker of alcohol (finding) [facility] Smoking 04/25/2020 12:00:00 AM EST Never Smoker completed Never S moker eCW1 ([facility]) Smoking 04/25/2020 12:00:00 AM EST Never Smoker completed Never S moker eCW1 ([facility]) Smoking 04/25/2020 12:00:00 AM EST Never Smoker completed Never S moker eCW1 ([facility]) Smoking 04/25/2020 12:00:00 AM EST Never Smoker completed Never S moker eCW1 ([facility]) Smoking 04/25/2020 12:00:00 AM EST Never Smoker completed Never S moker eCW1 ([facility]) Smoking 04/25/2020 12:00:00 AM EST Never Smoker completed Never S moker eCW1 ([facility]) Alcohol intake 04/18/2020 12:00:00 AM EST Current non-d deborah of alcohol (finding) completed Current non-drinker of alcohol (finding) [facility] Alcohol intake 04/17/2020 12:00:00 AM EST Current non-d deborah of alcohol (finding) completed Current non-drinker of alcohol (finding) [facility] Smoking 03/30/2020 12:00:00 AM EST Never Smoker completed Never S moker eCW1 ([facility]) Alcohol intake 03/23/2020 12:00:00 AM EST Current non-d deborah of alcohol (finding) completed Current non-drinker of alcohol (finding) [facility] Alcohol intake 02/13/2020 12:00:00 AM EST Current non-d deborah of alcohol (finding) completed Current non-drinker of alcohol (finding) [facility] Smoking 01/25/2020 12:00:00 AM EST Never Smoker completed Never S moker eCW1 ([facility]) Smoking 01/25/2020 12:00:00 AM EST Never Smoker completed Never S moker eCW1 ([facility]) Smoking 01/25/2020 12:00:00 AM EST Never Smoker completed Never S moker eCW1 ([facility]) Alcohol intake 01/01/2020 12:00:00 AM EDT Current non-d deborah of alcohol (finding) completed Current non-drinker of alcohol (finding) [facility] Alcohol intake 11/18/2019 12:00:00 AM EDT Current non-d deborah of alcohol (finding) completed Current non-drinker of alcohol (finding) [facility] Vital Signs ID Date Data Source UNK Name Value Range Interpretation Code Description Data Source(s) Systolic blood pressure 150 mm[Hg] 150 mm[Hg] M EDENT ([facility] Body height 61 [in_i] 61 [in_i] MEDENT ([facility] 5'1" Body weight 175.00 [lb_av] 175.00 [lb_av] MEDEN T ([facility] Diastolic blood pressure 80 mm[Hg] 80 mm[Hg] MEDENT ([facility] Heart rate 77 /min 77 /min MEDENT ([facility] Body mass index (BMI) [Ratio] 33.1 kg/m2 33.1 k g/m2 MEDENT ([facility] Systolic blood pressure 110 mm[Hg] 110 mm[Hg] M EDENT ([facility]) Diastolic blood pressure 80 mm[Hg] 80 mm[Hg] MEDENT ([facility] ) Heart rate 76 /min 76 /min MEDENT ([facility] ) Respiratory rate 16 /min 16 /min MEDENT ( [facility] ) Body weight 177 [lb_av] 177 [lb_av] eCW1 ([facility]) Body height 60.75 [in_i] 60.75 [in_i] eCW1 ([facility] Body mass index (BMI) [Ratio] 33.72 kg/m2 33.72 kg/m2 eCW1 ([facility]) Systolic blood pressure 120 mm[Hg] 120 mm[Hg] e CW1 ([facility]) Diastolic blood pressure 80 mm[Hg] 80 mm[Hg] eCW1 ([facility]) Body height 61 [in_i] 61 [in_i] MEDENT ([facility] 5'1" Heart rate 82 /min 82 /min MEDENT ([facility] Body weight 193.00 [lb_av] 193.00 [lb_av] MEDEN T ([facility] Systolic blood pressure 118 mm[Hg] 118 mm[Hg] M EDENT ([facility] Diastolic blood pressure 82 mm[Hg] 82 mm[Hg] MEDENT ([facility] Body mass index (BMI) [Ratio] 36.5 kg/m2 36.5 k g/m2 MEDENT ([facility] Body weight 204.8 [lb_av] 204.8 [lb_av] eCW1 ([facility]) Body height 60.75 [in_i] 60.75 [in_i] eCW1 ([facility]) Body mass index (BMI) [Ratio] 39.01 kg/m2 39.01 kg/m2 W1 ([facility]) Heart rate 85 /min 85 /min eCW1 ([facility]) Respiratory rate 18 /min 18 /min eCW1 ([facility]) Body temperature 97.5 [degF] 97.5 [degF] eCW1 ( [facility]) Systolic blood pressure 116 mm[Hg] 116 mm[Hg] e CW1 ([facility]) Diastolic blood pressure 76 mm[Hg] 76 mm[Hg] eCW1 ([facility]) Body weight 206 [lb_av] 206 [lb_av] eCW1 ([facility]) Body height 60.75 [in_i] 60.75 [in_i] eCW1 ([facility]) Body mass index (BMI) [Ratio] 39.24 kg/m2 39.24 kg/m2 eCW1 ([facility]) Heart rate 97 /min 97 /min eCW1 ([facility]) Respiratory rate 18 /min 18 /min eCW1 ([facility]) Body temperature 97.2 [degF] 97.2 [degF] eCW1 ( [facility]) Systolic blood pressure 135 mm[Hg] 135 mm[Hg] e CW1 ([facility]) Diastolic blood pressure 86 mm[Hg] 86 mm[Hg] eCW1 ([facility]) Body weight 205.2 [lb_av] 205.2 [lb_av] eCW1 ([facility]) Body height 60.75 [in_i] 60.75 [in_i] eCW1 ([facility]) Body mass index (BMI) [Ratio] 39.09 kg/m2 39.09 kg/m2 eCW1 ([facility]) Heart rate 91 /min 91 /min eCW1 ([facility]) Respiratory rate 18 /min 18 /min eCW1 ([facility]) Body temperature 96.3 [degF] 96.3 [degF] eCW1 ( [facility]) Systolic blood pressure 142 mm[Hg] 142 mm[Hg] e CW1 ([facility]) Diastolic blood pressure 84 mm[Hg] 84 mm[Hg] eCW1 ([facility]) Heart rate 64 /min 64 /min MEDENT ([facility] ) Respiratory rate 16 /min 16 /min MEDENT ( [facility] ) Systolic blood pressure 110 mm[Hg] 110 mm[Hg] M EDENT ([facility] ) Diastolic blood pressure 80 mm[Hg] 80 mm[Hg] MEDENT ([facility] ) Body weight 200 [lb_av] 200 [lb_av] eCW1 ([facility]) Body height 60.75 [in_i] 60.75 [in_i] eCW1 ([facility]) Body mass index (BMI) [Ratio] 38.10 kg/m2 38.10 kg/m2 eCW1 ([facility]) Heart rate 84 /min 84 /min eCW1 ([facility]) Respiratory rate 17 /min 17 /min eCW1 ([facility]) Body temperature 97.7 [degF] 97.7 [degF] eCW1 ( [facility]) Systolic blood pressure 137 mm[Hg] 137 mm[Hg] e CW1 ([facility]) Diastolic blood pressure 97 mm[Hg] 97 mm[Hg] eCW1 ([facility]) ID Date Data Source [id number] 04/22/2020 01:20:05 PM [facility] Name Value Range Interpretation Code Description Data Source(s) WEIGHT RECORDED 185 lb 185 lb [facility] Body height Measured 61 in 61 in [facility] Patient Treatment Plan of Care Planned Activity Planned Date Details Description Data Source (s) Cephalexin 500 MG Oral Capsule 07/25/2020 12:00:00 AM EDT eCW1 ([facility]) Cephalexin 500 MG Oral Capsule 07/25/2020 12:00:00 AM EDT eCW1 ([facility]) Cephalexin 500 MG Oral Capsule 07/25/2020 12:00:00 AM EDT eCW1 ([facility]) Cephalexin 500 MG Oral Capsule 07/25/2020 12:00:00 AM EDT eCW1 ([facility]) Acetaminophen 325 MG / Hydrocodone Bitartrate 5 MG Ora l Tablet 06/14/2020 12:00:00 AM EDT eCW1 ([facility]) Acetaminophen 325 MG / Hydrocodone Bitartrate 5 MG Ora l Tablet 06/14/2020 12:00:00 AM EDT eCW1 ([facility]) Acetaminophen 325 MG / Hydrocodone Bitartrate 5 MG Ora l Tablet 05/06/2020 12:00:00 AM EST eCW1 ([facility]) Acetaminophen 325 MG / Hydrocodone Bitartrate 5 MG Ora l Tablet 05/06/2020 12:00:00 AM EST eCW1 ([facility]) methylPREDNISolone acetate (DEPO-MEDROL) injection 80 mg 05/05/2020 10:45:00 AM EST [facility] ospital Lancets - 04/25/2020 12:00:00 AM EST e CW1 ([facility]) Ibuprofen 800 MG Oral Tablet 04/25/2020 12:00:00 AM EST eCW1 ([facility]) Ibuprofen 800 MG Oral Tablet 04/25/2020 12:00:00 AM EST eCW1 ([facility]) Glucometer 04/25/2020 12:00:00 AM EST e CW1 ([facility]) Test Strips - 04/25/2020 12:00:00 AM EST eCW1 ([facility]) Lancets - 04/25/2020 12:00:00 AM EST e CW1 ([facility]) Acetaminophen 325 MG / Hydrocodone Bitartrate 5 MG Ora l Tablet 04/25/2020 12:00:00 AM EST eCW1 ([facility]) Ibuprofen 800 MG Oral Tablet 04/25/2020 12:00:00 AM EST eCW1 ([facility]) Glucometer 04/25/2020 12:00:00 AM EST e CW1 ([facility]) Test Strips - 04/25/2020 12:00:00 AM EST eCW1 ([facility]) Lancets - 04/25/2020 12:00:00 AM EST e CW1 ([facility]) Acetaminophen 325 MG / Hydrocodone Bitartrate 5 MG Ora l Tablet 04/25/2020 12:00:00 AM EST eCW1 ([facility]) Ibuprofen 800 MG Oral Tablet 04/25/2020 12:00:00 AM EST eCW1 ([facility]) Glucometer 04/25/2020 12:00:00 AM EST e CW1 ([facility]) Test Strips - 04/25/2020 12:00:00 AM EST eCW1 ([facility]) Lancets - 04/25/2020 12:00:00 AM EST e CW1 ([facility]) Acetaminophen 325 MG / Hydrocodone Bitartrate 5 MG Ora l Tablet 04/25/2020 12:00:00 AM EST eCW1 ([facility]) Ibuprofen 800 MG Oral Tablet 04/25/2020 12:00:00 AM EST eCW1 ([facility]) Acetaminophen 325 MG / Hydrocodone Bitartrate 5 MG Ora l Tablet 04/25/2020 12:00:00 AM EST [facility] Glucometer 04/25/2020 12:00:00 AM EST e CW1 ([facility]) Test Strips - 04/25/2020 12:00:00 AM EST eCW1 ([facility]) Lancets - 04/25/2020 12:00:00 AM EST e CW1 ([facility]) Ibuprofen 800 MG Oral Tablet 04/25/2020 12:00:00 AM EST eCW1 ([facility]) Glucometer 04/25/2020 12:00:00 AM EST e CW1 ([facility]) Test Strips - 04/25/2020 12:00:00 AM EST eCW1 ([facility]) Glucometer 04/25/2020 12:00:00 AM EST e CW1 ([facility]) Test Strips - 04/25/2020 12:00:00 AM EST eCW1 ([facility]) Lancets - 04/25/2020 12:00:00 AM EST e CW1 ([facility]) Acetaminophen 325 MG / Hydrocodone Bitartrate 5 MG Ora l Tablet 04/25/2020 12:00:00 AM EST eCW1 ([facility]) methylPREDNISolone 4 MG Oral Tablet Therapy Pack (MEDR OL DOSEPACK) 04/14/2020 12:00:00 AM EST [facility] methylPREDNISolone 4 MG Oral Tablet Therapy Pack (MEDR OL (HUMBERTO)) 03/23/2020 12:00:00 AM EST [facility] Doxycycline Monohydrate 100 MG Oral Capsule 01/25/2020 12:00:00 AM EST eCW1 ([facility]) Doxycycline Monohydrate 100 MG Oral Capsule 01/25/2020 12:00:00 AM EST eCW1 ([facility]) Doxycycline Monohydrate 100 MG Oral Capsule 01/25/2020 12:00:00 AM EST eCW1 ([facility]) Diclofenac Sodium 0.01 MG/MG Topical Gel 11/18/2019 12:00:00 AM EDT [facility] gabapentin 300 MG Oral Capsule [facility] Hydroxyzine Pamoate 25 MG Oral Capsule [facility] Ketorolac Tromethamine 10 MG Oral Tablet [facility] Acetaminophen 325 MG / Oxycodone Hydrochloride 5 MG Oral Tablet [facility] Furosemide 40 MG Oral Tablet [facility] Sertraline 50 MG Oral Tablet [facility] Divalproex Sodium 250 MG Delayed Release Oral Tablet [facility]
[2021-01-04] MEDS ORDERED: LIDOCAINE 1% SDV 30ML VIAL As Ordered ONE (10:40)
[2021-01-04] MEDS ORDERED: BUPIVACAINE HCL 0.5% 30 ML VIAL As Ordered ONE (10:40)
[2021-01-04] MEDS ORDERED: LIDOCAINE 2% 100MG/5ML SDV (FOR ANES.) As Ordered ONE (10:48)
[2021-01-04] MEDS ORDERED: propofoL 200 MG/20 ML VIAL As Ordered ONE (10:48)
[2021-01-04] MEDS ORDERED: MIDAZOLAM INJ 2MG/2ML VIAL (J2250 PER 1MG) As Ordered ONE (10:48)
[2021-01-04] MEDS ORDERED: fentaNYL 100 MCG/2 ML INJECTION (J3010) As Ordered ONE (10:48)
[2021-01-04] MEDS ORDERED: KETOROLAC 60MG 2ML VIAL As Ordered ONE (12:00)
[2021-01-04] MEDS ORDERED: ACETAMINOPHEN 1000MG 100ML IV BTL (OFIRMEV) (J0131 PER 10MG) As Ordered ONE (12:00)
[2021-01-04] MEDS ORDERED: OXYC10TA3 PO (12:12)
[2021-01-04 13:30] VITALS: BP 134/92
--- NOTE | 2021-01-04 13:44 | RO ---
OPERATIVE NOTE DATE OF OPERATION: 01/04/2021 PREOPERATIVE DIAGNOSIS: Right foot painful hardware. POSTOPERATIVE DIAGNOSIS: Right foot painful hardware. PROCEDURE: Right foot hardware removal. SURGEON: Pasquale Bardales DPM STITCHDOWN THREAD LASTER: ANESTHESIA: Monitored anesthesia care, preop injection of 20 mL of a 1:1 mixture of 1% lidocaine plain, 1/2% Marcaine plain. ESTIMATED BLOOD LOSS: Minimal. MATERIALS: 3-0 and 4-0 Vicryl, 4-0 nylon. INJECTABLES: None. COMPLICATION: None. CONDITION: Stable. INDICATIONS: Monalisa Dubon is a 50-year-old female who had a previous right first metatarsophalangeal joint fusion. She has hardware causing her discomfort. She presents today for removal of hardware. The patient's side and site were identified and marked in the preoperative area. Consent was reviewed and obtained. The risks, complications and alternatives to the procedure were explained to the patient in detail and all questions were answered. DESCRIPTION OF PROCEDURE: The patient was brought to the operating room and placed on the operating room table in supine position. Monitored anesthesia care was delivered by the anesthesia team. A preop injection of 20 mL of 1:1 mixture of 1% Lidocaine plain, 1/2% Marcaine plain were injected into the right foot. The right foot was prepped and draped in normal sterile fashion. A tourniquet was applied to her ankle, inflated at 250 mmHg. A dorsal incision was made at the prevoius scarr and carried through with a #15 blade. Dissection was carried to the bone where the hardware was noted. There was a screw and a staple and both were removed successfully. Bone was smoothed with rasps. The site was irrigated with normal saline. Closure was performed with 3-0 and 4-0 Vicryl and skin closure with 4-0 nylon. Sterile dressings were applied. Tourniquet was deflated. The patient was brought to PACU with vital signs stable, neurovascular status intact. She will be weightbearing as tolerated and follow up in office in two days.
== END 2021-01-04 13:34 | disposition home or self-care (01) ==
LOC: M SDC 09:44
PROVIDERS: ATTEND Podiatrist Foot & Ankle Surgery
DX: T84.84XA Pain due to internal orthopedic prosthetic devices, implants and grafts, initial encounter (principal); M79.671 Pain in right foot; J45.909 Unspecified asthma, uncomplicated; G43.909 Migraine, unspecified, not intractable, without status migrainosus; F41.9 Anxiety disorder, unspecified; Z91.030 Bee allergy status; Z88.1 Allergy status to other antibiotic agents; Z88.8 Allergy status to other drugs, medicaments and biological substances
CPT/HCPCS: 20680; J0131; J0690; J1885; J2250; J3010

== ENCOUNTER 2021-04-16 15:24 | Emergency (ER) | payer MEDICARE, MEDICAID ==
[~2021-04-16] VITALS: Ht 154.9 cm; Wt 81.8 kg
[~2021-04-16 15:24] MED LIST changes: -LIDOCAINE 1% MDV 20ML VIAL SQ PRN; -LR 1,000 ML IV ONE; +OXYC10TA3 PO; -ceFAZolin SOD 2 GM in IV 1 EA IV ONE
[2021-04-16 15:38] VITALS: BP 121/81
[2021-04-16] MEDS ORDERED: ACETAMINOPHEN TAB 650MG DOSE (2X325MG) PO ONE (16:15)
== END 2021-04-16 17:10 | disposition home or self-care (01) ==
LOC: M ED 15:24
DX: S09.90XA Unspecified injury of head, initial encounter (principal); S13.4XXA Sprain of ligaments of cervical spine, initial encounter; W00.9XXA Unspecified fall due to ice and snow, initial encounter; M54.50 Low back pain, unspecified; J45.909 Unspecified asthma, uncomplicated; F41.9 Anxiety disorder, unspecified; Y92.9 Unspecified place or not applicable; Y93.9 Activity, unspecified; Y99.9 Unspecified external cause status

== ENCOUNTER → 2021-05-10 | Outpatient (CLI) | payer MEDICARE, MEDICAID ==
[~2021-05-10] MED LIST changes: -D31000TA2 PO; +VITA100093 PO
[2021-05-10 15:50] LABS: BLOOD UREA NITROGEN 10 MG/DL (7-18); CREATININE FOR GFR 0.78 MG/DL (0.55-1.30); GLOMERULAR FILTRATION RATE > 60.0 (>58)
== END ==
LOC: M LAB 13:06
PROVIDERS: ATTEND Podiatrist Foot & Ankle Surgery
DX: M79.671 Pain in right foot (principal)

== ENCOUNTER → 2021-05-12 | Outpatient (CLI) | payer MEDICARE, MEDICAID | LOC: M PLARAD 12:56 | PROVIDERS: ATTEND Podiatrist Foot & Ankle Surgery | DX: M19.071 Primary osteoarthritis, right ankle and foot (principal); M79.671 Pain in right foot ==

== ENCOUNTER → 2021-10-10 | Outpatient (CLI) | payer MEDICARE, MEDICAID ==
[2021-10-10 13:10] LABS: BASO % 0.5 % (0.0-1.0); EOS # 0.1 10^3/uL (0.0-0.5); EOS % 1.4 % (0.0-3.0); HEMATOCRIT 42.5 % (36.0-47.0); HEMOGLOBIN 14.1 g/dl (12.0-15.5); LYMPH # 4.1 10^3/uL (1.5-5.0); MEAN CORPUSCULAR HEMOGLOBIN 32.6 pg (27.0-33.0); MEAN CORPUSCULAR HGB CONC 33.2 g/dl (32.0-36.5); MEAN CORPUSCULAR VOLUME 98.4 fl (80.0-96.0); MONO # 0.7 10^3/uL (0.0-0.8); MONO % 8.7 % (2.0-8.0); NEUTROPHILS # 3.2 10^3/uL (1.5-8.5); PLATELET COUNT, AUTOMATED 328 10^3/uL (150-450); RED BLOOD COUNT 4.32 10^6/uL (4.00-5.40); WHITE BLOOD COUNT 8.1 10^3/uL (4.0-10.0)
[2021-10-10 14:04] LABS: ALT/SGPT 25 U/L (12-78); BILIRUBIN,TOTAL 0.2 MG/DL (0.2-1.0); BLOOD UREA NITROGEN 13 MG/DL (7-18); CALCIUM LEVEL 9.8 MG/DL (8.5-10.1); CARBON DIOXIDE LEVEL 31 MEQ/L (21-32); CHLORIDE LEVEL 105 MEQ/L (98-107); GLOMERULAR FILTRATION RATE > 60.0 (>51); GLUCOSE, FASTING 89 MG/DL (70-100); POTASSIUM SERUM 4.5 MEQ/L (3.5-5.1); SODIUM LEVEL 140 MEQ/L (136-145); TOTAL PROTEIN 7.8 GM/DL (6.4-8.2); VALPROIC ACID (DEPAKOTE) 61.2 UG/ML (50.0-100.0)
== END ==
LOC: M PLALAB 12:04
PROVIDERS: ATTEND Psychiatry & Neurology Neurology
DX: G40.909 Epilepsy, unspecified, not intractable, without status epilepticus (principal)

== ENCOUNTER → 2021-11-24 | Outpatient (CLI) | payer MEDICARE, MEDICAID | LOC: M LAB 11:50 | PROVIDERS: ATTEND Podiatrist Foot & Ankle Surgery | DX: E55.9 Vitamin D deficiency, unspecified (principal); Z79.899 Other long term (current) drug therapy ==

== ENCOUNTER → 2021-12-27 | Outpatient (CLI) | payer MEDICARE, MEDICAID | LOC: M PLAIMG 12:42 | PROVIDERS: ATTEND Podiatrist Foot & Ankle Surgery | DX: M77.31 Calcaneal spur, right foot (principal); M79.671 Pain in right foot ==

== ENCOUNTER → 2022-01-23 | Outpatient (CLI) | payer MEDICARE, MEDICAID ==
[2022-01-23 12:47] LABS: HEMATOCRIT 42.5 % (36.0-47.0); HEMOGLOBIN 13.7 g/dl (12.0-15.5); MEAN CORPUSCULAR HEMOGLOBIN 31.9 pg (27.0-33.0); MEAN CORPUSCULAR HGB CONC 32.2 g/dl (32.0-36.5); MEAN CORPUSCULAR VOLUME 98.8 fl (80.0-96.0); PLATELET COUNT, AUTOMATED 282 10^3/uL (150-450); WHITE BLOOD COUNT 6.7 10^3/uL (4.0-10.0)
[2022-01-23 15:35] LABS: BLOOD UREA NITROGEN 12 MG/DL (9-23); CALCIUM LEVEL 9.4 MG/DL (8.5-10.1); CARBON DIOXIDE LEVEL 29 MMOL/L (20-31); CHLORIDE LEVEL 102 MMOL/L (98-107); CREATININE FOR GFR 0.73 MG/DL (0.55-1.30); GLOMERULAR FILTRATION RATE > 60.0 (>51); GLUCOSE, FASTING 107 MG/DL (60-100); POTASSIUM SERUM 4.2 MMOL/L (3.5-5.1); SODIUM LEVEL 141 MMOL/L (136-145)
== END ==
LOC: M LAB 11:46
PROVIDERS: ATTEND Podiatrist Foot & Ankle Surgery
DX: M19.071 Primary osteoarthritis, right ankle and foot (principal); Z79.899 Other long term (current) drug therapy

== ENCOUNTER → 2022-02-11 | Outpatient (CLI) | payer MEDICARE, MEDICAID ==
[~2022-02-11] MED LIST changes: +CITA20TA6; +DIVA500T9; +NORT25CA2
== END ==
LOC: M LABSMTC 10:00
PROVIDERS: ATTEND Anesthesiology
DX: Z01.812 Encounter for preprocedural laboratory examination (principal); Z11.52 Encounter for screening for COVID-19

== ENCOUNTER 2022-02-14 13:30 | Day surgery (SDC) | payer MEDICARE, MEDICAID ==
[~2022-02-14] VITALS: Ht 154.9 cm; Wt 88.5 kg
[~2022-02-14 13:30] MED LIST changes: +ceFAZolin SOD 2 GM in IV 1 EA IV ONE
[2022-02-14] MEDS ORDERED: fentaNYL 100 MCG/2 ML INJECTION As Ordered ONE (13:32)
[2022-02-14] MEDS ORDERED: LIDOCAINE 2% 100MG/5ML SDV (FOR ANES.) As Ordered ONE (13:32)
[2022-02-14] MEDS ORDERED: ONDANSETRON 4MG 2ML VIAL As Ordered ONE (13:32)
[2022-02-14] MEDS ORDERED: ACETAMINOPHEN 1000MG 100ML IV BAG As Ordered ONE (13:32)
[2022-02-14] MEDS ORDERED: KETOROLAC 60MG 2ML VIAL As Ordered ONE (13:32)
[2022-02-14] MEDS ORDERED: propofoL 200 MG/20 ML VIAL As Ordered ONE ×3 (13:32→15:55)
[2022-02-14] MEDS ORDERED: MIDAZOLAM INJ 2MG/2ML VIAL (J2250 PER 1MG) As Ordered ONE (13:33)
[2022-02-14] MEDS ORDERED: LR 1,000 ML IV SCH (13:35)
[2022-02-14] MEDS ORDERED: BUPIVACAINE HCL 0.5% 30ML VIAL As Ordered ONE (14:42)
[2022-02-14] MEDS ORDERED: LIDOCAINE 1% MDV 20ML VIAL As Ordered ONE (14:42)
[2022-02-14 17:28] VITALS: BP 129/66
== END 2022-02-14 17:52 | disposition home or self-care (01) ==
LOC: M SDC 13:30
PROVIDERS: ATTEND Podiatrist Foot & Ankle Surgery
DX: M19.071 Primary osteoarthritis, right ankle and foot (principal)
CPT/HCPCS: 28234; 28730; C1713; J0131; J0690; J1100; J1885; J2250; J2405; J3010

== ENCOUNTER 2022-05-19 15:21 | Emergency (ER) | payer MEDICARE, MEDICAID ==
[~2022-05-19] VITALS: Ht 162.6 cm; Wt 87.1 kg
[~2022-05-19 15:21] MED LIST changes: -ceFAZolin SOD 2 GM in IV 1 EA IV ONE
[2022-05-19] MEDS ORDERED: KETOROLAC 30 MG/ML 1ML VIAL IV ONE (15:35)
[2022-05-19 15:50] LABS: HEMATOCRIT 45.7 % (36.0-47.0); HEMOGLOBIN 15.8 g/dl (12.0-15.5); MEAN CORPUSCULAR HGB CONC 34.6 g/dl (32.0-36.5); MEAN CORPUSCULAR VOLUME 92.7 fl (80.0-96.0); PLATELET COUNT, AUTOMATED 252 10^3/uL (150-450); RED BLOOD COUNT 4.93 10^6/uL (4.00-5.40); WHITE BLOOD COUNT 4.9 10^3/uL (4.0-10.0)
[2022-05-19] MEDS ORDERED: ZITHTAB PO (16:06)
[2022-05-19] MEDS ORDERED: AMOX875T2 PO (16:06)
[2022-05-19 16:15] LABS: BLOOD UREA NITROGEN 13 MG/DL (9-23); CARBON DIOXIDE LEVEL 23 MMOL/L (20-31); CHLORIDE LEVEL 100 MMOL/L (98-107); CREATININE FOR GFR 0.64 MG/DL (0.55-1.30); GLOMERULAR FILTRATION RATE > 60.0 (>51); GLUCOSE, FASTING 111 MG/DL (60-100); POTASSIUM SERUM 3.6 MMOL/L (3.5-5.1); SODIUM LEVEL 134 MMOL/L (136-145)
[2022-05-19 16:16] LABS: ATYPICAL LYMPH 2 % (0-5); LYMPHOCYTES 44 % (16-44); MONOCYTES 8 % (0-5); NEUTROPHILS 44 % (28-66)
[2022-05-19 16:17] LABS: ANISOCYTOSIS 1+; PLATELET ESTIMATE NORMAL (NORMAL)
[2022-05-19] MEDS ORDERED: AUGMENTIN 875 MG TAB PO ONE (16:30)
[2022-05-19 16:35] VITALS: BP 177/101
== END 2022-05-19 17:03 | disposition home or self-care (01) ==
LOC: EDBD 15:21 → M ED 15:21
DX: J12.9 Viral pneumonia, unspecified (principal); I10 Essential (primary) hypertension; G40.89 Other seizures; G43.909 Migraine, unspecified, not intractable, without status migrainosus; K21.9 Gastro-esophageal reflux disease without esophagitis; Z88.2 Allergy status to sulfonamides; Z88.8 Allergy status to other drugs, medicaments and biological substances; Z91.030 Bee allergy status; Z91.048 Other nonmedicinal substance allergy status; Z79.2 Long term (current) use of antibiotics; Z79.810 Long term (current) use of selective estrogen receptor modulators (SERMs); Z79.899 Other long term (current) drug therapy

== ENCOUNTER 2023-03-12 00:43 | Emergency (ER) | payer MEDICARE, MEDICAID ==
[~2023-03-12] VITALS: Ht 154.9 cm; Wt 85.3 kg
[~2023-03-12 00:43] MED LIST changes: +AMOX875T2 PO; +ZITHTAB PO
[2023-03-12] MEDS ORDERED: traMADol 50 MG TAB PO ONE (08:15)
[2023-03-12] MEDS ORDERED: TRAM50TA2 PO (08:25)
[2023-03-12] MEDS ORDERED: KETOROLAC 60MG 2ML VIAL IM ONE (09:20)
[2023-03-12 11:24] VITALS: TEMP 97; O2SAT 99
[2023-03-12 11:28] VITALS: BP 186/96
[2023-03-12] MEDS ORDERED: NAPR-837 PO (11:28)
== END 2023-03-12 12:02 | disposition home or self-care (01) ==
LOC: M ED 00:43
DX: S52.131A Displaced fracture of neck of right radius, initial encounter for closed fracture (principal); R00.1 Bradycardia, unspecified; I45.81 Long QT syndrome; J45.909 Unspecified asthma, uncomplicated; Y92.018 Other place in single-family (private) house as the place of occurrence of the external cause; Y93.K9 Activity, other involving animal care; Y99.9 Unspecified external cause status; W10.8XXA Fall (on) (from) other stairs and steps, initial encounter; Z91.048 Other nonmedicinal substance allergy status; Z88.8 Allergy status to other drugs, medicaments and biological substances; Z91.030 Bee allergy status; Z79.2 Long term (current) use of antibiotics; Z79.899 Other long term (current) drug therapy; Z79.810 Long term (current) use of selective estrogen receptor modulators (SERMs)
CPT/HCPCS: 73030; 73060; 73080; 73090; 80047; 93005; 96372; 99284; J1885

== ENCOUNTER → 2023-03-22 | Outpatient (CLI) | payer MEDICARE, MEDICAID ==
[~2023-03-22] MED LIST changes: +NAPR-837 PO
[2023-03-22 09:34] LABS: BASO % 0.6 % (0.0-1.0); EOS # 0.1 10^3/uL (0.0-0.5); HEMATOCRIT 43.3 % (36.0-47.0); HEMOGLOBIN 14.5 g/dl (12.0-15.5); LYMPH # 2.4 10^3/uL (1.5-5.0); LYMPH % 35.3 % (24.0-44.0); MEAN CORPUSCULAR HEMOGLOBIN 32.3 pg (27.0-33.0); MEAN CORPUSCULAR HGB CONC 33.5 g/dl (32.0-36.5); MEAN CORPUSCULAR VOLUME 96.4 fl (80.0-96.0); MONO # 0.4 10^3/uL (0.0-0.8); MONO % 6.5 % (2.0-8.0); NEUTROPHILS # 3.8 10^3/uL (1.5-8.5); NEUTROPHILS % 56.5 % (36.0-66.0); PLATELET COUNT, AUTOMATED 289 10^3/uL (150-450); RED BLOOD COUNT 4.49 10^6/uL (4.00-5.40); WHITE BLOOD COUNT 6.7 10^3/uL (4.0-10.0)
[2023-03-22 09:50] LABS: VALPROIC ACID (DEPAKOTE) 7.8 UG/ML (50.0-100.0)
[2023-03-22 09:52] LABS: ALBUMIN 3.7 G/DL (3.2-5.2); ALKALINE PHOSPHATASE 100 U/L (46-116); ALT/SGPT 33 U/L (7.0-40); AST/SGOT 22 U/L (<34); BILIRUBIN,TOTAL 0.4 MG/DL (0.3-1.2); BLOOD UREA NITROGEN 11 MG/DL (9-23); CALCIUM LEVEL 9.6 MG/DL (8.5-10.1); CARBON DIOXIDE LEVEL 30 MMOL/L (20-31); CHLORIDE LEVEL 103 MMOL/L (98-107); CREATININE FOR GFR 0.65 MG/DL (0.55-1.30); GLOMERULAR FILTRATION RATE > 60.0 (>51); GLUCOSE, FASTING 112 MG/DL (60-100); POTASSIUM SERUM 4.1 MMOL/L (3.5-5.1); SODIUM LEVEL 141 MMOL/L (136-145); TOTAL PROTEIN 6.9 G/DL (5.7-8.2)
== END ==
LOC: M LAB 08:25
PROVIDERS: ATTEND Psychiatry & Neurology Neurology
DX: R56.9 Unspecified convulsions (principal)

== ENCOUNTER → 2023-03-22 | Outpatient (CLI) | payer MEDICARE, MEDICAID ==
[2023-03-22 09:28] LABS: HEMOGLOBIN A1c 5.6 % (4.0-6.0)
[2023-03-22 09:33] LABS: BASO % 0.6 % (0.0-1.0); EOS # 0.1 10^3/uL (0.0-0.5); EOS % 1.3 % (0.0-3.0); HEMATOCRIT 43.1 % (36.0-47.0); HEMOGLOBIN 14.4 g/dl (12.0-15.5); LYMPH # 2.2 10^3/uL (1.5-5.0); LYMPH % 35.3 % (24.0-44.0); MEAN CORPUSCULAR HEMOGLOBIN 32.2 pg (27.0-33.0); MEAN CORPUSCULAR HGB CONC 33.4 g/dl (32.0-36.5); MEAN CORPUSCULAR VOLUME 96.4 fl (80.0-96.0); MONO # 0.3 10^3/uL (0.0-0.8); MONO % 5.4 % (2.0-8.0); NEUTROPHILS # 3.6 10^3/uL (1.5-8.5); NEUTROPHILS % 57.2 % (36.0-66.0); PLATELET COUNT, AUTOMATED 283 10^3/uL (150-450); RED BLOOD COUNT 4.47 10^6/uL (4.00-5.40); WHITE BLOOD COUNT 6.4 10^3/uL (4.0-10.0)
[2023-03-22 09:55] LABS: ALBUMIN 3.7 G/DL (3.2-5.2); ALKALINE PHOSPHATASE 99 U/L (46-116); ALT/SGPT 32 U/L (7.0-40); AST/SGOT 21 U/L (<34); BILIRUBIN,TOTAL 0.4 MG/DL (0.3-1.2); BLOOD UREA NITROGEN 11 MG/DL (9-23); CALCIUM LEVEL 9.9 MG/DL (8.5-10.1); CARBON DIOXIDE LEVEL 30 MMOL/L (20-31); CHLORIDE LEVEL 103 MMOL/L (98-107); CHOLESTEROL LEVEL 202 MG/DL (<200); CHOLESTEROL RISK RATIO 2.69 (<5); CREATININE FOR GFR 0.65 MG/DL (0.55-1.30); GLOMERULAR FILTRATION RATE > 60.0 (>51); GLUCOSE, FASTING 114 MG/DL (60-100); LDL CHOLESTEROL 105.4 MG/DL (<100); SODIUM LEVEL 138 MMOL/L (136-145); TOTAL PROTEIN 6.8 G/DL (5.7-8.2); TRIGLYCERIDES LEVEL 108 MG/DL (<150)
[2023-03-22 09:57] LABS: FREE T4 1.02 NG/DL (0.89-1.76); THYROID STIMULATING HORMONE 2.033 uIU/ML (0.55-4.78)
[2023-03-22 09:58] LABS: TOTAL 25(OH) VITAMIN D 40.3 NG/ML (20.0-100.0)
== END ==
LOC: M LAB 08:27
PROVIDERS: ATTEND Physician Assistant
DX: Z00.00 Encounter for general adult medical examination without abnormal findings (principal); F41.9 Anxiety disorder, unspecified; I10 Essential (primary) hypertension; Z79.899 Other long term (current) drug therapy

== ENCOUNTER → 2023-03-22 | Outpatient (CLI) | payer MEDICARE, MEDICAID | LOC: M RAD 08:22 | PROVIDERS: ATTEND Orthopaedic Surgery Hand Surgery | DX: S50.01XA Contusion of right elbow, initial encounter (principal); Y93.9 Activity, unspecified; Y92.9 Unspecified place or not applicable ==

== ENCOUNTER → 2023-09-25 | Outpatient (CLI) | payer MEDICARE, MEDICAID | LOC: M PAIN 08:30 | PROVIDERS: ATTEND Anesthesiology | DX: M51.16 Intervertebral disc disorders with radiculopathy, lumbar region (principal); G89.29 Other chronic pain; F41.9 Anxiety disorder, unspecified; G43.709 Chronic migraine without aura, not intractable, without status migrainosus; I10 Essential (primary) hypertension; K21.9 Gastro-esophageal reflux disease without esophagitis; G40.909 Epilepsy, unspecified, not intractable, without status epilepticus; Z79.899 Other long term (current) drug therapy; Z91.030 Bee allergy status; Z88.2 Allergy status to sulfonamides; Z88.8 Allergy status to other drugs, medicaments and biological substances; Z91.048 Other nonmedicinal substance allergy status | CPT/HCPCS: 76000; G0463 ==

== ENCOUNTER 2023-11-20 09:00 | Day surgery (SDC) | payer MEDICARE, MEDICAID ==
[~2023-11-20] VITALS: Ht 154.9 cm; Wt 85.3 kg
[2023-11-20] MEDS ORDERED: MIDAZOLAM INJ 2MG/2ML VIAL As Ordered ONE (09:24)
[2023-11-20] MEDS ORDERED: ACETAMINOPHEN 1000MG 100ML IV BAG As Ordered ONE (09:25)
[2023-11-20] MEDS ORDERED: LIDOCAINE 2% 100MG/5ML SDV (FOR ANES.) As Ordered ONE (09:25)
[2023-11-20] MEDS ORDERED: propofoL 200 MG/20 ML VIAL As Ordered ONE (09:25)
[2023-11-20] MEDS ORDERED: LR 1,000 ML IV SCH (09:45)
[2023-11-20] MEDS: ceFAZolin SOD 2 GM in IV 1 EA IV ONE (10:41)
[2023-11-20] MEDS: LIDOCAINE 1% SDV 30ML VIAL As Ordered ONE (10:42)
[2023-11-20] MEDS ORDERED: ONDANSETRON 4MG 2ML VIAL As Ordered ONE (10:47)
[2023-11-20] MEDS ORDERED: KETOROLAC 60MG 2ML VIAL As Ordered ONE (10:47)
[2023-11-20 11:46] VITALS: BP 141/87; TEMP 97.9; O2SAT 95
== END 2023-11-20 11:52 | disposition home or self-care (01) ==
LOC: M SDC 09:00
PROVIDERS: ATTEND Podiatrist Foot & Ankle Surgery
DX: T84.84XA Pain due to internal orthopedic prosthetic devices, implants and grafts, initial encounter (principal); G43.909 Migraine, unspecified, not intractable, without status migrainosus; J45.909 Unspecified asthma, uncomplicated; Z91.030 Bee allergy status; Z88.8 Allergy status to other drugs, medicaments and biological substances; Z79.899 Other long term (current) drug therapy; F41.9 Anxiety disorder, unspecified
CPT/HCPCS: 20680; 76000; 93005; J0131; J0665; J0690; J1885; J2250; J2405

== ENCOUNTER → 2024-03-16 | Outpatient (REF) | payer MEDICARE, MEDICAID ==
[~2024-03-16] MED LIST changes: +GABA-1172 PO; -GABA-282 PO
[2024-03-16 18:49] LABS: BASO % 0.6 % (0.0-1.0); EOS # 0.1 10^3/uL (0.0-0.5); HEMOGLOBIN 14.9 g/dl (12.0-15.5); LYMPH # 2.4 10^3/uL (1.5-5.0); LYMPH % 34.9 % (24.0-44.0); MEAN CORPUSCULAR HGB CONC 33.9 g/dl (32.0-36.5); MEAN CORPUSCULAR VOLUME 94.4 fl (80.0-96.0); MONO # 0.5 10^3/uL (0.0-0.8); MONO % 7.1 % (2.0-8.0); NEUTROPHILS # 3.9 10^3/uL (1.5-8.5); NEUTROPHILS % 56.3 % (36.0-66.0); PLATELET COUNT, AUTOMATED 295 10^3/uL (150-450); RED BLOOD COUNT 4.66 10^6/uL (4.00-5.40)
[2024-03-16 18:53] LABS: ALBUMIN 3.8 G/DL (3.2-5.2); ALKALINE PHOSPHATASE 96 U/L (35-104); ALT/SGPT 18 U/L (7.0-40); AST/SGOT 21 U/L (<34); BILIRUBIN,TOTAL 0.5 MG/DL (0.3-1.2); BLOOD UREA NITROGEN 14 MG/DL (9-23); CALCIUM LEVEL 10.2 MG/DL (8.5-10.1); CARBON DIOXIDE LEVEL 27 MMOL/L (20-31); CHLORIDE LEVEL 104 MMOL/L (98-107); CHOLESTEROL LEVEL 184 MG/DL (<200); CHOLESTEROL RISK RATIO 2.34 (<5); CREATININE FOR GFR 0.65 MG/DL (0.55-1.30); GLOMERULAR FILTRATION RATE > 60.0 (>51); GLUCOSE, FASTING 93 MG/DL (60-100); HDL CHOLESTEROL 78.6 MG/DL (>40); NON-HDL-C 105.4 MG/DL; POTASSIUM SERUM 4.1 MMOL/L (3.5-5.1); SODIUM LEVEL 141 MMOL/L (136-145); TOTAL PROTEIN 7.4 G/DL (5.7-8.2); TRIGLYCERIDES LEVEL 97 MG/DL (<150)
[2024-03-16 18:56] LABS: THYROID STIMULATING HORMONE 0.792 uIU/ML (0.55-4.78); TOTAL 25(OH) VITAMIN D 34.2 NG/ML (20.0-100.0)
[2024-03-16 18:57] LABS: VITAMIN B12 LEVEL 404 PG/ML (211-911)
[2024-03-16 19:55] LABS: HEMOGLOBIN A1c 5.4 % (4.0-6.0)
== END ==
LOC: M SFHCLERA 11:44
DX: I10 Essential (primary) hypertension (principal); F41.9 Anxiety disorder, unspecified; R56.9 Unspecified convulsions; G89.29 Other chronic pain; M54.50 Low back pain, unspecified; G43.909 Migraine, unspecified, not intractable, without status migrainosus; R73.01 Impaired fasting glucose; K21.9 Gastro-esophageal reflux disease without esophagitis; R45.86 Emotional lability; Z79.899 Other long term (current) drug therapy

== ENCOUNTER → 2024-04-28 | Outpatient (CLI) | payer MEDICARE, MEDICAID | LOC: M RAD 07:46 | DX: R10.12 Left upper quadrant pain (principal) ==

== ENCOUNTER 2024-04-30 20:35 | Emergency (ER) | payer MEDICARE, MEDICAID ==
[~2024-04-30] VITALS: Ht 154.9 cm; Wt 87.9 kg
[2024-04-30 21:31] VITALS: BP 128/86; TEMP 96.8; O2SAT 98
== END 2024-04-30 23:15 | disposition left against medical advice (07) ==
LOC: M ED 20:35
DX: Z53.21 Procedure and treatment not carried out due to patient leaving prior to being seen by health care provider (principal)

== ENCOUNTER 2024-05-01 14:40 | Emergency (ER) | payer MEDICARE, MEDICAID ==
[~2024-05-01] VITALS: Ht 154.9 cm; Wt 84.1 kg
[2024-05-01 15:45] LABS: BASO # 0.1 10^3/uL (0.0-0.2); BASO % 0.6 % (0.0-1.0); EOS # 0.1 10^3/uL (0.0-0.5); EOS % 1.1 % (0.0-3.0); HEMATOCRIT 41.6 % (36.0-47.0); HEMOGLOBIN 14.1 g/dl (12.0-15.5); LYMPH # 3.6 10^3/uL (1.5-5.0); LYMPH % 37.9 % (24.0-44.0); MEAN CORPUSCULAR HEMOGLOBIN 31.7 pg (27.0-33.0); MEAN CORPUSCULAR HGB CONC 33.9 g/dl (32.0-36.5); MEAN CORPUSCULAR VOLUME 93.5 fl (80.0-96.0); MONO # 0.7 10^3/uL (0.0-0.8); MONO % 7.7 % (2.0-8.0); NEUTROPHILS % 52.5 % (36.0-66.0); PLATELET COUNT, AUTOMATED 381 10^3/uL (150-450); RED BLOOD COUNT 4.45 10^6/uL (4.00-5.40); WHITE BLOOD COUNT 9.4 10^3/uL (4.0-10.0)
[2024-05-01 15:57] LABS: INR 0.95
[2024-05-01 16:07] LABS: CK-MB VALUE MASS < 1.0 NG/ML (<3.6)
[2024-05-01 16:09] LABS: ALBUMIN 3.9 G/DL (3.2-5.2); ALKALINE PHOSPHATASE 96 U/L (35-104); ALT/SGPT 17 U/L (7.0-40); AST/SGOT 18 U/L (<34); BILIRUBIN,TOTAL 0.5 MG/DL (0.3-1.2); BLOOD UREA NITROGEN 20 MG/DL (9-23); CALCIUM LEVEL 10.3 MG/DL (8.5-10.1); CARBON DIOXIDE LEVEL 31 MMOL/L (20-31); CHLORIDE LEVEL 100 MMOL/L (98-107); CPK CREATINE PHOSPHOKINASE 82 U/L (34-145); GLOMERULAR FILTRATION RATE > 60.0 (>51); GLUCOSE, FASTING 110 MG/DL (60-100); MB/CK RELATIVE INDEX 1.21 (< OR =4); POTASSIUM SERUM 4.5 MMOL/L (3.5-5.1); SODIUM LEVEL 139 MMOL/L (136-145); TOTAL PROTEIN 7.6 G/DL (5.7-8.2)
[2024-05-02 03:00] VITALS: TEMP 97.1
[2024-05-02] MEDS ORDERED: ISOVUE-370 76% 100ML VIAL As Ordered ONE (03:02)
[2024-05-02] MEDS: ONDANSETRON 4MG 2ML VIAL IV ONE (03:13)
[2024-05-02] MEDS: NS (Normal Saline) 0.9% 1,000 ML IV ONE ×2 (03:15→05:01)
[2024-05-02] MEDS: ACETAMINOPHEN *IV* 1,000 MG in IV 1 EA IV ONE (03:40)
[2024-05-02 05:13] VITALS: BP 141/65
[2024-05-02 05:45] VITALS: O2SAT 96
[2024-05-02] MEDS: traMADol 50 MG TAB PO ONE (06:30)
[2024-05-02] MEDS: traMADol 50 MG TAB (HOME DOSE PACK) PO ONE (06:50)
== END 2024-05-02 07:07 | disposition home or self-care (01) ==
LOC: M ED 14:40
DX: R10.9 Unspecified abdominal pain (principal); E86.0 Dehydration; K21.9 Gastro-esophageal reflux disease without esophagitis; F41.9 Anxiety disorder, unspecified; F32.A Depression, unspecified; Z91.030 Bee allergy status; Z91.048 Other nonmedicinal substance allergy status; Z88.2 Allergy status to sulfonamides; Z88.8 Allergy status to other drugs, medicaments and biological substances; Z79.899 Other long term (current) drug therapy
CPT/HCPCS: 74177; 80053; 82550; 82553; 84484; 85025; 85610; 86850; 86900; 86901; 93005; 96361; 96365; 96366; 99284; J0131; Q9967

== ENCOUNTER → 2024-06-08 | Outpatient (CLI) | payer MEDICARE, MEDICAID ==
[~2024-06-08] MED LIST changes: +AIMO70IN2 SQ; +CITA30CA PO; +HYDR-3363 PO; +HYDR12.55 PO; +ISOVUE-370 76% 100ML VIAL ONE; -NORT25CA2; +NORT25CA2 PO; +THERTAB52 PO
== END ==
LOC: M PLAIMG 12:16
PROVIDERS: ATTEND Physician Assistant Medical
DX: L03.211 Cellulitis of face (principal)

== ENCOUNTER 2024-06-09 10:41 | Observation (INO) | payer MEDICARE, MEDICAID ==
[~2024-06-09] VITALS: Ht 154.9 cm; Wt 89.4 kg
[~2024-06-09 10:41] MED LIST changes: -AIMO70IN2 SQ; -CITA30CA PO; -HYDR-3363 PO; -HYDR12.55 PO; -THERTAB52 PO
[2024-06-09] MEDS ORDERED: MAALOX 30 ML SUSP *UDC PO PRN (14:10)
[2024-06-09] MEDS ORDERED: MOM 30ML SUSPENSION UDC PO PRN (14:10)
[2024-06-09] MEDS: cefTRIAXone SOD 2 GM in DEXTROSE 5% (D5W) ADV/MINI-BAG 50 ML IV ONE (14:22)
[2024-06-09] MEDS ORDERED: THERTAB52 PO (14:39)
[2024-06-09] MEDS ORDERED: HYDR-3363 PO (14:39)
[2024-06-09] MEDS ORDERED: AIMO70IN2 SQ (14:39)
[2024-06-09] MEDS ORDERED: HYDR12.55 PO (14:39)
[2024-06-09] MEDS ORDERED: CITA30CA PO (14:39)
[2024-06-09] MEDS ORDERED: HOME MED LIST COMPLETE! XX SCH (14:40)
[2024-06-09] MEDS: VANCOMYCIN HCL 1,750 MG, VIAL MATE ADAPTER 1 EACH in NS 500 ML IV ONE (15:12)
[2024-06-09 15:28] LABS: CK-MB VALUE MASS < 1.0 NG/ML (<3.6)
[2024-06-09 15:30] LABS: CPK CREATINE PHOSPHOKINASE 75 U/L (34-145); MB/CK RELATIVE INDEX 1.33 (< OR =4)
[2024-06-09] MEDS ORDERED: LORazepam 1 MG TAB PO PRN (16:40)
[2024-06-09] MEDS ORDERED: SUMAtriptan SUCCINATE 25MG TABLET PO PRN (16:40)
[2024-06-09] MEDS: predniSONE 20 MG TAB PO ONE (16:52)
[2024-06-09] MEDS: AMPICILLIN SOD/SULBACTAM SOD 3 GM in DEXTROSE 5% (D5W) MINI-BAG PLU 100 ML IV SCH (17:24)
[2024-06-09 19:57] VITALS: BP 159/92; TEMP 97.9
[2024-06-09] MEDS: NORTRIPTYLINE 25 MG CAP PO SCH (20:05)
[2024-06-09] MEDS: PANTOPRAZOLE 40MG TAB (PROTONIX) PO SCH (20:05)
[2024-06-09] MEDS: ACETAMINOPHEN 325 MG TAB PO PRN (20:05)
[2024-06-09] MEDS: DOCUSATE SODIUM 100MG CAPSULE PO SCH (20:05)
[2024-06-09] MEDS: diphenhydrAMINE 25MG CAP PO ONE (21:02)
[2024-06-09] MEDS: KETOROLAC 30 MG/ML 1ML VIAL IV ONE (21:02)
[2024-06-09] MEDS ORDERED: VANCOMYCIN HCL 1,000 MG, VIAL MATE ADAPTER 1 EACH in NS 250 ML IV SCH (22:00)
[2024-06-10 05:04] VITALS: BP 127/79; TEMP 97.9; O2SAT 96
[2024-06-10] MEDS: KETOROLAC 30 MG/ML 1ML VIAL IV PRN (05:16)
[2024-06-10 06:53] LABS: BASO % 0.3 % (0.0-1.0); HEMATOCRIT 39.2 % (36.0-47.0); HEMOGLOBIN 13.1 g/dl (12.0-15.5); LYMPH # 1.3 10^3/uL (1.5-5.0); LYMPH % 17.1 % (24.0-44.0); MEAN CORPUSCULAR HEMOGLOBIN 31.3 pg (27.0-33.0); MEAN CORPUSCULAR HGB CONC 33.4 g/dl (32.0-36.5); MEAN CORPUSCULAR VOLUME 93.6 fl (80.0-96.0); MONO # 0.4 10^3/uL (0.0-0.8); MONO % 4.8 % (2.0-8.0); NEUTROPHILS % 77.4 % (36.0-66.0); PLATELET COUNT, AUTOMATED 339 10^3/uL (150-450); RED BLOOD COUNT 4.19 10^6/uL (4.00-5.40); WHITE BLOOD COUNT 7.8 10^3/uL (4.0-10.0)
[2024-06-10 07:22] LABS: BLOOD UREA NITROGEN 17 MG/DL (9-23); C REACTIVE PROTEIN QUANTITATIV 0.74 MG/DL (<1.0); CALCIUM LEVEL 9.4 MG/DL (8.5-10.1); CARBON DIOXIDE LEVEL 28 MMOL/L (20-31); CHLORIDE LEVEL 101 MMOL/L (98-107); CREATININE FOR GFR 0.71 MG/DL (0.55-1.30); GLOMERULAR FILTRATION RATE > 60.0 (>51); GLUCOSE, FASTING 136 MG/DL (60-100); MAGNESIUM LEVEL 1.8 MG/DL (1.8-2.4); POTASSIUM SERUM 3.8 MMOL/L (3.5-5.1); SODIUM LEVEL 138 MMOL/L (136-145)
[2024-06-10] MEDS ORDERED: ISOVUE-370 76% 100ML VIAL As Ordered ONE (07:35)
[2024-06-10] MEDS: SUCRALFATE SUSP 1GM/10ML UD PO SCH (08:42)
[2024-06-10] MEDS: predniSONE 20 MG TAB PO SCH (08:45)
[2024-06-10] MEDS: MULTIVITAMINS/MINERALS THERAP 1 TAB PO SCH (08:46)
[2024-06-10] MEDS: CitaloPRAM (CeleXA) 10 MG TABLET PO SCH (08:47)
[2024-06-10] MEDS: VITAMIN D 1,000 INTERNATIONAL UNITS TABLET PO SCH (08:48)
[2024-06-10] MEDS: hydroCHLOROthiazide 12.5 MG CAPSULE PO SCH (08:48)
[2024-06-10] MEDS: ENOXAPARIN 40MG/0.4ML SYRINGE (J1650 PER 10MG) SC SCH (08:50)
[2024-06-10] MEDS ORDERED: E-Z-GAS II EFFERVESCENT PACKET (SODIUM BICARB./CITRIC ACID/SIMETHICONE) As Ordered ONE (10:42)
[2024-06-10] MEDS ORDERED: E-Z-HD 98% w/w 340GM SUSP BTL As Ordered ONE (10:42)
[2024-06-10] MEDS ORDERED: E-Z-PAQUE 96% w/w SUSP 176GM BTL As Ordered ONE (10:42)
[2024-06-10 13:30] VITALS: BP 136/72; TEMP 98.2; O2SAT 95
[2024-06-10] MEDS: traMADol 50 MG TAB PO ONE (18:45)
[2024-06-10 20:13] VITALS: BP 143/79; TEMP 98.1; O2SAT 94
[2024-06-10] MEDS: diphenhydrAMINE 25MG CAP PO SCH (21:35)
[2024-06-10] MEDS: traMADol 50 MG TAB PO PRN (21:36)
[2024-06-11 04:38] VITALS: BP 135/78; TEMP 97.7
[2024-06-11 06:15] LABS: BASO # 0.1 10^3/uL (0.0-0.2); BASO % 0.5 % (0.0-1.0); EOS # 0.1 10^3/uL (0.0-0.5); EOS % 0.8 % (0.0-3.0); HEMATOCRIT 38.8 % (36.0-47.0); HEMOGLOBIN 12.7 g/dl (12.0-15.5); LYMPH # 4.3 10^3/uL (1.5-5.0); MEAN CORPUSCULAR HEMOGLOBIN 30.8 pg (27.0-33.0); MEAN CORPUSCULAR HGB CONC 32.7 g/dl (32.0-36.5); MEAN CORPUSCULAR VOLUME 93.9 fl (80.0-96.0); MONO # 0.6 10^3/uL (0.0-0.8); MONO % 5.9 % (2.0-8.0); NEUTROPHILS # 5.4 10^3/uL (1.5-8.5); NEUTROPHILS % 51.5 % (36.0-66.0); PLATELET COUNT, AUTOMATED 319 10^3/uL (150-450); RED BLOOD COUNT 4.13 10^6/uL (4.00-5.40); WHITE BLOOD COUNT 10.5 10^3/uL (4.0-10.0)
[2024-06-11 06:27] LABS: BLOOD UREA NITROGEN 15 MG/DL (9-23); C REACTIVE PROTEIN QUANTITATIV < 0.50 MG/DL (<1.0); CALCIUM LEVEL 8.9 MG/DL (8.5-10.1); CARBON DIOXIDE LEVEL 31 MMOL/L (20-31); CHLORIDE LEVEL 103 MMOL/L (98-107); GLOMERULAR FILTRATION RATE > 60.0 (>51); GLUCOSE, FASTING 109 MG/DL (60-100); POTASSIUM SERUM 3.9 MMOL/L (3.5-5.1); SODIUM LEVEL 141 MMOL/L (136-145)
[2024-06-11 11:04] LABS: LIPASE 49 U/L (12-53)
[2024-06-11] MEDS: SUCRALFATE 1 GM TAB PO SCH (12:00)
[2024-06-11 12:32] VITALS: BP 118/81; TEMP 98.1; O2SAT 94
[2024-06-11 20:04] VITALS: BP 148/89; TEMP 98.1; O2SAT 94
[2024-06-11] MEDS: AUGMENTIN 875 MG TAB PO SCH (20:30)
[2024-06-12 05:13] VITALS: BP 149/88; TEMP 97.9; O2SAT 90
[2024-06-12 06:11] LABS: BASO % 0.3 % (0.0-1.0); EOS % 0.3 % (0.0-3.0); HEMATOCRIT 39.2 % (36.0-47.0); LYMPH # 4.3 10^3/uL (1.5-5.0); LYMPH % 35.3 % (24.0-44.0); MEAN CORPUSCULAR HEMOGLOBIN 31.5 pg (27.0-33.0); MEAN CORPUSCULAR HGB CONC 33.2 g/dl (32.0-36.5); MEAN CORPUSCULAR VOLUME 94.9 fl (80.0-96.0); MONO # 0.7 10^3/uL (0.0-0.8); MONO % 5.5 % (2.0-8.0); NEUTROPHILS # 7.1 10^3/uL (1.5-8.5); NEUTROPHILS % 58.3 % (36.0-66.0); PLATELET COUNT, AUTOMATED 314 10^3/uL (150-450); RED BLOOD COUNT 4.13 10^6/uL (4.00-5.40); WHITE BLOOD COUNT 12.2 10^3/uL (4.0-10.0)
[2024-06-12 06:42] LABS: BLOOD UREA NITROGEN 12 MG/DL (9-23); C REACTIVE PROTEIN QUANTITATIV < 0.50 MG/DL (<1.0); CALCIUM LEVEL 9.3 MG/DL (8.5-10.1); CARBON DIOXIDE LEVEL 28 MMOL/L (20-31); CHLORIDE LEVEL 100 MMOL/L (98-107); CREATININE FOR GFR 0.62 MG/DL (0.55-1.30); GLOMERULAR FILTRATION RATE > 60.0 (>51); GLUCOSE, FASTING 89 MG/DL (60-100); POTASSIUM SERUM 3.8 MMOL/L (3.5-5.1); SODIUM LEVEL 138 MMOL/L (136-145)
[2024-06-12] MEDS: predniSONE 10MG TAB PO SCH (09:15)
[2024-06-12] MEDS ORDERED: AMOX875T2 PO (11:26)
[2024-06-12] MEDS ORDERED: SUCR1TA PO (11:26)
[2024-06-12] MEDS ORDERED: DIPH-435 PO (11:26)
[2024-06-12] MEDS ORDERED: PRED10TA2 PO (11:26)
[2024-06-12] MEDS ORDERED: PANT40TA29 PO (11:26)
[2024-06-12 12:00] VITALS: BP 131/87; TEMP 97.9
[2024-06-12] MEDS ORDERED: LIDOCAINE 2% 100MG/5ML SDV (FOR ANES.) As Ordered ONE (13:27)
[2024-06-12] MEDS ORDERED: propofoL 200 MG/20 ML VIAL As Ordered ONE (13:27)
[2024-06-12] MEDS ORDERED: dexmedeTOMIDine (4MCG/ML)200MCG/50ML BTL (PRECEDEX) As Ordered ONE (14:29)
[2024-06-12 15:20] VITALS: BP 101/60; TEMP 97.9; O2SAT 91
[2024-06-12] MEDS: HYOSCYAMINE SULFATE 0.125 MG SUBL TABLET PO SCH (16:31)
[2024-06-12] MEDS ORDERED: HYOS125TA PO (16:53)
[2024-06-14] MEDS ORDERED: predniSONE 20 MG TAB PO SCH (09:00)
[2024-06-16] MEDS ORDERED: predniSONE 10MG TAB PO SCH (09:00)
== END 2024-06-12 18:15 | disposition home or self-care (01) ==
LOC: M ED 10:41 → M ED INP 14:09 → M MS5PR 16:20
PROVIDERS: ADMIT Internal Medicine; ATTEND Internal Medicine
DX: L03.213 Periorbital cellulitis (principal); R10.13 Epigastric pain; R10.12 Left upper quadrant pain; K30 Functional dyspepsia; K31.89 Other diseases of stomach and duodenum; I10 Essential (primary) hypertension; G43.909 Migraine, unspecified, not intractable, without status migrainosus; F41.9 Anxiety disorder, unspecified; F32.A Depression, unspecified; E55.9 Vitamin D deficiency, unspecified; Z88.1 Allergy status to other antibiotic agents; Z88.8 Allergy status to other drugs, medicaments and biological substances; Z91.030 Bee allergy status; Z79.52 Long term (current) use of systemic steroids; Z79.899 Other long term (current) drug therapy
CPT/HCPCS: 36415; 43239; 71045; 74177; 74246; 80048; 80053; 82550; 82553; 83605; 83690; 83735; 84145; 84484; 85025; 85652; 86140; 87040; 87641; 88305; 93005; 96365; 96366; 96367; 96375; 96376; 99284; G0378; J0295; J0696; J1650; J1885; J3371; J7512; Q9967

== ENCOUNTER → 2024-06-09 | Outpatient (CLI) | payer MEDICARE, MEDICAID ==
[~2024-06-09] MED LIST changes: -ISOVUE-370 76% 100ML VIAL ONE
[2024-06-09 09:56] LABS: BASO % 0.7 % (0.0-1.0); EOS # 0.1 10^3/uL (0.0-0.5); EOS % 2.3 % (0.0-3.0); HEMATOCRIT 42.2 % (36.0-47.0); HEMOGLOBIN 14.3 g/dl (12.0-15.5); LYMPH # 2.1 10^3/uL (1.5-5.0); LYMPH % 33.6 % (24.0-44.0); MEAN CORPUSCULAR HEMOGLOBIN 32.1 pg (27.0-33.0); MEAN CORPUSCULAR HGB CONC 33.9 g/dl (32.0-36.5); MEAN CORPUSCULAR VOLUME 94.6 fl (80.0-96.0); MONO # 0.5 10^3/uL (0.0-0.8); NEUTROPHILS # 3.4 10^3/uL (1.5-8.5); NEUTROPHILS % 55.2 % (36.0-66.0); PLATELET COUNT, AUTOMATED 309 10^3/uL (150-450); RED BLOOD COUNT 4.46 10^6/uL (4.00-5.40); WHITE BLOOD COUNT 6.1 10^3/uL (4.0-10.0)
[2024-06-09 10:02] LABS: ERYTHROCYTE SEDIMENTATION RATE 34 mm/hr (0-30)
[2024-06-09 10:23] LABS: ALBUMIN 3.7 G/DL (3.2-5.2); ALKALINE PHOSPHATASE 93 U/L (35-104); ALT/SGPT 23 U/L (7.0-40); AST/SGOT 22 U/L (<34); BILIRUBIN,TOTAL 0.4 MG/DL (0.3-1.2); BLOOD UREA NITROGEN 13 MG/DL (9-23); C REACTIVE PROTEIN QUANTITATIV 0.63 MG/DL (<1.0); CALCIUM LEVEL 10.1 MG/DL (8.5-10.1); CARBON DIOXIDE LEVEL 30 MMOL/L (20-31); CHLORIDE LEVEL 104 MMOL/L (98-107); CREATININE FOR GFR 0.78 MG/DL (0.55-1.30); GLOMERULAR FILTRATION RATE > 60.0 (>51); GLUCOSE, FASTING 111 MG/DL (60-100); POTASSIUM SERUM 4.2 MMOL/L (3.5-5.1); SODIUM LEVEL 142 MMOL/L (136-145); TOTAL PROTEIN 7.5 G/DL (5.7-8.2)
== END ==
LOC: M LAB 09:32
PROVIDERS: ATTEND Physician Assistant Medical
DX: L03.211 Cellulitis of face (principal)

== ENCOUNTER → 2024-07-07 | Outpatient (CLI) | payer MEDICARE, MEDICAID ==
[~2024-07-07] MED LIST changes: +AIMO70IN2 SQ; +CITA30CA PO; +DIPH-435 PO; +HYDR-3363 PO; +HYDR12.55 PO; +HYOS125TA PO; +PRED10TA2 PO; +THERTAB52 PO
[2024-07-07 11:17] LABS: APPEARANCE, URINE HAZY (CLEAR); BACTERIA, URINE AUTO 3+ (NEGATIVE); BILIRUBIN, URINE AUTO NEGATIVE (NEGATIVE); BLOOD, URINE BLOOD 1+ (NEGATIVE); COLOR, URINE YELLOW (YELLOW); GLUCOSE, URINE (UA) AUTO NEGATIVE (NEGATIVE); KETONE, URINE AUTO NEGATIVE (NEGATIVE); LEUKOCYTE ESTERASE, URINE AUTO 2+ (NEGATIVE); NITRITE, URINE AUTO POSITIVE (NEGATIVE); PROTEIN, URINE AUTO NEGATIVE (NEGATIVE); RBC, URINE AUTO 5 /HPF (0-3); SPECIFIC GRAVITY URINE AUTO 1.012 (1.002-1.035); SQUAMOUS EPITHELIAL CELL UR AU 1 /HPF (0-6); UROBILINOGEN, URINE AUTO 0.2 mg/dL (0.0-2.0); WBC, URINE AUTO 28 /HPF (0-3)
[2024-07-07 11:20] LABS: BASO # 0.1 10^3/uL (0.0-0.2); BASO % 0.7 % (0.0-1.0); EOS # 0.1 10^3/uL (0.0-0.5); HEMATOCRIT 40.5 % (36.0-47.0); HEMOGLOBIN 13.3 g/dl (12.0-15.5); LYMPH # 3.2 10^3/uL (1.5-5.0); MEAN CORPUSCULAR HEMOGLOBIN 30.9 pg (27.0-33.0); MEAN CORPUSCULAR HGB CONC 32.8 g/dl (32.0-36.5); MEAN CORPUSCULAR VOLUME 94.2 fl (80.0-96.0); MONO # 0.5 10^3/uL (0.0-0.8); MONO % 7.4 % (2.0-8.0); NEUTROPHILS # 3.2 10^3/uL (1.5-8.5); NEUTROPHILS % 44.6 % (36.0-66.0); PLATELET COUNT, AUTOMATED 303 10^3/uL (150-450); WHITE BLOOD COUNT 7.2 10^3/uL (4.0-10.0)
[2024-07-07 11:32] LABS: INR 0.86; PARTIAL THROMBOPLASTIN TIME 23.9 SECONDS (24.8-34.2)
[2024-07-07 11:41] LABS: BLOOD UREA NITROGEN 14 MG/DL (9-23); CALCIUM LEVEL 9.8 MG/DL (8.5-10.1); CARBON DIOXIDE LEVEL 26 MMOL/L (20-31); CHLORIDE LEVEL 104 MMOL/L (98-107); CREATININE FOR GFR 0.64 MG/DL (0.55-1.30); GLOMERULAR FILTRATION RATE > 90.0 (>51); GLUCOSE, FASTING 101 MG/DL (60-100); SODIUM LEVEL 140 MMOL/L (136-145)
== END ==
LOC: M LAB 09:56
PROVIDERS: ATTEND Family Medicine
DX: Z01.818 Encounter for other preprocedural examination (principal)

== ENCOUNTER 2024-11-27 16:51 | Emergency (ER) | payer MEDICARE, MEDICAID ==
[~2024-11-27] VITALS: Ht 154.9 cm; Wt 87.5 kg
[~2024-11-27 16:51] MED LIST changes: -DEPA250T32 PO; +DIVA-65 PO; -PROZ20CA11 PO; +PROZ20CA12 PO
[2024-11-27 19:16] LABS: BASO # 0.0 10^3/uL (0.0-0.2); BASO % 0.5 % (0.0-1.0); EOS # 0.1 10^3/uL (0.0-0.5); EOS % 1.7 % (0.0-3.0); LYMPH # 3.0 10^3/uL (1.5-5.0); LYMPH % 39.3 % (24.0-44.0); MONO # 0.4 10^3/uL (0.0-0.8); MONO % 5.7 % (2.0-8.0); NEUTROPHILS # 4.1 10^3/uL (1.5-8.5); NEUTROPHILS % 52.5 % (36.0-66.0); PLATELET COUNT, AUTOMATED 297 10^3/uL (150-450)
[2024-11-27] MEDS: NS (Normal Saline) 0.9% 1,000 ML IV ONE (19:28)
[2024-11-27] MEDS: KETOROLAC 30 MG/ML 1 ML VIAL IV ONE (19:28)
[2024-11-27 19:41] LABS: ERYTHROCYTE SEDIMENTATION RATE 36 mm/hr (0-30)
[2024-11-27 19:42] LABS: C REACTIVE PROTEIN QUANTITATIV 0.54 MG/DL (<1.0)
[2024-11-27 19:43] LABS: ALT/SGPT 24 U/L (7.0-40); AST/SGOT 25 U/L (<34); CALCIUM LEVEL 9.4 MG/DL (8.5-10.1); CARBON DIOXIDE LEVEL 29 MMOL/L (20-31); CHLORIDE LEVEL 101 MMOL/L (98-107); CREATININE FOR GFR 0.72 MG/DL (0.55-1.30); GLOMERULAR FILTRATION RATE > 90.0 (>51); POTASSIUM SERUM 4.1 MMOL/L (3.5-5.1); SODIUM LEVEL 138 MMOL/L (136-145)
[2024-11-27] MEDS: dexAMETHasone 4 MG/ML 1 ML VIAL IV ONE (20:35)
[2024-11-27] MEDS: diphenhydrAMINE 50 MG/ML VIAL IV STA (20:35)
[2024-11-27] MEDS: TRIAMCINOLONE ACET 0.1% OINTMENT 15GM TOP ONE (21:25)
[2024-11-27] MEDS: DOXYCYCLINE HYCLATE 100 MG TABLET PO ONE (21:34)
[2024-11-27] MEDS ORDERED: DOXY-441 PO (22:14)
[2024-11-27] MEDS ORDERED: BENA2CRE2 TOP (22:14)
[2024-11-27] MEDS ORDERED: KETO-204 PO (22:14)
[2024-11-27 22:28] VITALS: BP 128/60; TEMP 98; O2SAT 98
== END 2024-11-27 22:29 | disposition home or self-care (01) ==
LOC: M ED 16:51
DX: R21 Rash and other nonspecific skin eruption (principal); I10 Essential (primary) hypertension; G43.909 Migraine, unspecified, not intractable, without status migrainosus; Z91.030 Bee allergy status; Z88.8 Allergy status to other drugs, medicaments and biological substances; Z88.2 Allergy status to sulfonamides; Z91.048 Other nonmedicinal substance allergy status; Z79.899 Other long term (current) drug therapy
CPT/HCPCS: 80053; 83605; 84145; 85025; 85652; 86140; 96361; 96374; 96375; 99284; G0463; J1100; J1200; J1885

== ENCOUNTER → 2024-12-08 | Outpatient (CLI) | payer MEDICARE, MEDICAID ==
[~2024-12-08] MED LIST changes: +BENA2CRE2 TOP; +DOXY-441 PO; +KETO-204 PO
== END ==
LOC: M PLAIMG 08:44
PROVIDERS: ATTEND Neurological Surgery
DX: M54.50 Low back pain, unspecified (principal)